=== PATIENT | male | born 1960 | race African-American/Black ===

== ENCOUNTER 2016-04-13 16:22 | Observation (INO) | payer MEDICAID ==
[~2016-04-13] VITALS: Ht 180.3 cm; Wt 80.0 kg
[2016-04-13] VITALS (8 sets, daily range): BP systolic 123–184; BP diastolic 76–117; PULSE 56–86; RESP 16–20; TEMP 97.4–98; O2SAT 95–100
[~2016-04-13 16:22] MED LIST: CARV12.5 PO; CLON.2 PO; HYDRA50 PO; INTE200T2 PO; NIFE1TAB86 PO; NORC7.5T PO; PERI8.6T PO; RALT400 PO; [UNRECOGNIZED DRUG - CODE]
[2016-04-13] MEDS ORDERED: CARV12.52 PO (16:41)
[2016-04-13] MEDS ORDERED: NIFE20 PO (16:41)
[2016-04-13] MEDS ORDERED: RALT400 PO (16:41)
[2016-04-13] MEDS ORDERED: CLON0.2T PO (16:41)
[2016-04-13] MEDS ORDERED: INTE200T PO (16:41)
[2016-04-13] MEDS ORDERED: SODIUM CHLOR 0.9% 1000 ML INJ 1,000 ML IV SCH ×2 (17:09→20:00)
[2016-04-13] MEDS ORDERED: TETANUS/DIPHTHERIA TOXOID ADULT 0.5 ML VIAL IM ONE (17:15)
[2016-04-13] MEDS ORDERED: SODIUM CHLORIDE 0.9% FLUSH 5 ML FLUSH IVF PRN (17:15)
[2016-04-13 17:52] LABS: HEMATOCRIT 23.7 % (39.0-51.0); MEAN CELL VOLUME 85.5 FL (80.0-100.0); MEAN CORPUSCULAR HEMOGLOBIN 30.5 PG (27.0-34.0); MEAN CORPUSCULAR HGB CONC 35.7 % (32.0-36.0); PLATELET COUNT 191 TH/MM3 (150-450); RED BLOOD COUNT 2.78 MIL/MM3 (4.50-5.90); RED CELL DISTRIBUTION WIDTH 17.2 % (11.6-17.2); WHITE BLOOD COUNT 4.6 TH/MM3 (4.0-11.0)
[2016-04-13 17:56] LABS: HEMO FLAGS AUTO DIFF
[2016-04-13 18:03] LABS: APTT (PATIENT) 29.2 SEC (24.3-30.1)
--- NOTE | 2016-04-13 18:07 | RADRPT ---
EXAM DATE/TIME: 04/13/2016 17:50 [facility] COMPARISON: No previous studies available for comparison. INDICATIONS : Fall, laceration to top of head. RADIATION DOSE: 56.35 CTDIvol (mGy) MEDICAL HISTORY : Hypertension. Cardiovascular disease HIV SURGICAL HISTORY : None. ENCOUNTER: Initial ACUITY: 1 day PAIN SCALE: 5/10 LOCATION: cranial TECHNIQUE: Multiple contiguous axial images were obtained of the head. Using automated exposure control and adj ustment of the mA and/or kV according to patient size, radiation dose was kept as low as reasonably a chievable to obtain optimal diagnostic quality images. FINDINGS: CEREBRUM: The ventricles are normal for age. No evidence of midline shift, mass lesion, hemorrhage or acute in farction. No extra-axial fluid collections are seen. POSTERIOR FOSSA: The cerebellum and brainstem are intact. The 4th ventricle is midline. The cerebellopontine angle i s unremarkable. EXTRACRANIAL: The visualized portion of the orbits is intact. SKULL: The calvaria is intact. No evidence of skull fracture. The left frontal sinus is abnormal with what looks like an expanding mucocele. CONCLUSION: Abnormal left frontal sinus as described above. Negative for acute traumatic injury. Fernando Delong MD FACR on April 13, 2016 at 18:04 Board Certified Radiologist. This report was verified electronically.
--- NOTE | 2016-04-13 18:15 | RADRPT ---
EXAM DATE/TIME: 04/13/2016 17:50 [facility] COMPARISON: No previous studies available for comparison. INDICATIONS : Fell, neck pain. RADIATION DOSE: 26.59 CTDIvol (mGy) MEDICAL HISTORY : Hypertension. Cardiovascular disease HIV SURGICAL HISTORY : None. ENCOUNTER: Initial ACUITY: 1 day PAIN SCALE: 5/10 LOCATION: neck TECHNIQUE: Volumetric scanning of the cervical spine was performed. Multiplanar reconstructions in the sagittal, coronal and oblique axial planes were performed. Using automated exposure control and adjustment o f the mA and/or kV according to patient size, radiation dose was kept as low as reasonably achievable to obtain optimal diagnostic quality images. FINDINGS: There are degenerative changes of the cervical spine with near complete anklyosis of C4 on C5 and C5 on C6. There are mild degenerative changes at C1 and C2. C2-C3: The bony spinal canal is normal in size. No evidence of disc bulge or herniation. The neural forami na are bilaterally patent. C3-C4: Mild uncinate ridging is present with minimal bilateral neural foraminal encroachment. C4-C5: Mild uncinate ridging is present. The neural foramen are adequate. C5-C6: Mild uncinate ridging is present. The neural foramen are adequate. There is no spinal stenosis. C6-C7: Mild uncinate ridging is present. There is no spinal stenosis or neural foraminal encroachment. C7-T1: The bony spinal canal is normal in size. No evidence of disc bulge or herniation. The neural forami na are bilaterally patent. CONCLUSION: Degenerative changes as described above. The most significant finding is the anklyosis of C4-C5 and f or the most part C5-C6. There is no evidence for fracture. Fernando Delong MD FACR on April 13, 2016 at 18:07 Board Certified Radiologist. This report was verified electronically.
[2016-04-13 18:21] LABS: BANDS 1 % (0-6); NEUTROPHIL # MANUAL DIFF 1.6 TH/MM3 (1.8-7.7); OVALOCYTES 2+ (NORMAL); POLYS (SEG NEUTROPHILS) 33 % (16-70); WBC DIFF SAMPLE 100
[2016-04-13 18:22] LABS: PLATELET ESTIMATE SMEAR NORMAL (NORMAL); PLATELET MORPHOLOGY NORMAL (NORMAL); SCAN/DIFF FINAL DIFF MANUAL
[2016-04-13 18:26] LABS: ALT (GPT) 22 U/L (12-78); ANION GAP 9 MEQ/L (5-15); AST (GOT) 18 U/L (15-37); BICARBONATE 18.7 MEQ/L (21.0-32.0); BLOOD UREA NITROGEN 34 MG/DL (7-18); CHLORIDE 106 MEQ/L (98-107); GLOMERULAR FILTRATION RATE 21 ML/MIN (>89); POTASSIUM 3.7 MEQ/L (3.5-5.1); SODIUM (NA) 134 MEQ/L (136-145)
[2016-04-13 18:27] LABS: ALKALINE PHOSPHATASE 27 U/L (45-117); TOTAL BILIRUBIN ADULT 0.2 MG/DL (0.2-1.0)
--- NOTE | 2016-04-13 19:14 | PD ---
HPI Chief Complaint: Fall Time Seen by Provider: 16:59 Travel History International Travel<30 days: No Contact w/Intl Traveler<30days: No Traveled to known affect area: No History of Present Illness HPI 55-year-old male brought in by ambulance for evaluation of alcohol intoxication and head injury. The patient reports that his girlfriend yesterday and he is very upset and has been drinking alcohol throughout the day today. No drugs. He does not remember falling. He is complaining of pain on the top of his head where the laceration is. Date of last tetanus is unknown. No neck or back pain. No pain in any other joint or extremity. No chest pain or dyspnea. No paresthesias or motor deficits. He denies suicidal or homicidal ideation. PFSH Past Medical History Anemia: Yes Autoimmune Disease: Yes (HIV) Anxiety: No Depression: No Cancer: No Cardiovascular Problems: Yes (HTN) High Cholesterol: Yes Chemotherapy: No Chest Pain: No Congestive Heart Failure: No Diabetes: No Diminished Hearing: No Genitourinary: Yes Hepatitis: Yes (C) Hypertension: Yes Immune Disorder: Yes (HIV ) Musculoskeletal: Yes Neurologic: Yes Psychiatric: No Respiratory: No Immunizations Current: Yes Myocardial Infarction: Yes ( small heart attack) Radiation Therapy: No Past Surgical History Pacemaker: No Other Surgery: No Social History Alcohol Use: Yes (occ) Tobacco Use: Yes (5 CIG PER DAY ) Substance Use: Yes (MARIJUANA) Allergies-Medications (Allergen,Severity, Reaction): Coded Allergies: *MDRO Multi-Drug Resistant Organism (Verified Adverse Reaction, Unknown, ) 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 MRSA PCR Screens NEGATIVE - 09/12 & 09/17/2015 CLEARED BY INFECTION CONTROL Reported Meds & Prescriptions Reported Meds & Active Scripts Active Reported Nifedipine 20 Mg Cap 20 Mg PO Q12HR Isentress (Raltegravir) 400 Mg Tab 400 Mg PO BID Intelence (Etravirine) 200 Mg Tab 200 Mg PO BID Clonidine (Clonidine HCl) 0.2 Mg Tab 0.2 Mg PO BID Carvedilol 12.5 Mg Tab 12.5 Mg PO BID Intelence (Etravirine) 200 Mg Tab 200 Mg PO Q12HR Review of Systems Except as stated in HPI: all other systems reviewed are Neg Physical Exam Narrative GENERAL: Well-developed, well-nourished, awake, tearful, appears intoxicated, no acute distress. SKIN: Warm and dry. V-shaped laceration on superior scalp, moderate depth, no active bleeding, moderate size, no visible contamination, galea intact. HEAD: Skin exam as above. Normocephalic. EYES: Pupils equal, round, 3 mm, reactive to light. No scleral icterus. No injection or drainage. ENT: No nasal bleeding or discharge. Mucous membranes pink and moist. NECK: Trachea midline. No JVD. No midline cervical spinous step-off or tenderness. CARDIOVASCULAR: Regular rate and rhythm. RESPIRATORY: No accessory muscle use. Clear to auscultation. Breath sounds equal bilaterally. GASTROINTESTINAL: Abdomen soft, non-tender, nondistended. MUSCULOSKELETAL: No obvious deformities. No clubbing. No cyanosis. No edema. NEUROLOGICAL: Awake and alert. No obvious cranial nerve deficits. Motor grossly within normal limits. Normal speech. PSYCHIATRIC: Tearful, appears intoxicated. Data Data Last Documented VS Vital Signs Date Time Temp Pulse Resp B/P Pulse Ox O2 Delivery O2 Flow Rate FiO2 04/13/16 18:24 77 19 176/117 100 Room Air Orders Complete Blood Count With Diff (04/13/16 17:09) Comprehensive Metabolic Panel (04/13/16 17:09) Prothrombin Time / Inr (Pt) (04/13/16 17:09) Act Partial Throm Time (Ptt) (04/13/16 17:09) Iv Access Insert/Monitor (04/13/16 17:09) Ecg Monitoring (04/13/16 17:09) Oximetry (04/13/16 17:09) Sodium Chlor 0.9% 1000 Ml Inj (Ns 1000 M (04/13/16 17:09) Sodium Chloride 0.9% Flush (Ns Flush) (04/13/16 17:15) Tetanus/Diphtheria Tox Adult (Tetanus/Di (04/13/16 17:15) Ct Brain W/O Iv Contrast(Rout) (04/13/16 ) Ct Cerv Spine W/O Contrast (04/13/16 ) Alcohol (Ethanol) (04/13/16 17:09) Sodium Chlor 0.9% 1000 Ml Inj (Ns 1000 M (04/13/16 19:15) Labs Laboratory Tests Test 04/13/16 17:20 White Blood Count 4.6 TH/MM3 Red Blood Count 2.78 MIL/MM3 Hemoglobin 8.5 GM/DL Hematocrit 23.7 % Mean Corpuscular Volume 85.5 FL Mean Corpuscular Hemoglobin 30.5 PG Mean Corpuscular Hemoglobin 35.7 % Concent Red Cell Distribution Width 17.2 % Platelet Count 191 TH/MM3 Mean Platelet Volume 7.5 FL Neutrophils (%) (Auto) % Lymphocytes (%) (Auto) % Monocytes (%) (Auto) % Eosinophils (%) (Auto) % Basophils (%) (Auto) % Neutrophils # (Auto) TH/MM3 Lymphocytes # (Auto) TH/MM3 Monocytes # (Auto) TH/MM3 Eosinophils # (Auto) TH/MM3 Basophils # (Auto) TH/MM3 CBC Comment AUTO DIFF Differential Total Cells 100 Counted Neutrophils % (Manual) 33 % Band Neutrophils % 1 % Lymphocytes % 59 % Monocytes % 7 % Neutrophils # (Manual) 1.6 TH/MM3 Differential Comment FINAL DIFF MANUAL Platelet Estimate NORMAL Platelet Morphology Comment NORMAL Ovalocytes 2+ Prothrombin Time 11.0 SEC Prothromb Time International 1.0 RATIO Ratio Activated Partial 29.2 SEC Thromboplast Time Sodium Level 134 MEQ/L Potassium Level 3.7 MEQ/L Chloride Level 106 MEQ/L Carbon Dioxide Level 18.7 MEQ/L Anion Gap 9 MEQ/L Blood Urea Nitrogen 34 MG/DL Creatinine 3.63 MG/DL Estimat Glomerular Filtration 21 ML/MIN Rate Random Glucose 105 MG/DL Calcium Level 7.6 MG/DL Total Bilirubin 0.2 MG/DL Aspartate Amino Transf 18 U/L (AST/SGOT) Alanine Aminotransferase 22 U/L (ALT/SGPT) Alkaline Phosphatase 27 U/L Total Protein 7.2 GM/DL Albumin 3.0 GM/DL Ethyl Alcohol Level 295 MG/DL [facility] Medical Decision Making Medical Screen Exam Complete: Yes Emergency Medical Condition: Yes Differential Diagnosis Alcohol intoxication, intracranial trauma, cervical spine injury, depression Narrative Course Vital signs show heart rate 86, blood pressure 184/111, pulse ox 100% on room air. CBC is remarkable for WBC 4.6, hemoglobin 8.5, hematocrit 23.7, platelets 191 BMP is remarkable for bicarbonate 18.7, BUN 34, creatinine 3.6, GFR 21 which is slightly worse than his baseline creatinine of around 2.5 and GFR of around 35. Alcohol level is 295. Urine drug screen is positive for cannabinoids. CT head: CONCLUSION: Abnormal left frontal sinus with apparent expanding mucocele. Negative for acute traumatic injury. CT cervical spine: CONCLUSION: Degenerative changes as described above. The most significant finding is the anklyosis of C4-C5 and for the most part C5-C6. There is no evidence for fracture. Patient was made aware of all findings. Again he is not suicidal. Given acute on chronic kidney injury, he'll be admitted for overnight observation. He does not wish to speak to a psychiatrist at this time. Laceration repaired by my PA. See her note for further details. Case discussed with hospitalist Dr. Bills who will admit the patient to her service. Diagnosis Primary Impression: Alcohol intoxication Qualified Code: F10.120 - Alcohol intoxication, uncomplicated Additional Impressions: Acute on chronic renal insufficiency Grief reaction Scalp laceration Qualified Code: S01.01XA - Scalp laceration, initial encounter Admitting Information Admitting Physician Requests: Observation Onofre Dalton MD Apr 13, 2016 19:14
[2016-04-13] MEDS ORDERED: SODIUM CHLOR 0.9% 1000 ML INJ 1,000 ML IV ONE (19:15)
[2016-04-13] MEDS ORDERED: ACETAMINOPHEN 325 MG TAB PO PRN (19:30)
[2016-04-13] MEDS ORDERED: SODIUM CHLORIDE 0.9% FLUSH 5 ML FLUSH FLUSH PRN (19:30)
[2016-04-13] MEDS ORDERED: ONDANSETRON HCL 4 MG/2 ML VIAL IVP PRN (19:30)
[2016-04-13] MEDS ORDERED: BISACODYL 10 MG SUPP PR PRN (19:30)
[2016-04-13] MEDS ORDERED: LORazepam 2 MG/ML VIAL IV PUSH PRN (19:30)
--- NOTE | 2016-04-13 19:32 | HHI.HP ---
[facility] Service [facility] ([place], [place])ists Primary Care Physician Herb Vang MD Admission Diagnosis alcohol intoxication, scalp laceration, grief reaction Diagnoses: (1) Fall Diagnosis: Principal (2) Alcohol intoxication Diagnosis: Principal (3) Scalp laceration Diagnosis: Principal (4) HTN (hypertension) Diagnosis: Principal (5) Grief reaction Diagnosis: Principal (6) HIV (human immunodeficiency virus infection) Diagnosis: Principal (7) CKD (chronic kidney disease) stage 3, GFR 30-59 ml/min Diagnosis: Principal Travel History International Travel<30 Days: No Contact w/Intl Traveler <30 Da: No Traveled to Known Affected Are: No History of Present Illness This is a 55-year-old male with a PMH of HTN, HIV (on HAART), Hepatitis C and CKD Stage III who was brought to the ER by EMS after fall w/ scalp laceration while intoxicated. Pt w/ no h/o Alcohol Abuse, states his girlfriend yesterday and he's been drinking ever since. Fell onto concrete and sustained head laceration, no LOC. On arrival, BP 184/111, HR 86, O2 sat 100% on RA, Afebrile. Creatinine 3.63, previously 2.5 on 09/29/15. CBC at baseline. Alcohol 295. CT Head/C-Spine w/ no acute findings. Review of Systems Other ROS: 14 point review of systems otherwise negative. 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 No h/o DM or CAD Social History PAST SOCIAL HISTORY: Occasional alcohol. Smokes 5 cigarettes/day. Positive for Marijuana. Physical Exam Vital Signs Vital Signs Date Time Temp Pulse Resp B/P Pulse Ox O2 Delivery O2 Flow Rate FiO2 04/13/16 18:24 77 19 176/117 100 Room Air 04/13/16 17:30 86 16 184/111 100 Room Air Physical Exam PE: GENERAL: Very pleasant middle-aged black male in no acute distress however tearful. +intoxicated. HEENT: PERRLA, EOMI. No scleral icterus or conjunctival pallor. No lid lag or facial droop. Scalp laceration s/p repair CARDIOVASCULAR: Regular rate and rhythm. No obvious murmurs to auscultation. No chest tenderness to palpation. RESPIRATORY: No obvious rhonchi or wheezing. Clear to auscultation. Breath sounds equal bilaterally. GASTROINTESTINAL: Abdomen soft, non-tender, nondistended. BS normal. MUSCULOSKELETAL: Extremities without clubbing, cyanosis, or edema. No obvious deformities. NEUROLOGICAL: Awake, alert and oriented x4. No focal neurologic deficits. Moving both upper and lower extremities spontaneously. Laboratory Laboratory Tests Test 04/13/16 17:20 White Blood Count 4.6 Red Blood Count 2.78 Hemoglobin 8.5 Hematocrit 23.7 Mean Corpuscular Volume 85.5 Mean Corpuscular Hemoglobin 30.5 Mean Corpuscular Hemoglobin 35.7 Concent Red Cell Distribution Width 17.2 Platelet Count 191 Mean Platelet Volume 7.5 Neutrophils (%) (Auto) Lymphocytes (%) (Auto) Monocytes (%) (Auto) Eosinophils (%) (Auto) Basophils (%) (Auto) Neutrophils # (Auto) Lymphocytes # (Auto) Monocytes # (Auto) Eosinophils # (Auto) Basophils # (Auto) CBC Comment AUTO DIFF Differential Total Cells 100 Counted Neutrophils % (Manual) 33 Band Neutrophils % 1 Lymphocytes % 59 Monocytes % 7 Neutrophils # (Manual) 1.6 Differential Comment FINAL DIFF MANUAL Platelet Estimate NORMAL Platelet Morphology Comment NORMAL Ovalocytes 2+ Prothrombin Time 11.0 Prothromb Time International 1.0 Ratio Activated Partial 29.2 Thromboplast Time Sodium Level 134 Potassium Level 3.7 Chloride Level 106 Carbon Dioxide Level 18.7 Anion Gap 9 Blood Urea Nitrogen 34 Creatinine 3.63 Estimat Glomerular Filtration 21 Rate Random Glucose 105 Calcium Level 7.6 Total Bilirubin 0.2 Aspartate Amino Transf 18 (AST/SGOT) Alanine Aminotransferase 22 (ALT/SGPT) Alkaline Phosphatase 27 Total Protein 7.2 Albumin 3.0 Ethyl Alcohol Level 295 Result Diagram: 04/13/16 1720 04/13/16 1720 Assessment and Plan Problem List: (1) Fall ICD Code: W19.XXXA Status: Acute (2) Alcohol intoxication ICD Code: F10.129 Status: Acute (3) Scalp laceration ICD Code: S01.01XA Status: Acute (4) Grief reaction ICD Code: F43.20 Status: Acute (5) HTN (hypertension) ICD Code: I10 Status: Acute (6) CKD (chronic kidney disease) stage 3, GFR 30-59 ml/min ICD Code: N18.3 Status: Chronic (7) HIV (human immunodeficiency virus infection) ICD Code: Z21 Status: Chronic Assessment and Plan A/P: 1. Fall: s/p fall while intoxicated, +head trauma, no LOC. CT Head/C-Spine w / no acute findings, images reviewed by me. 2. Scalp Laceration: sustained after fall, s/p repair in ER. No active bleeding. 3. Alcohol Intoxication: No h/o alcohol abuse, acute alcohol intoxication following of his girlfriend yesterday. Alcohol 295. IVF, Ativan prn, Seizure Precautions, MVT/Thiamine/Folate replacement. 4. Grief Reaction: Pt depressed, tearful after of girlfriend yesterday. Would like to speak w/ Psychiatrist, will consult for am. 5. HTN: Uncontrolled. Non-compliant w/ meds since yesterday. BP 180's systolic, resume home medications. Monitor BP. 6. HIV: on HAART, resume home medications. Last CD4 476 on 09/13/15. 7. CKD: Stage III. Acute on Chronic. Creatinine 3.63, previously 2.51 on 03/14. IVF for hydration. Repeat labs in am. 8. DVT Prophylaxis: SCD/Teds. 9. Social work for d/c planning as needed. 10. Case discussed w/ ER physician at length. Problem Qualifiers (1) Alcohol intoxication: Qualified Code: F10.120 - Alcohol intoxication, uncomplicated (2) Scalp laceration: Qualified Code: S01.01XA - Scalp laceration, initial encounter Bridget Bills MD Apr 13, 2016 19:32
--- NOTE | 2016-04-13 19:55 | PD ---
Physical Exam Time Seen by Provider: 19:53 Data Data Last Documented VS Vital Signs Date Time Temp Pulse Resp B/P Pulse Ox O2 Delivery O2 Flow Rate FiO2 04/13/16 18:24 77 19 176/117 100 Room Air Orders Complete Blood Count With Diff (04/13/16 17:09) Comprehensive Metabolic Panel (04/13/16 17:09) Prothrombin Time / Inr (Pt) (04/13/16 17:09) Act Partial Throm Time (Ptt) (04/13/16 17:09) Iv Access Insert/Monitor (04/13/16 17:09) Ecg Monitoring (04/13/16 17:09) Oximetry (04/13/16 17:09) Sodium Chlor 0.9% 1000 Ml Inj (Ns 1000 M (04/13/16 17:09) Sodium Chloride 0.9% Flush (Ns Flush) (04/13/16 17:15) Tetanus/Diphtheria Tox Adult (Tetanus/Di (04/13/16 17:15) Ct Brain W/O Iv Contrast(Rout) (04/13/16 ) Ct Cerv Spine W/O Contrast (04/13/16 ) Alcohol (Ethanol) (04/13/16 17:09) Sodium Chlor 0.9% 1000 Ml Inj (Ns 1000 M (04/13/16 19:15) Admit Order (Ed Use Only) (04/13/16 19:20) Labs Laboratory Tests Test 04/13/16 17:20 White Blood Count 4.6 TH/MM3 Red Blood Count 2.78 MIL/MM3 Hemoglobin 8.5 GM/DL Hematocrit 23.7 % Mean Corpuscular Volume 85.5 FL Mean Corpuscular Hemoglobin 30.5 PG Mean Corpuscular Hemoglobin 35.7 % Concent Red Cell Distribution Width 17.2 % Platelet Count 191 TH/MM3 Mean Platelet Volume 7.5 FL Neutrophils (%) (Auto) % Lymphocytes (%) (Auto) % Monocytes (%) (Auto) % Eosinophils (%) (Auto) % Basophils (%) (Auto) % Neutrophils # (Auto) TH/MM3 Lymphocytes # (Auto) TH/MM3 Monocytes # (Auto) TH/MM3 Eosinophils # (Auto) TH/MM3 Basophils # (Auto) TH/MM3 CBC Comment AUTO DIFF Differential Total Cells 100 Counted Neutrophils % (Manual) 33 % Band Neutrophils % 1 % Lymphocytes % 59 % Monocytes % 7 % Neutrophils # (Manual) 1.6 TH/MM3 Differential Comment FINAL DIFF MANUAL Platelet Estimate NORMAL Platelet Morphology Comment NORMAL Ovalocytes 2+ Prothrombin Time 11.0 SEC Prothromb Time International 1.0 RATIO Ratio Activated Partial 29.2 SEC Thromboplast Time Sodium Level 134 MEQ/L Potassium Level 3.7 MEQ/L Chloride Level 106 MEQ/L Carbon Dioxide Level 18.7 MEQ/L Anion Gap 9 MEQ/L Blood Urea Nitrogen 34 MG/DL Creatinine 3.63 MG/DL Estimat Glomerular Filtration 21 ML/MIN Rate Random Glucose 105 MG/DL Calcium Level 7.6 MG/DL Total Bilirubin 0.2 MG/DL Aspartate Amino Transf 18 U/L (AST/SGOT) Alanine Aminotransferase 22 U/L (ALT/SGPT) Alkaline Phosphatase 27 U/L Total Protein 7.2 GM/DL Albumin 3.0 GM/DL Ethyl Alcohol Level 295 MG/DL MDM Medical Record Reviewed: Yes Supervised Visit with CRYSTAL: No Procedures Procedure Narrative LACERATION LOCATION: Left frontoparietal scalp LENGTH: 7 cm V-shaped NUMBER OF STITCHES/NIMCO: 6 nimco REPAIR: The area of the laceration was prepped with Betadine and sterilely draped. The laceration was infiltrated with 1% lidocaine without epinephrine. The wound was copiously irrigated and explored without evidence of foreign body , tendon injury or neurovascular injury. The wound was closed using nimco. This was a single layer repair. A sterile dressing was applied. The patient was advised to keep the dressing clean and dry. Patient tolerated the procedure well. Diagnosis Primary Impression: Alcohol intoxication Qualified Code: F10.120 - Alcohol intoxication, uncomplicated Additional Impressions: Grief reaction Scalp laceration Qualified Code: S01.01XA - Scalp laceration, initial encounter Acute on chronic renal insufficiency Admitting Information Admitting Physician Requests: Observation Condition: Stable NeftalyBrii HAGEN Apr 13, 2016 19:55
[2016-04-13] MEDS: cloNIDine HCL 0.2 MG TAB PO SCH (20:31)
[2016-04-13] MEDS: CARVEDILOL 12.5 MG TAB PO SCH (20:31)
[2016-04-13] MEDS: THIAMINE INJ 100 MG in SODIUM CHLORIDE 0.9% INJ 100 ML IV SCH (20:55)
[2016-04-13] MEDS ORDERED: NIFEdipine 20 MG CAP PO SCH (21:00)
[2016-04-13] MEDS: NIFEdipine 20 MG CAP PO SCH (21:04)
[2016-04-13] MEDS: ETRAVIRINE 100 MG TAB PO SCH (23:07)
[2016-04-13] MEDS: MULTIVITAMIN INJ 10 ML, FOLIC ACID INJ 1 MG in SODIUM CHLORID 0.9% 500 ML INJ 500 ML IV SCH (23:07)
[2016-04-13] MEDS: SODIUM CHLORIDE 0.9% FLUSH 5 ML FLUSH FLUSH SCH (23:08)
[2016-04-13] MEDS: RALTEGRAVIR 400 MG TAB PO SCH (23:08)
[2016-04-14 04:09] VITALS: BP 160/81; PULSE 63; RESP 20; TEMP 97.9; O2SAT 98
[2016-04-14 06:20] LABS: AUTOMATED NEUTROPHIL # 2.2 TH/MM3 (1.8-7.7); BASOPHIL % 0.6 % (0.0-2.0); EOSINOPHIL % 0.7 % (0.0-4.0); HEMATOCRIT 22.6 % (39.0-51.0); HEMO FLAGS DIFF FINAL; LYMPH % 36.5 % (9.0-44.0); LYMPHOCYTE # 1.6 TH/MM3 (1.0-4.8); MEAN CELL VOLUME 85.5 FL (80.0-100.0); MEAN CORPUSCULAR HEMOGLOBIN 29.1 PG (27.0-34.0); MONO % 10.6 % (0.0-8.0); NEUT % 51.6 % (16.0-70.0); PLATELET COUNT 173 TH/MM3 (150-450); RED BLOOD COUNT 2.65 MIL/MM3 (4.50-5.90); RED CELL DISTRIBUTION WIDTH 17.4 % (11.6-17.2); WHITE BLOOD COUNT 4.3 TH/MM3 (4.0-11.0)
[2016-04-14 06:52] LABS: BICARBONATE 18.4 MEQ/L (21.0-32.0); CALCIUM-PROTEIN CORRECTED 7.9 MG/DL (8.5-10.1); POTASSIUM 4.8 MEQ/L (3.5-5.1); TOTAL BILIRUBIN ADULT 0.2 MG/DL (0.2-1.0)
[2016-04-14 08:22] VITALS: BP 143/82; PULSE 67; RESP 18; TEMP 98; O2SAT 98
[2016-04-14] MEDS: SODIUM CHLORIDE 0.9% FLUSH 5 ML FLUSH FLUSH SCH ×2 (08:25→19:40)
[2016-04-14] MEDS: RALTEGRAVIR 400 MG TAB PO SCH ×2 (08:36→19:41)
[2016-04-14] MEDS: NIFEdipine 20 MG CAP PO SCH ×2 (08:36→19:41)
[2016-04-14] MEDS: SODIUM CHLOR 0.45% 1000 ML INJ 1,000 ML IV SCH ×2 (08:36→18:13)
[2016-04-14] MEDS: ETRAVIRINE 100 MG TAB PO SCH ×2 (08:37→18:13)
[2016-04-14] MEDS: CARVEDILOL 12.5 MG TAB PO SCH ×2 (08:37→19:41)
[2016-04-14] MEDS: cloNIDine HCL 0.2 MG TAB PO SCH ×2 (08:37→19:41)
--- NOTE | 2016-04-14 09:17 | HHI.PR ---
Subjective Remarks Follow-up for fall and dehydration. The patient's having some headache around where the nimco were placed. He has no other complaints at this time. He denies any nausea, vomiting, diarrhea. Objective Vitals Vital Signs Date Time Temp Pulse Resp B/P Pulse Ox O2 Delivery O2 Flow Rate FiO2 04/14/16 08:22 98.0 67 18 143/82 98 04/14/16 04:09 97.9 63 20 160/81 98 04/13/16 23:57 97.4 56 20 123/76 95 04/13/16 22:27 98.0 73 20 133/84 95 04/13/16 21:22 66 19 138/84 100 04/13/16 21:09 80 18 155/94 100 Room Air 04/13/16 20:43 75 16 160/98 99 Room Air 04/13/16 20:34 85 19 181/89 99 Room Air 04/13/16 18:24 77 19 176/117 100 Room Air 04/13/16 17:30 86 16 184/111 100 Room Air I/O 04/13/16 04/13/16 04/13/16 04/14/16 04/14/16 04/14/16 07:00 15:00 23:00 07:00 15:00 23:00 Output Total 500 ml 1650 ml Balance -500 ml -1650 ml Output Urine Total 500 ml 1650 ml Result Diagram: 04/14/16 0529 04/14/16 0529 Imaging Last Impressions Head CT 04/13/16 0000 Signed Impressions: Service Date/Time: Wednesday, April 13, 2016 17:50 - CONCLUSION: Abnormal left frontal sinus as described above. Negative for acute traumatic injury. Fernando Delong MD FACR Cervical Spine CT 04/13/16 0000 Signed Impressions: Service Date/Time: Wednesday, April 13, 2016 17:50 - CONCLUSION: Degenerative changes as described above. The most significant finding is the anklyosis of C4-C5 and for the most part C5-C6. There is no evidence for fracture. Fernando Delong MD FACR Objective Remarks GENERAL: Well-developed well-nourished. In no acute distress. SKIN: Warm and dry. [place] in place on superior scalp. HEENT: Normocephalic. Pupils equal and round. Mucous membranes pink and moist. CARDIOVASCULAR: Regular rate and rhythm. No murmur appreciated. RESPIRATORY: No accessory muscle use. Clear to auscultation. Breath sounds equal bilaterally. GASTROINTESTINAL: Abdomen soft, non-tender, nondistended. Bowel sounds x4. MUSCULOSKELETAL: No obvious deformities. No clubbing or cyanosis. No edema. NEUROLOGICAL: Awake and alert. No focal neurological deficits. Moves upper and lower extremities spontaneously. Normal speech. PSYCHIATRIC: Appropriate mood and affect; insight and judgment normal. A/P Problem List: (1) Fall ICD Code: W19.XXXA Status: Acute (2) Alcohol intoxication ICD Code: F10.129 Status: Resolved (3) Scalp laceration ICD Code: S01.01XA Status: Acute (4) Grief reaction ICD Code: F43.20 Status: Acute (5) HTN (hypertension) ICD Code: I10 Status: Chronic (6) CKD (chronic kidney disease) stage 3, GFR 30-59 ml/min ICD Code: N18.3 Status: Acute (7) HIV (human immunodeficiency virus infection) ICD Code: Z21 Status: Chronic Assessment and Plan 55-year-old male with a PMH of HTN, HIV (on HAART), Hepatitis C and CKD Stage III who was brought to the ER by EMS after fall w/ scalp laceration while intoxicated Fall: s/p fall while intoxicated, +head trauma, no LOC. CT Head/C-Spine w/ no acute findings. Pain control with Tylenol and oxycodone as needed. Scalp Laceration: sustained after fall, s/p repair in ED. Advised patient have nimco removed in 5-7 days. Alcohol Intoxication: No h/o alcohol abuse, acute alcohol intoxication following recent of his girlfriend. Alcohol 295 at admission. [place] protocol, MVT/Thiamine/Folate replacement. Grief Reaction: Pt presented depressed, tearful after recent of girlfriend. Psychiatry was consulted. HTN: Chronic, stable. Better controlled since resuming home BP meds. Continue clonidine, nifedipine, carvedilol. Monitor BP. HIV: on HAART, continue home medications. Last CD4 476 on 09/13/15. SHON on CKD: Stage III. Creatinine 3.63, previously 2.51 on 10/09/15. Improving to 3.2 with IVF. Follow-up BMP. Anemia: Normocytic, likely chronic disease. Hemoglobin 8.5/7.7, previously 0.4 on 09/27/15. Metabolic acidosis: Mild. Bicarbonate 18.4. Likely secondary to alcohol. IVF and follow-up BMP. DVT Prophylaxis: SCD/Teds. Discharge Planning Disposition pending further clinical improvement. Hopefully discharge tomorrow a.m. Attending Statement The exam, history, and the medical decision-making described in the above note were completed with the assistance of the mid-level provider. I reviewed and agree with the findings presented. I attest that I had a [id number] encounter with the patient on the same day, and personally performed and documented my assessment and findings in the medical record. Problem Qualifiers (1) Fall: Qualified Code: W19.XXXA - Fall, initial encounter (2) Alcohol intoxication: Qualified Code: F10.120 - Alcohol intoxication, uncomplicated (3) Scalp laceration: Qualified Code: S01.01XA - Scalp laceration, initial encounter (4) HTN (hypertension): Qualified Code: I10 - Essential hypertension Alex Diggs Apr 14, 2016 09:17 Amarjit Payton MD Apr 22, 2016 00:17
[2016-04-14] MEDS ORDERED: LORazepam 2 MG TAB PO PRN (09:30)
[2016-04-14] MEDS ORDERED: FLUMAZENIL 0.5 MG/5 ML VIAL IV PUSH PRN (09:30)
[2016-04-14] MEDS ORDERED: LORazepam 2 MG/ML VIAL IV PUSH PRN ×2 (09:30)
[2016-04-14] MEDS ORDERED: LORazepam 1 MG TAB PO PRN (09:30)
[2016-04-14 11:24] VITALS: BP 101/60; PULSE 63; RESP 19; TEMP 97.9; O2SAT 95
[2016-04-14 15:25] VITALS: BP 146/85; PULSE 64; RESP 17; TEMP 98; O2SAT 94
--- NOTE | 2016-04-14 15:52 | PD.CONS ---
Provisional Diagnosis Admission Date Apr 13, 2016 at 19:22 [place] I. Acute alcohol intoxication [place] II. Deferred [place] III. Hypertension, HIV, kidney failure, anemia [place] IV. Recent of girlfriend [place] V. 50 History of Present Illness Service Psychiatry Consult Requested By ER physician Reason for Consult Evaluate grief Primary Care Physician Herb Vang MD HPI Patient is a 55-year-old black male with no psychiatric history. Patient was seen, ER documentation reviewed, and case discussed with nursing. Patient describes acute alcohol intoxication in the setting of the of his girlfriend of 12 years. Patient says that she did in the hospital, this [facility], yesterday morning of medical complications secondary to alcohol abuse. This information could not be verified. Patient says he got then use and started drinking at home. Said he went through 1.5 pints of whiskey. He then went outside and slipped and brought to the emergency room. Patient says there is no more alcohol at home because he left that outside in the corner. Patient describes this is an isolated incident and denies recent alcohol abuse or dependence. He says he has a history of abuse in his 30s but never joined or had to go through detox. He drinks 2-3 beers a week at this time. ER documentation did not note that any time the patient expressed suicidal ideation. And today patient denies suicidal ideations, plans, or intent. Patient denies depressed mood though he is still upset over the . "I just want to get home and back in my bed." Denies poor sleep, denies poor appetite, denies anhedonia, denies lack of energy. Patient denies manic symptoms. Patient denies auditory or visual hallucinations or delusions. Patient lives with his son and is on SSI for various medical concerns. He continues to be treated for acute on chronic kidney failure, HIV, hypertension, and anemia. He is on the ciwa protocol and has not needed to receive any Ativan. No evidence of alcohol withdrawal such as tremors, confusion, nausea or vomiting. 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 MRSA PCR Screens NEGATIVE - 09/12 & 09/17/2015 CLEARED BY INFECTION CONTROL Past Medical History Hypertension, HIV, kidney failure, anemia Reported Medications Nifedipine 20 Mg Cap20 Mg PO Q12HR #120 CAP Ref 0 04/13/16 Raltegravir (Isentress)400 Mg [id number] Mg PO BID #60 TAB Ref 0 04/13/16 Etravirine (Intelence)200 Mg [id number] Mg PO BID Ref 0 04/13/16 Clonidine 0.2 Mg Tab0.2 Mg PO BID #60 TAB Ref 0 04/13/16 Carvedilol 12.5 Mg Tab12.5 Mg PO BID #60 TAB Ref 0 04/13/16 Etravirine (Intelence)200 Mg [id number] Mg PO Q12HR 04/21/13 Current Medications Medications (Trade) Dose Ordered Sig/Tomi Route Start Time Stop Time Status Last Admin Multivitamins 10 ml/Folic Acid 1 mg/Sodium Chloride 510.2 ml @ 125 mls/hr Q24H IV 04/13/16 20:00 04/18/16 19:59 04/13/16 23:07 (Thiamine Inj/NS Inj) 101 ml @ 100 mls/hr Q24H IV 04/13/16 20:00 04/16/16 19:59 04/13/16 20:55 (Vitamin B1) 100 mg DAILY PO 04/17/16 09:00 (NS Flush) 2 ml UNSCH PRN FLUSH 04/13/16 19:30 (NS Flush) 2 ml BID FLUSH 04/13/16 21:00 04/13/16 23:08 (Zofran Inj) 4 mg Q6H PRN IVP 04/13/16 19:30 (Dulcolax Supp) 10 mg DAILY PRN FL 04/13/16 19:30 (Tylenol) 650 mg Q6H PRN PO 04/13/16 19:30 (Roxicodone) 10 mg Q4H PRN PO 04/13/16 19:30 04/13/16 21:05 (Roxicodone) 5 mg Q4H PRN PO 04/13/16 19:30 (Coreg) 12.5 mg BID PO 04/13/16 21:00 04/14/16 08:37 (Catapres) 0.2 mg BID PO 04/13/16 21:00 04/14/16 08:37 (Isentress) 400 mg BID PO 04/13/16 21:00 04/14/16 08:36 (Intelence) 200 mg BIDPC PO 04/13/16 20:15 04/14/16 08:37 Nifedipine 20 mg 20 mg Q12HR PO 04/13/16 21:00 04/14/16 08:36 (1/2 NS 1000 ml Inj) 1,000 ml @ 100 mls/hr Q10H IV 04/14/16 08:00 04/14/16 08:36 (Romazicon Inj) 0.2 mg Q1M PRN IV PUSH 04/14/16 09:30 (Ativan) 1 mg Q4H PRN PO 04/14/16 09:30 (Ativan) 2 mg Q2H PRN PO 04/14/16 09:30 (Ativan Inj) 2 mg Q1H PRN IV PUSH 04/14/16 09:30 (Ativan Inj) 2 mg Q15M PRN IV PUSH 04/14/16 09:30 Family History Denies Social History Patient is on disability for his medical diagnoses. Patient lives with son. Got through the 11th grade. History of alcohol abuse in his 30s as noted in history of present illness. Denies any other drugs. Patient's Strengths (min. 2) Compliance with medical treatment, good support system from son, good insight, no chronic alcohol Physical Exam Vital Signs Vital Signs Date Time Temp Pulse Resp B/P Pulse Ox O2 Delivery O2 Flow Rate FiO2 04/14/16 15:25 98.0 64 17 146/85 94 04/13/16 21:09 Room Air I/O 04/13/16 04/13/16 04/14/16 08:00 16:00 00:00 Output Total 750 ml Balance -750 ml Mental Status Examination Appearance Disheveled, thin Speech: Unremarkable Orientation: x3, Situation Memory: Unremarkable Thought Process: Logical, Organized Thought Content: Unremarkable Fund of Knowledge Fair Hallucination Type: None Attention and Concentration: Good Suicidal Ideation: No Previous Suicide Attempts: No Homicidal Ideation: No Previous Homicide Attempts: No Insight: Good Judgement: WNL Affect: Good Mood: Appropriate Motor Activity: Normal gait, Abnormal gait-specify (not tested) Assessment & Plan Problem List: (1) Alcohol intoxication ICD Code: F10.129 Assessment & Plan Patient is a 55-year-old male with no psychiatric history no history of psychotropics. He had a fall secondary to acute alcohol intoxication. Although patient is distraught due to the of his longtime girlfriend he is not voicing any symptoms of a depressive disorder or suicidal ideation. Patient can be discharged home once medically cleared. Patient was advised if his mood changes or he develops suicidal ideation to seek emergency services such as 911. Psychoeducation done about alcohol abuse and patient says he is determined to not drink. Discharge Planning See above Request HC Surrog/Guard Advoc?: No Dustin Syed DO Apr 14, 2016 15:52
[2016-04-14] MEDS: MULTIVITAMIN INJ 10 ML, FOLIC ACID INJ 1 MG in SODIUM CHLORID 0.9% 500 ML INJ 500 ML IV SCH (19:42)
[2016-04-14] MEDS: THIAMINE INJ 100 MG in SODIUM CHLORIDE 0.9% INJ 100 ML IV SCH (19:42)
[2016-04-14 20:37] VITALS: BP 145/76; PULSE 64; RESP 20; TEMP 98.1; O2SAT 96
[2016-04-14 23:58] VITALS: BP 120/79; PULSE 60; RESP 20; TEMP 98; O2SAT 93
[2016-04-15] VITALS (7 sets, daily range): BP systolic 108–152; BP diastolic 65–86; PULSE 52–69; RESP 16–20; TEMP 96.9–99.3; O2SAT 95–99
[2016-04-15] MEDS: SODIUM CHLOR 0.45% 1000 ML INJ 1,000 ML IV SCH ×2 (03:54→14:37)
[2016-04-15 07:29] LABS: AUTOMATED NEUTROPHIL # 1.4 TH/MM3 (1.8-7.7); BASOPHIL % 0.8 % (0.0-2.0); EOSINOPHIL # 0.1 TH/MM3 (0-0.4); EOSINOPHIL % 3.3 % (0.0-4.0); LYMPH % 45.9 % (9.0-44.0); LYMPHOCYTE # 1.7 TH/MM3 (1.0-4.8); MEAN CELL VOLUME 85.1 FL (80.0-100.0); MEAN CORPUSCULAR HEMOGLOBIN 29.1 PG (27.0-34.0); MEAN CORPUSCULAR HGB CONC 34.2 % (32.0-36.0); MONO % 11.8 % (0.0-8.0); NEUT % 38.2 % (16.0-70.0); PLATELET COUNT 157 TH/MM3 (150-450); RED BLOOD COUNT 2.46 MIL/MM3 (4.50-5.90); RED CELL DISTRIBUTION WIDTH 17.3 % (11.6-17.2); WHITE BLOOD COUNT 3.7 TH/MM3 (4.0-11.0)
[2016-04-15 07:38] LABS: HEMO FLAGS DIFF FINAL
[2016-04-15 07:41] LABS: HEMATOCRIT 20.9 % (39.0-51.0)
[2016-04-15 07:47] LABS: BICARBONATE 21.8 MEQ/L (21.0-32.0); POTASSIUM 4.5 MEQ/L (3.5-5.1)
[2016-04-15] MEDS ORDERED: ACETAMINOPHEN 325 MG TAB PO PRN (08:00)
[2016-04-15] MEDS ORDERED: diphenhydrAMINE HCL 25 MG CAP PO PRN (08:00)
[2016-04-15] MEDS ORDERED: SODIUM CHLOR 0.9% 250 ML INJ 250 ML IV ONE (08:00)
[2016-04-15 08:05] LABS: CALCIUM-PROTEIN CORRECTED 7.7 MG/DL (8.5-10.1)
[2016-04-15] MEDS ORDERED: CALCIUM CARBONATE 500 MG CHEWABLE TAB CHEW SCH (09:45)
[2016-04-15] MEDS: CARVEDILOL 12.5 MG TAB PO SCH (09:48)
[2016-04-15] MEDS: RALTEGRAVIR 400 MG TAB PO SCH (09:55)
[2016-04-15] MEDS: ETRAVIRINE 100 MG TAB PO SCH (09:55)
[2016-04-15] MEDS: cloNIDine HCL 0.2 MG TAB PO SCH (09:55)
[2016-04-15] MEDS: SODIUM CHLORIDE 0.9% FLUSH 5 ML FLUSH FLUSH SCH (09:57)
[2016-04-15] MEDS: NIFEdipine 20 MG CAP PO SCH (09:57)
--- NOTE | 2016-04-15 11:14 | HHI.PR ---
Subjective Remarks Follow-up for alcohol intoxication and dehydration. The patient feels much better today. Still has a mild headache around the donna. He denies any nausea, vomiting, blurred vision, chest pain, shortness breath, and dark or bloody stools. He plans to abstain from alcohol in the future. Agreeable for blood transfusion. Objective Vitals Vital Signs Date Time Temp Pulse Resp B/P Pulse Ox O2 Delivery O2 Flow Rate FiO2 04/15/16 08:38 99.3 59 18 152/85 98 04/15/16 05:45 97.6 52 20 150/86 97 04/14/16 23:58 98.0 60 20 120/79 93 04/14/16 20:37 98.1 64 20 145/76 96 04/14/16 15:25 98.0 64 17 146/85 94 04/14/16 11:24 97.9 63 19 101/60 95 I/O 04/14/16 04/14/16 04/14/16 04/15/16 04/15/16 04/15/16 07:00 15:00 23:00 07:00 15:00 23:00 Intake Total 690 ml 700 ml Output Total 1650 ml 400 ml 850 ml Balance -1650 ml 290 ml -150 ml Intake Oral 240 ml IV Total 450 ml 700 ml Output Urine Total 1650 ml 400 ml 850 ml # Bowel Movements 0 0 Result Diagram: 04/15/16 0623 04/15/16 0623 Imaging Last Impressions Head CT 04/13/16 0000 Signed Impressions: Service Date/Time: Wednesday, April 13, 2016 17:50 - CONCLUSION: Abnormal left frontal sinus as described above. Negative for acute traumatic injury. Fernando Delong MD FACR Cervical Spine CT 04/13/16 0000 Signed Impressions: Service Date/Time: Wednesday, April 13, 2016 17:50 - CONCLUSION: Degenerative changes as described above. The most significant finding is the anklyosis of C4-C5 and for the most part C5-C6. There is no evidence for fracture. Fernando Delong MD FACR Objective Remarks GENERAL: Well-developed well-nourished. In no acute distress. SKIN: Warm and dry. [place] in place on superior scalp. HEENT: Normocephalic. Pupils equal and round. Mucous membranes pink and moist. CARDIOVASCULAR: Regular rate and rhythm. No murmur appreciated. RESPIRATORY: No accessory muscle use. Clear to auscultation. Breath sounds equal bilaterally. GASTROINTESTINAL: Abdomen soft, non-tender, nondistended. Bowel sounds x4. MUSCULOSKELETAL: No obvious deformities. No clubbing or cyanosis. No edema. NEUROLOGICAL: Awake and alert. No focal neurological deficits. Moves upper and lower extremities spontaneously. Normal speech. PSYCHIATRIC: Appropriate mood and affect; insight and judgment normal. A/P Problem List: (1) Fall ICD Code: W19.XXXA Status: Acute (2) Alcohol intoxication ICD Code: F10.129 Status: Resolved (3) Scalp laceration ICD Code: S01.01XA Status: Acute (4) Grief reaction ICD Code: F43.20 Status: Acute (5) HTN (hypertension) ICD Code: I10 Status: Chronic (6) CKD (chronic kidney disease) stage 3, GFR 30-59 ml/min ICD Code: N18.3 Status: Acute (7) HIV (human immunodeficiency virus infection) ICD Code: Z21 Status: Chronic Assessment and Plan 55-year-old male with a PMH of HTN, HIV (on HAART), Hepatitis C and CKD Stage III who was brought to the ER by EMS after fall w/ scalp laceration while intoxicated Fall: s/p fall while intoxicated, +head trauma, no LOC. CT Head/C-Spine w/ no acute findings. Pain control with Tylenol as needed. Scalp Laceration: sustained after fall, s/p repair in ED. Advised patient have donna removed in 5-7 days. Alcohol Intoxication: No h/o alcohol abuse, acute alcohol intoxication following recent of his girlfriend. Alcohol 295 at admission. CIWA protocol, MVT/Thiamine/Folate replacement. Counseled, plans to abstain from alcohol. Grief Reaction: Pt presented depressed, tearful after recent of girlfriend. Psychiatry was consulted, no specific recs, appreciate input. HTN: Chronic, stable. Better controlled since resuming home BP meds. Continue clonidine, nifedipine, carvedilol. HIV: on HAART, continue home medications. Last CD4 476 on 09/13/15. SHON on CKD: Stage III. Creatinine 3.63, previously 2.51 on 10/09/15. Improving to 2.79 with IVF. Improved. Anemia: Normocytic, likely chronic disease. Hemoglobin 8.5/7.7/7.2, reviewed previous values, likely chronic with dilutional component from IVF as above. However with critically low hematocrit, we'll transfuse 1 unit PRBC. Metabolic acidosis: Mild. Bicarbonate 18.4. Likely secondary to alcohol. Resolved with IVF. Hypocalcemia: Start oral replacement with Tums. DVT Prophylaxis: SCD/Teds. Written by Alex Diggs, acting as scribe for Dr. Payton on 04/15/16 at 11:14. Discharge Planning Discharge patient to home after blood transfusion Condition on discharge: Improved Regular Diet as tolerated Regular activity Rx written: Tums Follow-up with primary care physician Attending Statement The documentation accurately reflects the work performed [id number] by me, Dr. Payton on 04/15/16 at 11:14. Problem Qualifiers (1) Fall: Qualified Code: W19.XXXA - Fall, initial encounter (2) Alcohol intoxication: Qualified Code: F10.120 - Alcohol intoxication, uncomplicated (3) Scalp laceration: Qualified Code: S01.01XA - Scalp laceration, initial encounter (4) HTN (hypertension): Qualified Code: I10 - Essential hypertension Alex Diggs Apr 15, 2016 11:14 Amarjit Payton MD Apr 24, 2016 07:31
[2016-04-15] MEDS ORDERED: CALC500C16 CHEW (13:02)
[2016-04-17] MEDS ORDERED: THIAMINE HCL 100 MG TAB PO SCH (09:00)
== END 2016-04-15 20:03 | disposition home or self-care (01) ==
LOC: NEPA 16:22 → NEDA 19:22 → NEPHCDU 22:16
PROVIDERS: ADMIT Internal Medicine; ATTEND Internal Medicine
DX: S01.01XA Laceration without foreign body of scalp, initial encounter (principal); F10.120 Alcohol abuse with intoxication, uncomplicated; Y90.8 Blood alcohol level of 240 mg/100 ml or more; F43.29 Adjustment disorder with other symptoms; I12.9 Hypertensive chronic kidney disease with stage 1 through stage 4 chronic kidney disease, or unspecified chronic kidney disease; N18.3 Chronic kidney disease, stage 3 (moderate); W19.XXXA Unspecified fall, initial encounter; B19.20 Unspecified viral hepatitis C without hepatic coma; E86.0 Dehydration; Z21 Asymptomatic human immunodeficiency virus [HIV] infection status
CPT/HCPCS: 12002; 36430; 70450; 72125; 80048; 80053; 80320; 84155; 85007; 85025; 85027; 85610; 85730; 86850; 86900; 86901; 86920; 90471; 90714; 96360; 99285; G0378; J3411; J7030; J7040; J7050; P9016

== ENCOUNTER 2016-08-23 16:24 | Inpatient (IN) | payer MEDICAID ==
[~2016-08-23] VITALS: Ht 182.9 cm; Wt 62.1 kg
[~2016-08-23 16:24] MED LIST changes: +CALC500C16 CHEW; -CARV12.5 PO; +CARV12.52 PO; -CLON.2 PO; +CLON0.2T PO; -HYDRA50 PO; +INTE200T PO; -NIFE1TAB86 PO; +NIFE20 PO; -NORC7.5T PO; -PERI8.6T PO; -[UNRECOGNIZED DRUG - CODE]
[2016-08-23 16:28] VITALS: BP 148/98; PULSE 74; RESP 16; TEMP 98.8; O2SAT 98
--- NOTE | 2016-08-23 16:37 | PD ---
HPI . cold symptoms and food not tasting good Chief Complaint: General Weakness Time Seen by Provider: 16:37 Travel History International Travel<30 days: No Contact w/Intl Traveler<30days: No Traveled to known affect area: No History of Present Illness HPI 55 yr old male with history of CKD, hypertension, GERD, HIV here with complaints of cold and flulike symptoms for the past 6 days. Patient says he has been trying to fight these symptoms off by himself at home, for the past few days he has lost taste for food and this is what prompted him to come to the emergency department. He states he is HIV positive and has not been taking his medications for some time. He says that his primary care provider will not give it to him. He does not recall an infectious disease specialist. He tells me that he has also had about 50 pound weight loss in the past 4-5 months. He tells me that he has been coughing up mucus that is thick and white, sometimes yellow. He denies any abdominal pain, nausea, vomiting, chest pain, shortness of breath, fever or chills. I reviewed his past medical records: Last CD4 count in June 2015 was 476. PFSH Past Medical History Anemia: Yes Autoimmune Disease: Yes (HIV) Anxiety: No Depression: No Cancer: No Cardiovascular Problems: Yes (HTN) High Cholesterol: Yes Chemotherapy: No Chest Pain: No Congestive Heart Failure: No Diabetes: No Diminished Hearing: No Genitourinary: Yes Hepatitis: Yes (C) Hypertension: Yes Immune Disorder: Yes (HIV ) Musculoskeletal: Yes Neurologic: Yes Psychiatric: No Respiratory: No Immunizations Current: Yes Myocardial Infarction: Yes ( small heart attack) Radiation Therapy: No Past Surgical History Pacemaker: No Other Surgery: No Social History Alcohol Use: Yes (occ) Tobacco Use: Yes (5 CIG PER DAY ) Substance Use: Yes (MARIJUANA) Allergies-Medications (Allergen,Severity, Reaction): Coded Allergies: *MDRO Multi-Drug Resistant Organism (Verified Adverse Reaction, Unknown, Cleared 09/17/15, 04/14/16) 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 MRSA PCR Screens NEGATIVE - 09/12 & 09/17/2015 CLEARED BY INFECTION CONTROL Reported Meds & Prescriptions Reported Meds & Active Scripts Active Calcium Carbonate (Antacid) 500 Mg Chew 500 Mg CHEW Q12HR Reported Nifedipine 20 Mg Cap 20 Mg PO Q12HR Isentress (Raltegravir) 400 Mg Tab 400 Mg PO BID Intelence (Etravirine) 200 Mg Tab 200 Mg PO BID Clonidine (Clonidine HCl) 0.2 Mg Tab 0.2 Mg PO BID Carvedilol 12.5 Mg Tab 12.5 Mg PO BID Intelence (Etravirine) 200 Mg Tab 200 Mg PO Q12HR Review of Systems General / Constitutional: Positive: Weight Loss, No: Fever Eyes: No: Visual changes HENT: No: Headaches Cardiovascular: No: Chest Pain or Discomfort Respiratory: Positive: Cough, No: Shortness of Breath, Orthopnea, Night Sweats Gastrointestinal: No: Nausea, Vomiting, Abdominal Pain, Hematemesis, Hematochezia Genitourinary: No: Dysuria Musculoskeletal: No: Pain Skin: No Rash Neurologic: No: Weakness Psychiatric: No: Depression Endocrine: No: Polydipsia Hematologic/Lymphatic: No: Easy Bruising Physical Exam Narrative GENERAL: AAO x 3, no acute distress, cachectic appearance SKIN: Warm and dry. No visible rashes or bruising. HEAD: Normocephalic and atraumatic. EYES: No scleral icterus. No injection or drainage. EOM intact, PERRLA ENT: No nasal drainage noted. Mucous membranes pink. Airway patent. NECK: Supple, trachea midline. No JVD. No lymphadenopathy CARDIOVASCULAR: Regular rate and rhythm without murmurs, gallops, or rubs. RESPIRATORY: Rhonchi and slight crackle on the left side with diminished breath sounds GASTROINTESTINAL: Abdomen soft, non-tender, nondistended. Thin EXTREMITIES: No cyanosis or edema. BACK: Nontender without obvious deformity. No CVA tenderness. PSYCH: AAO x 3, normal affect. Data Data Last Documented VS Vital Signs Date Time Temp Pulse Resp B/P Pulse Ox O2 Delivery O2 Flow Rate FiO2 08/23/16 17:00 Room Air 08/23/16 16:28 98.8 74 16 148/98 98 Orders Complete Blood Count With Diff (08/23/16 16:43) Comprehensive Metabolic Panel (08/23/16 16:43) Influenzae A/B Antigen (08/23/16 16:43) Iv Access Insert/Monitor (08/23/16 16:43) Chest, Single Ap (08/23/16 16:43) Admit Order (Ed Use Only) (08/23/16 17:55) Labs Laboratory Tests Test 08/23/16 17:00 White Blood Count 4.2 TH/MM3 Red Blood Count 3.01 MIL/MM3 Hemoglobin 8.6 GM/DL Hematocrit 25.7 % Mean Corpuscular Volume 85.4 FL Mean Corpuscular Hemoglobin 28.6 PG Mean Corpuscular Hemoglobin 33.4 % Concent Red Cell Distribution Width 14.4 % Platelet Count 223 TH/MM3 Mean Platelet Volume 7.4 FL Neutrophils (%) (Auto) 49.3 % Lymphocytes (%) (Auto) 34.8 % Monocytes (%) (Auto) 10.0 % Eosinophils (%) (Auto) 4.7 % Basophils (%) (Auto) 1.2 % Neutrophils # (Auto) 2.1 TH/MM3 Lymphocytes # (Auto) 1.4 TH/MM3 Monocytes # (Auto) 0.4 TH/MM3 Eosinophils # (Auto) 0.2 TH/MM3 Basophils # (Auto) 0.1 TH/MM3 CBC Comment DIFF FINAL Differential Comment Sodium Level 132 MEQ/L Potassium Level 5.1 MEQ/L Chloride Level 103 MEQ/L Carbon Dioxide Level 16.5 MEQ/L Anion Gap 13 MEQ/L Blood Urea Nitrogen 73 MG/DL Creatinine 8.16 MG/DL Estimat Glomerular Filtration 8 ML/MIN Rate Random Glucose 97 MG/DL Calcium Level 7.7 MG/DL Total Bilirubin 0.3 MG/DL Aspartate Amino Transf 14 U/L (AST/SGOT) Alanine Aminotransferase 14 U/L (ALT/SGPT) Alkaline Phosphatase 40 U/L Total Protein 7.0 GM/DL Albumin 2.1 GM/DL [facility] Medical Decision Making Medical Screen Exam Complete: Yes Emergency Medical Condition: Yes Medical Record Reviewed: Yes Differential Diagnosis Pneumonia, HIV wasting, failure to thrive, AIDS, opportunistic infection Narrative Course 55 yr old male with multiple medical issues here with c/o cold/flu like symptoms and not having taste. Labs have been ordered. Patient is cachectic. Labs reveal renal failure. He also has anemia, which is likely multifactorial. He will need to be admitted. Laboratory Tests Test 08/23/16 17:00 White Blood Count 4.2 TH/MM3 Red Blood Count 3.01 MIL/MM3 Hemoglobin 8.6 GM/DL Hematocrit 25.7 % Mean Corpuscular Volume 85.4 FL Mean Corpuscular Hemoglobin 28.6 PG Mean Corpuscular Hemoglobin 33.4 % Concent Red Cell Distribution Width 14.4 % Platelet Count 223 TH/MM3 Mean Platelet Volume 7.4 FL Neutrophils (%) (Auto) 49.3 % Lymphocytes (%) (Auto) 34.8 % Monocytes (%) (Auto) 10.0 % Eosinophils (%) (Auto) 4.7 % Basophils (%) (Auto) 1.2 % Neutrophils # (Auto) 2.1 TH/MM3 Lymphocytes # (Auto) 1.4 TH/MM3 Monocytes # (Auto) 0.4 TH/MM3 Eosinophils # (Auto) 0.2 TH/MM3 Basophils # (Auto) 0.1 TH/MM3 CBC Comment DIFF FINAL Differential Comment Sodium Level 132 MEQ/L Potassium Level 5.1 MEQ/L Chloride Level 103 MEQ/L Carbon Dioxide Level 16.5 MEQ/L Anion Gap 13 MEQ/L Blood Urea Nitrogen 73 MG/DL Creatinine 8.16 MG/DL Estimat Glomerular Filtration 8 ML/MIN Rate Random Glucose 97 MG/DL Calcium Level 7.7 MG/DL Total Bilirubin 0.3 MG/DL Aspartate Amino Transf 14 U/L (AST/SGOT) Alanine Aminotransferase 14 U/L (ALT/SGPT) Alkaline Phosphatase 40 U/L Total Protein 7.0 GM/DL Albumin 2.1 GM/DL 1740: I have requested call for admission I have spoke with the patient and he understands the need for admission and is in agreement. 1755: Discussed with Dr. Mariola Uribe. Patient being admitted under his care. Diagnosis Primary Impression: Renal failure Qualified Code: N17.9 - Acute renal failure superimposed on chronic kidney disease, unspecified CKD stage, unspecified acute renal failure type Additional Impression: Anemia Qualified Code: D64.9 - Anemia, unspecified type Admitting Information Admitting Physician Requests: Admit Condition: Stable Hilaria Peña August 23, 2016 16:37
[2016-08-23 17:15] LABS: AUTOMATED NEUTROPHIL # 2.1 TH/MM3 (1.8-7.7); BASOPHIL # 0.1 TH/MM3 (0-0.2); BASOPHIL % 1.2 % (0.0-2.0); EOSINOPHIL # 0.2 TH/MM3 (0-0.4); EOSINOPHIL % 4.7 % (0.0-4.0); HEMATOCRIT 25.7 % (39.0-51.0); HEMO FLAGS DIFF FINAL; LYMPH % 34.8 % (9.0-44.0); LYMPHOCYTE # 1.4 TH/MM3 (1.0-4.8); MEAN CELL VOLUME 85.4 FL (80.0-100.0); MEAN CORPUSCULAR HEMOGLOBIN 28.6 PG (27.0-34.0); MEAN CORPUSCULAR HGB CONC 33.4 % (32.0-36.0); NEUT % 49.3 % (16.0-70.0); PLATELET COUNT 223 TH/MM3 (150-450); RED BLOOD COUNT 3.01 MIL/MM3 (4.50-5.90); RED CELL DISTRIBUTION WIDTH 14.4 % (11.6-17.2); WHITE BLOOD COUNT 4.2 TH/MM3 (4.0-11.0)
--- NOTE | 2016-08-23 17:15 | RADRPT ---
EXAM DATE/TIME: 08/23/2016 16:52 [facility] COMPARISON: CHEST SINGLE AP, February 14, 2015, 4:07. INDICATIONS : Cough MEDICAL HISTORY : Hypertension. Cardiovascular disease HIV SURGICAL HISTORY : Gastric mass ENCOUNTER: Initial ACUITY: 1 day PAIN SCORE: Non-responsive. LOCATION: Bilateral chest FINDINGS: A single view of the chest demonstrates the lungs to be symmetrically aerated without evidence of mas s, infiltrate or effusion. The cardiomediastinal contours are unremarkable. Osseous structures are intact. CONCLUSION: No acute disease. Fernando Delong MD FACR on August 23, 2016 at 17:13 Board Certified Radiologist. This report was verified electronically.
[2016-08-23 17:32] LABS: ALT (GPT) 14 U/L (12-78); ANION GAP 13 MEQ/L (5-15); AST (GOT) 14 U/L (15-37); BICARBONATE 16.5 MEQ/L (21.0-32.0); BLOOD UREA NITROGEN 73 MG/DL (7-18); CHLORIDE 103 MEQ/L (98-107); GLOMERULAR FILTRATION RATE 8 ML/MIN (>89); POTASSIUM 5.1 MEQ/L (3.5-5.1); SODIUM (NA) 132 MEQ/L (136-145)
[2016-08-23 17:34] LABS: ALKALINE PHOSPHATASE 40 U/L (45-117); TOTAL BILIRUBIN ADULT 0.3 MG/DL (0.2-1.0)
[2016-08-23] MEDS: SODIUM CHLOR 0.9% 1000 ML INJ 1,000 ML IV SCH ×2 (18:11→23:10)
--- NOTE | 2016-08-23 18:13 | HHI.HP ---
[facility] Herb Vang MD Admission Diagnosis Renal failure/Anemia/ Failure to Thrive Diagnoses: Chief Complaint: Generalized Weakness. Travel History International Travel<30 Days: No Contact w/Intl Traveler <30 Da: No Traveled to Known Affected Are: No History of Present Illness This is a pleasant 55 yr old male with history of CKD, hypertension, GERD, HIV here with complaints of cold and flulike symptoms for the past 6 days. Patient says he has been trying to fight these symptoms off by himself at home, for the past few days he has lost taste for food and this is what prompted him to come to the emergency department. He states he is HIV positive and has not been taking his medications for some time. He says that his primary care provider will not give it to him. He does not recall an infectious disease specialist. He tells me that he has also had about 50 pound weight loss in the past 4-5 months. He tells me that he has been coughing up mucus that is thick and white, sometimes yellow. He denies any abdominal pain, nausea, vomiting, chest pain, shortness of breath , fever or chills. 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 Past Surgical History Status post laparotomy and subtotal gastrectomy, pathology report with grade 2 moderately differentiated Reported Medications Reported Meds & Active Scripts Active Calcium Carbonate (Antacid) 500 Mg Chew 500 Mg CHEW Q12HR Reported Nifedipine 20 Mg Cap 20 Mg PO Q12HR Isentress (Raltegravir) 400 Mg Tab 400 Mg PO BID Intelence (Etravirine) 200 Mg Tab 200 Mg PO BID Clonidine (Clonidine HCl) 0.2 Mg Tab 0.2 Mg PO BID Carvedilol 12.5 Mg Tab 12.5 Mg PO BID Intelence (Etravirine) 200 Mg Tab 200 Mg PO Q12HR Allergies: Coded Allergies: *MDRO Multi-Drug Resistant Organism (Verified Adverse Reaction, Unknown, Cleared 09/17/15, 04/14/16) 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 MRSA PCR Screens NEGATIVE - 09/12 & 09/17/2015 CLEARED BY INFECTION CONTROL Active Ordered Medications Current Medications Medications (Trade) Dose Ordered Sig/Tomi Route Start Time Stop Time Status Last Admin (Coreg) 12.5 mg BID PO 08/23/16 21:00 (Procardia) 20 mg Q12HR PO 08/23/16 21:00 (Isentress) 400 mg BID PO 08/23/16 21:00 Etravirine 200 mg 200 mg BID PO 08/23/16 21:00 (NS 1000 ml Inj) 1,000 ml @ 100 mls/hr Q10H IV 08/23/16 18:11 (NS Flush) 2 ml UNSCH PRN IV FLUSH 08/23/16 18:15 (NS Flush) 2 ml BID IV FLUSH 08/23/16 21:00 (Tylenol) 650 mg Q4H PRN PO 08/23/16 18:15 (Zofran Inj) 4 mg Q6H PRN IVP 08/23/16 18:15 (Narcan Inj) 0.4 mg UNSCH PRN IV 08/23/16 18:15 (Danitza-Colace) 1 tab BID PO 08/23/16 21:00 (Milk Of Magnesia Liq) 30 ml Q12H PRN PO 08/23/16 18:15 (Senokot) 17.2 mg Q12H PRN PO 08/23/16 18:15 (Dulcolax Supp) 10 mg DAILY PRN RECTAL 08/23/16 18:15 (Lactulose Liq) 30 ml DAILY PRN PO 08/23/16 18:15 (Mucinex Er) 600 mg BID PO 08/23/16 21:00 Family History Mother with Hypertension Social History Lives in his apartment is Disable due to HIV Occasional alcohol abuse Tobacco dependence 5 cigarettes daily Marijuana abuse Physical Exam Vital Signs Vital Signs Date Time Temp Pulse Resp B/P Pulse Ox O2 Delivery O2 Flow Rate FiO2 08/23/16 17:00 Room Air 08/23/16 16:28 98.8 74 16 148/98 98 Physical Exam GENERAL: AAO x 3, no acute distress, cachectic appearance SKIN: Warm and dry. No visible rashes or bruising. HEAD: Normocephalic and atraumatic. EYES: No scleral icterus. No injection or drainage. EOM intact, PERRLA ENT: No nasal drainage noted. Mucous membranes pink. Airway patent. NECK: Supple, trachea midline. No JVD. No lymphadenopathy CARDIOVASCULAR: Regular rate and rhythm without murmurs, gallops, or rubs. RESPIRATORY: Rhonchi and slight crackle on the left side with diminished breath sounds GASTROINTESTINAL: Abdomen soft, non-tender, nondistended. Thin EXTREMITIES: No cyanosis or edema. BACK: Nontender without obvious deformity. No CVA tenderness. PSYCH: AAO x 3, normal affect. Laboratory Laboratory Tests Test 08/23/16 17:00 White Blood Count 4.2 Red Blood Count 3.01 Hemoglobin 8.6 Hematocrit 25.7 Mean Corpuscular Volume 85.4 Mean Corpuscular Hemoglobin 28.6 Mean Corpuscular Hemoglobin 33.4 Concent Red Cell Distribution Width 14.4 Platelet Count 223 Mean Platelet Volume 7.4 Neutrophils (%) (Auto) 49.3 Lymphocytes (%) (Auto) 34.8 Monocytes (%) (Auto) 10.0 Eosinophils (%) (Auto) 4.7 Basophils (%) (Auto) 1.2 Neutrophils # (Auto) 2.1 Lymphocytes # (Auto) 1.4 Monocytes # (Auto) 0.4 Eosinophils # (Auto) 0.2 Basophils # (Auto) 0.1 CBC Comment DIFF FINAL Differential Comment Sodium Level 132 Potassium Level 5.1 Chloride Level 103 Carbon Dioxide Level 16.5 Anion Gap 13 Blood Urea Nitrogen 73 Creatinine 8.16 Estimat Glomerular Filtration 8 Rate Random Glucose 97 Calcium Level 7.7 Total Bilirubin 0.3 Aspartate Amino Transf 14 (AST/SGOT) Alanine Aminotransferase 14 (ALT/SGPT) Alkaline Phosphatase 40 Total Protein 7.0 Albumin 2.1 Result Diagram: 08/23/16 1700 08/23/16 170 Imaging Last Impressions Chest X-Ray 08/23/16 1643 Signed Impressions: Service Date/Time: Tuesday, August 23, 2016 16:52 - CONCLUSION: No acute disease. Fernando Delong MD FACR Assessment and Plan Assessment and Plan 1. Acute on chronic Renal failure he has normal baseline in 2.8 at this time in 8.16 will give gentle hydration and follow inhouse 2. HIV by history not taking his medicines due to that he has no appointment with the Infectious disease specialist. 3. Severe non compliance. 4. Tobacco dependence/alcohol abuse and substance abuse strongly recommended to stop smoking, drinking alcohol and Marijuana abuse 5. Anemia secondary to chronic disease may need blood transfusion. may need Nephrology specialist consult 6. Hyperlipidemia 7. Hypertension to continue Home medicines. 8. Hepatitis C by history. 9. CHF on Echocardiogram from 2013 his EF was 30-35% severe Hypokinesis. 10. Severe Protein Calorie malnutrition, chronic issue probable related to his basal pathology 11. Status post laparotomy and subtotal gastrectomy, pathology report with grade 2 moderately differentiated DVT prophylaxis with SCDs. complete laboratory Echocardiogram Dietitian Ensure PT trimming caser. IV fluids gentle hydration and following for overload Code Status Full code He wants everything done Discussed Condition With Patient and ER Physician Certification 2 Midnight Certification Type: Admission for Inpatient Services Order for Inpatient Services The services are ordered in accordance with Medicare regulations or non- Medicare payer requirements, as applicable. In the case of services not specified as inpatient-only, they are appropriately provided as inpatient services in accordance with the 2-midnight benchmark. Estimated LOS (days): 3 days is the estimated time the patient will need to remain in the hospital, assuming treatment plan goals are met and no additional complications. Post-Hospital Plan: Not yet determined Ramesh Cheney MD August 23, 2016 18:13
[2016-08-23] MEDS ORDERED: NALOXONE HCL 0.4 MG/ML AMP IV PRN (18:15)
[2016-08-23] MEDS ORDERED: MAGNESIUM HYDROXIDE SUSP 30 ML CUP PO PRN (18:15)
[2016-08-23] MEDS ORDERED: LACTULOSE SYRUP 20 GM/30 ML CUP PO PRN (18:15)
[2016-08-23] MEDS ORDERED: SODIUM CHLORIDE 0.9% FLUSH 10 ML FLUSH IV FLUSH PRN (18:15)
[2016-08-23] MEDS ORDERED: BISACODYL 10 MG SUPP RECTAL PRN (18:15)
[2016-08-23] MEDS ORDERED: SENNOSIDES 8.6 MG TAB PO PRN (18:15)
[2016-08-23 18:48] LABS: FREE T4 1.1 NG/DL (0.76-1.46)
[2016-08-23] MEDS: RESP: ALBUTEROL 2.5 MG/IPRATROPIUM 0.5 MG NEB (SCH) NEB (19:10)
[2016-08-23 19:14] VITALS: O2SAT 99
[2016-08-23 19:15] VITALS: BP 148/88; PULSE 80; RESP 16; TEMP 98.3; O2SAT 98
[2016-08-23 19:56] VITALS: BP 169/97; PULSE 77; RESP 16; TEMP 98.9; O2SAT 98
[2016-08-23] MEDS: SODIUM CHLORIDE 0.9% FLUSH 10 ML FLUSH IV FLUSH SCH (21:00)
[2016-08-23] MEDS: NIFEdipine 20 MG CAP PO SCH (21:04)
[2016-08-23] MEDS: DOCUSATE SODIUM 50 MG/SENNA 8.6 MG TAB PO SCH (21:05)
[2016-08-23] MEDS: ETRAVIRINE 100 MG TAB PO SCH (21:05)
[2016-08-23] MEDS: RALTEGRAVIR 400 MG TAB PO SCH (21:05)
[2016-08-23] MEDS: guaiFENesin E.R. 600 MG TAB PO SCH (21:05)
[2016-08-23] MEDS: CARVEDILOL 12.5 MG TAB PO SCH (21:05)
[2016-08-23 21:08] VITALS: PULSE 62
[2016-08-23 21:46] LABS: AMPHETAMINE, URINE NEG (NEG); BARBITURATES, URINE NEG (NEG); COCAINE, URINE NEG (NEG)
[2016-08-24] VITALS (14 sets, daily range): BP systolic 102–149; BP diastolic 62–90; PULSE 61–78; RESP 16–18; TEMP 97.2–99.2; O2SAT 95–100
[2016-08-24] MEDS: RESP: ALBUTEROL 2.5 MG/IPRATROPIUM 0.5 MG NEB (SCH) NEB ×7 (00:01→23:25)
[2016-08-24 07:37] LABS: AUTOMATED NEUTROPHIL # 2.5 TH/MM3 (1.8-7.7); BASOPHIL % 1.1 % (0.0-2.0); EOSINOPHIL # 0.2 TH/MM3 (0-0.4); EOSINOPHIL % 3.9 % (0.0-4.0); HEMATOCRIT 21.9 % (39.0-51.0); HEMO FLAGS DIFF FINAL; LYMPH % 35.3 % (9.0-44.0); LYMPHOCYTE # 1.6 TH/MM3 (1.0-4.8); MEAN CELL VOLUME 84.7 FL (80.0-100.0); MEAN CORPUSCULAR HEMOGLOBIN 28.9 PG (27.0-34.0); MEAN CORPUSCULAR HGB CONC 34.1 % (32.0-36.0); MONO % 6.3 % (0.0-8.0); NEUT % 53.4 % (16.0-70.0); PLATELET COUNT 181 TH/MM3 (150-450); RED BLOOD COUNT 2.59 MIL/MM3 (4.50-5.90); RED CELL DISTRIBUTION WIDTH 14.8 % (11.6-17.2); WHITE BLOOD COUNT 4.6 TH/MM3 (4.0-11.0)
[2016-08-24 07:50] LABS: INTERNATIONAL NORMALIZED RATIO 1.1 RATIO
[2016-08-24 08:02] LABS: HDL CHOLESTEROL 23.9 MG/DL (40.0-60.0)
[2016-08-24 08:14] LABS: BICARBONATE 15.6 MEQ/L (21.0-32.0); POTASSIUM 5.1 MEQ/L (3.5-5.1)
[2016-08-24 08:37] LABS: CALCIUM-PROTEIN CORRECTED 7.6 MG/DL (8.5-10.1)
[2016-08-24] MEDS: DOCUSATE SODIUM 50 MG/SENNA 8.6 MG TAB PO SCH ×2 (09:06→20:43)
[2016-08-24] MEDS: RALTEGRAVIR 400 MG TAB PO SCH ×2 (09:06→20:42)
[2016-08-24] MEDS: NIFEdipine 20 MG CAP PO SCH ×2 (09:06→20:42)
[2016-08-24] MEDS: CARVEDILOL 12.5 MG TAB PO SCH ×2 (09:06→20:42)
[2016-08-24] MEDS: guaiFENesin E.R. 600 MG TAB PO SCH ×2 (09:06→20:42)
[2016-08-24] MEDS: MEGESTROL ACETATE SUSP 400 MG/10 ML CUP PO SCH (09:06)
[2016-08-24] MEDS: ETRAVIRINE 100 MG TAB PO SCH ×2 (09:06→20:42)
[2016-08-24] MEDS: SODIUM CHLORIDE 0.9% FLUSH 10 ML FLUSH IV FLUSH SCH ×2 (09:07→20:43)
[2016-08-24] MEDS: ONDANSETRON HCL 4 MG/2 ML VIAL IVP PRN (09:14)
--- NOTE | 2016-08-24 10:47 | HHI.PR ---
Subjective Remarks This is a pleasant 55 yr old male with history of CKD, hypertension, GERD, HIV here with complaints of cold and flulike symptoms for the past 6 days. Patient says he has been trying to fight these symptoms off by himself at home, for the past few days he has lost taste for food and this is what prompted him to come to the emergency department. He states he is HIV positive and has not been taking his medications for some time. He says that his primary care provider will not give it to him. He does not recall an infectious disease specialist. He tells me that he has also had about 50 pound weight loss in the past 4-5 months. He tells me that he has been coughing up mucus that is thick and white, sometimes yellow. He denies any abdominal pain, nausea, vomiting, chest pain, shortness of breath , fever or chills. 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 08/24: Stable in his bedroom, has some sputum production, optimized respiratory medicines, discussed with nurse Miss Cruz his Hemoglobin as expected came down to 7.5 and is expected to come lower with IV management for his renal dysfunction, will add Renal Ultrasound and follow his Creatinine is improving to 7.61 from 8.16. No nausea, vomit or diarrhea. Objective Vital Signs Date Time Temp Pulse Resp B/P Pulse Ox O2 Delivery O2 Flow Rate FiO2 08/24/16 08:00 98.1 62 17 149/88 99 08/24/16 07:43 95 08/24/16 03:56 98.7 61 16 121/71 98 08/24/16 00:00 98.6 78 16 110/69 95 08/23/16 21:08 62 08/23/16 19:56 98.9 77 16 169/97 98 08/23/16 19:15 98.3 80 16 148/88 98 Room Air 08/23/16 19:14 99 21 08/23/16 17:00 Room Air 08/23/16 16:28 98.8 74 16 148/98 98 I/O 08/23/16 08/23/16 08/23/16 08/24/1608/24/17 5/28/17 07:00 15:00 23:00 07:00 15:00 23:00 Intake Total 440 ml 852 ml Balance 440 ml 852 ml Intake Oral 240 ml 120 ml IV Total 200 ml 732 ml # Voids 1 Result Diagram: 08/24/16 0712 08/24/16 0712 Imaging Last Impressions Chest X-Ray 08/23/16 1643 Signed Impressions: Service Date/Time: Tuesday, August 23, 2016 16:52 - CONCLUSION: No acute disease. Fernando Delong MD FACR Procedures No procedures performed. Other Results Laboratory Tests Test 08/23/16 08/23/16 08/24/16 17:00 21:30 07:12 Total Bilirubin 0.3 MG/DL Aspartate Amino Transf 14 U/L (AST/SGOT) Alanine Aminotransferase 14 U/L (ALT/SGPT) Alkaline Phosphatase 40 U/L Total Creatine Kinase 107 U/L Troponin I 0.02 NG/ML B-Type Natriuretic Peptide 63 PG/ML Albumin 2.1 GM/DL Free Thyroxine 1.10 NG/DL Thyroid Stimulating Hormone 0.957 uIU/ML 3rd Gen Urine Opiates Screen NEG Urine Barbiturates Screen NEG Urine Amphetamines Screen NEG Urine Benzodiazepines Screen NEG Urine Cocaine Screen NEG Urine Cannabinoids Screen POS White Blood Count 4.6 TH/MM3 Red Blood Count 2.59 MIL/MM3 Hemoglobin 7.5 GM/DL Hematocrit 21.9 % Mean Corpuscular Volume 84.7 FL Mean Corpuscular Hemoglobin 28.9 PG Mean Corpuscular Hemoglobin 34.1 % Concent Red Cell Distribution Width 14.8 % Platelet Count 181 TH/MM3 Mean Platelet Volume 7.4 FL Neutrophils (%) (Auto) 53.4 % Lymphocytes (%) (Auto) 35.3 % Monocytes (%) (Auto) 6.3 % Eosinophils (%) (Auto) 3.9 % Basophils (%) (Auto) 1.1 % Neutrophils # (Auto) 2.5 TH/MM3 Lymphocytes # (Auto) 1.6 TH/MM3 Monocytes # (Auto) 0.3 TH/MM3 Eosinophils # (Auto) 0.2 TH/MM3 Basophils # (Auto) 0.0 TH/MM3 CBC Comment DIFF FINAL Differential Comment Prothrombin Time 12.0 SEC Prothromb Time International 1.1 RATIO Ratio Sodium Level 133 MEQ/L Potassium Level 5.1 MEQ/L Chloride Level 105 MEQ/L Carbon Dioxide Level 15.6 MEQ/L Anion Gap 12 MEQ/L Blood Urea Nitrogen 74 MG/DL Creatinine 7.61 MG/DL Estimat Glomerular Filtration 9 ML/MIN Rate Random Glucose 83 MG/DL Calcium Level 7.3 MG/DL Protein Corrected Calcium 7.6 MG/DL Total Protein 6.5 GM/DL Triglycerides Level 113 MG/DL Cholesterol Level 74 MG/DL LDL Cholesterol 28 MG/DL HDL Cholesterol 23.9 MG/DL Cholesterol/HDL Ratio 3.09 RATIO Objective Remarks GENERAL: No acute distress, cachectic appearance SKIN: Warm and dry. No visible rashes or bruising. HEAD: Normocephalic and atraumatic. EYES: No scleral icterus. No injection or drainage. EOM intact, PERRLA ENT: No nasal drainage noted. Mucous membranes pink. Airway patent. NECK: Supple, trachea midline. No JVD. No lymphadenopathy CARDIOVASCULAR: Regular rate and rhythm without murmurs, gallops, or rubs. RESPIRATORY: Rhonchi and slight crackle on the left side with diminished breath sounds GASTROINTESTINAL: Abdomen soft, non-tender, nondistended. Thin EXTREMITIES: No cyanosis or edema. BACK: Nontender without obvious deformity. No CVA tenderness. PSYCH: AAO x 3, normal affect. Medications and IVs Current Medications Medications (Trade) Dose Ordered Sig/Tomi Route Start Time Stop Time Status Last Admin (Coreg) 12.5 mg BID PO 08/23/16 21:00 08/24/16 09:06 (Procardia) 20 mg Q12HR PO 08/23/16 21:00 08/24/16 09:06 (Isentress) 400 mg BID PO 08/23/16 21:00 08/24/16 09:06 Etravirine 200 mg 200 mg BID PO 08/23/16 21:00 08/24/16 09:06 (NS 1000 ml Inj) 1,000 ml @ 100 mls/hr Q10H IV 08/23/16 18:11 08/23/16 23:10 (NS Flush) 2 ml UNSCH PRN IV FLUSH 08/23/16 18:15 (NS Flush) 2 ml BID IV FLUSH 08/23/16 21:00 08/23/16 21:00 (Tylenol) 650 mg Q4H PRN PO 08/23/16 18:15 (Zofran Inj) 4 mg Q6H PRN IVP 08/23/16 18:15 08/24/16 09:14 (Narcan Inj) 0.4 mg UNSCH PRN IV 08/23/16 18:15 (Danitza-Colace) 1 tab BID PO 08/23/16 21:00 08/24/16 09:06 (Milk Of Magnesia Liq) 30 ml Q12H PRN PO 08/23/16 18:15 (Senokot) 17.2 mg Q12H PRN PO 08/23/16 18:15 (Dulcolax Supp) 10 mg DAILY PRN RECTAL 08/23/16 18:15 (Lactulose Liq) 30 ml DAILY PRN PO 08/23/16 18:15 (Mucinex Er) 600 mg BID PO 08/23/16 21:00 08/24/16 09:06 (Megace Liq) 400 mg DAILY PO 08/24/16 09:00 08/24/16 09:06 A/P Assessment and Plan 1. Acute on chronic Renal failure he has normal baseline in 2.8 at this time in 8.16 will give gentle hydration and follow inhouse Improving today will continue IV fluids and asked for Renal ultrasound, may need Nephrology consult if no improving to baseline will follow in am tomorrow with new BMP. 2. HIV by history not taking his medicines due to that he has no appointment with the Infectious disease specialist. CD4 count awaiting result to start prophylaxis if needed. no signs of new infection. 3. Severe non compliance. 4. Tobacco dependence/alcohol abuse and substance abuse strongly recommended to stop smoking, drinking alcohol and Marijuana abuse 5. Anemia secondary to chronic disease may need blood transfusion. hemoglobin today 7.5 asked for blood transfusion and following. 6. Hyperlipidemia by history. lipid panel within normal limits 7. Hypertension to continue Home medicines. 8. Hepatitis C by history. 9. CHF on Echocardiogram from 2013 his EF was 30-35% severe Hypokinesis. his BNP was 63 against CHF awaiting for new Echocardiogram 10. Severe Protein Calorie malnutrition, chronic issue probable related to his basal pathology, Protein Boosts with Ensure and dietitian following. 11. Status post laparotomy and subtotal gastrectomy, pathology report with grade 2 moderately differentiated 12. Hyperkalemia secondary to CKD given one dose of Kayexalate 15 grams. DVT prophylaxis with SCDs. IV fluids gentle hydration and following for overload Code Status Full code Discussed Condition With Patient and Nurse miss Cruz all questions answered to the best of my abilities. Discharge Planning Expected in one to two days. Ramesh Cheney MD August 24, 2016 10:47
[2016-08-24] MEDS ORDERED: ACETAMINOPHEN 325 MG TAB PO PRN (11:00)
[2016-08-24] MEDS ORDERED: SODIUM POLYSTYRENE SULFONATE SUSP 15 GM/60 ML CUP PO ONE (11:00)
[2016-08-24] MEDS ORDERED: SODIUM CHLOR 0.9% 250 ML INJ 250 ML IV ONE (11:00)
[2016-08-24] MEDS ORDERED: FUROSEMIDE 20 MG/2 ML VIAL IV PRN (11:00)
[2016-08-24] MEDS: SODIUM CHLOR 0.9% 1000 ML INJ 1,000 ML IV SCH (14:11)
--- NOTE | 2016-08-24 17:43 | RADRPT ---
EXAM DATE/TIME: 08/24/2016 16:40 [facility] COMPARISON: US KIDNEY/RENAL/BLADDER, September 12, 2015, 18:57. INDICATIONS : Increased BUN/creatinine. MEDICAL HISTORY : Myocardial infarction. Hypercholesterolemia. HTN. Gastric cancer. Chest pain. HIV. Hep C. Renal dis ease and failure. Substance use. Anemia. SURGICAL HISTORY : Gastric resection. Peg tube with removal. Blood transfusions. ENCOUNTER: Initial ACUITY: 1 day PAIN SCORE: 2/10 LOCATION: Bilateral flank MEASUREMENTS: RIGHT KIDNEY: 9.6 x 5.1 x 4.3 cm LEFT KIDNEY: 8.6 x 5.0 x 5.2 cm FINDINGS: The kidneys remain echogenic bilaterally consistent with medical renal disease. No focal mass or hydr onephrosis is noted. The urinary bladder is unremarkable. CONCLUSION: Echogenic kidneys consistent with medical renal disease. Unremarkable urinary bladder . Richard Méndez MD on August 24, 2016 at 17:40 Board Certified Radiologist. This report was verified electronically.
[2016-08-25] VITALS (8 sets, daily range): BP systolic 103–173; BP diastolic 67–97; PULSE 64–72; RESP 16–22; TEMP 98.3–100; O2SAT 97–100
[2016-08-25] MEDS: SODIUM CHLOR 0.9% 1000 ML INJ 1,000 ML IV SCH ×2 (00:14→09:09)
[2016-08-25] MEDS: RESP: ALBUTEROL 2.5 MG/IPRATROPIUM 0.5 MG NEB (SCH) NEB ×6 (04:16→23:48)
--- NOTE | 2016-08-25 08:56 | HHI.PR ---
Subjective Remarks This is a pleasant 55 yr old male with history of CKD, hypertension, GERD, HIV here with complaints of cold and flulike symptoms for the past 6 days. Patient says he has been trying to fight these symptoms off by himself at home, for the past few days he has lost taste for food and this is what prompted him to come to the emergency department. He states he is HIV positive and has not been taking his medications for some time. He says that his primary care provider will not give it to him. He does not recall an infectious disease specialist. He tells me that he has also had about 50 pound weight loss in the past 4-5 months. He tells me that he has been coughing up mucus that is thick and white, sometimes yellow. He denies any abdominal pain, nausea, vomiting, chest pain, shortness of breath , fever or chills. 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 08/24: Stable in his bedroom, has some sputum production, optimized respiratory medicines, discussed with nurse Miss Cruz his Hemoglobin as expected came down to 7.5 and is expected to come lower with IV management for his renal dysfunction, will add Renal Ultrasound and follow his Creatinine is improving to 7.61 from 8.16. No nausea, vomit or diarrhea. 08/25: Seen in his bedroom and discussed with nurse Miss Cruz, no nausea, vomit or diarrhea, improving renal function slowly will get Nephrology specialist consult. Objective Vital Signs Date Time Temp Pulse Resp B/P Pulse Ox O2 Delivery O2 Flow Rate FiO2 08/25/16 08:39 97 21 08/25/16 04:45 98.4 66 16 150/91 98 08/25/16 01:00 99.0 70 16 118/70 98 08/25/16 00:40 100.0 67 16 127/76 98 08/24/16 22:25 99.2 70 17 118/69 97 08/24/16 21:55 99.0 71 16 112/71 98 08/24/16 21:40 98.8 69 17 121/75 99 08/24/16 21:40 98.8 69 17 121/75 99 08/24/16 20:40 98.8 69 16 121/75 99 08/24/16 19:48 100 21 08/24/16 18:30 98.4 70 18 145/90 100 08/24/16 15:30 98.8 63 17 110/72 99 08/24/16 15:15 97.2 67 17 117/75 99 08/24/16 15:05 97.2 67 17 117/75 99 08/24/16 12:00 98.1 62 17 102/62 100 I/O 08/24/16 08/24/16 08/24/16 08/25/16 08/25/16 08/25/16 07:00 15:00 23:00 07:00 15:00 23:00 Intake Total 852 ml 720 ml 240 ml 240 ml Output Total 200 ml 400 ml Balance 852 ml 720 ml 40 ml -160 ml Intake Oral 120 ml 720 ml 240 ml 240 ml IV Total 732 ml Output Urine Total 200 ml 400 ml # Voids 1 5 # Bowel Movements 5 3 0 Result Diagram: 08/24/16 0712 08/24/16 0712 Imaging Last Impressions Renal Ultrasound 08/24/16 0000 Signed Impressions: Service Date/Time: Wednesday, August 24, 2016 16:40 - CONCLUSION: Echogenic kidneys consistent with medical renal disease. Unremarkable urinary bladder. Richard Méndez MD Chest X-Ray 08/23/16 1643 Signed Impressions: Service Date/Time: Tuesday, August 23, 2016 16:52 - CONCLUSION: No acute disease. Fernando Delong MD FACR Procedures No procedures performed. Other Results Laboratory Tests Test 08/23/16 08/23/16 08/24/16 08/24/16 17:00 21:30 07:12 12:30 Total Bilirubin 0.3 MG/DL Aspartate Amino Transf 14 U/L (AST/SGOT) Alanine Aminotransferase 14 U/L (ALT/SGPT) Alkaline Phosphatase 40 U/L Total Creatine Kinase 107 U/L Troponin I 0.02 NG/ML B-Type Natriuretic Peptide 63 PG/ML Albumin 2.1 GM/DL Free Thyroxine 1.10 NG/DL Thyroid Stimulating Hormone 0.957 uIU/ML 3rd Gen Urine Opiates Screen NEG Urine Barbiturates Screen NEG Urine Amphetamines Screen NEG Urine Benzodiazepines Screen NEG Urine Cocaine Screen NEG Urine Cannabinoids Screen POS White Blood Count 4.6 TH/MM3 Red Blood Count 2.59 MIL/MM3 Mean Corpuscular Volume 84.7 FL Mean Corpuscular Hemoglobin 28.9 PG Mean Corpuscular Hemoglobin 34.1 % Concent Red Cell Distribution Width 14.8 % Platelet Count 181 TH/MM3 Mean Platelet Volume 7.4 FL Neutrophils (%) (Auto) 53.4 % Lymphocytes (%) (Auto) 35.3 % Monocytes (%) (Auto) 6.3 % Eosinophils (%) (Auto) 3.9 % Basophils (%) (Auto) 1.1 % Neutrophils # (Auto) 2.5 TH/MM3 Lymphocytes # (Auto) 1.6 TH/MM3 Monocytes # (Auto) 0.3 TH/MM3 Eosinophils # (Auto) 0.2 TH/MM3 Basophils # (Auto) 0.0 TH/MM3 CBC Comment DIFF FINAL Differential Comment Prothrombin Time 12.0 SEC Prothromb Time International 1.1 RATIO Ratio Protein Corrected Calcium 7.6 MG/DL Total Protein 6.5 GM/DL Triglycerides Level 113 MG/DL Cholesterol Level 74 MG/DL LDL Cholesterol 28 MG/DL HDL Cholesterol 23.9 MG/DL Cholesterol/HDL Ratio 3.09 RATIO Blood Type A POSITIVE Antibody Screen NEGATIVE Crossmatch Leukocyte-Reduced Red Blood Cells Blood Bank Comment Test 08/25/16 09:35 Hemoglobin 11.5 GM/DL Hematocrit 33.0 % Sodium Level 131 MEQ/L Potassium Level 4.9 MEQ/L Chloride Level 104 MEQ/L Carbon Dioxide Level 15.2 MEQ/L Anion Gap 12 MEQ/L Blood Urea Nitrogen 75 MG/DL Creatinine 7.25 MG/DL Estimat Glomerular Filtration 9 ML/MIN Rate Random Glucose 87 MG/DL Calcium Level 7.6 MG/DL Objective Remarks GENERAL: No acute distress, cachectic appearance SKIN: Warm and dry. No visible rashes or bruising. HEAD: Normocephalic and atraumatic. EYES: No scleral icterus. No injection or drainage. EOM intact, PERRLA ENT: No nasal drainage noted. Mucous membranes pink. Airway patent. NECK: Supple, trachea midline. No JVD. No lymphadenopathy CARDIOVASCULAR: Regular rate and rhythm without murmurs, gallops, or rubs. RESPIRATORY: Rhonchi and slight crackle on the left side with diminished breath sounds GASTROINTESTINAL: Abdomen soft, non-tender, nondistended. Thin EXTREMITIES: No cyanosis or edema. BACK: Nontender without obvious deformity. No CVA tenderness. PSYCH: AAO x 3, normal affect. Medications and IVs Current Medications Medications (Trade) Dose Ordered Sig/Tomi Route Start Time Stop Time Status Last Admin (Coreg) 12.5 mg BID PO 08/23/16 21:00 08/24/16 20:42 (Procardia) 20 mg Q12HR PO 08/23/16 21:00 08/24/16 20:42 (Isentress) 400 mg BID PO 08/23/16 21:00 08/24/16 20:42 Etravirine 200 mg 200 mg BID PO 08/23/16 21:00 08/24/16 20:42 (NS 1000 ml Inj) 1,000 ml @ 100 mls/hr Q10H IV 08/23/16 18:11 08/25/16 00:14 (NS Flush) 2 ml UNSCH PRN IV FLUSH 08/23/16 18:15 (NS Flush) 2 ml BID IV FLUSH 08/23/16 21:00 08/24/16 20:43 (Tylenol) 650 mg Q4H PRN PO 08/23/16 18:15 (Zofran Inj) 4 mg Q6H PRN IVP 08/23/16 18:15 08/24/16 09:14 (Narcan Inj) 0.4 mg UNSCH PRN IV 08/23/16 18:15 (Danitza-Colace) 1 tab BID PO 08/23/16 21:00 08/24/16 09:06 (Milk Of Magnesia Liq) 30 ml Q12H PRN PO 08/23/16 18:15 (Senokot) 17.2 mg Q12H PRN PO 08/23/16 18:15 (Dulcolax Supp) 10 mg DAILY PRN RECTAL 08/23/16 18:15 (Lactulose Liq) 30 ml DAILY PRN PO 08/23/16 18:15 (Mucinex Er) 600 mg BID PO 08/23/16 21:00 08/24/16 20:42 (Megace Liq) 400 mg DAILY PO 08/24/16 09:00 08/24/16 09:06 A/P Assessment and Plan 1. Acute on chronic Renal failure he has normal baseline in 2.8 at this time in 8.16 now 7.25 but improving slowly new renal ultrasound positive for chronic kidney disease, asked for Nephrology specialist consult. 2. HIV by history not taking his medicines due to that he has no appointment with the Infectious disease specialist. CD4 count awaiting result to start prophylaxis if needed. no signs of new infection. not yet CD4 count in EMR 3. Severe non compliance. 4. Tobacco dependence/alcohol abuse and substance abuse strongly recommended to stop smoking, drinking alcohol and Marijuana abuse 5. Anemia secondary to chronic disease may need blood transfusion. hemoglobin today 7.5 status post Blood transfusion of two units of PRBCs improving Hemoglobin to 11.5 grams/Dl. 6. Hyperlipidemia by history. lipid panel within normal limits 7. Hypertension to continue Home medicines. 8. Hepatitis C by history. ==Removed diagnosis for CHF his Echocardiogram EF 60-65%. no wall motion abnormalities. 10. Severe Protein Calorie malnutrition, chronic issue probable related to his basal pathology, Protein Boosts with Ensure and dietitian following. 11. Status post laparotomy and subtotal gastrectomy, pathology report with grade 2 moderately differentiated 12. Hyperkalemia secondary to CKD given one dose of Kayexalate 15 grams. today 4.9 DVT prophylaxis with SCDs. IV fluids gentle hydration and following for overload Code Status Full code Discussed Condition With Patient and Nurse Miss Cruz all questions answered to the best of my abilities. Discharge Planning Expected in one to two days. Ramesh Cheney MD August 25, 2016 08:56
[2016-08-25] MEDS: RALTEGRAVIR 400 MG TAB PO SCH ×2 (09:08→21:07)
[2016-08-25] MEDS: ETRAVIRINE 100 MG TAB PO SCH ×2 (09:08→21:07)
[2016-08-25] MEDS: SODIUM CHLORIDE 0.9% FLUSH 10 ML FLUSH IV FLUSH SCH ×2 (09:08→21:00)
[2016-08-25] MEDS: NIFEdipine 20 MG CAP PO SCH ×2 (09:08→21:07)
[2016-08-25] MEDS: guaiFENesin E.R. 600 MG TAB PO SCH ×2 (09:08→21:07)
[2016-08-25] MEDS: MEGESTROL ACETATE SUSP 400 MG/10 ML CUP PO SCH (09:08)
[2016-08-25] MEDS: DOCUSATE SODIUM 50 MG/SENNA 8.6 MG TAB PO SCH ×2 (09:08→21:00)
[2016-08-25] MEDS: CARVEDILOL 12.5 MG TAB PO SCH ×2 (09:08→21:07)
[2016-08-25 10:17] LABS: BICARBONATE 15.2 MEQ/L (21.0-32.0); POTASSIUM 4.9 MEQ/L (3.5-5.1)
--- NOTE | 2016-08-25 10:42 | EC ---
Study Study Date:08/25/2016 STUDY CONCLUSIONS SUMMARY - Left ventricle: The cavity size was normal. Wall thickness was normal. Systolic function was normal. The estimated ejection fraction was in the range of 60% to 65%. Wall motion was normal; there were no regional wall motion abnormalities. - Left atrium: The atrium was mildly dilated. - Tricuspid valve: Mild regurgitation. If LV function is below 40, please consider prescribing an ACEI or ARB or document rationale for non-use. PROCEDURE DATA STUDY STATUS: Elective. Procedure: Transthoracic echocardiography. Image quality was fair. Scanning was performed from the parasternal, apical, and subcostal acoustic windows. Study completion: The patient tolerated the procedure well. Transthoracic echocardiography. M-mode, complete 2D, complete spectral Doppler, and color Doppler. Patient status: Inpatient. CARDIAC ANATOMY LEFT VENTRICLE: The cavity size was normal. Wall thickness was normal. Systolic function was normal. The estimated ejection fraction was in the range of 60% to 65%. Wall motion was normal; there were no regional wall motion abnormalities. AORTIC VALVE: Not well visualized. Normal thickness leaflets. Doppler: Transvalvular velocity was within the normal range. There was no stenosis. No regurgitation. Peak gradient: 13mm Hg (S). AORTA: Aortic root: The aortic root was normal in size. MITRAL VALVE: Structurally normal valve. Doppler: Transvalvular velocity was within the normal range. There was no evidence for stenosis. Trace regurgitation. LEFT ATRIUM: The atrium was mildly dilated. RIGHT VENTRICLE: The cavity size was normal. Wall thickness was normal. PULMONIC VALVE: Poorly visualized. Doppler: Transvalvular velocity was within the normal range. There was no evidence for stenosis. No regurgitation. TRICUSPID VALVE: Structurally normal valve. Doppler: Transvalvular velocity was within the normal range. Mild regurgitation. PULMONARY ARTERY: The main pulmonary artery was normal-sized. Systolic pressure was within the normal range. RIGHT ATRIUM: The atrium was normal in size. PERICARDIUM: There was no pericardial effusion. SYSTEMIC VEINS: Inferior vena cava: The vessel was normal in size. BASIC MEASUREMENTS ADULT NORMAL Left ventricle LV internal dimension, ED, chordal level, 50.7 mm 43-52 PLAX LV internal dimension, ES, chordal level, 37.8 mm 23-38 PLAX Fractional shortening, chordal level, PLAX *25 % >29 LV posterior wall thickness, ED 10.5 mm IVS/LVPW ratio, ED 0.96 <1.3 Ventricular septum Septal thickness, ED 10.1 mm Left atrium Anterior-posterior dimension 47 mm Right ventricle RV internal dimension, ED, PLAX 21.9 mm 19-38 DOPPLER MEASUREMENTS ADULT NORMAL Main pulmonary artery Pressure, S 29 mm Hg =30 Aortic valve Peak velocity, S 182 cm/s Peak gradient, S 13 mm Hg Mitral valve Peak E-wave velocity 52.3 cm/s Peak A-wave velocity 63.2 cm/s Peak E/A ratio 0.8 Tricuspid valve Regurgitant peak velocity 247 cm/s Peak RV-RA gradient, S 24 mm Hg Maximal regurgitant velocity 247 cm/s Systemic veins Estimated CVP 5 mm Hg Right ventricle RV pressure, S 29 mm Hg <30 LEGEND: Mean values are shown as u=mean value. Asterisk (*) lopez values outside specified normal range. Prepared and signed by Leonidas Rebolledo [id number]
--- NOTE | 2016-08-25 14:12 | MB ---
cc: ZORAIDA ARRIOLA MD DATE OF CONSULTATION: 08/25/2016 REASON FOR CONSULTATION Elevated BUN and creatinine, for evaluation. HISTORY OF PRESENT ILLNESS This is a 56-year-old male known to me from before from his last admission with past medical history of HIV disease, history of alcoholism, chronic kidney disease, chronic anemia, weight loss, hypertension, came to the hospital because of decreased appetite, weight loss, feeling weak and tired and has nausea off and on. I was called to see the patient for evaluation of his renal disease. The patient was admitted here in August of last year, at that time he was seen by me, then he was admitted in March of this year. Both times his creatinine was fluctuating from 2.6-3.6 and when he was discharged in March his creatinine was 2.79 with GFR of 29, now he came with a creatinine of 8.1 and GFR around 8. The patient has not been following with any control system manager, he has been seeing his primary care physician and he was told that he will need to see the infectious disease doctor for his HIV disease. He has not been taking his HIV medications for sometime and according to him he lost almost 50 pounds in last 5 or 6 months. He has decreased appetite and he has nausea with no taste. He had some diarrhea before but he does not have it now. The patient has history of partial gastrectomy, and was diagnosed with adenocarcinoma, moderately differentiated, this was done in August of last year. During this admission the patient was found to have creatinine of 8.1 which is slightly better now at 7.2. He has been nonoliguric. He has also low bicarb and his hemoglobin was low and he got a blood transfusion. Patient has no shortness of breath, no chest pain. PAST MEDICAL HISTORY 1. HIV disease. 2. Chronic kidney disease. 3. Hypertension. 4. Anemia. 5. Hepatitis C. 6. Hyperlipidemia. 7. History of stomach cancer. PAST SURGICAL HISTORY Partial gastrectomy. REVIEW OF SYSTEMS The patient has generalized weakness, feeling tired, has decreased appetite, off and on has nausea and has decreased taste. He sometimes has loose bowel motion, not taking any nonsteroidal anti-inflammatory drugs. No dysuria, hematuria, did not notice any decrease in the urine output. He lost almost 50 pounds in the last 5-6 weeks. SOCIAL HISTORY The patient lives with his son. He has past history of alcoholism and he has been chronically smoking 4 to 5 cigarettes per day and he also takes sometimes marijuana. FAMILY HISTORY History of hypertension from mother's side. ALLERGIES He has NO KNOWN DRUG ALLERGIES. MEDICATIONS Currently he is on the following medications: 1. Normal saline 100 an hour. 2. Carvedilol 12.5 mg b.i.d. 3. Isentress 400 mg b.i.d. 4. Intelence 200 mg b.i.d. 5. Danitza-Colace one tablet b.i.d. 6. Mucinex 600 mg b.i.d. 7. Megace 400 mg once a day. 8. DuoNeb nebulizer. 9. Nifedipine 20 mg q. 12-hours. 10. Narcan as needed. 11. Dulcolax as needed. PHYSICAL EXAMINATION GENERAL: On examination the patient is awake, alert. He is not in acute distress. VITAL SIGNS: His last blood pressure is 162/97. There is no hypotensive episode during this admission, temperature is 99.8 with T-max of 100, oxygen saturation on room air 97%. HEENT: Pupils equally reacting to light. Nonicteric sclerae. Conjunctivae pale. NECK: Supple. JVD is not elevated. LUNGS: The patient has bilateral decreased air entry with occasional wheezing. HEART: S1, S2, regular rhythm. ABDOMEN: Soft, lax. There is no tenderness. Bowel sounds positive. EXTREMITIES: There is no pedal edema. INVESTIGATION WBC count is 4.6, hemoglobin 7.5, platelet count 181, neutrophils 53.4%. Sodium 131, potassium 4.9, chloride 104, bicarb 15.2, BUN 75, creatinine 7.25, calcium 7.6, total protein is 6.5, cholesterol is 74, LDH 28, TSH 0.95, INR 1.1. Urinalysis showing protein of 30, this was done from last year. He has a drug screening done which shows cannabinoids positive and ethyl alcohol level was 295 in March of this year. His last CD-4 cell count of 476 in August of last year and now they are pending. IMAGING STUDIES The patient had ultrasound of the kidneys done which shows the kidneys look smaller in size, the right is 9.6 and the left is 8.6, echogenic. A chest x-ray was done, which shows lung ferris clear. ASSESSMENT/PLAN 1. Chronic kidney disease with acute kidney injury. 2. Metabolic acidosis. 3. HIV disease. 4. Weight loss. 5. Anemia. 6. History of hepatitis C. 7. History of stomach cancer. The patient has advanced renal disease, his kidneys look smaller in size and so far he has some improvement but the GFR is still 9. I discussed with the patient about the possibility of dialysis if there is no improvement, I will give him IV fluid with sodium bicarbonate, check the urinalysis and follow the urine output and the BUN and creatinine. Some of the symptoms he has could be also related to advanced renal disease including decreased appetite, decrease in taste and weight loss. Thank you for the consultation. I will follow the patient while he is in the hospital. MD SUZY BarreraJ/TLL /12:34 PM /1:41 PM
[2016-08-25] MEDS: SODIUM BICARBONATE 8.4% INJ 75 MEQ in SODIUM CHLOR 0.45% 1000 ML INJ 1,000 ML IV SCH (19:12)
[2016-08-26] VITALS (9 sets, daily range): BP systolic 123–161; BP diastolic 74–91; PULSE 68–75; RESP 16–20; TEMP 97.9–100; O2SAT 95–99
[2016-08-26] MEDS: RESP: ALBUTEROL 2.5 MG/IPRATROPIUM 0.5 MG NEB (SCH) NEB ×5 (03:11→20:00)
[2016-08-26] MEDS: SODIUM BICARBONATE 8.4% INJ 75 MEQ in SODIUM CHLOR 0.45% 1000 ML INJ 1,000 ML IV SCH ×2 (04:56→16:33)
[2016-08-26 08:20] LABS: HEMOGLOBIN A1a 1.8 %; HEMOGLOBIN A1b 2.7 %; HEMOGLOBIN Ao 80.8 %; HEMOGLOBIN LA1C 2.9 %; HEMOGLOBIN P3 7.4 %
[2016-08-26] MEDS: CARVEDILOL 12.5 MG TAB PO SCH ×2 (08:36→22:44)
[2016-08-26] MEDS: guaiFENesin E.R. 600 MG TAB PO SCH ×2 (08:36→22:43)
[2016-08-26] MEDS: RALTEGRAVIR 400 MG TAB PO SCH ×2 (08:36→22:44)
[2016-08-26] MEDS: NIFEdipine 20 MG CAP PO SCH ×2 (08:36→22:44)
[2016-08-26] MEDS: ETRAVIRINE 100 MG TAB PO SCH ×2 (08:36→22:43)
[2016-08-26] MEDS: DOCUSATE SODIUM 50 MG/SENNA 8.6 MG TAB PO SCH ×2 (08:36→21:00)
[2016-08-26] MEDS: MEGESTROL ACETATE SUSP 400 MG/10 ML CUP PO SCH (08:36)
[2016-08-26] MEDS: SODIUM CHLORIDE 0.9% FLUSH 10 ML FLUSH IV FLUSH SCH ×2 (08:36→22:44)
--- NOTE | 2016-08-26 08:55 | HHI.PR ---
Subjective Remarks No new complaints. Continued monitoring of renal function needed at this point , as it is being determined if patient will need dialysis or not. He has a CD4 which is still pending. No new complaints. Objective Vital Signs Date Time Temp Pulse Resp B/P Pulse Ox O2 Delivery O2 Flow Rate FiO2 08/26/16 07:47 100.0 68 16 152/88 97 08/26/16 07:35 98 08/26/16 04:00 99.8 75 20 148/87 99 08/26/16 00:00 97.9 72 18 123/74 99 08/25/16 19:28 98.3 72 22 173/97 100 08/25/16 16:00 98.6 64 18 130/84 99 08/25/16 12:00 99.0 65 18 103/67 97 I/O 08/25/16 08/25/16 08/25/16 08/26/16 08/26/16 08/26/16 07:00 15:00 23:00 07:00 15:00 23:00 Intake Total 240 ml 720 ml 780 ml 780 ml Output Total 400 ml Balance -160 ml 720 ml 780 ml 780 ml Intake Oral 240 ml 720 ml 780 ml 780 ml Output Urine Total 400 ml # Voids 4 2 2 # Bowel Movements 0 1 1 1 Result Diagram: 08/25/16 0935 08/25/16 0935 Imaging Last Impressions Renal Ultrasound 08/24/16 0000 Signed Impressions: Service Date/Time: Wednesday, August 24, 2016 16:40 - CONCLUSION: Echogenic kidneys consistent with medical renal disease. Unremarkable urinary bladder. Richard Méndez MD Chest X-Ray 08/23/16 1643 Signed Impressions: Service Date/Time: Tuesday, August 23, 2016 16:52 - CONCLUSION: No acute disease. Fernando Delong MD FACR Procedures No procedures performed. Objective Remarks GENERAL: NAD, A&Ox3, global cachexia SKIN: Warm and dry. HEAD: Normocephalic. EYES: No scleral icterus. No injection or drainage. NECK: Supple, trachea midline. No JVD or lymphadenopathy. CARDIOVASCULAR: Regular rate and rhythm without murmurs, gallops, or rubs. RESPIRATORY: Breath sounds equal bilaterally. No accessory muscle use. GASTROINTESTINAL: Abdomen soft, non-tender, nondistended. MUSCULOSKELETAL: No cyanosis, or edema. Global muscle wasting/atrophy. BACK: Nontender without obvious deformity. No CVA tenderness. Medications and IVs Administered Medications Medications (Trade) Dose Ordered Sig/Tomi Route PRN Reason Start Time Stop Time Status Last Admin Dose Admin Carvedilol (Coreg) 12.5 mg BID PO 08/23/16 21:00 08/26/16 08:36 Nifedipine (Procardia) 20 mg Q12HR PO 08/23/16 21:00 08/26/16 08:36 Raltegravir (Isentress) 400 mg BID PO 08/23/16 21:00 08/26/16 08:36 Etravirine (Intelence) 200 mg BID PO 08/23/16 21:00 08/26/16 08:36 Sodium Chloride (NS Flush) 2 ml BID IV FLUSH 08/23/16 21:00 08/25/16 09:08 Ondansetron HCl (Zofran Inj) 4 mg Q6H PRN IVP NAUSEA OR VOMITING 08/23/16 18:15 08/24/16 09:14 Senna/Docusate Sodium (Danitza-Colace) 1 tab BID PO 08/23/16 21:00 08/26/16 08:36 Guaifenesin (Mucinex Er) 600 mg BID PO 08/23/16 21:00 08/26/16 08:36 Megestrol Acetate 400 mg 400 mg DAILY PO 08/24/16 09:00 08/26/16 08:36 Sodium Bicarbonate/ Sodium Chloride (Sodium Bicarbonate 8.4% Inj/1/2 NS 1000 ml Inj) 1,075 ml @ 100 mls/hr [id number] IV 08/25/16 18:11 08/26/16 04:56 A/P Problem List: (1) Essential hypertension ICD Code: I10 (2) Renal failure ICD Code: N19 (3) Anemia ICD Code: D64.9 (4) Malnutrition ICD Code: E46 (5) Acute kidney injury ICD Code: N17.9 Assessment and Plan Assessment and Plan 56 year old male with HIV, admitted with ARF on CKD. Acute Renal Failure Hyperkalemia he has shown slow improvement through time continue to monitor renal function possible need for dialysis nephrology following Kayexalate continued Follow potassium levels HIV Immunocompromise CD4 pending He is not on treatment risk for AIDS is present Start prophylaxis, if needed, based on CD4 results Nicotine Abuse Alcohol Abuse Cessation has been recommended No DTs Anemia of Chronic Disease Follow H/H for any worsening If worsening he will need a transfusion HTN No change to baseline treatments Stable Follow BP and adjust treatments if needed Hepatitis C Standard precautions Hx of Gastric Cancer Hx of Partial Gastrectomy Malnourishment 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 A partial gastrectomy with removal of tumor occured without any positive borders Part of his malnutrition may be related to this Protein Boosts Ensure Dietitian following DVT Prophylaxis SCDs Code Status Full Code Problem Qualifiers (1) Renal failure: Qualified Code: N17.9 - Acute renal failure superimposed on chronic kidney disease, unspecified CKD stage, unspecified acute renal failure type (2) Anemia: Qualified Code: D64.9 - Anemia, unspecified type Nathan Plasencia MD August 26, 2016 8:55 am
--- NOTE | 2016-08-26 16:08 | HHI.NPPN ---
Subjective History of Present Illness 56-year-old male known to me from before from his last admission with past medical history of HIV disease, history of alcoholism, chronic kidney disease, chronic anemia, weight loss, hypertension, came to the hospital because of decreased appetite, weight loss, feeling weak and tired and has nausea off and on. I was called to see the patient for evaluation of his renal disease. Additional Remarks Patient is alert, still has decrease appetite, no SOB. Review of Systems General Constitutional: Fatigue Cardiovascular Cardiac: HUGGINS Objective Data Data 08/25/16 08/26/16 19:00 07:00 Intake Total 720 ml 1560 ml Balance 720 ml 1560 ml Intake Oral 720 ml 1560 ml # Voids 4 4 # Bowel Movements 1 2 Vital Signs Date Time Temp Pulse Resp B/P Pulse Ox O2 Delivery O2 Flow Rate FiO2 08/26/16 12:18 98.9 70 16 144/80 98 08/26/16 07:47 100.0 68 16 152/88 97 08/26/16 07:35 98 08/26/16 04:00 99.8 75 20 148/87 99 08/26/16 00:00 97.9 72 18 123/74 99 08/25/16 19:28 98.3 72 22 173/97 100 08/25/16 16:00 98.6 64 18 130/84 99 -: 08/25/16 0935 08/25/16 0935 Physical Exam General Appearance: No Acute Distress, Comfortable Eyes Eye Exam: Pupils Equal Throat Throat Exam: Oral Mucosa [place] & Moist Neck Neck Exam: Neck Supple Pulmonary Resp Exam: No Distress, Rhonchi, Decreased Bases, Diminished Breath Sounds Cardiology CV Exam: Regular, Normal Sinus Rhythm Gastrointestinal/Abdomen GI Exam: Soft, Non-Tender Extremeties Extremities Exam: No Edema Neurologic Neuro Exam: Alert, Awake, Oriented Psychiatric Psych Exam: Appropriate Responses Assessment/Plan Assessment Summary: Hypertension, CKD Stage IV Electrolyte Assessment: Metabolic Acidosis Problem List: (1) HIV disease (2) HIV (human immunodeficiency virus infection) (3) Anemia (4) Metabolic acidosis (5) Chronic kidney disease Plan Patient has been non oliguric, No new BMP. Has some symptoms of renal failure, like decrease appetite, weight loss etc. Get BMP in AM, if no significant improvement, possible HD. D/W the patient. Problem Qualifiers (1) Chronic kidney disease: Qualified Code: N18.5 - Stage 5 chronic kidney disease not on chronic dialysis George Davis MD August 26, 2016 16:08
[2016-08-27] VITALS (9 sets, daily range): BP systolic 113–154; BP diastolic 66–94; PULSE 66–84; RESP 18–22; TEMP 96.2–100.9; O2SAT 94–100
[2016-08-27] MEDS: ACETAMINOPHEN 325 MG TAB PO PRN ×2 (00:16→13:23)
[2016-08-27] MEDS: SODIUM BICARBONATE 8.4% INJ 75 MEQ in SODIUM CHLOR 0.45% 1000 ML INJ 1,000 ML IV SCH ×3 (02:38→22:42)
[2016-08-27] MEDS: RESP: ALBUTEROL 2.5 MG/IPRATROPIUM 0.5 MG NEB (SCH) NEB ×6 (03:17→19:52)
[2016-08-27 07:42] LABS: HEMATOCRIT 29.4 % (39.0-51.0); MEAN CORPUSCULAR HEMOGLOBIN 28.5 PG (27.0-34.0); MEAN CORPUSCULAR HGB CONC 33.9 % (32.0-36.0); PLATELET COUNT 171 TH/MM3 (150-450); RED BLOOD COUNT 3.51 MIL/MM3 (4.50-5.90); RED CELL DISTRIBUTION WIDTH 14.2 % (11.6-17.2); REVIEW FLAG FINAL; WHITE BLOOD COUNT 5.2 TH/MM3 (4.0-11.0)
[2016-08-27 08:15] LABS: BICARBONATE 21.4 MEQ/L (21.0-32.0); POTASSIUM 4.4 MEQ/L (3.5-5.1)
[2016-08-27 08:40] LABS: CALCIUM-PROTEIN CORRECTED 8.1 MG/DL (8.5-10.1)
[2016-08-27] MEDS: SODIUM CHLORIDE 0.9% FLUSH 10 ML FLUSH IV FLUSH SCH ×2 (09:00→21:00)
[2016-08-27] MEDS: CARVEDILOL 12.5 MG TAB PO SCH ×2 (09:50→22:42)
[2016-08-27] MEDS: MEGESTROL ACETATE SUSP 400 MG/10 ML CUP PO SCH (09:50)
[2016-08-27] MEDS: DOCUSATE SODIUM 50 MG/SENNA 8.6 MG TAB PO SCH ×2 (09:50→22:42)
[2016-08-27] MEDS: guaiFENesin E.R. 600 MG TAB PO SCH ×2 (09:50→22:41)
[2016-08-27] MEDS: ETRAVIRINE 100 MG TAB PO SCH ×2 (09:50→22:42)
[2016-08-27] MEDS: RALTEGRAVIR 400 MG TAB PO SCH ×2 (09:50→22:42)
[2016-08-27] MEDS: NIFEdipine 20 MG CAP PO SCH ×2 (09:50→22:41)
--- NOTE | 2016-08-27 11:01 | HHI.NPPN ---
Subjective History of Present Illness 56-year-old male known to me from before from his last admission with past medical history of HIV disease, history of alcoholism, chronic kidney disease, chronic anemia, weight loss, hypertension, came to the hospital because of decreased appetite, weight loss, feeling weak and tired and has nausea off and on. I was called to see the patient for evaluation of his renal disease. Additional Remarks Patient is alert,no SOB, some improvement in the appetite, not in distress. Review of Systems General Constitutional: Fatigue Cardiovascular Cardiac: HUGGINS Objective Data Data 08/26/16 08/27/16 18:59 06:59 Intake Total 680 ml 4621 ml Balance 680 ml 4621 ml Intake Oral 680 ml 1560 ml IV Total 3061 ml # Voids 5 4 # Bowel Movements 0 1 Vital Signs Date Time Temp Pulse Resp B/P Pulse Ox O2 Delivery O2 Flow Rate FiO2 08/27/16 08:00 99.0 66 18 154/94 98 08/27/16 04:00 98.7 79 18 132/71 97 08/27/16 02:50 66 08/27/16 00:00 100.4 84 22 121/66 97 08/26/16 20:00 98.1 75 20 161/91 98 08/26/16 18:52 Room Air 08/26/16 16:32 98.1 74 18 133/83 95 08/26/16 16:01 98 21 08/26/16 14:10 68 08/26/16 12:18 98.9 70 16 144/80 98 -: 08/27/16 0657 08/27/16 0657 Physical Exam General Appearance: No Acute Distress, Comfortable Eyes Eye Exam: Pupils Equal Throat Throat Exam: Oral Mucosa [place] & Moist Neck Neck Exam: Neck Supple Pulmonary Resp Exam: No Distress, Rhonchi, Decreased Bases, Diminished Breath Sounds Cardiology CV Exam: Regular, Normal Sinus Rhythm Gastrointestinal/Abdomen GI Exam: Soft, Non-Tender Extremeties Extremities Exam: No Edema Neurologic Neuro Exam: Alert, Awake, Oriented Psychiatric Psych Exam: Appropriate Responses Assessment/Plan Assessment Summary: Hypertension, CKD Stage IV Electrolyte Assessment: Metabolic Acidosis Problem List: (1) HIV disease (2) HIV (human immunodeficiency virus infection) (3) Anemia (4) Metabolic acidosis (5) Chronic kidney disease Plan Patient has been non oliguric, Urine out put is better. Has some improvement in the Creatinine. BP occ. elevated. Continue IVF and encourage oral intake. Will hold dialysis for now and wait for more improvement in the renal function. Problem Qualifiers (1) Chronic kidney disease: Qualified Code: N18.4 - Stage 4 chronic kidney disease George Davis MD August 27, 2016 11:01
--- NOTE | 2016-08-27 14:15 | HHI.PR ---
Subjective Remarks Renal function has significantly improved today. Creatinine level is 5.95 today. If this continues this will be a good sign for the patient. CD4 count is still pending. Objective Vital Signs Date Time Temp Pulse Resp B/P Pulse Ox O2 Delivery O2 Flow Rate FiO2 08/27/16 11:00 75 08/27/16 08:00 99.0 66 18 154/94 98 08/27/16 04:00 98.7 79 18 132/71 97 08/27/16 02:50 66 08/27/16 00:00 100.4 84 22 121/66 97 08/26/16 20:00 98.1 75 20 161/91 98 08/26/16 18:52 Room Air 08/26/16 16:32 98.1 74 18 133/83 95 08/26/16 16:01 98 21 I/O 08/26/16 08/26/16 08/26/16 08/27/16 08/27/16 08/27/16 07:00 15:00 23:00 07:00 15:00 23:00 Intake Total 780 ml 680 ml 3125 ml 1496 ml Balance 780 ml 680 ml 3125 ml 1496 ml Intake Oral 780 ml 680 ml 780 ml 780 ml IV Total 2345 ml 716 ml # Voids 2 5 2 2 # Bowel Movements 1 0 1 0 Result Diagram: 08/27/1665608/27/16656 Procedures No procedures performed. Objective Remarks GENERAL: NAD, A&Ox3, global cachexia SKIN: Warm and dry. HEAD: Normocephalic. EYES: No scleral icterus. No injection or drainage. NECK: Supple, trachea midline. No JVD or lymphadenopathy. CARDIOVASCULAR: Regular rate and rhythm without murmurs, gallops, or rubs. RESPIRATORY: Breath sounds equal bilaterally. No accessory muscle use. GASTROINTESTINAL: Abdomen soft, non-tender, nondistended. MUSCULOSKELETAL: No cyanosis, or edema. Global muscle wasting/atrophy. BACK: Nontender without obvious deformity. No CVA tenderness. A/P Problem List: (1) Essential hypertension ICD Code: I10 (2) Renal failure ICD Code: N19 (3) Anemia ICD Code: D64.9 (4) Malnutrition ICD Code: E46 (5) Acute kidney injury ICD Code: N17.9 Assessment and Plan Assessment and Plan 56 year old male with HIV, admitted with ARF on CKD. Improvement in renal function today. We'll continue to monitor renal function. CD4 is pending. Acute Renal Failure Hyperkalemia he has shown slow improvement through time continue to monitor renal function possible need for dialysis nephrology following Kayexalate continued Follow potassium levels HIV Immunocompromise CD4 pending He is not on treatment risk for AIDS is present Start prophylaxis, if needed, based on CD4 results Nicotine Abuse Alcohol Abuse Cessation has been recommended No DTs Anemia of Chronic Disease Follow H/H for any worsening If worsening he will need a transfusion HTN No change to baseline treatments Stable Follow BP and adjust treatments if needed Hepatitis C Standard precautions Hx of Gastric Cancer Hx of Partial Gastrectomy Malnourishment 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
[2016-08-27 23:52] LABS: CD 19 PERCENT 1 % (6-29); CD3 ABSOLUTE 1517 (840-3060); CD4/CD8 RATIO 0.2 (0.86-5.00); CD8 ABSOLUTE 1184 (180-1170); LYMPHOCYTES, ABSOLUTE 1667 (850-3900)
[2016-08-28] VITALS (9 sets, daily range): BP systolic 104–186; BP diastolic 65–105; PULSE 69–83; RESP 15–18; TEMP 98.2–100.7; O2SAT 92–96
[2016-08-28 06:03] LABS: HEMATOCRIT 31.2 % (39.0-51.0); MEAN CELL VOLUME 83.4 FL (80.0-100.0); MEAN CORPUSCULAR HEMOGLOBIN 28.4 PG (27.0-34.0); MEAN CORPUSCULAR HGB CONC 34.1 % (32.0-36.0); PLATELET COUNT 186 TH/MM3 (150-450); RED BLOOD COUNT 3.74 MIL/MM3 (4.50-5.90); RED CELL DISTRIBUTION WIDTH 13.9 % (11.6-17.2); REVIEW FLAG FINAL; WHITE BLOOD COUNT 6.9 TH/MM3 (4.0-11.0)
[2016-08-28 06:22] LABS: BICARBONATE 25.9 MEQ/L (21.0-32.0); POTASSIUM 5.2 MEQ/L (3.5-5.1)
[2016-08-28 06:35] LABS: CALCIUM-PROTEIN CORRECTED 7.6 MG/DL (8.5-10.1)
[2016-08-28] MEDS: CARVEDILOL 12.5 MG TAB PO SCH ×2 (07:43→20:29)
[2016-08-28] MEDS: RALTEGRAVIR 400 MG TAB PO SCH ×2 (07:43→20:30)
[2016-08-28] MEDS: NIFEdipine 20 MG CAP PO SCH ×2 (07:43→20:29)
[2016-08-28] MEDS: DOCUSATE SODIUM 50 MG/SENNA 8.6 MG TAB PO SCH ×2 (07:44→20:30)
[2016-08-28] MEDS: ETRAVIRINE 100 MG TAB PO SCH ×2 (07:44→20:30)
[2016-08-28] MEDS: MEGESTROL ACETATE SUSP 400 MG/10 ML CUP PO SCH (07:44)
[2016-08-28] MEDS: guaiFENesin E.R. 600 MG TAB PO SCH ×2 (07:44→20:29)
[2016-08-28] MEDS: SODIUM BICARBONATE 8.4% INJ 75 MEQ in SODIUM CHLOR 0.45% 1000 ML INJ 1,000 ML IV SCH ×2 (07:46→23:14)
[2016-08-28] MEDS: SODIUM CHLORIDE 0.9% FLUSH 10 ML FLUSH IV FLUSH SCH ×2 (07:47→20:30)
--- NOTE | 2016-08-28 09:46 | HHI.PR ---
Subjective Remarks Renal function is improved again today. Creatinine level is 5.57 today. CD4 count is is 296. Objective Vital Signs Date Time Temp Pulse Resp B/P Pulse Ox O2 Delivery O2 Flow Rate FiO2 08/28/16 07:54 100.7 82 18 186/96 94 08/28/16 07:49 Room Air 08/28/16 07:41 75 08/28/16 06:08 98.2 76 18 172/97 92 08/28/16 00:35 98.8 81 18 104/65 95 08/28/16 00:22 75 08/27/16 21:20 98.8 71 18 146/85 98 08/27/16 18:39 Room Air 08/27/16 16:09 96 21 08/27/16 16:00 96.2 71 18 121/75 100 08/27/16 12:00 100.9 76 18 113/70 94 08/27/16 11:00 75 I/O 08/27/16 08/27/16 08/27/16 08/28/16 08/28/16 08/28/16 07:00 15:00 23:00 07:00 15:00 23:00 Intake Total 1496 ml 720 ml 1873 ml 805 ml Output Total 700 ml 350 ml Balance 1496 ml 20 ml 1873 ml 455 ml Intake Oral 780 ml 720 ml 360 ml 240 ml IV Total 716 ml 1513 ml 565 ml Output Urine Total 700 ml 350 ml # Voids 2 1 2 # Bowel Movements 0 1 0 0 Result Diagram: 08/28/16 0451 08/28/16 0451 Procedures No procedures performed. Objective Remarks GENERAL: NAD, A&Ox3, global cachexia SKIN: Warm and dry. HEAD: Normocephalic. EYES: No scleral icterus. No injection or drainage. NECK: Supple, trachea midline. No JVD or lymphadenopathy. CARDIOVASCULAR: Regular rate and rhythm without murmurs, gallops, or rubs. RESPIRATORY: Breath sounds equal bilaterally. No accessory muscle use. GASTROINTESTINAL: Abdomen soft, non-tender, nondistended. MUSCULOSKELETAL: No cyanosis, or edema. Global muscle wasting/atrophy. BACK: Nontender without obvious deformity. No CVA tenderness. A/P Problem List: (1) Essential hypertension ICD Code: I10 (2) Renal failure ICD Code: N19 (3) Anemia ICD Code: D64.9 (4) Malnutrition ICD Code: E46 (5) Acute kidney injury ICD Code: N17.9 Assessment and Plan Assessment and Plan 56 year old male with HIV, admitted with ARF on CKD. Improvement in renal function today. We'll continue to monitor renal function. CD4 is 296. Continue to monitor renal function, may not need dialysis if improvements continue. Acute Renal Failure Hyperkalemia he has shown slow improvement through time continue to monitor renal function possible need for dialysis nephrology following Kayexalate continued Follow potassium levels HIV Immunocompromise CD4 pending He is not on treatment risk for AIDS is present Start prophylaxis, if needed, based on CD4 results Nicotine Abuse Alcohol Abuse Cessation has been recommended No DTs Anemia of Chronic Disease Follow H/H for any worsening If worsening he will need a transfusion HTN No change to baseline treatments Stable Follow BP and adjust treatments if needed Hepatitis C Standard precautions Hx of Gastric Cancer Hx of Partial Gastrectomy Malnourishment 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
--- NOTE | 2016-08-28 11:01 | HHI.NPPN ---
Subjective History of Present Illness 56-year-old male known to me from before from his last admission with past medical history of HIV disease, history of alcoholism, chronic kidney disease, chronic anemia, weight loss, hypertension, came to the hospital because of decreased appetite, weight loss, feeling weak and tired and has nausea off and on. I was called to see the patient for evaluation of his renal disease. Additional Remarks Patient is alert,no SOB, some improvement in the appetite, clinically same. Review of Systems General Constitutional: Fatigue Cardiovascular Cardiac: HUGGINS Objective Data Data 08/27/16 08/28/16 19:00 07:00 Intake Total 720 ml 2678 ml Output Total 700 ml 350 ml Balance 20 ml 2328 ml Intake Oral 720 ml 600 ml IV Total 2078 ml Output Urine Total 700 ml 350 ml # Voids 1 2 # Bowel Movements 1 0 Vital Signs Date Time Temp Pulse Resp B/P Pulse Ox O2 Delivery O2 Flow Rate FiO2 08/28/16 07:54 100.7 82 18 186/96 94 08/28/16 07:49 Room Air 08/28/16 07:41 75 08/28/16 06:08 98.2 76 18 172/97 92 08/28/16 00:35 98.8 81 18 104/65 95 08/28/16 00:22 75 08/27/16 21:20 98.8 71 18 146/85 98 08/27/16 18:39 Room Air 08/27/16 16:09 96 21 08/27/16 16:00 96.2 71 18 121/75 100 08/27/16 12:00 100.9 76 18 113/70 94 -: 08/28/16 0451 08/28/16 0451 Physical Exam General Appearance: No Acute Distress, Comfortable Eyes Eye Exam: Pupils Equal Throat Throat Exam: Oral Mucosa [place] & Moist Neck Neck Exam: Neck Supple Pulmonary Resp Exam: No Distress, Rhonchi, Decreased Bases, Diminished Breath Sounds Cardiology CV Exam: Regular, Normal Sinus Rhythm Gastrointestinal/Abdomen GI Exam: Soft, Non-Tender Extremeties Extremities Exam: No Edema Neurologic Neuro Exam: Alert, Awake, Oriented Psychiatric Psych Exam: Appropriate Responses Assessment/Plan Assessment Summary: Hypertension, CKD Stage IV Electrolyte Assessment: Metabolic Acidosis Problem List: (1) HIV disease (2) HIV (human immunodeficiency virus infection) (3) Anemia (4) Metabolic acidosis (5) Chronic kidney disease Plan Patient has been non oliguric, Urine out put is better. Has some improvement in the Creatinine. Now Creatinine is 5.5 and the GFR is 13 ml/min., Continue IVF and encourage oral intake. Will hold dialysis for now and wait for more improvement in the renal function. No urgent need for Dialysis. Problem Qualifiers (1) Chronic kidney disease: Qualified Code: N18.4 - Stage 4 chronic kidney disease George Davis MD Aug 28, 2016 11:01
[2016-08-29] VITALS (9 sets, daily range): BP systolic 118–191; BP diastolic 79–110; PULSE 61–74; RESP 17–18; TEMP 97.9–100.7; O2SAT 91–96
[2016-08-29] MEDS ORDERED: cloNIDine HCL 0.1 MG TAB PO ONE ×2 (00:30→03:15)
[2016-08-29] MEDS: ONDANSETRON HCL 4 MG/2 ML VIAL IVP PRN (00:36)
[2016-08-29 07:11] LABS: HEMATOCRIT 27.7 % (39.0-51.0); MEAN CELL VOLUME 83.6 FL (80.0-100.0); MEAN CORPUSCULAR HEMOGLOBIN 29.2 PG (27.0-34.0); MEAN CORPUSCULAR HGB CONC 34.9 % (32.0-36.0); PLATELET COUNT 173 TH/MM3 (150-450); RED BLOOD COUNT 3.31 MIL/MM3 (4.50-5.90); RED CELL DISTRIBUTION WIDTH 14.1 % (11.6-17.2); REVIEW FLAG FINAL; WHITE BLOOD COUNT 5.9 TH/MM3 (4.0-11.0)
[2016-08-29] MEDS: SODIUM BICARBONATE 8.4% INJ 75 MEQ in SODIUM CHLOR 0.45% 1000 ML INJ 1,000 ML IV SCH ×2 (07:33→17:20)
[2016-08-29] MEDS: guaiFENesin E.R. 600 MG TAB PO SCH ×2 (07:34→22:26)
[2016-08-29] MEDS: ETRAVIRINE 100 MG TAB PO SCH ×2 (07:34→22:27)
[2016-08-29] MEDS: CARVEDILOL 12.5 MG TAB PO SCH ×3 (07:34→22:26)
[2016-08-29] MEDS: NIFEdipine 20 MG CAP PO SCH ×3 (07:34→22:27)
[2016-08-29] MEDS: MEGESTROL ACETATE SUSP 400 MG/10 ML CUP PO SCH (07:34)
[2016-08-29] MEDS: RALTEGRAVIR 400 MG TAB PO SCH ×2 (07:34→22:27)
[2016-08-29] MEDS: DOCUSATE SODIUM 50 MG/SENNA 8.6 MG TAB PO SCH ×2 (07:41→22:27)
[2016-08-29] MEDS: SODIUM CHLORIDE 0.9% FLUSH 10 ML FLUSH IV FLUSH SCH ×2 (07:43→22:30)
[2016-08-29 08:09] LABS: BICARBONATE 23.8 MEQ/L (21.0-32.0); POTASSIUM 4.3 MEQ/L (3.5-5.1)
[2016-08-29 08:27] LABS: CALCIUM-PROTEIN CORRECTED 8.2 MG/DL (8.5-10.1)
--- NOTE | 2016-08-29 14:08 | HHI.PR ---
Subjective Remarks Renal function is improved again today. Creatinine level is 5.17 today. CD4 count is is 296. No new complaints from the patient. Objective Vital Signs Date Time Temp Pulse Resp B/P Pulse Ox O2 Delivery O2 Flow Rate FiO2 08/29/16 12:16 100.7 72 18 118/79 92 Manual Cuff/Auscultation 08/29/16 09:22 73 08/29/16 08:16 97.9 63 17 191/100 95 08/29/16 04:59 98.6 74 18 180/98 96 08/29/16 02:34 182/88 08/29/16 01:27 170/100 08/29/16 00:05 97.9 70 17 180/110 94 08/28/16 21:25 168/98 08/28/16 20:30 98.4 83 18 180/105 95 08/28/16 15:51 99.1 69 15 163/94 95 I/O 08/28/16 08/28/16 08/28/16 08/29/16 08/29/16 08/29/16 07:00 15:00 23:00 07:00 15:00 23:00 Intake Total 805 ml 1212 ml 840 ml 360 ml 2134 ml Output Total 350 ml 500 ml 150 ml 500 ml 400 ml Balance 455 ml 712 ml 690 ml -140 ml 1734 ml Intake Oral 240 ml 600 ml 840 ml 360 ml IV Total 565 ml 612 ml 2134 ml Output Urine Total 350 ml 500 ml 150 ml 500 ml 400 ml # Voids 8 # Bowel Movements 0 3 2 0 1 Result Diagram: 08/29/16 0606 08/29/16 0606 Procedures No procedures performed. Objective Remarks GENERAL: NAD, A&Ox3, global cachexia SKIN: Warm and dry. HEAD: Normocephalic. EYES: No scleral icterus. No injection or drainage. NECK: Supple, trachea midline. No JVD or lymphadenopathy. CARDIOVASCULAR: Regular rate and rhythm without murmurs, gallops, or rubs. RESPIRATORY: Breath sounds equal bilaterally. No accessory muscle use. GASTROINTESTINAL: Abdomen soft, non-tender, nondistended. MUSCULOSKELETAL: No cyanosis, or edema. Global muscle wasting/atrophy. BACK: Nontender without obvious deformity. No CVA tenderness. A/P Problem List: (1) Essential hypertension ICD Code: I10 (2) Renal failure ICD Code: N19 (3) Anemia ICD Code: D64.9 (4) Malnutrition ICD Code: E46 (5) Acute kidney injury ICD Code: N17.9 Assessment and Plan Assessment and Plan 56 year old male with HIV, admitted with ARF on CKD. Improvement in renal function today. We'll continue to monitor renal function. Patient complains of a odd taste in his mouth which may be related to his renal function. This has been present since his acute renal failure. Further monitoring of his renal function will occur through tomorrow. Continued improvement in his creatinine and renal function is reassuring. Acute Renal Failure Hyperkalemia he has shown slow improvement through time continue to monitor renal function possible need for dialysis nephrology following Kayexalate continued Follow potassium levels HIV Immunocompromise CD4 pending He is not on treatment risk for AIDS is present Start prophylaxis, if needed, based on CD4 results Nicotine Abuse Alcohol Abuse Cessation has been recommended No DTs Anemia of Chronic Disease Follow H/H for any worsening If worsening he will need a transfusion HTN No change to baseline treatments Stable Follow BP and adjust treatments if needed Hepatitis C Standard precautions Hx of Gastric Cancer Hx of Partial Gastrectomy Malnourishment 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
--- NOTE | 2016-08-29 16:35 | HHI.NPPN ---
Subjective History of Present Illness 56-year-old male known to me from before from his last admission with past medical history of HIV disease, history of alcoholism, chronic kidney disease, chronic anemia, weight loss, hypertension, came to the hospital because of decreased appetite, weight loss, feeling weak and tired and has nausea off and on. I was called to see the patient for evaluation of his renal disease. Additional Remarks Patient is alert,no SOB, some improvement in the appetite, now also has loose BM. Review of Systems General Constitutional: Fatigue Cardiovascular Cardiac: HUGGINS Objective Data Data 08/28/16 08/29/16 19:00 07:00 Intake Total 1212 ml 1200 ml Output Total 500 ml 650 ml Balance 712 ml 550 ml Intake Oral 600 ml 1200 ml IV Total 612 ml Output Urine Total 500 ml 650 ml # Voids 8 # Bowel Movements 3 2 Vital Signs Date Time Temp Pulse Resp B/P Pulse Ox O2 Delivery O2 Flow Rate FiO2 08/29/16 12:16 100.7 72 18 118/79 92 Manual Cuff/Auscultation 08/29/16 09:22 73 08/29/16 08:16 97.9 63 17 191/100 95 08/29/16 04:59 98.6 74 18 180/98 96 08/29/16 02:34 182/88 08/29/16 01:27 170/100 08/29/16 00:05 97.9 70 17 180/110 94 08/28/16 21:25 168/98 08/28/16 20:30 98.4 83 18 180/105 95 -: 08/29/16 0606 08/29/16 0606 Physical Exam General Appearance: No Acute Distress, Comfortable Eyes Eye Exam: Pupils Equal Throat Throat Exam: Oral Mucosa [place] & Moist Neck Neck Exam: Neck Supple Pulmonary Resp Exam: No Distress, Rhonchi, Decreased Bases, Diminished Breath Sounds Cardiology CV Exam: Regular, Normal Sinus Rhythm Gastrointestinal/Abdomen GI Exam: Soft, Non-Tender Extremeties Extremities Exam: No Edema Neurologic Neuro Exam: Alert, Awake, Oriented Psychiatric Psych Exam: Appropriate Responses Assessment/Plan Assessment Summary: Hypertension, CKD Stage IV Electrolyte Assessment: Metabolic Acidosis Problem List: (1) HIV disease (2) HIV (human immunodeficiency virus infection) (3) Anemia (4) Metabolic acidosis (5) Chronic kidney disease Plan Patient has been non oliguric, Urine out put is better. Has some improvement in the Creatinine. Now Creatinine is 5.1 and the GFR is 14 ml/min., Continue IVF and encourage oral intake. No urgent need for Dialysis. Creatinine continue to improve. Problem Qualifiers (1) Chronic kidney disease: Qualified Code: N18.4 - Stage 4 chronic kidney disease George Davis MD Aug 29, 2016 16:35
[2016-08-29] MEDS: cloNIDine HCL 0.1 MG TAB PO PRN (17:26)
[2016-08-29] MEDS: ACETAMINOPHEN 325 MG TAB PO PRN (17:26)
[2016-08-30] VITALS (7 sets, daily range): BP systolic 100–200; BP diastolic 62–104; PULSE 62–84; RESP 15–20; TEMP 98.4–100.7; O2SAT 93–95
[2016-08-30] MEDS: SODIUM BICARBONATE 8.4% INJ 75 MEQ in SODIUM CHLOR 0.45% 1000 ML INJ 1,000 ML IV SCH (03:40)
[2016-08-30] MEDS: cloNIDine HCL 0.1 MG TAB PO PRN (05:09)
[2016-08-30 07:07] LABS: BICARBONATE 25.4 MEQ/L (21.0-32.0); POTASSIUM 4.5 MEQ/L (3.5-5.1)
[2016-08-30 07:28] LABS: CALCIUM-PROTEIN CORRECTED 7.9 MG/DL (8.5-10.1)
--- NOTE | 2016-08-30 08:21 | HHI.PR ---
Subjective Remarks Renal function is improved again today. Creatinine level is 4.83 today. No complaints from the patient. Objective Vital Signs Date Time Temp Pulse Resp B/P Pulse Ox O2 Delivery O2 Flow Rate FiO2 08/30/16 04:00 100.7 62 17 200/98 94 08/30/16 00:00 98.7 63 15 181/97 94 08/29/16 19:00 99.0 61 17 146/84 96 08/29/16 17:23 100.3 66 18 155/91 91 08/29/16 12:16 100.7 72 18 118/79 92 Manual Cuff/Auscultation 08/29/16 09:22 73 I/O 08/29/16 08/29/16 08/29/16 08/30/16 08/30/16 08/30/16 07:00 15:00 23:00 07:00 15:00 23:00 Intake Total 360 ml 2614 ml 480 ml 480 ml Output Total 500 ml 400 ml 700 ml Balance -140 ml 2214 ml 480 ml -220 ml Intake Oral 360 ml 480 ml 480 ml 480 ml IV Total 2134 ml Output Urine Total 500 ml 400 ml 700 ml # Voids 4 # Bowel Movements 0 1 2 1 Result Diagram: 08/29/16 0606 08/30/16 0621 Procedures No procedures performed. Objective Remarks GENERAL: NAD, A&Ox3, global cachexia SKIN: Warm and dry. HEAD: Normocephalic. EYES: No scleral icterus. No injection or drainage. NECK: Supple, trachea midline. No JVD or lymphadenopathy. CARDIOVASCULAR: Regular rate and rhythm without murmurs, gallops, or rubs. RESPIRATORY: Breath sounds equal bilaterally. No accessory muscle use. GASTROINTESTINAL: Abdomen soft, non-tender, nondistended. MUSCULOSKELETAL: No cyanosis, or edema. Global muscle wasting/atrophy. BACK: Nontender without obvious deformity. No CVA tenderness. A/P Problem List: (1) Essential hypertension ICD Code: I10 (2) Renal failure ICD Code: N19 (3) Anemia ICD Code: D64.9 (4) Malnutrition ICD Code: E46 (5) Acute kidney injury ICD Code: N17.9 Assessment and Plan Assessment and Plan 56 year old male with HIV, admitted with ARF on CKD. Renal function has continued to improve gradually. Monitor electrolytes. Follow BMP, ordered for tomorrow. Monitor renal function till stable. Acute Renal Failure Hyperkalemia he has shown slow improvement through time continue to monitor renal function possible need for dialysis nephrology following Kayexalate continued Follow potassium levels HIV Immunocompromise CD4 pending He is not on treatment risk for AIDS is present Start prophylaxis, if needed, based on CD4 results Nicotine Abuse Alcohol Abuse Cessation has been recommended No DTs Anemia of Chronic Disease Follow H/H for any worsening If worsening he will need a transfusion HTN No change to baseline treatments Stable Follow BP and adjust treatments if needed Hepatitis C Standard precautions Hx of Gastric Cancer Hx of Partial Gastrectomy Malnourishment 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
[2016-08-30] MEDS: CARVEDILOL 12.5 MG TAB PO SCH ×2 (08:49→21:00)
[2016-08-30] MEDS: NIFEdipine 20 MG CAP PO SCH ×2 (08:49→21:00)
[2016-08-30] MEDS: guaiFENesin E.R. 600 MG TAB PO SCH ×2 (08:49→21:00)
[2016-08-30] MEDS: RALTEGRAVIR 400 MG TAB PO SCH ×2 (08:49→21:00)
[2016-08-30] MEDS: ETRAVIRINE 100 MG TAB PO SCH ×2 (08:50→21:00)
[2016-08-30] MEDS: DOCUSATE SODIUM 50 MG/SENNA 8.6 MG TAB PO SCH ×2 (08:50→21:00)
[2016-08-30] MEDS: SODIUM CHLORIDE 0.9% FLUSH 10 ML FLUSH IV FLUSH SCH ×2 (08:50→21:00)
[2016-08-30] MEDS: MEGESTROL ACETATE SUSP 400 MG/10 ML CUP PO SCH (08:50)
--- NOTE | 2016-08-30 09:13 | HHI.NPPN ---
Subjective History of Present Illness 56-year-old male known to me from before from his last admission with past medical history of HIV disease, history of alcoholism, chronic kidney disease, chronic anemia, weight loss, hypertension, came to the hospital because of decreased appetite, weight loss, feeling weak and tired and has nausea off and on. I was called to see the patient for evaluation of his renal disease. Additional Remarks Renal function continues to improve. Hyperkalemia has resolved. Review of Systems General Constitutional: Fatigue Cardiovascular Cardiac: HUGGINS Objective Data Data 08/29/16 08/30/16 18:59 06:59 Intake Total 2614 ml 960 ml Output Total 400 ml 700 ml Balance 2214 ml 260 ml Intake Oral 480 ml 960 ml IV Total 2134 ml Output Urine Total 400 ml 700 ml # Voids 4 # Bowel Movements 1 3 Vital Signs Date Time Temp Pulse Resp B/P Pulse Ox O2 Delivery O2 Flow Rate FiO2 08/30/16 04:00 100.7 62 17 200/98 94 08/30/16 00:00 98.7 63 15 181/97 94 08/29/16 19:00 99.0 61 17 146/84 96 08/29/16 17:23 100.3 66 18 155/91 91 08/29/16 12:16 100.7 72 18 118/79 92 Manual Cuff/Auscultation 08/29/16 09:22 73 -: 08/29/16 0606 08/30/16 0621 Physical Exam General Appearance: No Acute Distress, Comfortable Eyes Eye Exam: Pupils Equal Throat Throat Exam: Oral Mucosa [place] & Moist Neck Neck Exam: Neck Supple Pulmonary Resp Exam: No Distress, Decreased Bases, Diminished Breath Sounds Cardiology CV Exam: Regular, Normal Sinus Rhythm Gastrointestinal/Abdomen GI Exam: Soft, Non-Tender Extremeties Extremities Exam: No Edema Neurologic Neuro Exam: Alert, Awake, Oriented Psychiatric Psych Exam: Appropriate Responses Assessment/Plan Assessment Summary: Hypertension, CKD Stage IV Electrolyte Assessment: Metabolic Acidosis Problem List: (1) HIV disease (2) HIV (human immunodeficiency virus infection) (3) Anemia (4) Metabolic acidosis (5) Chronic kidney disease Plan Renal function continues to improved. Change IVF to NS. Mild hyponatremia is noted. Encourage oral intake and taper off fluids. No indication for dialysis at this time. Avoid nephrotoxic agents. Problem Qualifiers (1) Chronic kidney disease: Qualified Code: N18.4 - Stage 4 chronic kidney disease Crow To MD Aug 30, 2016 09:13
[2016-08-30] MEDS: SODIUM CHLOR 0.9% 1000 ML INJ 1,000 ML IV SCH (10:47)
[2016-08-31] VITALS (7 sets, daily range): BP systolic 98–156; BP diastolic 63–99; PULSE 69–82; RESP 18–20; TEMP 96.9–99.5; O2SAT 91–95
[2016-08-31 07:47] LABS: POTASSIUM 4.4 MEQ/L (3.5-5.1)
[2016-08-31 08:07] LABS: CALCIUM-PROTEIN CORRECTED 7.7 MG/DL (8.5-10.1)
[2016-08-31] MEDS: ETRAVIRINE 100 MG TAB PO SCH ×2 (08:48→20:23)
[2016-08-31] MEDS: RALTEGRAVIR 400 MG TAB PO SCH ×2 (08:49→20:23)
[2016-08-31] MEDS: DOCUSATE SODIUM 50 MG/SENNA 8.6 MG TAB PO SCH ×2 (08:49→20:23)
[2016-08-31] MEDS: MEGESTROL ACETATE SUSP 400 MG/10 ML CUP PO SCH (08:49)
[2016-08-31] MEDS: guaiFENesin E.R. 600 MG TAB PO SCH ×2 (08:49→20:23)
[2016-08-31] MEDS: NIFEdipine 20 MG CAP PO SCH ×2 (08:49→20:23)
[2016-08-31] MEDS: CARVEDILOL 12.5 MG TAB PO SCH ×2 (08:51→20:23)
[2016-08-31] MEDS: SODIUM CHLORIDE 0.9% FLUSH 10 ML FLUSH IV FLUSH SCH ×2 (08:51→20:23)
[2016-08-31] MEDS: SODIUM CHLOR 0.9% 1000 ML INJ 1,000 ML IV SCH (08:52)
--- NOTE | 2016-08-31 09:24 | HHI.PR ---
Subjective Remarks Renal function shows possible signs of slight worsening today. Creatinine level is 4.83 yesterday and has increased to 4.97 today.. No complaints from the patient. Objective Vital Signs Date Time Temp Pulse Resp B/P Pulse Ox O2 Delivery O2 Flow Rate FiO2 08/31/16 08:00 98.7 72 18 145/87 93 08/31/16 04:00 98.1 82 20 113/81 94 08/31/16 00:00 99.5 80 20 100/63 91 08/30/16 21:32 78 08/30/16 20:00 98.4 84 20 136/78 94 08/30/16 16:00 99.3 70 18 107/69 95 08/30/16 12:00 100.4 76 18 100/62 93 I/O 08/30/16 08/30/16 08/30/16 08/31/16 08/31/16 08/31/16 07:00 15:00 23:00 07:00 15:00 23:00 Intake Total 480 ml 1380 ml 480 ml Output Total 700 ml 750 ml 500 ml Balance -220 ml 630 ml -20 ml Intake Oral 480 ml 1380 ml 480 ml Output Urine Total 700 ml 750 ml 500 ml # Voids 2 # Bowel Movements 1 0 0 Result Diagram: 08/29/16 0606 08/31/16 0645 Procedures No procedures performed. Objective Remarks GENERAL: NAD, A&Ox3, global cachexia SKIN: Warm and dry. HEAD: Normocephalic. EYES: No scleral icterus. No injection or drainage. NECK: Supple, trachea midline. No JVD or lymphadenopathy. CARDIOVASCULAR: Regular rate and rhythm without murmurs, gallops, or rubs. RESPIRATORY: Breath sounds equal bilaterally. No accessory muscle use. GASTROINTESTINAL: Abdomen soft, non-tender, nondistended. MUSCULOSKELETAL: No cyanosis, or edema. Global muscle wasting/atrophy. BACK: Nontender without obvious deformity. No CVA tenderness. A/P Problem List: (1) Essential hypertension ICD Code: I10 (2) Renal failure ICD Code: N19 (3) Anemia ICD Code: D64.9 (4) Malnutrition ICD Code: E46 (5) Acute kidney injury ICD Code: N17.9 Assessment and Plan Assessment and Plan 56 year old male with HIV, admitted with ARF on CKD. Slight worsening in renal function today. Further monitoring. Renal function is not yet determined to be stable. Dialysis may still be necessary if renal function worsens. Acute Renal Failure Hyperkalemia he has shown slow improvement through time continue to monitor renal function possible need for dialysis nephrology following Kayexalate continued Follow potassium levels HIV Immunocompromise CD4 pending He is not on treatment risk for AIDS is present Start prophylaxis, if needed, based on CD4 results Nicotine Abuse Alcohol Abuse Cessation has been recommended No DTs Anemia of Chronic Disease Follow H/H for any worsening If worsening he will need a transfusion HTN No change to baseline treatments Stable Follow BP and adjust treatments if needed Hepatitis C Standard precautions Hx of Gastric Cancer Hx of Partial Gastrectomy Malnourishment 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
--- NOTE | 2016-08-31 09:24 | HHI.NPPN ---
Subjective History of Present Illness 56-year-old male known to me from before from his last admission with past medical history of HIV disease, history of alcoholism, chronic kidney disease, chronic anemia, weight loss, hypertension, came to the hospital because of decreased appetite, weight loss, feeling weak and tired and has nausea off and on. I was called to see the patient for evaluation of his renal disease. Additional Remarks Non oliguric, creatinine has increased slightly today. Review of Systems General Constitutional: Fatigue Cardiovascular Cardiac: HUGGINS Objective Data Data 08/30/16 08/31/16 19:00 07:00 Intake Total 600 ml 1260 ml Output Total 750 ml 500 ml Balance -150 ml 760 ml Intake Oral 600 ml 1260 ml Output Urine Total 750 ml 500 ml # Voids 2 # Bowel Movements 0 0 Vital Signs Date Time Temp Pulse Resp B/P Pulse Ox O2 Delivery O2 Flow Rate FiO2 08/31/16 08:00 98.7 72 18 145/87 93 08/31/16 04:00 98.1 82 20 113/81 94 08/31/16 00:00 99.5 80 20 100/63 91 08/30/16 21:32 78 08/30/16 20:00 98.4 84 20 136/78 94 08/30/16 16:00 99.3 70 18 107/69 95 08/30/16 12:00 100.4 76 18 100/62 93 -: 08/29/16 0606 08/31/16 0645 Physical Exam General Appearance: No Acute Distress, Comfortable Eyes Eye Exam: Pupils Equal Throat Throat Exam: Oral Mucosa [place] & Moist Neck Neck Exam: Neck Supple Pulmonary Resp Exam: No Distress, Decreased Bases, Diminished Breath Sounds Cardiology CV Exam: Regular, Normal Sinus Rhythm Gastrointestinal/Abdomen GI Exam: Soft, Non-Tender Extremeties Extremities Exam: No Edema Neurologic Neuro Exam: Alert, Awake, Oriented Psychiatric Psych Exam: Appropriate Responses Assessment/Plan Assessment Summary: Hypertension, CKD Stage IV Electrolyte Assessment: Metabolic Acidosis Problem List: (1) HIV disease (2) HIV (human immunodeficiency virus infection) (3) Anemia (4) Metabolic acidosis (5) Chronic kidney disease Plan Creatinine is slightly worse. This may be his new baseline. Encourage oral intake and taper off fluids. No immediate indication for dialysis, but he may require it soon. Avoid nephrotoxic agents. Problem Qualifiers (1) Chronic kidney disease: Qualified Code: N18.4 - Stage 4 chronic kidney disease Crow To MD Aug 31, 2016 09:24
[2016-09-01] VITALS: BP 127/76; PULSE 72; RESP 18; TEMP 100; O2SAT 91
[2016-09-01 06:41] LABS: BICARBONATE 22.7 MEQ/L (21.0-32.0); POTASSIUM 4.7 MEQ/L (3.5-5.1)
[2016-09-01 06:59] LABS: CALCIUM-PROTEIN CORRECTED 8.3 MG/DL (8.5-10.1)
--- NOTE | 2016-09-01 08:18 | HHI.PR ---
Subjective Remarks Creatinine has increased from 4.97 to 5.00 today. A low-grade fever occurred overnight. This something like a urinary tract infection is present this could explain the stall in his renal improvement. He'll be tested for UTI and pneumonia. Objective Vital Signs Date Time Temp Pulse Resp B/P Pulse Ox O2 Delivery O2 Flow Rate FiO2 09/01/16 00:00 100.0 72 18 127/76 91 08/31/16 20:40 79 08/31/16 20:00 98.0 69 18 156/99 95 08/31/16 16:00 96.9 74 18 152/94 95 08/31/16 12:00 99.4 76 18 98/68 92 I/O 08/31/16 08/31/16 08/31/16 09/01/16 09/01/16 09/01/16 07:00 15:00 23:00 07:00 15:00 23:00 Intake Total 480 ml 111 ml 1260 ml 480 ml Output Total 500 ml 1175 ml Balance -20 ml 111 ml 85 ml 480 ml Intake Oral 480 ml 1260 ml 480 ml IV Total 111 ml Output Urine Total 500 ml 1175 ml # Voids 3 2 # Bowel Movements 0 1 1 Result Diagram: 08/29/16 0606 09/01/16 0546 Procedures No procedures performed. Objective Remarks GENERAL: NAD, A&Ox3, global cachexia SKIN: Warm and dry. HEAD: Normocephalic. EYES: No scleral icterus. No injection or drainage. NECK: Supple, trachea midline. No JVD or lymphadenopathy. CARDIOVASCULAR: Regular rate and rhythm without murmurs, gallops, or rubs. RESPIRATORY: Breath sounds equal bilaterally. No accessory muscle use. GASTROINTESTINAL: Abdomen soft, non-tender, nondistended. MUSCULOSKELETAL: No cyanosis, or edema. Global muscle wasting/atrophy. BACK: Nontender without obvious deformity. No CVA tenderness. A/P Problem List: (1) Essential hypertension ICD Code: I10 (2) Renal failure ICD Code: N19 (3) Anemia ICD Code: D64.9 (4) Malnutrition ICD Code: E46 (5) Acute kidney injury ICD Code: N17.9 Assessment and Plan Assessment and Plan 56 year old male with HIV, admitted with ARF on CKD. A stall in his renal improvement is present. Low-grade fever overnight. Check UA and chest x-ray. CBC and BMP. Acute Renal Failure Hyperkalemia he has shown slow improvement through time continue to monitor renal function possible need for dialysis nephrology following Kayexalate continued Follow potassium levels HIV Immunocompromise CD4 pending He is not on treatment risk for AIDS is present Start prophylaxis, if needed, based on CD4 results Nicotine Abuse Alcohol Abuse Cessation has been recommended No DTs Anemia of Chronic Disease Follow H/H for any worsening If worsening he will need a transfusion HTN No change to baseline treatments Stable Follow BP and adjust treatments if needed Hepatitis C Standard precautions Hx of Gastric Cancer Hx of Partial Gastrectomy Malnourishment 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
[2016-09-01] MEDS: guaiFENesin E.R. 600 MG TAB PO SCH ×2 (08:32→21:46)
[2016-09-01] MEDS: SODIUM CHLOR 0.9% 1000 ML INJ 1,000 ML IV SCH ×2 (08:32→21:46)
[2016-09-01] MEDS: MEGESTROL ACETATE SUSP 400 MG/10 ML CUP PO SCH (08:32)
[2016-09-01] MEDS: NIFEdipine 20 MG CAP PO SCH ×2 (08:33→21:46)
[2016-09-01] MEDS: RALTEGRAVIR 400 MG TAB PO SCH ×2 (08:35→21:45)
[2016-09-01] MEDS: DOCUSATE SODIUM 50 MG/SENNA 8.6 MG TAB PO SCH ×2 (08:35→21:46)
[2016-09-01] MEDS: CARVEDILOL 12.5 MG TAB PO SCH ×2 (08:35→21:45)
[2016-09-01] MEDS: ETRAVIRINE 100 MG TAB PO SCH ×2 (08:35→21:45)
[2016-09-01] MEDS: SODIUM CHLORIDE 0.9% FLUSH 10 ML FLUSH IV FLUSH SCH ×2 (08:36→21:45)
[2016-09-01 08:40] VITALS: BP 169/103; PULSE 76; RESP 18; TEMP 99.6; O2SAT 100
--- NOTE | 2016-09-01 08:47 | RADRPT ---
EXAM DATE/TIME: 09/01/2016 08:08 [facility] COMPARISON: CHEST SINGLE AP, August 23, 2016, 16:52. INDICATIONS : Cough. MEDICAL HISTORY : Hypertension. Cardiovascular disease. HIV SURGICAL HISTORY : Gastric mass ENCOUNTER: Subsequent ACUITY: 2 weeks PAIN SCORE: 0/10 LOCATION: Bilateral chest FINDINGS: Diffuse alveolar and patchy opacities throughout the right lung. Retrocardiac opacity and likely trac e pleural effusion with effacement of the left hemidiaphragm. Cardiomediastinal contours are within n ormal limits. The remainder of the exam is unchanged. CONCLUSION: 1. Diffuse right patchy interstitial and airspace disease consistent with atypical edema versus pneum onia versus atypical infection. 2. Left lower lobe airspace disease and probable trace pleural effusion. Sawyer Ritter MD on September 01, 2016 at 8:42 Board Certified Radiologist. This report was verified electronically.
[2016-09-01 12:20] VITALS: BP 117/69; PULSE 69; RESP 16; TEMP 97.7; O2SAT 95
--- NOTE | 2016-09-01 15:31 | HHI.NPPN ---
Subjective History of Present Illness 56-year-old male known to me from before from his last admission with past medical history of HIV disease, history of alcoholism, chronic kidney disease, chronic anemia, weight loss, hypertension, came to the hospital because of decreased appetite, weight loss, feeling weak and tired and has nausea off and on. I was called to see the patient for evaluation of his renal disease. Additional Remarks Patient is alert, has loose BM, and appetite is still not much better. Review of Systems General Constitutional: Fatigue Cardiovascular Cardiac: HUGGINS Objective Data Data 08/31/16 09/01/16 19:00 07:00 Intake Total 591 ml 1260 ml Output Total 1175 ml Balance -584 ml 1260 ml Intake Oral 480 ml 1260 ml IV Total 111 ml Output Urine Total 1175 ml # Voids 1 4 # Bowel Movements 1 1 Vital Signs Date Time Temp Pulse Resp B/P Pulse Ox O2 Delivery O2 Flow Rate FiO2 09/01/16 12:20 97.7 69 16 117/69 95 09/01/16 08:40 99.6 76 18 169/103 100 09/01/16 00:00 100.0 72 18 127/76 91 08/31/16 20:40 79 08/31/16 20:00 98.0 69 18 156/99 95 08/31/16 16:00 96.9 74 18 152/94 95 -: 08/29/16 0606 09/01/16 0546 Physical Exam General Appearance: No Acute Distress, Anxious, Malnourished Eyes Eye Exam: Pupils Equal Throat Throat Exam: Oral Mucosa [place] & Moist Neck Neck Exam: Neck Supple Pulmonary Resp Exam: No Distress, Decreased Bases, Diminished Breath Sounds Cardiology CV Exam: Regular, Normal Sinus Rhythm Gastrointestinal/Abdomen GI Exam: Soft, Non-Tender Extremeties Extremities Exam: No Edema Neurologic Neuro Exam: Alert, Awake, Oriented Psychiatric Psych Exam: Appropriate Responses Assessment/Plan Assessment Summary: Hypertension, CKD Stage IV Electrolyte Assessment: Metabolic Acidosis Problem List: (1) HIV disease (2) HIV (human immunodeficiency virus infection) (3) Anemia (4) Metabolic acidosis (5) Chronic kidney disease Plan Patient has advane stage 4 chronic kidney disease, approaching stage 5. Creatinine now almost same, and the GFR is 15 ml./min. Has some uremic symptoms, like decrease appetite and taste, if renal function not improve much, will need dialysis soon. Problem Qualifiers (1) Chronic kidney disease: Qualified Code: N18.4 - Stage 4 chronic kidney disease George Davis MD Sep 01, 2016 15:31
[2016-09-01 16:12] VITALS: BP 159/90; PULSE 74; RESP 18; TEMP 99.9; O2SAT 99
[2016-09-01 20:23] VITALS: BP 163/95; PULSE 68; RESP 18; TEMP 98.5; O2SAT 97
[2016-09-01 20:35] VITALS: PULSE 71
[2016-09-02] VITALS (10 sets, daily range): BP systolic 106–168; BP diastolic 66–117; PULSE 67–75; RESP 16–18; TEMP 98.1–99.4; O2SAT 94–98
[2016-09-02 06:24] LABS: HEMATOCRIT 29.6 % (39.0-51.0); MEAN CELL VOLUME 85.1 FL (80.0-100.0); MEAN CORPUSCULAR HEMOGLOBIN 28.8 PG (27.0-34.0); MEAN CORPUSCULAR HGB CONC 33.8 % (32.0-36.0); PLATELET COUNT 216 TH/MM3 (150-450); RED BLOOD COUNT 3.48 MIL/MM3 (4.50-5.90); RED CELL DISTRIBUTION WIDTH 13.8 % (11.6-17.2); REVIEW FLAG FINAL; WHITE BLOOD COUNT 6.9 TH/MM3 (4.0-11.0)
[2016-09-02 06:59] LABS: BICARBONATE 20.7 MEQ/L (21.0-32.0); POTASSIUM 4.5 MEQ/L (3.5-5.1)
[2016-09-02 07:22] LABS: CALCIUM-PROTEIN CORRECTED 8.1 MG/DL (8.5-10.1)
[2016-09-02] MEDS: SODIUM CHLORIDE 0.9% FLUSH 10 ML FLUSH IV FLUSH SCH ×2 (09:00→21:00)
[2016-09-02] MEDS: ETRAVIRINE 100 MG TAB PO SCH ×2 (09:17→21:22)
[2016-09-02] MEDS: NIFEdipine 20 MG CAP PO SCH ×2 (09:18→21:22)
[2016-09-02] MEDS: DOCUSATE SODIUM 50 MG/SENNA 8.6 MG TAB PO SCH ×2 (09:18→21:22)
[2016-09-02] MEDS: guaiFENesin E.R. 600 MG TAB PO SCH ×2 (09:18→21:22)
[2016-09-02] MEDS: CARVEDILOL 12.5 MG TAB PO SCH ×2 (09:18→21:22)
[2016-09-02] MEDS: RALTEGRAVIR 400 MG TAB PO SCH ×2 (09:18→21:22)
[2016-09-02] MEDS: MEGESTROL ACETATE SUSP 400 MG/10 ML CUP PO SCH (09:19)
[2016-09-02] MEDS: AZITHROMYCIN INJ 500 MG in SODIUM CHLOR 0.9% 250 ML INJ 250 ML IV SCH (10:27)
--- NOTE | 2016-09-02 11:32 | HHI.PR ---
Subjective Remarks Cough remains. Imaging was suggestive of possible early pneumonia. Creatinine has remained stable at 4.89 with a 5.0 reading yesterday. Patient has no new complaints. UA is pending. Objective Vital Signs Date Time Temp Pulse Resp B/P Pulse Ox O2 Delivery O2 Flow Rate FiO2 09/02/16 08:15 99.0 72 18 150/90 95 09/02/16 04:35 99.3 69 17 130/80 95 09/02/16 02:45 99.0 74 17 128/69 94 09/02/16 02:14 67 09/01/16 20:35 71 09/01/16 20:23 98.5 68 18 163/95 97 09/01/16 16:12 99.9 74 18 159/90 99 09/01/16 12:20 97.7 69 16 117/69 95 I/O 09/01/16 09/01/16 09/01/16 09/02/16 09/02/16 09/02/16 07:00 15:00 23:00 07:00 15:00 23:00 Intake Total 480 ml 680 ml 751 ml 704 ml Output Total 450 ml 850 ml Balance 480 ml 680 ml 301 ml -146 ml Intake Oral 480 ml 680 ml 480 ml 360 ml IV Total 271 ml 344 ml Output Urine Total 450 ml 850 ml # Voids 2 5 3 # Bowel Movements 1 2 1 Result Diagram: 09/02/1629 09/02/16 0529 Procedures No procedures performed. Objective Remarks GENERAL: NAD, A&Ox3, global cachexia SKIN: Warm and dry. HEAD: Normocephalic. EYES: No scleral icterus. No injection or drainage. NECK: Supple, trachea midline. No JVD or lymphadenopathy. CARDIOVASCULAR: Regular rate and rhythm without murmurs, gallops, or rubs. RESPIRATORY: Breath sounds equal bilaterally. No accessory muscle use. GASTROINTESTINAL: Abdomen soft, non-tender, nondistended. MUSCULOSKELETAL: No cyanosis, or edema. Global muscle wasting/atrophy. BACK: Nontender without obvious deformity. No CVA tenderness. A/P Problem List: (1) Essential hypertension ICD Code: I10 (2) Renal failure ICD Code: N19 (3) Anemia ICD Code: D64.9 (4) Malnutrition ICD Code: E46 (5) Acute kidney injury ICD Code: N17.9 Assessment and Plan Assessment and Plan 56 year old male with HIV, admitted with ARF on CKD. Renal function stable. Not significantly improved today. Possible pneumonia on imaging. Recent history of low-grade fever and immunocompromise status she is started on Rocephin and azithromycin. Urinalysis is pending, but Rocephin should cover any UTI also. Acute Renal Failure Hyperkalemia he has shown slow improvement through time continue to monitor renal function possible need for dialysis nephrology following Kayexalate continued Follow potassium levels HIV Immunocompromise CD4 pending He is not on treatment risk for AIDS is present Start prophylaxis, if needed, based on CD4 results Nicotine Abuse Alcohol Abuse Cessation has been recommended No DTs Anemia of Chronic Disease Follow H/H for any worsening If worsening he will need a transfusion HTN No change to baseline treatments Stable Follow BP and adjust treatments if needed Hepatitis C Standard precautions Hx of Gastric Cancer Hx of Partial Gastrectomy Malnourishment 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
[2016-09-02] MEDS: cefTRIAXone INJ 1,000 MG in SODIUM CHLORIDE 0.9% INJ 100 ML IV SCH (11:51)
[2016-09-02] MEDS: LACTOBACILLUS ACIDOPHILUS TAB PO SCH ×2 (12:06→17:57)
--- NOTE | 2016-09-02 16:32 | HHI.NPPN ---
Subjective History of Present Illness 56-year-old male known to me from before from his last admission with past medical history of HIV disease, history of alcoholism, chronic kidney disease, chronic anemia, weight loss, hypertension, came to the hospital because of decreased appetite, weight loss, feeling weak and tired and has nausea off and on. I was called to see the patient for evaluation of his renal disease. Additional Remarks Patient is alert, started eating some what better, has 2 loose BM since AM. Review of Systems General Constitutional: Fatigue Cardiovascular Cardiac: HUGGINS Objective Data Data 09/01/16 09/02/16 19:00 07:00 Intake Total 680 ml 1455 ml Output Total 1300 ml Balance 680 ml 155 ml Intake Oral 680 ml 840 ml IV Total 615 ml Output Urine Total 1300 ml # Voids 5 3 # Bowel Movements 3 Vital Signs Date Time Temp Pulse Resp B/P Pulse Ox O2 Delivery O2 Flow Rate FiO2 09/02/16 12:30 98.1 70 16 106/68 94 09/02/16 08:15 99.0 72 18 150/90 95 09/02/16 04:35 99.3 69 17 130/80 95 09/02/16 02:45 99.0 74 17 128/69 94 09/02/16 02:14 67 09/01/16 20:35 71 09/01/16 20:23 98.5 68 18 163/95 97 -: 09/02/16 0529 09/02/16 0529 Physical Exam General Appearance: No Acute Distress, Anxious, Malnourished Eyes Eye Exam: Pupils Equal Throat Throat Exam: Oral Mucosa [place] & Moist Neck Neck Exam: Neck Supple Pulmonary Resp Exam: No Distress, Decreased Bases, Diminished Breath Sounds Cardiology CV Exam: Regular, Normal Sinus Rhythm Gastrointestinal/Abdomen GI Exam: Soft, Non-Tender Extremeties Extremities Exam: No Edema Neurologic Neuro Exam: Alert, Awake, Oriented Psychiatric Psych Exam: Appropriate Responses Assessment/Plan Assessment Summary: Hypertension, CKD Stage IV Electrolyte Assessment: Metabolic Acidosis Problem List: (1) HIV disease (2) HIV (human immunodeficiency virus infection) (3) Anemia (4) Metabolic acidosis (5) Chronic kidney disease Plan Patient has advance stage 4 chronic kidney disease, Creatinine now slightly better, 4.9, and the GFR is 15 ml./min. No urgent need for Dialysis. Continue antibiotics and IVF. Follow the urine out put and BMP. Problem Qualifiers (1) Chronic kidney disease: Qualified Code: N18.4 - Stage 4 chronic kidney disease George Davis MD Sep 02, 2016 16:32
[2016-09-02] MEDS: SODIUM CHLOR 0.9% 1000 ML INJ 1,000 ML IV SCH (17:57)
[2016-09-03 02:06] VITALS: PULSE 72
[2016-09-03 04:01] VITALS: BP 156/91; PULSE 74; RESP 17; TEMP 99.3; O2SAT 96
[2016-09-03 07:53] LABS: HEMATOCRIT 28.5 % (39.0-51.0); MEAN CELL VOLUME 84.4 FL (80.0-100.0); MEAN CORPUSCULAR HEMOGLOBIN 28.8 PG (27.0-34.0); MEAN CORPUSCULAR HGB CONC 34.1 % (32.0-36.0); PLATELET COUNT 222 TH/MM3 (150-450); RED BLOOD COUNT 3.38 MIL/MM3 (4.50-5.90); REVIEW FLAG FINAL; WHITE BLOOD COUNT 7.7 TH/MM3 (4.0-11.0)
[2016-09-03 08:00] VITALS: BP 181/97; PULSE 68; RESP 18; TEMP 98.7; O2SAT 95
[2016-09-03 08:17] LABS: BICARBONATE 18.8 MEQ/L (21.0-32.0); POTASSIUM 4.4 MEQ/L (3.5-5.1)
[2016-09-03 08:29] LABS: CALCIUM-PROTEIN CORRECTED 8.1 MG/DL (8.5-10.1)
--- NOTE | 2016-09-03 10:16 | HHI.PR ---
Subjective Remarks Renal function is remaining stable. No new complaints from the patient. Cough improving. Objective Vital Signs Date Time Temp Pulse Resp B/P Pulse Ox O2 Delivery O2 Flow Rate FiO2 09/03/16 08:00 98.7 68 18 181/97 95 09/03/16 04:01 99.3 74 17 156/91 96 09/03/16 02:06 72 09/02/16 23:41 99.4 75 18 110/66 97 09/02/16 21:13 168/117 09/02/16 20:45 69 09/02/16 19:48 98.6 74 18 168/109 98 09/02/16 16:25 67 09/02/16 12:30 98.1 70 16 106/68 94 I/O 09/02/16 09/02/16 09/02/16 09/03/16 09/03/16 09/03/16 07:00 15:00 23:00 07:00 15:00 23:00 Intake Total 704 ml 1523 ml 735 ml Output Total 850 ml 650 ml Balance -146 ml 1523 ml 85 ml Intake Oral 360 ml 480 ml 360 ml IV Total 344 ml 1043 ml 375 ml Output Urine Total 850 ml 650 ml # Voids 4 # Bowel Movements 1 3 2 Result Diagram: 09/03/16 0732 09/03/16 0732 Procedures No procedures performed. Objective Remarks GENERAL: NAD, A&Ox3, global cachexia SKIN: Warm and dry. HEAD: Normocephalic. EYES: No scleral icterus. No injection or drainage. NECK: Supple, trachea midline. No JVD or lymphadenopathy. CARDIOVASCULAR: Regular rate and rhythm without murmurs, gallops, or rubs. RESPIRATORY: Breath sounds equal bilaterally. No accessory muscle use. GASTROINTESTINAL: Abdomen soft, non-tender, nondistended. MUSCULOSKELETAL: No cyanosis, or edema. Global muscle wasting/atrophy. BACK: Nontender without obvious deformity. No CVA tenderness. A/P Problem List: (1) Essential hypertension ICD Code: I10 (2) Renal failure ICD Code: N19 (3) Anemia ICD Code: D64.9 (4) Malnutrition ICD Code: E46 (5) Acute kidney injury ICD Code: N17.9 Assessment and Plan Assessment and Plan 56 year old male with HIV, admitted with ARF on CKD. Renal function stable. No change for better or worse in the past 3 days. Pneumonia treatment is causing a decrease in his cough. Labs ordered for monitoring of renal function. Acute Renal Failure Hyperkalemia he has shown slow improvement through time continue to monitor renal function possible need for dialysis nephrology following Kayexalate continued Follow potassium levels HIV Immunocompromise CD4 pending He is not on treatment risk for AIDS is present Start prophylaxis, if needed, based on CD4 results Nicotine Abuse Alcohol Abuse Cessation has been recommended No DTs Anemia of Chronic Disease Follow H/H for any worsening If worsening he will need a transfusion HTN No change to baseline treatments Stable Follow BP and adjust treatments if needed Hepatitis C Standard precautions Hx of Gastric Cancer Hx of Partial Gastrectomy Malnourishment 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
[2016-09-03] MEDS: CARVEDILOL 12.5 MG TAB PO SCH ×2 (10:26→20:42)
[2016-09-03] MEDS: NIFEdipine 20 MG CAP PO SCH ×2 (10:27→23:37)
[2016-09-03] MEDS: RALTEGRAVIR 400 MG TAB PO SCH ×2 (10:27→23:37)
[2016-09-03] MEDS: guaiFENesin E.R. 600 MG TAB PO SCH ×2 (10:27→23:37)
[2016-09-03] MEDS: ETRAVIRINE 100 MG TAB PO SCH ×2 (10:27→23:36)
[2016-09-03] MEDS: MEGESTROL ACETATE SUSP 400 MG/10 ML CUP PO SCH (10:27)
[2016-09-03] MEDS: AZITHROMYCIN INJ 500 MG in SODIUM CHLOR 0.9% 250 ML INJ 250 ML IV SCH (10:27)
[2016-09-03] MEDS: LACTOBACILLUS ACIDOPHILUS TAB PO SCH ×3 (10:28→17:02)
[2016-09-03] MEDS: DOCUSATE SODIUM 50 MG/SENNA 8.6 MG TAB PO SCH ×2 (10:28→23:37)
[2016-09-03] MEDS: cefTRIAXone INJ 1,000 MG in SODIUM CHLORIDE 0.9% INJ 100 ML IV SCH (10:30)
[2016-09-03] MEDS: SODIUM CHLORIDE 0.9% FLUSH 10 ML FLUSH IV FLUSH SCH ×2 (10:35→21:00)
--- NOTE | 2016-09-03 10:41 | HHI.NPPN ---
Subjective History of Present Illness 56-year-old male known to me from before from his last admission with past medical history of HIV disease, history of alcoholism, chronic kidney disease, chronic anemia, weight loss, hypertension, came to the hospital because of decreased appetite, weight loss, feeling weak and tired and has nausea off and on. I was called to see the patient for evaluation of his renal disease. Additional Remarks Patient is alert, again not eating well, has nausea and no taste. Review of Systems General Constitutional: Fatigue Cardiovascular Cardiac: HUGGINS Objective Data Data 09/02/16 09/03/16 19:00 07:00 Intake Total 2258 ml Output Total 650 ml Balance 1608 ml Intake Oral 840 ml IV Total 1418 ml Output Urine Total 650 ml # Voids 4 # Bowel Movements 5 Vital Signs Date Time Temp Pulse Resp B/P Pulse Ox O2 Delivery O2 Flow Rate FiO2 09/03/16 08:00 98.7 68 18 181/97 95 09/03/16 04:01 99.3 74 17 156/91 96 09/03/16 02:06 72 09/02/16 23:41 99.4 75 18 110/66 97 09/02/16 21:13 168/117 09/02/16 20:45 69 09/02/16 19:48 98.6 74 18 168/109 98 09/02/16 16:25 67 09/02/16 12:30 98.1 70 16 106/68 94 -: 09/03/16 0732 09/03/16 0732 Physical Exam General Appearance: No Acute Distress, Anxious, Malnourished Eyes Eye Exam: Pupils Equal Throat Throat Exam: Oral Mucosa [place] & Moist Neck Neck Exam: Neck Supple Pulmonary Resp Exam: No Distress, Decreased Bases, Diminished Breath Sounds Cardiology CV Exam: Regular, Normal Sinus Rhythm Gastrointestinal/Abdomen GI Exam: Soft, Non-Tender Extremeties Extremities Exam: No Edema Neurologic Neuro Exam: Alert, Awake, Oriented Psychiatric Psych Exam: Appropriate Responses Assessment/Plan Assessment Summary: Hypertension, CKD Stage IV Electrolyte Assessment: Metabolic Acidosis Problem List: (1) HIV disease (2) HIV (human immunodeficiency virus infection) (3) Anemia (4) Metabolic acidosis (5) Chronic kidney disease Plan Patient has advance stage 4 chronic kidney disease, Creatinine now slightly better, 4.9, and the GFR is 15 ml./min. No urgent need for Dialysis. Continue antibiotics and IVF. Not much improvement in the Creatinine, has some uremic symptoms and Hco3 dropping. D/W the patient if no improvement, possible dialysis. Problem Qualifiers (1) Chronic kidney disease: Qualified Code: N18.4 - Stage 4 chronic kidney disease George Davis MD Sep 03, 2016 10:41
[2016-09-03 12:00] VITALS: BP 177/100; PULSE 66; RESP 18; TEMP 97.7; O2SAT 94
[2016-09-03] MEDS: cloNIDine HCL 0.1 MG TAB PO PRN (12:50)
[2016-09-03] MEDS: SODIUM CHLOR 0.9% 1000 ML INJ 1,000 ML IV SCH (12:51)
[2016-09-03 16:00] VITALS: BP 180/98; PULSE 68; RESP 18; TEMP 98.8; O2SAT 98
[2016-09-03 20:45] VITALS: BP 195/105; PULSE 64; RESP 17; TEMP 98.9; O2SAT 98
[2016-09-04] VITALS (8 sets, daily range): BP systolic 180–200; BP diastolic 90–110; PULSE 57–62; RESP 16–18; TEMP 97.6–98.7; O2SAT 97–100
[2016-09-04] MEDS: cloNIDine HCL 0.1 MG TAB PO PRN ×3 (00:25→12:39)
[2016-09-04 06:54] LABS: BICARBONATE 18.1 MEQ/L (21.0-32.0); POTASSIUM 4.7 MEQ/L (3.5-5.1)
[2016-09-04 07:22] LABS: CALCIUM-PROTEIN CORRECTED 8.1 MG/DL (8.5-10.1)
[2016-09-04] MEDS: MEGESTROL ACETATE SUSP 400 MG/10 ML CUP PO SCH (09:00)
[2016-09-04] MEDS: CALCIUM CARBONATE 1.25 GM (CA 500 MG) TAB PO SCH ×2 (09:00→21:34)
[2016-09-04] MEDS: CARVEDILOL 12.5 MG TAB PO SCH ×2 (09:00→21:33)
[2016-09-04] MEDS: ETRAVIRINE 100 MG TAB PO SCH ×2 (09:00→21:34)
[2016-09-04] MEDS: DOCUSATE SODIUM 50 MG/SENNA 8.6 MG TAB PO SCH ×2 (09:00→21:34)
[2016-09-04] MEDS: SODIUM CHLORIDE 0.9% FLUSH 10 ML FLUSH IV FLUSH SCH ×2 (09:00→21:34)
[2016-09-04] MEDS: guaiFENesin E.R. 600 MG TAB PO SCH ×2 (09:00→21:34)
[2016-09-04] MEDS: NIFEdipine 20 MG CAP PO SCH ×2 (09:00→21:34)
[2016-09-04] MEDS: RALTEGRAVIR 400 MG TAB PO SCH ×2 (09:00→21:34)
[2016-09-04] MEDS: LACTOBACILLUS ACIDOPHILUS TAB PO SCH ×3 (09:00→16:43)
[2016-09-04] MEDS: SODIUM CHLOR 0.9% 1000 ML INJ 1,000 ML IV SCH (09:15)
[2016-09-04] MEDS: AZITHROMYCIN INJ 500 MG in SODIUM CHLOR 0.9% 250 ML INJ 250 ML IV SCH (10:00)
[2016-09-04] MEDS: ONDANSETRON HCL 4 MG/2 ML VIAL IVP PRN (10:24)
[2016-09-04] MEDS: cefTRIAXone INJ 1,000 MG in SODIUM CHLORIDE 0.9% INJ 100 ML IV SCH (10:40)
--- NOTE | 2016-09-04 12:08 | HHI.PR ---
Subjective Remarks Patient in bed, he appears chronically ill patient. He says he is not hungry, says she has no appetite. [facility] says makes him sick. He is also telling me he doesn't want dialysis. He has no pain at this time. Feels sob and tired. No chest pain or nausea. No palpitations. Objective Vitals Vital Signs Date Time Temp Pulse Resp B/P Pulse Ox O2 Delivery O2 Flow Rate FiO2 09/04/16 08:56 98.7 61 18 186/96 99 09/04/16 04:35 98.3 60 17 195/100 97 09/04/16 02:15 17 180/90 98 09/04/16 02:15 180/90 09/04/16 00:40 98.5 61 17 190/100 97 09/03/16 20:45 98.9 64 17 195/105 98 09/03/16 16:00 98.8 68 18 180/98 98 I/O 09/03/16 09/03/16 09/03/16 09/04/16 09/04/16 09/04/16 07:00 15:00 23:00 07:00 15:00 23:00 Intake Total 735 ml 840 ml 360 ml Output Total 650 ml 1000 ml 300 ml Balance 85 ml -160 ml 60 ml Intake Oral 360 ml 840 ml 360 ml IV Total 375 ml Output Urine Total 650 ml 1000 ml 300 ml # Bowel Movements 2 3 2 Result Diagram: 09/03/16 0732 09/04/16 0534 Imaging Last Impressions Chest X-Ray 09/01/16 0000 Signed Impressions: Service Date/Time: Thursday, September 01, 2016 08:08 - CONCLUSION: 1. Diffuse right patchy interstitial and airspace disease consistent with atypical edema versus pneumonia versus atypical infection. 2. Left lower lobe airspace disease and probable trace pleural effusion. Sawyer Ritter MD Renal Ultrasound 08/24/16 0000 Signed Impressions: Service Date/Time: Wednesday, August 24, 2016 16:40 - CONCLUSION: Echogenic kidneys consistent with medical renal disease. Unremarkable urinary bladder. Richard Méndez MD Objective Remarks GENERAL: NAD, A&Ox3, global cachexia SKIN: Warm and dry. HEAD: Normocephalic. EYES: No scleral icterus. No injection or drainage. NECK: Supple, trachea midline. No JVD or lymphadenopathy. CARDIOVASCULAR: Regular rate and rhythm without murmurs, gallops, or rubs. RESPIRATORY: Breath sounds equal bilaterally. No accessory muscle use. GASTROINTESTINAL: Abdomen soft, non-tender, nondistended. MUSCULOSKELETAL: No cyanosis, or edema. Global muscle wasting/atrophy. BACK: Nontender without obvious deformity. No CVA tenderness. A/P Assessment and Plan Assessment and Plan 56 year old male with HIV, admitted with ARF on CKD. Renal function stable. No change for better or worse in the past days. Pneumonia treatment is causing a decrease in his cough. Labs ordered for monitoring of renal function. Patient however is refusing any meds. He is also refusing dialysis. Will consult palliative care for goals of care. Acute Renal Failure Hyperkalemia he has shown slow improvement through time continue to monitor renal function possible need for dialysis nephrology following Kayexalate continued Follow potassium levels HIV Immunocompromise CD4 pending He is not on treatment risk for AIDS is present Start prophylaxis, if needed, based on CD4 results Nicotine Abuse Alcohol Abuse Cessation has been recommended No DTs Anemia of Chronic Disease Follow H/H for any worsening If worsening he will need a transfusion HTN No change to baseline treatments Stable Follow BP and adjust treatments if needed Hepatitis C Standard precautions Hx of Gastric Cancer Hx of Partial Gastrectomy Malnourishment. 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 DC plan: Patient refusing meds and HD. Consult palliative care for goals of care. Julieta Bess MD Sep 04, 2016 12:08
[2016-09-04] MEDS: cloNIDine HCL 0.2 MG TAB PO SCH ×2 (12:39→21:33)
--- NOTE | 2016-09-04 14:10 | PD.CONS ---
Consult Service Palliative Care . Consult Requested By Dr. Bess . Primary Care Physician Herb Vang MD . Reason for Consultation a. To assist with evaluation and management of symptoms including: nausea/ vomiting, weakness, dysgeusia b. To assist medical decision maker(s) with: better understanding of current medical conditions; weighing benefits/burdens of medical treatment options; making medical treatment decisions. . HPI History of Present Illness Mr. Matthews is a 56-year-old male patient who presented to [facility] on 2016 with complaints of cold and flulike symptoms x 6 days. The patient has a past medical history that includes CKD, hypertension, GERD and HIV. Status post laparotomy and subtotal gastrectomy in 08/2015; pathology report with grade 2 moderately differentiated adenocarcinoma.The patient reported he had been trying to manage his symptoms at home but was prompted to come to the ED for evaluation when he lost his taste for food. The patient was diagnosed with HIV approximately 4 years ago. He reported he had not been taking his antiviral medications, stating that his primary care physician would not give it to him. He patient reported a weight loss of 50 pounds in the past 45 months. He also reported a productive cough with thick white, sometimes yellow sputum. Additional diagnostic findings while in the ED include: * Vital signs: Pulse 74, respirations 16, BP 148/98, oxygen saturation 98% on room air, oral temperature 98.8. * WBC: 4.2, hemoglobin 8.6, hematocrit 25.7, platelets 223, neutrophils 34.8% * Sodium: 132, potassium 5.1, chloride 103, carbon dioxide 16.5, glucose 97, calcium 7.7 * BUN: 73, creatinine 8.16, GFR 8 * Total bilirubin: 0.3, AST 14, ALT 14, alkaline phosphatase 40 * Total creatine kinase: 89 * Troponin: 0.04 * Total protein: 7.0, albumin 2.1 * Toxicology: + Cannabis * EF 60%65%. * Chest x-ray revealed no acute disease Patient was admitted for further evaluation and medical management of acute on chronic renal failure. Creatinine is normally 2.8 at baseline, currently 8.16 on admission. Patient was also anemic secondary to chronic disease. Hemoglobin decreased to 7.5 on 08/24/16 and the patient was transfused with 2 units of RBCs. Nephrology was consulted for evaluation of the patient's elevated BUN and creatinine. A renal ultrasound shows echogenic kidneys consistent with medical renal disease. Patient has been non oliguric; creatinine slowly improving @5.57 on 08/28/2016. Started on Kayexalate secondary to hyperkalemia. Last CD4 count in June 2015 was 476; on 08/25/16 CD4 count is is 296. Patient developed a low-grade fever overnight on 09/01/2016. Follow-up chest x- ray revealed diffuse right patchy interstitial and airspace disease consistent with atypical edema versus pneumonia versus atypical infection; left lower lobe airspace disease and probable trace pleural effusion. Patient has stage IV chronic kidney disease, approaching stage V. Creatinine almost unchanged - 4.83 to 5.57 since 08/28/2016;GFR 15 mL/min. Patient having some uremic symptoms , if renal functioning does not improve the patient may need HD per nephrology. Palliative Care was consulted to assist with symptom management and to discuss with the family the benefits and burdens of her current illnesses and the options regarding future care. Discussed patient's hospital course with nurse, Nancy. She states the patient' s appetite has been poor with nausea and vomiting today; patient refused medication last night and again today. On exam the patient is frail. He is able to communicate is needs;able to weigh benefits vs. burden of medical treatment options. The patient verbalizes aggressive goals stating "I'm gonna keep fighting".The patient states his appetite is good, but he can not eat because food tasted horrible. Therefore, he does not want to take his prescribed medications because it causes him to feel nauseated and vomit. We discussed the importance of compliance with medical regimen; patient is amenable only because it is medically necessary. He would consider artificial nutrition if it is indicated so he can becomes stronger; he would consent to hemodialysis if necessary as well. . Function/Cognitive Trajectory Patient reports he was diagnosed with HIV and Hepatitis C approximately 4 years ago. The patient was hospitalized in August, with symptomatic anemia and chronic renal failure; s/p laparotomy and subtotal gastrectomy secondary to grade 2 moderately differentiated adenocarcinoma.He reports not been taking his antiviral medication stating his PCP would not give it to him. He patient reports a weight loss of 50 pounds in the past 45 months. The patient states he is disabled but was doing fairly well until 2 weeks ago when he became increasingly weak and developed some flulike symptoms. The patient state he was trying to manage his symptoms at home, but when he could no longer tolerate food because it stated bad he came to the hospital to be evaluated. Review of Systems Constitutional: COMPLAINS OF: Fatigue, Weight loss (patient reports a weight loss of 50 pounds in the past 45 months.), Change in appetite, Generalized weakness Endocrine: DENIES: Polydipsia, Polyuria, Polyphagia Eyes: DENIES: Double Vision Ears, nose, mouth, throat: DENIES: Tinnitus, Hearing loss, Vertigo, Oral lesions Respiratory: COMPLAINS OF: Cough (productive), Sputum production (thick white, at time yellow, sputum) Cardiovascular: COMPLAINS OF: Lower Extremity Edema Gastrointestinal: COMPLAINS OF: Diarrhea, Nausea, Vomiting, Anorexia, DENIES: Bloody stools, Vomiting blood Genitourinary: COMPLAINS OF: Urinary frequency, Urinary incontinence Musculoskeletal: COMPLAINS OF: Muscle aches Integumentary: DENIES: Non-healing sores Hematologic/Lymphatics: COMPLAINS OF: Bruising Neurologic: DENIES: Seizures Psychiatric: DENIES: Confusion, Suicidal Ideation Past Family Social History Coded Allergies: *MDRO Multi-Drug Resistant Organism (Verified Adverse Reaction, Unknown, Cleared 09/17/15, 04/14/16) 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 MRSA PCR Screens NEGATIVE - 09/12 & 09/17/2015 CLEARED BY INFECTION CONTROL Past Medical History Anemia HIV Hypertension Hyperlipidemia Hepatitis C CKD-stage IV Moderately differentiated Adenocarcinoma of the Stomach . Past Surgical History Status post laparotomy and subtotal gastrectomy, pathology report with grade 2 moderately differentiated . Reported Medications Nifedipine 20 Mg Cap 20 Mg PO Q12HR Isentress (Raltegravir) 400 Mg Tab 400 Mg PO BID Intelence (Etravirine) 200 Mg Tab 200 Mg PO BID Clonidine (Clonidine HCl) 0.2 Mg Tab 0.2 Mg PO BID Carvedilol 12.5 Mg Tab 12.5 Mg PO BID Intelence (Etravirine) 200 Mg Tab 200 Mg PO Q12HR . Current Medications Medications (Trade) Dose Ordered Sig/Tomi Route Start Time Stop Time Status Last Admin (Isentress) 400 mg BID PO 08/23/16 21:00 09/03/16 10:27 (Intelence) 200 mg BID PO 08/23/16 21:00 09/03/16 10:27 (NS Flush) 2 ml UNSCH PRN IV FLUSH 08/23/16 18:15 (NS Flush) 2 ml BID IV FLUSH 08/23/16 21:00 09/02/16 09:00 (Tylenol) 650 mg Q4H PRN PO 08/23/16 18:15 08/29/16 17:26 (Zofran Inj) 4 mg Q6H PRN IVP 08/23/16 18:15 09/04/16 10:24 (Narcan Inj) 0.4 mg UNSCH PRN IV 08/23/16 18:15 (Danitza-Colace) 1 tab BID PO 08/23/16 21:00 09/02/16 09:18 (Milk Of Magnesia Liq) 30 ml Q12H PRN PO 08/23/16 18:15 (Senokot) 17.2 mg Q12H PRN PO 08/23/16 18:15 (Dulcolax Supp) 10 mg DAILY PRN RECTAL 08/23/16 18:15 (Lactulose Liq) 30 ml DAILY PRN PO 08/23/16 18:15 (Mucinex Er) 600 mg BID PO 08/23/16 21:00 09/03/16 10:27 (Megace Liq) 400 mg DAILY PO 08/24/16 09:00 09/03/16 10:27 (Coreg) 25 mg BID PO 08/29/16 09:00 09/03/16 20:42 (Procardia) 40 mg Q12HR PO 08/29/16 10:00 09/03/16 10:27 Clonidine 0.1 mg 0.1 mg Q6H PRN PO 08/29/16 09:00 09/04/16 12:39 Sodium Chloride 1,000 ml @ 50 mls/hr Q20H IV 08/30/16 09:15 09/03/16 12:51 Ceftriaxone Sodium 1000 mg/ Sodium Chloride 100 ml @ 200 mls/hr Q24H IV 09/02/16 11:00 09/03/16 10:30 (Zithromax Inj/ NS 250 ml Inj) 250 ml @ 250 mls/hr Q24H IV 09/02/16 10:00 09/03/16 10:27 (Lactinex) 1 tab TID PO 09/02/16 13:00 09/03/16 17:02 (Oscal) 500 mg Q12HR PO 09/04/16 09:00 (Catapres) 0.2 mg BID PO 09/04/16 12:00 (Vasotec Inj) 2.5 mg Q6H PRN IV PUSH 09/04/16 12:00 Family History Mother with Hypertension; father's history is unknown Substance Use Tobacco: Actively smoking a few cigarettes daily Alcohol: History of ETOH abuse in his 30s, but never joined AA. He drinks 2-3 beers a week at this time. Prescription med abuse: None known Illicits: Positive sign marijuana daily, history of crack cocaine. Toxicology + marijuana . Psychosocial History Patient was born and raised in [place]. He remained in school through the 11th grade. 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 He has 3 brothers and one sister. Patient lives with his son, Milan, who is 20 years old. He and his sister (Alondra Hua) are very close, and she is the designated HCS. . Spiritual/Cultural Factors Nonreligious . Health Care Surrogate: Copy in medical record Date completed: 09/03/2015 . Health Care Surrogate(s): Patient's sister (Alondra Hua) is the designated health care surrogate decision maker. . Today's verbally stated goals: The patient verbalizes aggressive goals stating "I'm gonna keep fighting". The patient states his appetite is good, but he can not eat because food tasted horrible. Therefore, he does not want to take his prescribed medications because it causes him to feel nauseated and vomit. We discussed the importance of compliance with medical regimen; patient is amenable only because it is medically necessary. He would consider artificial nutrition if it is indicated so he can becomes stronger; he would consent to hemodialysis if necessary as well. . Family/friends goals: No family present at this time. . Ethical and Legal Issues No known ethical and legal issues at this time. . Physical Exam Vital Signs Date Time Temp Pulse Resp B/P Pulse Ox O2 Delivery O2 Flow Rate FiO2 09/04/16 12:00 98.3 57 18 180/98 99 09/04/16 08:56 98.7 61 18 186/96 99 09/04/16 04:35 98.3 60 17 195/100 97 09/04/16 02:15 17 180/90 98 09/04/16 02:15 180/90 09/04/16 00:40 98.5 61 17 190/100 97 09/03/16 20:45 98.9 64 17 195/105 98 09/03/16 16:00 98.8 68 18 180/98 98 . 09/03/16 09/04/16 19:00 07:00 Intake Total 480 ml 720 ml Output Total 600 ml 700 ml Balance -120 ml 20 ml Intake Oral 480 ml 720 ml Output Urine Total 600 ml 700 ml # Bowel Movements 2 3 . Exam CONSTITUTIONAL/GENERAL: This is a frail, chronically ill male patient in no acute distress TUBES/LINES/DRAINS: PIV 1 SKIN: No jaundice, rashes, or lesions. Ecchymoses on upper extremities. Midline scar s/p laparotomy and subtotal gastrectomy in 08/2015. Skin temperature appropriate. Not diaphoretic. HEAD: Atraumatic. Normocephalic. EYES: Pupils equal and round and reactive. Extraocular motions intact. No scleral icterus. No injection or drainage. Fundi not examined. ENT: Hearing grossly normal. Nose without bleeding or purulent drainage. Throat without visible erythema, exudates, masses, or lesions. NECK: Trachea midline. Supple, nontender. No palpable thyroid enlargement or nodularity. CARDIOVASCULAR: Regular rate and rhythm without murmurs, gallops, or rubs. No JVD. Peripheral pulses symmetric. RESPIRATORY/CHEST: Symmetric, unlabored respirations. Clear to auscultation. Breath sounds equal bilaterally. No wheezes, rales, or rhonchi. GASTROINTESTINAL: Abdomen soft, non-tender, nondistended.No guarding. Bowel sounds present. GENITOURINARY: Without palpable bladder distension. MUSCULOSKELETAL: Extremities without clubbing or cyanosis. Trace edema in bilateral lower extremities. LYMPHATICS: No palpable cervical or supraclavicular adenopathy. NEUROLOGICAL: Awake and alert. Follows commands. Cognitively sharp. Moves all extremities. PSYCHIATRIC: No obvious anxiety/depression. No apparent hallucinations or other psychotic thought process. No suicidal ideation. . Diagnostic Tests Laboratory Laboratory Tests Test 09/02/16 09/03/16 09/04/16 05:29 07:32 05:34 White Blood Count 6.9 TH/MM3 7.7 TH/MM3 (4.0-11.0) (4.0-11.0) Red Blood Count 3.48 MIL/MM3 3.38 MIL/MM3 (4.50-5.90) (4.50-5.90) Hemoglobin 10.0 GM/DL 9.7 GM/DL (13.0-17.0) (13.0-17.0) Hematocrit 29.6 % 28.5 % (39.0-51.0) (39.0-51.0) Mean Corpuscular Volume 85.1 FL 84.4 FL (80.0-100.0) (80.0-100.0) Mean Corpuscular Hemoglobin 28.8 PG 28.8 PG (27.0-34.0) (27.0-34.0) Mean Corpuscular Hemoglobin 33.8 % 34.1 % Concent (32.0-36.0) (32.0-36.0) Red Cell Distribution Width 13.8 % 14.0 % (11.6-17.2) (11.6-17.2) Platelet Count 216 TH/MM3 222 TH/MM3 (150-450) (150-450) Mean Platelet Volume 7.9 FL 7.7 FL (7.0-11.0) (7.0-11.0) Sodium Level 134 MEQ/L 136 MEQ/L 137 MEQ/L (136-145) (136-145) (136-145) Potassium Level 4.5 MEQ/L 4.4 MEQ/L 4.7 MEQ/L (3.5-5.1) (3.5-5.1) (3.5-5.1) Chloride Level 104 MEQ/L 108 MEQ/L 110 MEQ/L (98-107) (98-107) (98-107) Carbon Dioxide Level 20.7 MEQ/L 18.8 MEQ/L 18.1 MEQ/L (21.0-32.0) (21.0-32.0) (21.0-32.0) Anion Gap 9 MEQ/L (5-15) 9 MEQ/L (5-15) 9 MEQ/L (5-15) Blood Urea Nitrogen 67 MG/DL (7-18) 65 MG/DL (7-18) 60 MG/DL (7-18) Creatinine 4.89 MG/DL 4.97 MG/DL 4.90 MG/DL (0.60-1.30) (0.60-1.30) (0.60-1.30) Estimat Glomerular Filtration 15 ML/MIN (>89) 15 ML/MIN (>89) 15 ML/MIN (>89) Rate Random Glucose 74 MG/DL 76 MG/DL 75 MG/DL (74-106) (74-106) (74-106) Calcium Level 7.3 MG/DL 7.2 MG/DL 7.1 MG/DL (8.5-10.1) (8.5-10.1) (8.5-10.1) Protein Corrected Calcium 8.1 MG/DL 8.1 MG/DL 8.1 MG/DL (8.5-10.1) (8.5-10.1) (8.5-10.1) Total Protein 5.7 GM/DL 5.5 GM/DL 5.3 GM/DL (6.4-8.2) (6.4-8.2) (6.4-8.2) . Result Diagram: 09/03/16 0732 09/04/16 0534 Patient/Family Conference Family Conference Location: Bedside (Spoke with patient) Issues Discussed: * Palliative care role, purpose, approach * Additional medical, psychosocial, and spiritual history * Patients general health, functional status, and cognitive changes in the months leading up to the current hospitalization * Patient/family understanding of the current medical problems * Patient/family understanding of prognosis * Patients goals of care as best understood from advance directives and/or conversations and/or values * Current medical treatment options and benefits/burdens of those options * Likely scenarios comparing ongoing aggressive care with a transition to comfort measures only * Questions answered to the best of my ability * Palliative care contact information provided . Assessment and Plan Disease Oriented Problem List: (1) Hepatitis C (2) Acute kidney injury superimposed on chronic kidney disease (3) HIV (human immunodeficiency virus infection) Comment: CD4 count of 296 (4) History of gastric cancer Comment: Status post laparotomy and subtotal gastrectomy in 08/2015; pathology report with grade 2 moderately differentiated adenocarcinoma. (5) Severe protein-calorie malnutrition (6) Pneumonia Comment: = Follow up chest x-ray on 09/01/16 revealed diffuse right patchy interstitial and airspace disease consistent with atypical edema versus pneumonia versus atypical infection; left lower lobe airspace disease and probable trace pleural effusion = On IV ceftriaxone and IV azithromycin (7) Hypertension (8) Anemia of chronic disease Symptom Scale: (1) Weakness (2) Nausea & vomiting (3) Dysgeusia Comment: Recommendation for mirtazapine 7.5mg PO at bedtime which has been shown to increase appetite, treat insomnia and manage symptoms of dysgeusia. May titrate dose to 15mg PO at bedtime after 7 days. Pertinent Non-Medical Issues Psychosocial: Patient was born and raised in [place]. He has 3 brothers and one sister. Patient lives with his son, Milan, who is 20 years old. He and his sister (Alondra Hua) are very close, and she is the designated HCS. Spiritual: None sabianism Legal: Patient's sister (Alondra Hua) is the designated health care surrogate decision maker. Ethical issues impacting care: No known ethical issues impacting care at this time. . Important Contacts Alondra Hua, sister: [phone] . Prognosis Mr. Matthews is a 56-year-old chronically ill male who is currently admitted with acute known chronic renal failure, anemia of chronic disease and failure to thrive. PMH includes HTN, CKD, anemia, HIV, recent history of gastric cancer and HCV. The patient was diagnosed with HIV and Hepatitis C approximately 4 years ago but has not been on his antiviral medication. CD4 count of 296. Patient has experienced a progressive decline. Patient reports a 50 pound weight loss over the past 4-5 months with increased weakness and flulike symptoms that developed approximately 2 weeks ago. He is currently on IV antibiotics for recently diagnosed pneumonia. Patient is cachectic; BMI 17.2.. His appetite is poor secondary to dysgeusia, nausea and vomiting. Overall prognosis poor. . Code Status: Full Code Plan * FULL CODE * Decision-making: Patient is currently able to weigh the benefits versus burdens related to his current medical decisions and treatment options.His sister (Alondra Hua) has been designated as the healthcare surrogate decision maker. * Goals: Goals remain aggressive at this time. * The patient verbalizes aggressive goals stating "I'm gonna keep fighting".The patient states his appetite is good, but he can not eat because food tasted horrible. Therefore, he does not want to take his prescribed medications because it causes him to feel nauseated and vomit. We discussed the importance of compliance with medical regimen; patient is amenable only because it is medically necessary. He would consider artificial nutrition if it is indicated so he can becomes stronger; he would consent to hemodialysis if necessary as well. * Symptom managementdysgeusia: Recommendation for mirtazapine 7.5mg PO at bedtime which has been shown to increase appetite, treat insomnia and manage symptoms of dysgeusia. May titrate dose to 15mg PO at bedtime after 7 days. * Palliative care contact information provided to patient at bedside. * Palliative care will continue to follow this patient throughout his hospitalization to establish trust, assist with symptom management and clarification of medical treatment goals. Thank you for the opportunity to participate in the care of Mr. Matthews. . Collaborating MD Comments Attestation To help prompt me to consider important information that might be impacting today's encounter and assessment, information from prior notes written by myself or my colleagues may have been "brought forward" into today's note. My signature on this note, however, is an attestation that I personally performed the exam, history, and/or decision-making noted today, and, unless otherwise indicated, the interactions with patient, family, and staff as well as the review of records all occurred today. I also attest that the listed assessment and stated plan reflect my best clinical judgment today based on the combination of historical information, prior notes, and today's exam/ interactions. When time spent is documented, it refers only to time spent today by the signer, or if indicated, combined time spent today by collaborating physician/nurse practitioner. . Jolanta Gray Sep 04, 2016 14:10
--- NOTE | 2016-09-04 15:11 | HHI.NPPN ---
Subjective History of Present Illness 56-year-old male known to me from before from his last admission with past medical history of HIV disease, history of alcoholism, chronic kidney disease, chronic anemia, weight loss, hypertension, came to the hospital because of decreased appetite, weight loss, feeling weak and tired and has nausea off and on. I was called to see the patient for evaluation of his renal disease. Additional Remarks Patient is alert, started eating some, still has no taste. Review of Systems General Constitutional: Fatigue Cardiovascular Cardiac: HUGGINS Objective Data Data 09/03/16 09/04/16 19:00 07:00 Intake Total 480 ml 720 ml Output Total 600 ml 700 ml Balance -120 ml 20 ml Intake Oral 480 ml 720 ml Output Urine Total 600 ml 700 ml # Bowel Movements 2 3 Vital Signs Date Time Temp Pulse Resp B/P Pulse Ox O2 Delivery O2 Flow Rate FiO2 09/04/16 15:08 58 09/04/16 12:00 98.3 57 18 180/98 99 09/04/16 08:56 98.7 61 18 186/96 99 09/04/16 04:35 98.3 60 17 195/100 97 09/04/16 02:15 17 180/90 98 09/04/16 02:15 180/90 09/04/16 00:40 98.5 61 17 190/100 97 09/03/16 20:45 98.9 64 17 195/105 98 09/03/16 16:00 98.8 68 18 180/98 98 -: 09/03/16 0732 09/04/16 0534 Physical Exam General Appearance: No Acute Distress, Anxious, Malnourished Eyes Eye Exam: Pupils Equal Throat Throat Exam: Oral Mucosa [place] & Moist Neck Neck Exam: Neck Supple Pulmonary Resp Exam: No Distress, Decreased Bases, Diminished Breath Sounds Cardiology CV Exam: Regular, Normal Sinus Rhythm Gastrointestinal/Abdomen GI Exam: Soft, Non-Tender Extremeties Extremities Exam: No Edema Neurologic Neuro Exam: Alert, Awake, Oriented Psychiatric Psych Exam: Appropriate Responses Assessment/Plan Assessment Summary: Hypertension, CKD Stage IV Electrolyte Assessment: Metabolic Acidosis Problem List: (1) HIV disease (2) HIV (human immunodeficiency virus infection) (3) Anemia (4) Metabolic acidosis (5) Chronic kidney disease Plan Patient has advance stage 4 chronic kidney disease, Creatinine remain same 4.9, and the GFR is 15 ml./min. No urgent need for Dialysis. Continue antibiotics and IVF. Not much improvement in the Creatinine, has some uremic symptoms and Hco3 dropping. D/W the patient if no improvement, possible dialysis. Follow BMP in AM, if not better, or worse, then possible HD. Problem Qualifiers (1) Chronic kidney disease: Qualified Code: N18.4 - Stage 4 chronic kidney disease George Davis MD Sep 04, 2016 15:11
[2016-09-04] MEDS: ENALAPRILAT 2.5 MG/2 ML VIAL IV PUSH PRN (16:44)
[2016-09-05] VITALS (10 sets, daily range): BP systolic 81–195; BP diastolic 58–110; PULSE 58–75; RESP 16–20; TEMP 97.5–98.8; O2SAT 96–100
[2016-09-05] MEDS: ENALAPRILAT 2.5 MG/2 ML VIAL IV PUSH PRN (00:59)
[2016-09-05] MEDS: SODIUM CHLOR 0.9% 1000 ML INJ 1,000 ML IV SCH ×2 (01:31→20:34)
[2016-09-05 07:00] LABS: AUTOMATED NEUTROPHIL # 4.1 TH/MM3 (1.8-7.7); BASOPHIL # 0.1 TH/MM3 (0-0.2); BASOPHIL % 0.8 % (0.0-2.0); EOSINOPHIL # 0.5 TH/MM3 (0-0.4); EOSINOPHIL % 7.5 % (0.0-4.0); HEMO FLAGS DIFF FINAL; LYMPH % 27.8 % (9.0-44.0); MEAN CELL VOLUME 83.6 FL (80.0-100.0); MEAN CORPUSCULAR HEMOGLOBIN 29.2 PG (27.0-34.0); MEAN CORPUSCULAR HGB CONC 34.9 % (32.0-36.0); NEUT % 56.9 % (16.0-70.0); PLATELET COUNT 244 TH/MM3 (150-450); RED BLOOD COUNT 3.47 MIL/MM3 (4.50-5.90); RED CELL DISTRIBUTION WIDTH 14.2 % (11.6-17.2); WHITE BLOOD COUNT 7.3 TH/MM3 (4.0-11.0)
[2016-09-05 07:33] LABS: BICARBONATE 16.9 MEQ/L (21.0-32.0); POTASSIUM 4.7 MEQ/L (3.5-5.1)
[2016-09-05] MEDS: ETRAVIRINE 100 MG TAB PO SCH ×2 (09:46→20:38)
[2016-09-05] MEDS: DOCUSATE SODIUM 50 MG/SENNA 8.6 MG TAB PO SCH ×2 (09:46→20:39)
[2016-09-05] MEDS: MEGESTROL ACETATE SUSP 400 MG/10 ML CUP PO SCH (09:46)
[2016-09-05] MEDS: RALTEGRAVIR 400 MG TAB PO SCH ×2 (09:46→20:39)
[2016-09-05] MEDS: guaiFENesin E.R. 600 MG TAB PO SCH ×2 (09:46→20:39)
[2016-09-05] MEDS: cloNIDine HCL 0.2 MG TAB PO SCH (09:46)
[2016-09-05] MEDS: NIFEdipine 20 MG CAP PO SCH ×2 (09:46→20:38)
[2016-09-05] MEDS: AZITHROMYCIN INJ 500 MG in SODIUM CHLOR 0.9% 250 ML INJ 250 ML IV SCH (09:46)
[2016-09-05] MEDS: CALCIUM CARBONATE 1.25 GM (CA 500 MG) TAB PO SCH ×2 (09:46→20:38)
[2016-09-05] MEDS: LACTOBACILLUS ACIDOPHILUS TAB PO SCH ×3 (09:46→18:26)
[2016-09-05] MEDS: SODIUM CHLORIDE 0.9% FLUSH 10 ML FLUSH IV FLUSH SCH ×2 (09:47→20:39)
[2016-09-05] MEDS: CARVEDILOL 12.5 MG TAB PO SCH ×2 (09:47→20:38)
--- NOTE | 2016-09-05 11:15 | HHI.NPPN ---
Subjective History of Present Illness 56-year-old male known to me from before from his last admission with past medical history of HIV disease, history of alcoholism, chronic kidney disease, chronic anemia, weight loss, hypertension, came to the hospital because of decreased appetite, weight loss, feeling weak and tired and has nausea off and on. I was called to see the patient for evaluation of his renal disease. Additional Remarks Patient is alert, started eating some, no SOB, still has diarrhea. Review of Systems General Constitutional: Fatigue Cardiovascular Cardiac: HUGGINS Objective Data Data 09/04/16 09/05/16 19:00 07:00 Intake Total 360 ml 600 ml Output Total 500 ml 400 ml Balance -140 ml 200 ml Intake Oral 360 ml 600 ml Output Urine Total 500 ml 400 ml # Voids 1 # Bowel Movements 2 1 Vital Signs Date Time Temp Pulse Resp B/P Pulse Ox O2 Delivery O2 Flow Rate FiO2 09/05/16 08:00 97.5 61 20 132/80 97 09/05/16 04:45 98.0 60 16 120/73 100 09/05/16 02:52 91/61 09/05/16 00:35 98.4 58 16 195/110 100 09/04/16 20:35 98.1 62 16 200/110 100 09/04/16 16:00 97.6 58 18 188/98 99 09/04/16 15:08 58 09/04/16 12:00 98.3 57 18 180/98 99 -: 09/05/16 0624 09/05/16 0624 Physical Exam General Appearance: No Acute Distress, Anxious, Malnourished Eyes Eye Exam: Pupils Equal Throat Throat Exam: Oral Mucosa [place] & Moist Neck Neck Exam: Neck Supple Pulmonary Resp Exam: No Distress, Decreased Bases, Diminished Breath Sounds Cardiology CV Exam: Regular, Normal Sinus Rhythm Gastrointestinal/Abdomen GI Exam: Soft, Non-Tender Extremeties Extremities Exam: No Edema Neurologic Neuro Exam: Alert, Awake, Oriented Psychiatric Psych Exam: Appropriate Responses Assessment/Plan Assessment Summary: Hypertension, CKD Stage IV Electrolyte Assessment: Metabolic Acidosis Problem List: (1) HIV disease (2) HIV (human immunodeficiency virus infection) (3) Anemia (4) Metabolic acidosis (5) Chronic kidney disease Plan Patient has advance stage 4 chronic kidney disease, Creatinine remain same 4.9, and the GFR is 15 ml./min. No urgent need for Dialysis. Continue antibiotics and IVF. Not much improvement in the Creatinine, has some uremic symptoms and Hco3 dropping. D/W the patient if no improvement, possible dialysis. Patient want to discuss with his family about dialysis. I will add PO NaHco3. If agreed, will get PermCath and start HD. Problem Qualifiers (1) Chronic kidney disease: Qualified Code: N18.4 - Stage 4 chronic kidney disease George Davis MD Sep 05, 2016 11:15
[2016-09-05] MEDS: cefTRIAXone INJ 1,000 MG in SODIUM CHLORIDE 0.9% INJ 100 ML IV SCH (11:33)
[2016-09-05] MEDS: SODIUM BICARBONATE 650 MG TAB PO SCH ×2 (13:10→20:42)
--- NOTE | 2016-09-05 14:48 | HHI.PR ---
Subjective Remarks Noted with low BP. Will DC clonidine. Patient is in the bed, says he feels tired. Says he ate late breakfast and he did skip lunch. Doesn't have much appetite. No n/v/d/c. Objective Vitals Vital Signs Date Time Temp Pulse Resp B/P Pulse Ox O2 Delivery O2 Flow Rate FiO2 09/05/16 12:00 98.2 75 16 81/58 97 09/05/16 11:30 86/60 83/62 Automatic Cuff 09/05/16 09:47 164/101 160/91 09/05/16 08:00 97.5 61 20 132/80 97 09/05/16 04:45 98.0 60 16 120/73 100 09/05/16 02:52 91/61 09/05/16 00:35 98.4 58 16 195/110 100 09/04/16 20:35 98.1 62 16 200/110 100 09/04/16 16:00 97.6 58 18 188/98 99 09/04/16 15:08 58 I/O 09/04/16 09/04/16 09/04/16 09/05/16 09/05/16 09/05/16 07:00 15:00 23:00 07:00 15:00 23:00 Intake Total 360 ml 720 ml 240 ml Output Total 300 ml 700 ml 200 ml Balance 60 ml 20 ml 40 ml Intake Oral 360 ml 720 ml 240 ml Output Urine Total 300 ml 700 ml 200 ml # Voids 1 # Bowel Movements 2 3 0 Result Diagram: 09/05/16 0624 09/05/16 0624 Imaging Last Impressions Chest X-Ray 09/01/16 0000 Signed Impressions: Service Date/Time: Thursday, September 01, 2016 08:08 - CONCLUSION: 1. Diffuse right patchy interstitial and airspace disease consistent with atypical edema versus pneumonia versus atypical infection. 2. Left lower lobe airspace disease and probable trace pleural effusion. Sawyer Ritter MD Renal Ultrasound 08/24/16 0000 Signed Impressions: Service Date/Time: Wednesday, August 24, 2016 16:40 - CONCLUSION: Echogenic kidneys consistent with medical renal disease. Unremarkable urinary bladder. Richard Méndez MD Objective Remarks GENERAL: NAD, A&Ox3, global cachexia SKIN: Warm and dry. HEAD: Normocephalic. EYES: No scleral icterus. No injection or drainage. NECK: Supple, trachea midline. No JVD or lymphadenopathy. CARDIOVASCULAR: Regular rate and rhythm without murmurs, gallops, or rubs. RESPIRATORY: Breath sounds equal bilaterally. No accessory muscle use. GASTROINTESTINAL: Abdomen soft, non-tender, nondistended. MUSCULOSKELETAL: No cyanosis, or edema. Global muscle wasting/atrophy. BACK: Nontender without obvious deformity. No CVA tenderness. A/P Assessment and Plan Assessment and Plan 56 year old male with HIV, admitted with ARF on CKD. Renal function stable. No change for better or worse in the past days. Pneumonia treatment is causing a decrease in his cough. Labs ordered for monitoring of renal function. Patient however is refusing any meds. He is also refusing dialysis. Will consult palliative care for goals of care. Acute Renal Failure Hyperkalemia he has shown slow improvement through time continue to monitor renal function Needs dialysis. patient agrees. Nephrology following. nephrology following Kayexalate continued Follow potassium levels HIV Immunocompromise CD4 pending He is not on treatment risk for AIDS is present Start prophylaxis, if needed, based on CD4 results Nicotine Abuse Alcohol Abuse Cessation has been recommended No DTs Anemia of Chronic Disease Follow H/H for any worsening If worsening he will need a transfusion HTN Noted hypotensive 09/05/16. Received 1 L NS. BP improved. Stop clonidine. Hols BP meds if SBP< 110 Follow BP and adjust treatments if needed Hepatitis C Standard precautions Hx of Gastric Cancer Hx of Partial Gastrectomy Malnourishment. 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 DC plan: Patient refusing meds and HD. Consult palliative care for goals of care. Julieta Bess MD Sep 05, 2016 14:48
[2016-09-05] MEDS ORDERED: SODIUM CHLOR 0.9% 1000 ML INJ 1,000 ML IV ONE (15:00)
[2016-09-05] MEDS ORDERED: ceFAZolin 2 GM PREMIX 50 ML IV SCH (16:15)
[2016-09-05] MEDS ORDERED: VANCOMYCIN INJ 1,000 MG in SODIUM CHLOR 0.9% 250 ML INJ 250 ML IV SCH (16:15)
[2016-09-06] VITALS (7 sets, daily range): BP systolic 108–196; BP diastolic 62–108; PULSE 67–71; RESP 16–18; TEMP 97.2–99.1; O2SAT 96–100
[2016-09-06 06:52] LABS: BLOOD, URINE TRACE (NEG); COMMENT (UR) CULT NOT INDICATED; CULTURE IF INDICATED CULT NOT INDICATED; GLUCOSE,URINE NEG (NEG); KETONE, URINE NEG (NEG); NITRITE,URINE NEG (NEG); RENAL EPITHELIAL CELLS <1 /hpf; URINE COLOR LIGHT-YELLOW (YELLW/STRAW)
[2016-09-06] MEDS: ETRAVIRINE 100 MG TAB PO SCH ×2 (08:07→22:52)
[2016-09-06] MEDS: guaiFENesin E.R. 600 MG TAB PO SCH ×2 (08:07→22:52)
[2016-09-06] MEDS: CALCIUM CARBONATE 1.25 GM (CA 500 MG) TAB PO SCH ×2 (08:08→22:52)
[2016-09-06] MEDS: LACTOBACILLUS ACIDOPHILUS TAB PO SCH ×3 (08:08→17:05)
[2016-09-06] MEDS: RALTEGRAVIR 400 MG TAB PO SCH ×2 (08:08→22:53)
[2016-09-06] MEDS: CARVEDILOL 12.5 MG TAB PO SCH ×2 (08:08→22:52)
[2016-09-06] MEDS: NIFEdipine 20 MG CAP PO SCH ×2 (08:09→22:53)
[2016-09-06] MEDS: SODIUM BICARBONATE 650 MG TAB PO SCH ×2 (08:09→22:52)
[2016-09-06] MEDS: SODIUM CHLORIDE 0.9% FLUSH 10 ML FLUSH IV FLUSH SCH ×2 (09:00→21:00)
[2016-09-06] MEDS: MEGESTROL ACETATE SUSP 400 MG/10 ML CUP PO SCH (09:00)
[2016-09-06] MEDS: DOCUSATE SODIUM 50 MG/SENNA 8.6 MG TAB PO SCH ×2 (09:00→21:00)
[2016-09-06] MEDS: cefTRIAXone INJ 1,000 MG in SODIUM CHLORIDE 0.9% INJ 100 ML IV SCH (10:31)
[2016-09-06] MEDS: AZITHROMYCIN INJ 500 MG in SODIUM CHLOR 0.9% 250 ML INJ 250 ML IV SCH (10:31)
[2016-09-06] MEDS: ENALAPRILAT 2.5 MG/2 ML VIAL IV PUSH PRN (12:16)
--- NOTE | 2016-09-06 12:48 | HHI.NPPN ---
Subjective History of Present Illness 56-year-old male known to me from before from his last admission with past medical history of HIV disease, history of alcoholism, chronic kidney disease, chronic anemia, weight loss, hypertension, came to the hospital because of decreased appetite, weight loss, feeling weak and tired and has nausea off and on. I was called to see the patient for evaluation of his renal disease. Additional Remarks Patient is alert, started eating some, no SOB, still has diarrhea, clinically same. Review of Systems General Constitutional: Fatigue Cardiovascular Cardiac: HUGGINS Objective Data Data 09/05/16 09/06/16 19:00 07:00 Intake Total 360 ml 960 ml Output Total 400 ml 550 ml Balance -40 ml 410 ml Intake Oral 360 ml 960 ml Output Urine Total 400 ml 550 ml # Voids 3 # Bowel Movements 1 4 Vital Signs Date Time Temp Pulse Resp B/P Pulse Ox O2 Delivery O2 Flow Rate FiO2 09/06/16 08:00 97.2 68 18 190/103 96 09/06/16 07:20 71 09/06/16 04:45 97.5 70 17 158/96 99 Manual Cuff/Auscultation 09/06/16 00:05 99.1 70 16 108/62 97 09/05/16 20:38 70 09/05/16 20:30 98.8 71 16 180/88 96 Automatic Cuff 09/05/16 16:00 97.9 62 16 125/79 96 -: 09/05/16 0624 09/05/16 0624 Physical Exam General Appearance: No Acute Distress, Anxious, Malnourished Eyes Eye Exam: Pupils Equal Throat Throat Exam: Oral Mucosa [place] & Moist Neck Neck Exam: Neck Supple Pulmonary Resp Exam: No Distress, Decreased Bases, Diminished Breath Sounds Cardiology CV Exam: Regular, Normal Sinus Rhythm Gastrointestinal/Abdomen GI Exam: Soft, Non-Tender Extremeties Extremities Exam: No Edema Neurologic Neuro Exam: Alert, Awake, Oriented Psychiatric Psych Exam: Appropriate Responses Assessment/Plan Assessment Summary: Hypertension, CKD Stage IV Electrolyte Assessment: Metabolic Acidosis Problem List: (1) HIV disease (2) HIV (human immunodeficiency virus infection) (3) Anemia (4) Metabolic acidosis (5) Chronic kidney disease Plan Patient has advance stage 4 chronic kidney disease, Creatinine remain same 4.9, and the GFR is 15 ml./min. No urgent need for Dialysis. Continue antibiotics and IVF. Not much improvement in the Creatinine, has some uremic symptoms and Hco3 dropping. D/W the patient if no improvement, possible dialysis. Patient want to discuss with his family about dialysis. Started on PO NaHco3. Patient want to go for Dialysis, will get PermCath and start HD on Thursday. Check BMP in A, Increase Coreg as BP is elevated. Problem Qualifiers (1) Chronic kidney disease: Qualified Code: N18.4 - Stage 4 chronic kidney disease George Davis MD Sep 06, 2016 12:48
--- NOTE | 2016-09-06 16:24 | HHI.PR ---
Subjective Remarks The patient feels tired. However since today he feels yesterday. She was able to eat better today. No nausea or vomiting, no diarrhea or constipation. He plans for dialysis Objective Vitals Vital Signs Date Time Temp Pulse Resp B/P Pulse Ox O2 Delivery O2 Flow Rate FiO2 09/06/16 12:00 98.1 70 18 196/108 98 09/06/16 08:00 97.2 68 18 190/103 96 09/06/16 07:20 71 09/06/16 04:45 97.5 70 17 158/96 99 Manual Cuff/Auscultation 09/06/16 00:05 99.1 70 16 108/62 97 09/05/16 20:38 70 09/05/16 20:30 98.8 71 16 180/88 96 Automatic Cuff I/O 09/05/16 09/05/16 09/05/16 09/06/16 09/06/16 09/06/16 07:00 15:00 23:00 07:00 15:00 23:00 Intake Total 240 ml 360 ml 480 ml 480 ml Output Total 200 ml 400 ml 550 ml Balance 40 ml -40 ml 480 ml -70 ml Intake Oral 240 ml 360 ml 480 ml 480 ml Output Urine Total 200 ml 400 ml 550 ml # Voids 3 # Bowel Movements 0 1 3 1 Result Diagram: 09/05/16 0624 09/05/16 0624 Imaging Last Impressions Chest X-Ray 09/01/16 0000 Signed Impressions: Service Date/Time: Thursday, September 01, 2016 08:08 - CONCLUSION: 1. Diffuse right patchy interstitial and airspace disease consistent with atypical edema versus pneumonia versus atypical infection. 2. Left lower lobe airspace disease and probable trace pleural effusion. Sawyer Ritter MD Renal Ultrasound 08/24/16 0000 Signed Impressions: Service Date/Time: Wednesday, August 24, 2016 16:40 - CONCLUSION: Echogenic kidneys consistent with medical renal disease. Unremarkable urinary bladder. Richard Méndez MD Objective Remarks GENERAL: NAD, A&Ox3, global cachexia SKIN: Warm and dry. HEAD: Normocephalic. EYES: No scleral icterus. No injection or drainage. NECK: Supple, trachea midline. No JVD or lymphadenopathy. CARDIOVASCULAR: Regular rate and rhythm without murmurs, gallops, or rubs. RESPIRATORY: Breath sounds equal bilaterally. No accessory muscle use. GASTROINTESTINAL: Abdomen soft, non-tender, nondistended. MUSCULOSKELETAL: No cyanosis, or edema. Global muscle wasting/atrophy. BACK: Nontender without obvious deformity. No CVA tenderness. A/P Assessment and Plan Assessment and Plan 56 year old male with HIV, admitted with ARF on CKD. Renal function stable. No change for better or worse in the past days. Pneumonia treatment is causing a decrease in his cough. Labs ordered for monitoring of renal function. Patient however is refusing any meds. He is also refusing dialysis. Will consult palliative care for goals of care. Acute Renal Failure Hyperkalemia he has shown slow improvement through time continue to monitor renal function Needs dialysis. patient agrees. Nephrology following. nephrology following Kayexalate continued Follow potassium levels HIV Immunocompromise CD4 pending He is not on treatment risk for AIDS is present Start prophylaxis, if needed, based on CD4 results Nicotine Abuse Alcohol Abuse Cessation has been recommended No DTs Anemia of Chronic Disease Follow H/H for any worsening If worsening he will need a transfusion HTN Noted hypotensive 09/05/16. Received 1 L NS. BP improved. Stop clonidine. Hols BP meds if SBP< 110 Follow BP and adjust treatments if needed Hepatitis C Standard precautions Hx of Gastric Cancer Hx of Partial Gastrectomy Malnourishment. 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 DC plan: Pending improvement and clearance from nephro. Plan for HD per nephro. Julieta Bess MD Sep 06, 2016 16:24
[2016-09-06] MEDS: cloNIDine HCL 0.1 MG TAB PO PRN (17:05)
[2016-09-06] MEDS: SODIUM CHLOR 0.9% 1000 ML INJ 1,000 ML IV SCH (21:15)
[2016-09-07] VITALS (8 sets, daily range): BP systolic 89–185; BP diastolic 63–100; PULSE 66–82; RESP 16–18; TEMP 98–98.7; O2SAT 97–100
[2016-09-07] MEDS: ENALAPRILAT 2.5 MG/2 ML VIAL IV PUSH PRN (00:42)
[2016-09-07 07:17] LABS: BICARBONATE 13.2 MEQ/L (21.0-32.0); POTASSIUM 4.7 MEQ/L (3.5-5.1)
[2016-09-07] MEDS: RALTEGRAVIR 400 MG TAB PO SCH ×2 (07:30→21:01)
[2016-09-07] MEDS: ETRAVIRINE 100 MG TAB PO SCH ×2 (07:31→21:02)
[2016-09-07] MEDS: NIFEdipine 20 MG CAP PO SCH ×2 (07:31→21:01)
[2016-09-07] MEDS: SODIUM BICARBONATE 650 MG TAB PO SCH ×3 (07:31→18:07)
[2016-09-07] MEDS: LACTOBACILLUS ACIDOPHILUS TAB PO SCH ×3 (07:32→18:07)
[2016-09-07] MEDS: guaiFENesin E.R. 600 MG TAB PO SCH ×2 (07:32→21:02)
[2016-09-07] MEDS: CARVEDILOL 12.5 MG TAB PO SCH ×2 (07:32→21:01)
[2016-09-07] MEDS: DOCUSATE SODIUM 50 MG/SENNA 8.6 MG TAB PO SCH ×2 (07:32→21:04)
[2016-09-07] MEDS: CALCIUM CARBONATE 1.25 GM (CA 500 MG) TAB PO SCH ×2 (07:32→21:01)
[2016-09-07 07:33] LABS: CALCIUM-PROTEIN CORRECTED 7.5 MG/DL (8.5-10.1)
[2016-09-07] MEDS: MEGESTROL ACETATE SUSP 400 MG/10 ML CUP PO SCH (07:33)
[2016-09-07] MEDS: SODIUM CHLORIDE 0.9% FLUSH 10 ML FLUSH IV FLUSH SCH ×2 (09:00→21:02)
[2016-09-07] MEDS: AZITHROMYCIN INJ 500 MG in SODIUM CHLOR 0.9% 250 ML INJ 250 ML IV SCH (10:29)
[2016-09-07] MEDS: cefTRIAXone INJ 1,000 MG in SODIUM CHLORIDE 0.9% INJ 100 ML IV SCH (10:36)
--- NOTE | 2016-09-07 10:42 | HHI.NPPN ---
Subjective History of Present Illness 56-year-old male known to me from before from his last admission with past medical history of HIV disease, history of alcoholism, chronic kidney disease, chronic anemia, weight loss, hypertension, came to the hospital because of decreased appetite, weight loss, feeling weak and tired and has nausea off and on. I was called to see the patient for evaluation of his renal disease. Additional Remarks Patient is alert, started eating some, no SOB, diarrhea is improving. Review of Systems General Constitutional: Fatigue Cardiovascular Cardiac: HUGGINS Objective Data Data 09/06/16 09/07/16 19:00 07:00 Intake Total 720 ml 720 ml Output Total 500 ml Balance 720 ml 220 ml Intake Oral 720 ml 720 ml Output Urine Total 500 ml # Voids 4 1 # Bowel Movements 1 0 Vital Signs Date Time Temp Pulse Resp B/P Pulse Ox O2 Delivery O2 Flow Rate FiO2 09/07/16 08:00 98.0 67 18 155/96 98 09/07/16 07:20 67 09/07/16 04:20 98.5 66 16 122/71 97 09/07/16 00:40 98.1 67 16 185/98 98 Manual Cuff/Auscultation 09/06/16 20:35 98.3 67 16 188/98 99 Automatic Cuff 09/06/16 16:00 98.6 68 18 160/100 100 09/06/16 12:00 98.1 70 18 196/108 98 -: 09/05/16 0624 09/07/16 0556 Physical Exam General Appearance: No Acute Distress, Anxious, Malnourished Eyes Eye Exam: Pupils Equal Throat Throat Exam: Oral Mucosa [employer] & Moist Neck Neck Exam: Neck Supple Pulmonary Resp Exam: No Distress, Decreased Bases, Diminished Breath Sounds Cardiology CV Exam: Regular, Normal Sinus Rhythm Gastrointestinal/Abdomen GI Exam: Soft, Non-Tender Extremeties Extremities Exam: No Edema Neurologic Neuro Exam: Alert, Awake, Oriented Psychiatric Psych Exam: Appropriate Responses Assessment/Plan Assessment Summary: Hypertension, CKD Stage IV Electrolyte Assessment: Metabolic Acidosis Problem List: (1) HIV disease (2) HIV (human immunodeficiency virus infection) (3) Anemia (4) Metabolic acidosis (5) Chronic kidney disease Plan Patient has advance stage 4 chronic kidney disease, No urgent need for Dialysis. Continue antibiotics and IVF. Not much improvement in the Creatinine, has some uremic symptoms and Hco3 dropping. D/W the patient if no improvement, possible dialysis. Patient want to discuss with his family about dialysis. Started on PO NaHco3. Now there is some improvement in the Creatinine to 4.4 and GFR to 17 ml/min. Hco3 is decreased, increase NaHco3 to TID. Check BMP in AM and possibly hold HD if same or better. Problem Qualifiers (1) Chronic kidney disease: Qualified Code: N18.4 - Stage 4 chronic kidney disease George Davis MD Sep 07, 2016 10:42
--- NOTE | 2016-09-07 15:24 | HHI.PR ---
Subjective Remarks Slight improvement in renal function today. Patient has no new complaints. Dialysis pending for tomorrow. Objective Vital Signs Date Time Temp Pulse Resp B/P Pulse Ox O2 Delivery O2 Flow Rate FiO2 09/07/16 12:00 98.7 70 18 162/100 99 09/07/16 08:00 98.0 67 18 155/96 98 09/07/16 07:20 67 09/07/16 04:20 98.5 66 16 122/71 97 09/07/16 00:40 98.1 67 16 185/98 98 Manual Cuff/Auscultation 09/06/16 20:35 98.3 67 16 188/98 99 Automatic Cuff 09/06/16 16:00 98.6 68 18 160/100 100 I/O 09/06/16 09/06/16 09/06/16 09/07/16 09/07/16 09/07/16 07:00 15:00 23:00 07:00 15:00 23:00 Intake Total 480 ml 720 ml 480 ml 240 ml Output Total 550 ml 150 ml 350 ml Balance -70 ml 720 ml 330 ml -110 ml Intake Oral 480 ml 720 ml 480 ml 240 ml Output Urine Total 550 ml 150 ml 350 ml # Voids 4 1 # Bowel Movements 1 1 0 0 Result Diagram: 09/05/16 0624 09/07/16 0556 Procedures No procedures performed. Objective Remarks GENERAL: NAD, A&Ox3, global cachexia SKIN: Warm and dry. HEAD: Normocephalic. EYES: No scleral icterus. No injection or drainage. NECK: Supple, trachea midline. No JVD or lymphadenopathy. CARDIOVASCULAR: Regular rate and rhythm without murmurs, gallops, or rubs. RESPIRATORY: Breath sounds equal bilaterally. No accessory muscle use. GASTROINTESTINAL: Abdomen soft, non-tender, nondistended. MUSCULOSKELETAL: No cyanosis, or edema. Global muscle wasting/atrophy. BACK: Nontender without obvious deformity. No CVA tenderness. A/P Problem List: (1) Essential hypertension ICD Code: I10 (2) Renal failure ICD Code: N19 (3) Anemia ICD Code: D64.9 (4) Malnutrition ICD Code: E46 (5) Acute kidney injury ICD Code: N17.9 Assessment and Plan Assessment and Plan 56 year old male with HIV, admitted with ARF on CKD. Renal function stable. Slight improvement in creatinine today. Patient has no new complaints. Dialysis pending for tomorrow. Acute Renal Failure Hyperkalemia he has shown slow improvement through time continue to monitor renal function possible need for dialysis nephrology following Kayexalate continued Follow potassium levels Dialysis pending for tomorrow HIV Immunocompromise CD4 pending He is not on treatment risk for AIDS is present Start prophylaxis, if needed, based on CD4 results Nicotine Abuse Alcohol Abuse Cessation has been recommended No DTs Anemia of Chronic Disease Follow H/H for any worsening If worsening he will need a transfusion HTN No change to baseline treatments Stable Follow BP and adjust treatments if needed Hepatitis C Standard precautions Hx of Gastric Cancer Hx of Partial Gastrectomy Malnourishment 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 A partial gastrectomy with removal of tumor occured without any positive borders Part of his malnutrition may be related to this Protein Boosts Ensure Dietitian following next Cough Pneumonia versus bronchitis Cough has resolved on treatment Patient on antibiotics given immunocompromise state Azithromycin and Rocephin are currently at a 6 and will be continued after day 7 DVT Prophylaxis SCDs Code Status Full Code Problem Qualifiers (1) Renal failure: Qualified Code: N17.9 - Acute renal failure superimposed on chronic kidney disease, unspecified CKD stage, unspecified acute renal failure type (2) Anemia: Qualified Code: D64.9 - Anemia, unspecified type Nathan Plasencia MD Sep 07, 2016 15:24
[2016-09-07] MEDS: SODIUM CHLOR 0.9% 1000 ML INJ 1,000 ML IV SCH (17:15)
[2016-09-08] VITALS (8 sets, daily range): BP systolic 96–192; BP diastolic 70–98; PULSE 68–75; RESP 18; TEMP 96.7–99; O2SAT 94–100
[2016-09-08] MEDS: ENALAPRILAT 2.5 MG/2 ML VIAL IV PUSH PRN (05:17)
[2016-09-08 07:03] LABS: BICARBONATE 16.6 MEQ/L (21.0-32.0); POTASSIUM 4.8 MEQ/L (3.5-5.1)
[2016-09-08] MEDS: AZITHROMYCIN INJ 500 MG in SODIUM CHLOR 0.9% 250 ML INJ 250 ML IV SCH ×2 (10:41→12:11)
--- NOTE | 2016-09-08 10:45 | HHI.PR ---
Subjective Remarks Renal function stable at 4.5 today. No new complaints when seen. Dialysis on hold for now. Objective Vital Signs Date Time Temp Pulse Resp B/P Pulse Ox O2 Delivery O2 Flow Rate FiO2 09/08/16 08:00 99.0 68 18 183/98 97 09/08/16 04:45 99.0 72 18 192/88 99 Automatic Cuff 09/08/16 00:45 97.0 72 18 116/70 98 09/07/16 22:07 95/63 09/07/16 20:50 98.2 82 17 89/66 97 09/07/16 16:00 98.7 72 18 156/96 100 09/07/16 12:00 98.7 70 18 162/100 99 I/O 09/07/16 09/07/16 09/07/16 09/08/16 09/08/16 09/08/16 07:00 15:00 23:00 07:00 15:00 23:00 Intake Total 240 ml 480 ml 480 ml 0 ml Output Total 350 ml 600 ml 400 ml Balance -110 ml 480 ml -120 ml -400 ml Intake Oral 240 ml 480 ml 480 ml 0 ml Output Urine Total 350 ml 600 ml 400 ml # Voids 4 # Bowel Movements 0 1 0 0 Result Diagram: 09/05/16 0624 09/08/16 0555 Procedures No procedures performed. Objective Remarks GENERAL: NAD, A&Ox3, global cachexia SKIN: Warm and dry. HEAD: Normocephalic. EYES: No scleral icterus. No injection or drainage. NECK: Supple, trachea midline. No JVD or lymphadenopathy. CARDIOVASCULAR: Regular rate and rhythm without murmurs, gallops, or rubs. RESPIRATORY: Breath sounds equal bilaterally. No accessory muscle use. GASTROINTESTINAL: Abdomen soft, non-tender, nondistended. MUSCULOSKELETAL: No cyanosis, or edema. Global muscle wasting/atrophy. BACK: Nontender without obvious deformity. No CVA tenderness. A/P Problem List: (1) Essential hypertension ICD Code: I10 (2) Renal failure ICD Code: N19 (3) Anemia ICD Code: D64.9 (4) Malnutrition ICD Code: E46 (5) Acute kidney injury ICD Code: N17.9 Assessment and Plan Assessment and Plan 56 year old male with HIV, admitted with ARF on CKD. Renal function stable. Slight improvement in creatinine today. Patient has no new complaints. Dialysis on hold. Follow renal function. AM labs ordered. Acute Renal Failure Hyperkalemia he has shown slow improvement through time continue to monitor renal function possible need for dialysis nephrology following Kayexalate continued Follow potassium levels Dialysis pending for tomorrow HIV Immunocompromise CD4 pending He is not on treatment risk for AIDS is present Start prophylaxis, if needed, based on CD4 results Nicotine Abuse Alcohol Abuse Cessation has been recommended No DTs Anemia of Chronic Disease Follow H/H for any worsening If worsening he will need a transfusion HTN No change to baseline treatments Stable Follow BP and adjust treatments if needed Hepatitis C Standard precautions Hx of Gastric Cancer Hx of Partial Gastrectomy Malnourishment 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 A partial gastrectomy with removal of tumor occured without any positive borders Part of his malnutrition may be related to this Protein Boosts Ensure Dietitian following next Cough Pneumonia versus bronchitis Cough has resolved on treatment Patient on antibiotics given immunocompromise state Azithromycin and Rocephin are currently at a 6 and will be continued after day 7 DVT Prophylaxis SCDs Code Status Full Code Problem Qualifiers (1) Renal failure: Qualified Code: N17.9 - Acute renal failure superimposed on chronic kidney disease, unspecified CKD stage, unspecified acute renal failure type (2) Anemia: Qualified Code: D64.9 - Anemia, unspecified type Nathan Plasencia MD Sep 08, 2016 10:45 am
[2016-09-08] MEDS: RALTEGRAVIR 400 MG TAB PO SCH ×2 (12:12→22:25)
[2016-09-08] MEDS: MEGESTROL ACETATE SUSP 400 MG/10 ML CUP PO SCH (12:12)
[2016-09-08] MEDS: ETRAVIRINE 100 MG TAB PO SCH ×2 (12:12→22:23)
[2016-09-08] MEDS: SODIUM BICARBONATE 650 MG TAB PO SCH ×3 (12:13→17:35)
[2016-09-08] MEDS: guaiFENesin E.R. 600 MG TAB PO SCH ×2 (12:13→22:23)
[2016-09-08] MEDS: NIFEdipine 20 MG CAP PO SCH ×2 (12:13→22:22)
[2016-09-08] MEDS: CALCIUM CARBONATE 1.25 GM (CA 500 MG) TAB PO SCH ×2 (12:13→22:25)
[2016-09-08] MEDS: CARVEDILOL 12.5 MG TAB PO SCH ×2 (12:13→22:24)
[2016-09-08] MEDS: LACTOBACILLUS ACIDOPHILUS TAB PO SCH ×3 (12:14→17:35)
[2016-09-08] MEDS: SODIUM CHLORIDE 0.9% FLUSH 10 ML FLUSH IV FLUSH SCH ×2 (12:14→22:24)
[2016-09-08] MEDS: cefTRIAXone INJ 1,000 MG in SODIUM CHLORIDE 0.9% INJ 100 ML IV SCH (12:15)
[2016-09-08] MEDS: SODIUM CHLOR 0.9% 1000 ML INJ 1,000 ML IV SCH (12:34)
[2016-09-08] MEDS: DOCUSATE SODIUM 50 MG/SENNA 8.6 MG TAB PO SCH ×2 (12:34→21:00)
--- NOTE | 2016-09-08 15:53 | HHI.NPPN ---
Subjective History of Present Illness 56-year-old male known to me from before from his last admission with past medical history of HIV disease, history of alcoholism, chronic kidney disease, chronic anemia, weight loss, hypertension, came to the hospital because of decreased appetite, weight loss, feeling weak and tired and has nausea off and on. I was called to see the patient for evaluation of his renal disease. Additional Remarks Patient is alert, started eating some, no SOB, diarrhea is improving, feeling better. Review of Systems General Constitutional: Fatigue Cardiovascular Cardiac: HUGGINS Objective Data Data 09/07/16 09/08/16 19:00 07:00 Intake Total 480 ml 480 ml Output Total 1000 ml Balance 480 ml -520 ml Intake Oral 480 ml 480 ml Output Urine Total 1000 ml # Voids 4 # Bowel Movements 1 0 Vital Signs Date Time Temp Pulse Resp B/P Pulse Ox O2 Delivery O2 Flow Rate FiO2 09/08/16 12:00 97.1 70 18 178/96 100 09/08/16 08:00 99.0 68 18 183/98 97 09/08/16 04:45 99.0 72 18 192/88 99 Automatic Cuff 09/08/16 00:45 97.0 72 18 116/70 98 09/07/16 22:07 95/63 09/07/16 20:50 98.2 82 17 89/66 97 09/07/16 16:00 98.7 72 18 156/96 100 -: 09/05/16 0624 09/08/16 0555 Physical Exam General Appearance: No Acute Distress, Anxious, Malnourished Eyes Eye Exam: Pupils Equal Throat Throat Exam: Oral Mucosa [place] & Moist Neck Neck Exam: Neck Supple Pulmonary Resp Exam: No Distress, Decreased Bases, Diminished Breath Sounds Cardiology CV Exam: Regular, Normal Sinus Rhythm Gastrointestinal/Abdomen GI Exam: Soft, Non-Tender Extremeties Extremities Exam: No Edema Neurologic Neuro Exam: Alert, Awake, Oriented Psychiatric Psych Exam: Appropriate Responses Assessment/Plan Assessment Summary: Hypertension, CKD Stage IV Electrolyte Assessment: Metabolic Acidosis Problem List: (1) HIV disease (2) HIV (human immunodeficiency virus infection) (3) Anemia (4) Metabolic acidosis (5) Chronic kidney disease Plan Patient has advance stage 4 chronic kidney disease, No urgent need for Dialysis. Continue antibiotics and IVF. Not much improvement in the Creatinine, has some uremic symptoms and Hco3 dropping. D/W the patient if no improvement, possible dialysis. Patient want to discuss with his family about dialysis. Started on PO NaHco3. Creatinine is almost same at 4.5, GFR is 16 ml/min. Due to loss of muscle mass, GFR possibly not accurate. Will get 24 hr. urine for Creatinine clearance. Problem Qualifiers (1) Chronic kidney disease: Qualified Code: N18.4 - Stage 4 chronic kidney disease George Davis MD Sep 08, 2016 15:53
[2016-09-09] VITALS (8 sets, daily range): BP systolic 103–208; BP diastolic 69–112; PULSE 71–85; RESP 17–18; TEMP 96.9–97.7; O2SAT 96–99
[2016-09-09 05:01] LABS: BICARBONATE 14.3 MEQ/L (21.0-32.0); CALCIUM-PROTEIN CORRECTED 7.7 MG/DL (8.5-10.1); MAGNESIUM 1.7 MG/DL (1.5-2.5); POTASSIUM 4.9 MEQ/L (3.5-5.1); TOTAL BILIRUBIN ADULT 0.3 MG/DL (0.2-1.0)
[2016-09-09] MEDS: MEGESTROL ACETATE SUSP 400 MG/10 ML CUP PO SCH (09:00)
[2016-09-09] MEDS: DOCUSATE SODIUM 50 MG/SENNA 8.6 MG TAB PO SCH ×2 (09:00→21:38)
[2016-09-09] MEDS: SODIUM CHLOR 0.9% 1000 ML INJ 1,000 ML IV SCH (09:15)
[2016-09-09] MEDS: cloNIDine HCL 0.1 MG TAB PO PRN ×2 (09:33→23:54)
[2016-09-09] MEDS: CARVEDILOL 12.5 MG TAB PO SCH ×2 (09:33→21:37)
--- NOTE | 2016-09-09 10:03 | HHI.PR ---
Subjective Remarks Renal function improved with a creatinine at 4.27 today. No new complaints when seen. Antibiotic treatments are being completed today. Potential for increase renal improvement off antibiotics. Objective Vital Signs Date Time Temp Pulse Resp B/P Pulse Ox O2 Delivery O2 Flow Rate FiO2 09/09/16 08:00 97.6 74 18 162/99 98 09/09/16 07:22 Room Air 09/09/16 07:12 75 09/09/16 03:29 97.4 74 17 137/81 96 09/08/16 23:21 98.0 75 18 96/74 95 09/08/16 19:28 96.7 73 18 168/96 94 09/08/16 17:10 74 09/08/16 16:00 97.5 75 18 141/90 99 09/08/16 12:00 97.1 70 18 178/96 100 I/O 09/08/16 09/08/16 09/08/16 09/09/16 09/09/16 09/09/16 07:00 15:00 23:00 07:00 15:00 23:00 Intake Total 0 ml 960 ml 480 ml Output Total 400 ml 300 ml Balance -400 ml 960 ml 180 ml Intake Oral 0 ml 960 ml 480 ml Output Urine Total 400 ml 300 ml # Voids 7 2 # Bowel Movements 0 0 1 Result Diagram: 09/05/16 0624 09/09/16 0345 Procedures No procedures performed. Objective Remarks GENERAL: NAD, A&Ox3, global cachexia SKIN: Warm and dry. HEAD: Normocephalic. EYES: No scleral icterus. No injection or drainage. NECK: Supple, trachea midline. No JVD or lymphadenopathy. CARDIOVASCULAR: Regular rate and rhythm without murmurs, gallops, or rubs. RESPIRATORY: Breath sounds equal bilaterally. No accessory muscle use. GASTROINTESTINAL: Abdomen soft, non-tender, nondistended. MUSCULOSKELETAL: No cyanosis, or edema. Global muscle wasting/atrophy. BACK: Nontender without obvious deformity. No CVA tenderness. A/P Problem List: (1) Essential hypertension ICD Code: I10 (2) Renal failure ICD Code: N19 (3) Anemia ICD Code: D64.9 (4) Malnutrition ICD Code: E46 (5) Acute kidney injury ICD Code: N17.9 Assessment and Plan Assessment and Plan 56 year old male with HIV, admitted with ARF on CKD. Renal function stable. Slight improvement in creatinine today. Antibiotic treatment to be completed today. Follow renal function. Acute Renal Failure Hyperkalemia he has shown slow improvement through time continue to monitor renal function possible need for dialysis nephrology following Kayexalate continued Follow potassium levels Dialysis pending for tomorrow HIV Immunocompromise CD4 pending He is not on treatment risk for AIDS is present Start prophylaxis, if needed, based on CD4 results Nicotine Abuse Alcohol Abuse Cessation has been recommended No DTs Anemia of Chronic Disease Follow H/H for any worsening If worsening he will need a transfusion HTN No change to baseline treatments Stable Follow BP and adjust treatments if needed Hepatitis C Standard precautions Hx of Gastric Cancer Hx of Partial Gastrectomy Malnourishment 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 A partial gastrectomy with removal of tumor occured without any positive borders Part of his malnutrition may be related to this Protein Boosts Ensure Dietitian following next Cough Pneumonia versus bronchitis Cough has resolved on treatment Patient on antibiotics given immunocompromise state Azithromycin and Rocephin are currently at a 6 and will be continued after day 7 DVT Prophylaxis SCDs Code Status Full Code Problem Qualifiers (1) Renal failure: Qualified Code: N17.9 - Acute renal failure superimposed on chronic kidney disease, unspecified CKD stage, unspecified acute renal failure type (2) Anemia: Qualified Code: D64.9 - Anemia, unspecified type Nathan Plasencia MD Sep 09, 2016 10:03 am
[2016-09-09] MEDS: ENALAPRILAT 2.5 MG/2 ML VIAL IV PUSH PRN (12:18)
[2016-09-09] MEDS: SODIUM BICARBONATE 650 MG TAB PO SCH ×3 (12:18→18:04)
[2016-09-09] MEDS: NIFEdipine 20 MG CAP PO SCH (12:19)
[2016-09-09] MEDS: CALCIUM CARBONATE 1.25 GM (CA 500 MG) TAB PO SCH ×2 (12:20→23:08)
[2016-09-09] MEDS: ETRAVIRINE 100 MG TAB PO SCH ×2 (12:20→23:08)
[2016-09-09] MEDS: guaiFENesin E.R. 600 MG TAB PO SCH ×2 (12:20→23:08)
[2016-09-09] MEDS: RALTEGRAVIR 400 MG TAB PO SCH ×2 (12:20→23:08)
[2016-09-09] MEDS: LACTOBACILLUS ACIDOPHILUS TAB PO SCH ×3 (12:20→18:04)
[2016-09-09] MEDS: SODIUM CHLORIDE 0.9% FLUSH 10 ML FLUSH IV FLUSH SCH ×2 (12:21→21:38)
[2016-09-09 13:33] LABS: CREAT 24 TIMED 35.1 MG/DL
--- NOTE | 2016-09-09 16:42 | HHI.NPPN ---
Subjective History of Present Illness 56-year-old male known to me from before from his last admission with past medical history of HIV disease, history of alcoholism, chronic kidney disease, chronic anemia, weight loss, hypertension, came to the hospital because of decreased appetite, weight loss, feeling weak and tired and has nausea off and on. I was called to see the patient for evaluation of his renal disease. Additional Remarks Patient is alert, started eating some, no SOB, diarrhea is improving,clinically same. Review of Systems General Constitutional: Fatigue Cardiovascular Cardiac: HUGGINS Objective Data Data 09/08/16 09/09/16 19:00 07:00 Intake Total 480 ml 960 ml Output Total 300 ml Balance 480 ml 660 ml Intake Oral 480 ml 960 ml Output Urine Total 300 ml # Voids 3 6 # Bowel Movements 0 1 Vital Signs Date Time Temp Pulse Resp B/P Pulse Ox O2 Delivery O2 Flow Rate FiO2 09/09/16 15:53 96.9 71 18 110/69 98 09/09/16 13:33 76 103/69 09/09/16 11:41 97.5 74 18 208/112 99 09/09/16 08:00 97.6 74 18 162/99 98 09/09/16 07:22 Room Air 09/09/16 07:12 75 09/09/16 03:29 97.4 74 17 137/81 96 09/08/16 23:21 98.0 75 18 96/74 95 09/08/16 19:28 96.7 73 18 168/96 94 09/08/16 17:10 74 -: 09/05/16 0624 09/09/16 0345 Physical Exam General Appearance: No Acute Distress, Anxious, Malnourished Eyes Eye Exam: Pupils Equal Throat Throat Exam: Oral Mucosa [place] & Moist Neck Neck Exam: Neck Supple Pulmonary Resp Exam: No Distress, Decreased Bases, Diminished Breath Sounds Cardiology CV Exam: Regular, Normal Sinus Rhythm Gastrointestinal/Abdomen GI Exam: Soft, Non-Tender Extremeties Extremities Exam: No Edema Neurologic Neuro Exam: Alert, Awake, Oriented Psychiatric Psych Exam: Appropriate Responses Assessment/Plan Assessment Summary: Hypertension, CKD Stage IV Electrolyte Assessment: Metabolic Acidosis Problem List: (1) HIV disease (2) HIV (human immunodeficiency virus infection) (3) Anemia (4) Metabolic acidosis (5) Chronic kidney disease Plan Patient has advance stage 4 chronic kidney disease, No urgent need for Dialysis. Continue antibiotics and IVF. Not much improvement in the Creatinine, has some uremic symptoms and Hco3 dropping. D/W the patient if no improvement, possible dialysis. Patient want to discuss with his family about dialysis. Started on PO NaHco3. Creatinine is almost same at 4.5, GFR is 16 ml/min. Due to loss of muscle mass, GFR possibly not accurate. The 24 hr.urine Crea. Clearance is 11.9 ml/min. Since Creatinine still improving, will hold HD. Problem Qualifiers (1) Chronic kidney disease: Qualified Code: N18.4 - Stage 4 chronic kidney disease George Davis MD Sep 09, 2016 16:42
[2016-09-09] MEDS: NIFEdipine 60 MG SUSTAINED RELEASE TAB PO SCH (21:37)
[2016-09-10] VITALS (9 sets, daily range): BP systolic 141–163; BP diastolic 82–97; PULSE 67–79; RESP 18; TEMP 96.7–98.7; O2SAT 96–99
[2016-09-10] MEDS: SODIUM CHLOR 0.9% 1000 ML INJ 1,000 ML IV SCH (04:53)
[2016-09-10 05:48] LABS: CREAT 24 TIMED 35.1 MG/DL
[2016-09-10 07:57] LABS: POTASSIUM 4.9 MEQ/L (3.5-5.1)
[2016-09-10 08:35] LABS: CALCIUM-PROTEIN CORRECTED 7.9 MG/DL (8.5-10.1)
[2016-09-10] MEDS: DOCUSATE SODIUM 50 MG/SENNA 8.6 MG TAB PO SCH ×2 (09:00→21:52)
[2016-09-10] MEDS: SODIUM CHLORIDE 0.9% FLUSH 10 ML FLUSH IV FLUSH SCH ×2 (09:00→21:51)
[2016-09-10] MEDS: MEGESTROL ACETATE SUSP 400 MG/10 ML CUP PO SCH (09:00)
[2016-09-10] MEDS: guaiFENesin E.R. 600 MG TAB PO SCH ×2 (09:33→21:51)
[2016-09-10] MEDS: CALCIUM CARBONATE 1.25 GM (CA 500 MG) TAB PO SCH ×2 (09:33→21:51)
[2016-09-10] MEDS: LACTOBACILLUS ACIDOPHILUS TAB PO SCH ×3 (09:33→18:17)
[2016-09-10] MEDS: SODIUM BICARBONATE 650 MG TAB PO SCH ×3 (09:33→18:17)
[2016-09-10] MEDS: NIFEdipine 60 MG SUSTAINED RELEASE TAB PO SCH ×2 (09:34→21:51)
[2016-09-10] MEDS: CARVEDILOL 12.5 MG TAB PO SCH ×2 (09:34→21:51)
[2016-09-10] MEDS: ETRAVIRINE 100 MG TAB PO SCH ×2 (09:34→21:51)
[2016-09-10] MEDS: RALTEGRAVIR 400 MG TAB PO SCH ×2 (09:34→21:51)
--- NOTE | 2016-09-10 14:04 | HHI.PR ---
Subjective Remarks Renal function improved with a creatinine at 4.01 today. No new complaints when seen. Antibiotics completed yesterday. Patient complains of no new symptoms today. He reports his taste is improving. Objective Vital Signs Date Time Temp Pulse Resp B/P Pulse Ox O2 Delivery O2 Flow Rate FiO2 09/10/16 11:43 98.5 74 18 145/82 98 09/10/16 08:00 97.9 69 18 146/91 99 09/10/16 07:29 67 09/10/16 03:32 97.4 79 18 141/91 99 09/10/16 02:31 76 09/09/16 23:41 97.7 85 17 188/102 98 09/09/16 20:50 97.5 71 18 156/94 99 09/09/16 18:56 Room Air 09/09/16 15:53 96.9 71 18 110/69 98 I/O 09/09/16 09/09/16 09/09/16 09/10/16 09/10/16 09/10/16 07:00 15:00 23:00 07:00 15:00 23:00 Intake Total 480 ml 896 ml 734 ml 863 ml Output Total 300 ml 500 ml 800 ml Balance 180 ml 896 ml 234 ml 63 ml Intake Oral 480 ml 600 ml 360 ml 480 ml IV Total 296 ml 374 ml 383 ml Output Urine Total 300 ml 500 ml 800 ml # Voids 2 3 # Bowel Movements 1 2 0 0 Result Diagram: 09/10/16 0637 Procedures No procedures performed. Objective Remarks GENERAL: NAD, A&Ox3, global cachexia SKIN: Warm and dry. HEAD: Normocephalic. EYES: No scleral icterus. No injection or drainage. NECK: Supple, trachea midline. No JVD or lymphadenopathy. CARDIOVASCULAR: Regular rate and rhythm without murmurs, gallops, or rubs. RESPIRATORY: Breath sounds equal bilaterally. No accessory muscle use. GASTROINTESTINAL: Abdomen soft, non-tender, nondistended. MUSCULOSKELETAL: No cyanosis, or edema. Global muscle wasting/atrophy. BACK: Nontender without obvious deformity. No CVA tenderness. A/P Problem List: (1) Essential hypertension ICD Code: I10 (2) Renal failure ICD Code: N19 (3) Anemia ICD Code: D64.9 (4) Malnutrition ICD Code: E46 (5) Acute kidney injury ICD Code: N17.9 Assessment and Plan Assessment and Plan 56 year old male with HIV, admitted with ARF on CKD. Renal function stable. Slight improvement in creatinine today. Uremic symptoms and low bicarbonate, secondary to kidney disease, are being monitored. Acute Renal Failure Hyperkalemia he has shown slow improvement through time continue to monitor renal function possible need for dialysis nephrology following Kayexalate continued Follow potassium levels Dialysis pending for tomorrow HIV Immunocompromise CD4 pending He is not on treatment risk for AIDS is present Start prophylaxis, if needed, based on CD4 results Nicotine Abuse Alcohol Abuse Cessation has been recommended No DTs Anemia of Chronic Disease Follow H/H for any worsening If worsening he will need a transfusion HTN No change to baseline treatments Stable Follow BP and adjust treatments if needed Hepatitis C Standard precautions Hx of Gastric Cancer Hx of Partial Gastrectomy Malnourishment 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 A partial gastrectomy with removal of tumor occured without any positive borders Part of his malnutrition may be related to this Protein Boosts Ensure Dietitian following next Cough Pneumonia versus bronchitis Cough has resolved on treatment Patient on antibiotics given immunocompromise state Azithromycin and Rocephin are currently at a 6 and will be continued after day 7 DVT Prophylaxis SCDs Code Status Full Code Problem Qualifiers (1) Renal failure: Qualified Code: N17.9 - Acute renal failure superimposed on chronic kidney disease, unspecified CKD stage, unspecified acute renal failure type (2) Anemia: Qualified Code: D64.9 - Anemia, unspecified type Nathan Plasencia MD Sep 10, 2016 14:04
--- NOTE | 2016-09-10 16:38 | HHI.NPPN ---
Subjective History of Present Illness 56-year-old male known to me from before from his last admission with past medical history of HIV disease, history of alcoholism, chronic kidney disease, chronic anemia, weight loss, hypertension, came to the hospital because of decreased appetite, weight loss, feeling weak and tired and has nausea off and on. I was called to see the patient for evaluation of his renal disease. Additional Remarks Patient is alert, started eating some, no SOB, diarrhea is improving. Review of Systems General Constitutional: Fatigue Cardiovascular Cardiac: HUGGINS Objective Data Data 09/09/16 09/10/16 19:00 07:00 Intake Total 896 ml 1597 ml Output Total 1300 ml Balance 896 ml 297 ml Intake Oral 600 ml 840 ml IV Total 296 ml 757 ml Output Urine Total 1300 ml # Voids 3 # Bowel Movements 2 0 Vital Signs Date Time Temp Pulse Resp B/P Pulse Ox O2 Delivery O2 Flow Rate FiO2 09/10/16 11:43 98.5 74 18 145/82 98 09/10/16 08:00 97.9 69 18 146/91 99 09/10/16 07:29 67 09/10/16 03:32 97.4 79 18 141/91 99 09/10/16 02:31 76 09/09/16 23:41 97.7 85 17 188/102 98 09/09/16 20:50 97.5 71 18 156/94 99 09/09/16 18:56 Room Air -: 09/10/16 0637 Physical Exam General Appearance: No Acute Distress, Anxious, Malnourished Eyes Eye Exam: Pupils Equal Throat Throat Exam: Oral Mucosa [place] & Moist Neck Neck Exam: Neck Supple Pulmonary Resp Exam: No Distress, Decreased Bases, Diminished Breath Sounds Cardiology CV Exam: Regular, Normal Sinus Rhythm Gastrointestinal/Abdomen GI Exam: Soft, Non-Tender Extremeties Extremities Exam: No Edema Neurologic Neuro Exam: Alert, Awake, Oriented Psychiatric Psych Exam: Appropriate Responses Assessment/Plan Assessment Summary: Hypertension, CKD Stage IV Electrolyte Assessment: Metabolic Acidosis Problem List: (1) HIV disease (2) HIV (human immunodeficiency virus infection) (3) Anemia (4) Metabolic acidosis (5) Chronic kidney disease Plan Patient has advance stage 4 chronic kidney disease, No urgent need for Dialysis. Continue antibiotics and IVF. Started on PO NaHco3. Creatinine continue to improve , and now it is 4.0 and the GFR increase to 19 ml/min. Hold HD for now. Encourage oral intake. Problem Qualifiers (1) Chronic kidney disease: Qualified Code: N18.4 - Stage 4 chronic kidney disease George Davis MD Sep 10, 2016 16:38
[2016-09-11] MEDS: SODIUM CHLOR 0.9% 1000 ML INJ 1,000 ML IV SCH ×2 (00:33→20:20)
[2016-09-11 03:21] VITALS: BP 159/95; PULSE 78; RESP 17; TEMP 98.9; O2SAT 98
[2016-09-11 07:55] VITALS: BP 147/93; PULSE 73; RESP 16; TEMP 97.7; O2SAT 97
[2016-09-11] MEDS: LACTOBACILLUS ACIDOPHILUS TAB PO SCH ×3 (08:22→19:27)
[2016-09-11] MEDS: RALTEGRAVIR 400 MG TAB PO SCH ×2 (08:22→20:19)
[2016-09-11] MEDS: NIFEdipine 60 MG SUSTAINED RELEASE TAB PO SCH ×2 (08:22→20:20)
[2016-09-11] MEDS: CALCIUM CARBONATE 1.25 GM (CA 500 MG) TAB PO SCH ×2 (08:22→20:20)
[2016-09-11] MEDS: ETRAVIRINE 100 MG TAB PO SCH ×2 (08:22→20:20)
[2016-09-11] MEDS: SODIUM BICARBONATE 650 MG TAB PO SCH ×3 (08:22→19:27)
[2016-09-11] MEDS: guaiFENesin E.R. 600 MG TAB PO SCH ×2 (08:22→20:20)
[2016-09-11] MEDS: CARVEDILOL 12.5 MG TAB PO SCH ×2 (08:22→20:20)
[2016-09-11] MEDS: DOCUSATE SODIUM 50 MG/SENNA 8.6 MG TAB PO SCH ×2 (08:24→20:19)
[2016-09-11] MEDS: SODIUM CHLORIDE 0.9% FLUSH 10 ML FLUSH IV FLUSH SCH ×2 (08:25→20:20)
[2016-09-11] MEDS: MEGESTROL ACETATE SUSP 400 MG/10 ML CUP PO SCH (08:25)
[2016-09-11 08:46] LABS: BICARBONATE 16.4 MEQ/L (21.0-32.0); POTASSIUM 5.4 MEQ/L (3.5-5.1)
--- NOTE | 2016-09-11 10:44 | HHI.PR ---
Subjective Remarks Renal function improved with a creatinine at 4.05 today. No significant change from yesterday. Patient has no new complaints today. Appetite is present. Objective Vital Signs Date Time Temp Pulse Resp B/P Pulse Ox O2 Delivery O2 Flow Rate FiO2 09/11/16 07:55 97.7 73 16 147/93 97 09/11/16 03:21 98.9 78 17 159/95 98 09/10/16 23:30 98.7 71 18 142/90 99 09/10/16 20:00 74 09/10/16 19:27 96.7 79 18 163/90 96 09/10/16 18:49 Room Air 09/10/16 16:00 98.4 68 18 155/97 98 09/10/16 11:43 98.5 74 18 145/82 98 I/O 09/10/16 09/10/16 09/10/16 09/11/16 09/11/16 09/11/16 07:00 15:00 23:00 07:00 15:00 23:00 Intake Total 863 ml 2156 ml 749 ml Output Total 800 ml 1275 ml 650 ml Balance 63 ml 881 ml 99 ml Intake Oral 480 ml 1320 ml 360 ml IV Total 383 ml 836 ml 389 ml Output Urine Total 800 ml 1275 ml 650 ml # Bowel Movements 0 1 0 Result Diagram: 09/11/16 0631 Procedures No procedures performed. Objective Remarks GENERAL: NAD, A&Ox3, global cachexia SKIN: Warm and dry. HEAD: Normocephalic. EYES: No scleral icterus. No injection or drainage. NECK: Supple, trachea midline. No JVD or lymphadenopathy. CARDIOVASCULAR: Regular rate and rhythm without murmurs, gallops, or rubs. RESPIRATORY: Breath sounds equal bilaterally. No accessory muscle use. GASTROINTESTINAL: Abdomen soft, non-tender, nondistended. MUSCULOSKELETAL: No cyanosis, or edema. Global muscle wasting/atrophy. BACK: Nontender without obvious deformity. No CVA tenderness. A/P Problem List: (1) Essential hypertension ICD Code: I10 (2) Renal failure ICD Code: N19 (3) Anemia ICD Code: D64.9 (4) Malnutrition ICD Code: E46 (5) Acute kidney injury ICD Code: N17.9 Assessment and Plan Assessment and Plan 56 year old male with HIV, admitted with ARF on CKD. Renal function has improved slowly through time. Slight improvement in creatinine today. Uremic symptoms and low bicarbonate, secondary to kidney disease, are being monitored. Continue to monitor renal function. Acute Renal Failure Hyperkalemia he has shown slow improvement through time continue to monitor renal function possible need for dialysis nephrology following Kayexalate continued Follow potassium levels Dialysis pending for tomorrow HIV Immunocompromise CD4 pending He is not on treatment risk for AIDS is present Start prophylaxis, if needed, based on CD4 results Nicotine Abuse Alcohol Abuse Cessation has been recommended No DTs Anemia of Chronic Disease Follow H/H for any worsening If worsening he will need a transfusion HTN No change to baseline treatments Stable Follow BP and adjust treatments if needed Hepatitis C Standard precautions Hx of Gastric Cancer Hx of Partial Gastrectomy Malnourishment 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 A partial gastrectomy with removal of tumor occured without any positive borders Part of his malnutrition may be related to this Protein Boosts Ensure Dietitian following next Cough Pneumonia versus bronchitis Cough has resolved on treatment Patient on antibiotics given immunocompromise state Azithromycin and Rocephin are currently at a 6 and will be continued after day 7 DVT Prophylaxis SCDs Code Status Full Code Problem Qualifiers (1) Renal failure: Qualified Code: N17.9 - Acute renal failure superimposed on chronic kidney disease, unspecified CKD stage, unspecified acute renal failure type (2) Anemia: Qualified Code: D64.9 - Anemia, unspecified type Nathan Plasencia MD Sep 11, 2016 10:44
[2016-09-11 11:50] VITALS: BP 149/98; PULSE 69; RESP 16; TEMP 97.4; O2SAT 98
--- NOTE | 2016-09-11 12:07 | HHI.NPPN ---
Subjective History of Present Illness 56-year-old male known to me from before from his last admission with past medical history of HIV disease, history of alcoholism, chronic kidney disease, chronic anemia, weight loss, hypertension, came to the hospital because of decreased appetite, weight loss, feeling weak and tired and has nausea off and on. I was called to see the patient for evaluation of his renal disease. Additional Remarks Patient is alert, appetite is improving, no abd. pain, and diarrhea is better. Review of Systems General Constitutional: Fatigue Cardiovascular Cardiac: HUGGINS Objective Data Data 09/10/16 09/11/16 19:00 07:00 Intake Total 600 ml 2305 ml Output Total 775 ml 1150 ml Balance -175 ml 1155 ml Intake Oral 600 ml 1080 ml IV Total 1225 ml Output Urine Total 775 ml 1150 ml # Bowel Movements 1 0 Vital Signs Date Time Temp Pulse Resp B/P Pulse Ox O2 Delivery O2 Flow Rate FiO2 09/11/16 07:55 97.7 73 16 147/93 97 09/11/16 03:21 98.9 78 17 159/95 98 09/10/16 23:30 98.7 71 18 142/90 99 09/10/16 20:00 74 09/10/16 19:27 96.7 79 18 163/90 96 09/10/16 18:49 Room Air 09/10/16 16:00 98.4 68 18 155/97 98 -: 09/11/16 0631 Physical Exam General Appearance: No Acute Distress, Anxious, Malnourished Eyes Eye Exam: Pupils Equal Throat Throat Exam: Oral Mucosa [place] & Moist Neck Neck Exam: Neck Supple Pulmonary Resp Exam: No Distress, Decreased Bases, Diminished Breath Sounds Cardiology CV Exam: Regular, Normal Sinus Rhythm Gastrointestinal/Abdomen GI Exam: Soft, Non-Tender Extremeties Extremities Exam: No Edema Neurologic Neuro Exam: Alert, Awake, Oriented Psychiatric Psych Exam: Appropriate Responses Assessment/Plan Assessment Summary: Hypertension, CKD Stage IV Electrolyte Assessment: Metabolic Acidosis Problem List: (1) HIV disease (2) HIV (human immunodeficiency virus infection) (3) Anemia (4) Metabolic acidosis (5) Chronic kidney disease Plan Patient has advance stage 4 chronic kidney disease, No urgent need for Dialysis. Continue antibiotics and IVF. Started on PO NaHco3. Creatinine is stable and GFR is 19 ml/min. K is 5.4, decrease K in diet and one dose of Kayexalate. No need for Dialysis. Problem Qualifiers (1) Chronic kidney disease: Qualified Code: N18.4 - Stage 4 chronic kidney disease George Davis MD Sep 11, 2016 12:07
[2016-09-11] MEDS ORDERED: SODIUM POLYSTYRENE SULFONATE SUSP 15 GM/60 ML CUP PO ONE (12:15)
--- NOTE | 2016-09-11 14:26 | HHI.HCPN ---
Met with Mr. Matthews for follow-up palliative care, continuation of support. Mr. Matthews is currently lying in bed watching tv, alert, oriented, and able to make his needs known. Appropriate and pleasant in conversation. He is eager to go back to living in his apartment with his son. Verbalizes he wishes to maximum medical management then discharge so he "does not come right back". Expresses some concern regarding outpatient management of HIV medications and follow-up. Discussed with case management to include in discharge planning if possible. Mr. Matthews is appreciative of medical team and continued palliative visits. Goals remain aggressive. Palliative care will continue to follow throughout hospitalization, PRN and for support. Cee Carbajal, FACILITY ENGINEER Sep 11, 2016 14:26
[2016-09-11 16:00] VITALS: BP 130/88; PULSE 68; RESP 16; TEMP 98.4; O2SAT 97
[2016-09-11 19:45] VITALS: PULSE 72
[2016-09-11 20:40] VITALS: BP 154/93; PULSE 74; RESP 17; TEMP 98.1; O2SAT 98
[2016-09-11] MEDS: cloNIDine HCL 0.1 MG TAB PO PRN (23:45)
[2016-09-12] VITALS (8 sets, daily range): BP systolic 136–158; BP diastolic 85–97; PULSE 68–74; RESP 17–20; TEMP 96.5–98.5; O2SAT 97–99
[2016-09-12] MEDS: ENALAPRILAT 2.5 MG/2 ML VIAL IV PUSH PRN (03:43)
[2016-09-12] MEDS: CARVEDILOL 12.5 MG TAB PO SCH ×2 (07:44→20:01)
[2016-09-12] MEDS: ETRAVIRINE 100 MG TAB PO SCH ×2 (07:44→20:00)
[2016-09-12] MEDS: SODIUM BICARBONATE 650 MG TAB PO SCH ×3 (07:44→17:25)
[2016-09-12] MEDS: LACTOBACILLUS ACIDOPHILUS TAB PO SCH ×3 (07:45→17:25)
[2016-09-12] MEDS: RALTEGRAVIR 400 MG TAB PO SCH ×2 (07:45→20:00)
[2016-09-12] MEDS: guaiFENesin E.R. 600 MG TAB PO SCH ×2 (07:45→20:00)
[2016-09-12] MEDS: CALCIUM CARBONATE 1.25 GM (CA 500 MG) TAB PO SCH ×2 (07:45→20:00)
[2016-09-12] MEDS: NIFEdipine 60 MG SUSTAINED RELEASE TAB PO SCH ×2 (07:45→20:01)
[2016-09-12] MEDS: SODIUM CHLORIDE 0.9% FLUSH 10 ML FLUSH IV FLUSH SCH ×2 (09:00→20:01)
[2016-09-12] MEDS: MEGESTROL ACETATE SUSP 400 MG/10 ML CUP PO SCH (09:00)
[2016-09-12] MEDS: DOCUSATE SODIUM 50 MG/SENNA 8.6 MG TAB PO SCH ×2 (09:00→19:12)
--- NOTE | 2016-09-12 15:00 | HHI.PR ---
Subjective Remarks IV hydration has been discontinued. Labs are pending today. We'll monitor for labs once they result. If patient's renal function remains stable off of IV hydration discharge will be considered. Discharge may be as early as tomorrow if nephrology is agreeable with that. Objective Vital Signs Date Time Temp Pulse Resp B/P Pulse Ox O2 Delivery O2 Flow Rate FiO2 09/12/16 12:00 96.5 72 20 137/85 98 09/12/16 08:00 97.9 68 18 157/97 99 09/12/16 04:28 97.4 71 17 149/90 97 09/12/16 00:30 73 17 140/87 98 09/12/16 00:27 98.5 70 17 158/95 97 09/11/16 20:40 98.1 74 17 154/93 98 09/11/16 19:45 72 09/11/16 16:00 98.4 68 16 130/88 97 I/O 09/11/16 09/11/16 09/11/16 09/12/16 09/12/16 09/12/16 07:00 15:00 23:00 07:00 15:00 23:00 Intake Total 749 ml 660 ml 240 ml 360 ml Output Total 650 ml 400 ml 500 ml 400 ml Balance 99 ml 260 ml -260 ml -40 ml Intake Oral 360 ml 660 ml 240 ml 360 ml IV Total 389 ml Output Urine Total 650 ml 400 ml 500 ml 400 ml # Voids 4 # Bowel Movements 0 0 0 1 Result Diagram: 09/11/16 0631 Procedures No procedures performed. Objective Remarks GENERAL: NAD, A&Ox3, global cachexia SKIN: Warm and dry. HEAD: Normocephalic. EYES: No scleral icterus. No injection or drainage. NECK: Supple, trachea midline. No JVD or lymphadenopathy. CARDIOVASCULAR: Regular rate and rhythm without murmurs, gallops, or rubs. RESPIRATORY: Breath sounds equal bilaterally. No accessory muscle use. GASTROINTESTINAL: Abdomen soft, non-tender, nondistended. MUSCULOSKELETAL: No cyanosis, or edema. Global muscle wasting/atrophy. BACK: Nontender without obvious deformity. No CVA tenderness. A/P Problem List: (1) Essential hypertension ICD Code: I10 (2) Renal failure ICD Code: N19 (3) Anemia ICD Code: D64.9 (4) Malnutrition ICD Code: E46 (5) Acute kidney injury ICD Code: N17.9 Assessment and Plan Assessment and Plan 56 year old male with HIV, admitted with ARF on CKD. Renal function has improved slowly through time. Now off IV hydration. Monitor renal function for stability. Stable to tomorrow we'll consider discharge tomorrow. Acute Renal Failure Hyperkalemia he has shown slow improvement through time continue to monitor renal function possible need for dialysis nephrology following Kayexalate continued Follow potassium levels Dialysis pending for tomorrow HIV Immunocompromise CD4 pending He is not on treatment risk for AIDS is present Start prophylaxis, if needed, based on CD4 results Nicotine Abuse Alcohol Abuse Cessation has been recommended No DTs Anemia of Chronic Disease Follow H/H for any worsening If worsening he will need a transfusion HTN No change to baseline treatments Stable Follow BP and adjust treatments if needed Hepatitis C Standard precautions Hx of Gastric Cancer Hx of Partial Gastrectomy Malnourishment 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 A partial gastrectomy with removal of tumor occured without any positive borders Part of his malnutrition may be related to this Protein Boosts Ensure Dietitian following next Cough Pneumonia versus bronchitis Cough has resolved on treatment Patient on antibiotics given immunocompromise state Azithromycin and Rocephin are currently at a 6 and will be continued after day 7 DVT Prophylaxis SCDs Code Status Full Code Problem Qualifiers (1) Renal failure: Qualified Code: N17.9 - Acute renal failure superimposed on chronic kidney disease, unspecified CKD stage, unspecified acute renal failure type (2) Anemia: Qualified Code: D64.9 - Anemia, unspecified type Nathan Plasencia MD Sep 12, 2016 15:00
--- NOTE | 2016-09-12 15:15 | HHI.NPPN ---
Subjective History of Present Illness 56-year-old male known to me from before from his last admission with past medical history of HIV disease, history of alcoholism, chronic kidney disease, chronic anemia, weight loss, hypertension, came to the hospital because of decreased appetite, weight loss, feeling weak and tired and has nausea off and on. I was called to see the patient for evaluation of his renal disease. Additional Remarks Patient is alert, feeling better, appetite improving. Review of Systems General Constitutional: Fatigue Cardiovascular Cardiac: HUGGINS Objective Data Data 09/11/16 09/12/16 19:00 07:00 Intake Total 660 ml 600 ml Output Total 400 ml 900 ml Balance 260 ml -300 ml Intake Oral 660 ml 600 ml Output Urine Total 400 ml 900 ml # Voids 4 # Bowel Movements 0 1 Vital Signs Date Time Temp Pulse Resp B/P Pulse Ox O2 Delivery O2 Flow Rate FiO2 09/12/16 12:00 96.5 72 20 137/85 98 09/12/16 08:00 97.9 68 18 157/97 99 09/12/16 04:28 97.4 71 17 149/90 97 09/12/16 00:30 73 17 140/87 98 09/12/16 00:27 98.5 70 17 158/95 97 09/11/16 20:40 98.1 74 17 154/93 98 09/11/16 19:45 72 09/11/16 16:00 98.4 68 16 130/88 97 -: 09/11/16 0631 Physical Exam General Appearance: No Acute Distress, Anxious, Malnourished Eyes Eye Exam: Pupils Equal Throat Throat Exam: Oral Mucosa [place] & Moist Neck Neck Exam: Neck Supple Pulmonary Resp Exam: No Distress, Decreased Bases, Diminished Breath Sounds Cardiology CV Exam: Regular, Normal Sinus Rhythm Gastrointestinal/Abdomen GI Exam: Soft, Non-Tender Extremeties Extremities Exam: No Edema Neurologic Neuro Exam: Alert, Awake, Oriented Psychiatric Psych Exam: Appropriate Responses Assessment/Plan Assessment Summary: Hypertension, CKD Stage IV Electrolyte Assessment: Metabolic Acidosis Problem List: (1) HIV disease (2) HIV (human immunodeficiency virus infection) (3) Anemia (4) Metabolic acidosis (5) Chronic kidney disease Plan Patient has advance stage 4 chronic kidney disease, No urgent need for Dialysis. Continue antibiotics and IVF. On PO NaHco3. No new BMP today. His GFR is 19 ml/min. Encourage oral intake. Avoid Nephrotoxins, dehydration. Problem Qualifiers (1) Chronic kidney disease: Qualified Code: N18.4 - Stage 4 chronic kidney disease George Davis MD Sep 12, 2016 15:15
[2016-09-12 16:21] LABS: POTASSIUM 5.4 MEQ/L (3.5-5.1)
[2016-09-13] VITALS (7 sets, daily range): BP systolic 150–178; BP diastolic 90–106; PULSE 71–74; RESP 17–20; TEMP 97.1–98.6; O2SAT 98–100
[2016-09-13 07:27] LABS: HEMATOCRIT 27.7 % (39.0-51.0); MEAN CELL VOLUME 84.4 FL (80.0-100.0); MEAN CORPUSCULAR HEMOGLOBIN 28.7 PG (27.0-34.0); PLATELET COUNT 299 TH/MM3 (150-450); RED BLOOD COUNT 3.28 MIL/MM3 (4.50-5.90); RED CELL DISTRIBUTION WIDTH 15.3 % (11.6-17.2); REVIEW FLAG FINAL; WHITE BLOOD COUNT 6.8 TH/MM3 (4.0-11.0)
[2016-09-13 07:51] LABS: BICARBONATE 18.9 MEQ/L (21.0-32.0); POTASSIUM 5.5 MEQ/L (3.5-5.1)
[2016-09-13] MEDS: DOCUSATE SODIUM 50 MG/SENNA 8.6 MG TAB PO SCH ×2 (08:58→20:25)
[2016-09-13] MEDS: RALTEGRAVIR 400 MG TAB PO SCH ×2 (08:59→20:25)
[2016-09-13] MEDS: MEGESTROL ACETATE SUSP 400 MG/10 ML CUP PO SCH (08:59)
[2016-09-13] MEDS: CARVEDILOL 12.5 MG TAB PO SCH ×2 (08:59→20:25)
[2016-09-13] MEDS: SODIUM BICARBONATE 650 MG TAB PO SCH ×3 (08:59→18:00)
[2016-09-13] MEDS: LACTOBACILLUS ACIDOPHILUS TAB PO SCH ×3 (08:59→18:30)
[2016-09-13] MEDS: guaiFENesin E.R. 600 MG TAB PO SCH ×2 (08:59→20:25)
[2016-09-13] MEDS: CALCIUM CARBONATE 1.25 GM (CA 500 MG) TAB PO SCH ×2 (08:59→20:25)
[2016-09-13] MEDS: ETRAVIRINE 100 MG TAB PO SCH ×2 (08:59→20:26)
[2016-09-13] MEDS: NIFEdipine 60 MG SUSTAINED RELEASE TAB PO SCH ×2 (08:59→20:25)
[2016-09-13] MEDS: SODIUM CHLORIDE 0.9% FLUSH 10 ML FLUSH IV FLUSH SCH ×2 (09:03→20:26)
--- NOTE | 2016-09-13 10:24 | HHI.NPPN ---
Subjective History of Present Illness 56-year-old male known to me from before from his last admission with past medical history of HIV disease, history of alcoholism, chronic kidney disease, chronic anemia, weight loss, hypertension, came to the hospital because of decreased appetite, weight loss, feeling weak and tired and has nausea off and on. I was called to see the patient for evaluation of his renal disease. Additional Remarks Renal function is gradually getting worse. BP is higher. Review of Systems General Constitutional: Fatigue Cardiovascular Cardiac: HUGGINS Objective Data Data 09/12/16 09/13/16 19:00 07:00 Intake Total 600 ml Output Total 900 ml 1100 ml Balance -900 ml -500 ml Intake Oral 600 ml Output Urine Total 900 ml 1100 ml # Bowel Movements 2 0 Vital Signs Date Time Temp Pulse Resp B/P Pulse Ox O2 Delivery O2 Flow Rate FiO2 09/13/16 08:00 97.1 74 18 160/95 99 09/13/16 04:18 98.2 74 17 161/90 99 09/13/16 00:30 97.3 71 17 159/96 100 09/12/16 20:30 97.6 74 17 146/87 97 09/12/16 20:29 73 09/12/16 16:00 97.8 73 18 136/92 99 09/12/16 12:00 96.5 72 20 137/85 98 -: 09/13/16 0712 09/13/16 0712 Physical Exam General Appearance: No Acute Distress, Anxious, Malnourished Eyes Eye Exam: Pupils Equal Throat Throat Exam: Oral Mucosa [place] & Moist Neck Neck Exam: Neck Supple Pulmonary Resp Exam: No Distress, Decreased Bases, Diminished Breath Sounds Cardiology CV Exam: Regular, Normal Sinus Rhythm Gastrointestinal/Abdomen GI Exam: Soft, Non-Tender Extremeties Extremities Exam: No Edema Neurologic Neuro Exam: Alert, Awake, Oriented Psychiatric Psych Exam: Appropriate Responses Assessment/Plan Assessment Summary: Hypertension, CKD Stage IV Electrolyte Assessment: Metabolic Acidosis Problem List: (1) HIV disease (2) HIV (human immunodeficiency virus infection) (3) Anemia (4) Metabolic acidosis (5) Chronic kidney disease Plan Likely has reached ESRD. Needs dialysis soon. Continue sodium bicarbonate. Low potassium diet. . Problem Qualifiers (1) Chronic kidney disease: Qualified Code: N18.4 - Stage 4 chronic kidney disease Crow To MD Sep 13, 2016 10:23
--- NOTE | 2016-09-13 10:41 | HHI.PR ---
Subjective Remarks Patient continues to feel well. He did have a worsening of his creatinine since stopping IV hydration. She is provided the options of discharging today with outpatient follow-up of blood work on Thursday versus monitoring in the hospital for 1 more day to ensure stability and new baseline of creatinine and renal function. The patient prefers to monitor inpatient perchance the elevation in his creatinine might be indicative of gradually worsening renal function. Objective Vital Signs Date Time Temp Pulse Resp B/P Pulse Ox O2 Delivery O2 Flow Rate FiO2 09/13/16 08:00 97.1 74 18 160/95 99 09/13/16 04:18 98.2 74 17 161/90 99 09/13/16 00:30 97.3 71 17 159/96 100 09/12/16 20:30 97.6 74 17 146/87 97 09/12/16 20:29 73 09/12/16 16:00 97.8 73 18 136/92 99 09/12/16 12:00 96.5 72 20 137/85 98 I/O 09/12/16 09/12/16 09/12/16 09/13/16 09/13/16 09/13/16 07:00 15:00 23:00 07:00 15:00 23:00 Intake Total 360 ml 240 ml 360 ml Output Total 400 ml 900 ml 300 ml 800 ml Balance -40 ml -900 ml -60 ml -440 ml Intake Oral 360 ml 240 ml 360 ml Output Urine Total 400 ml 900 ml 300 ml 800 ml # Bowel Movements 1 2 0 0 Result Diagram: 09/13/1612 09/13/16 0712 Procedures No procedures performed. Objective Remarks GENERAL: NAD, A&Ox3, global cachexia SKIN: Warm and dry. HEAD: Normocephalic. EYES: No scleral icterus. No injection or drainage. NECK: Supple, trachea midline. No JVD or lymphadenopathy. CARDIOVASCULAR: Regular rate and rhythm without murmurs, gallops, or rubs. RESPIRATORY: Breath sounds equal bilaterally. No accessory muscle use. GASTROINTESTINAL: Abdomen soft, non-tender, nondistended. MUSCULOSKELETAL: No cyanosis, or edema. Global muscle wasting/atrophy. BACK: Nontender without obvious deformity. No CVA tenderness. A/P Problem List: (1) Essential hypertension ICD Code: I10 (2) Renal failure ICD Code: N19 (3) Anemia ICD Code: D64.9 (4) Malnutrition ICD Code: E46 (5) Acute kidney injury ICD Code: N17.9 Assessment and Plan Assessment and Plan 56 year old male with HIV, admitted with ARF on CKD. Renal function has improved slowly through time. Now off IV hydration. Renal function is slightly worsened today. Patient prefers to monitor inpatient to ensure stability rather than discharge and monitor as an outpatient. We'll recheck renal function in a.m. to ensure stability of his potentially new baseline. BMP in a.m. Acute Renal Failure Hyperkalemia he has shown slow improvement through time continue to monitor renal function possible need for dialysis nephrology following Kayexalate continued Follow potassium levels Dialysis pending for tomorrow HIV Immunocompromise CD4 pending He is not on treatment risk for AIDS is present Start prophylaxis, if needed, based on CD4 results Nicotine Abuse Alcohol Abuse Cessation has been recommended No DTs Anemia of Chronic Disease Follow H/H for any worsening If worsening he will need a transfusion HTN No change to baseline treatments Stable Follow BP and adjust treatments if needed Hepatitis C Standard precautions Hx of Gastric Cancer Hx of Partial Gastrectomy Malnourishment 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 A partial gastrectomy with removal of tumor occured without any positive borders Part of his malnutrition may be related to this Protein Boosts Ensure Dietitian following next Cough Pneumonia versus bronchitis Cough has resolved on treatment Patient on antibiotics given immunocompromise state Azithromycin and Rocephin are currently at a 6 and will be continued after day 7 DVT Prophylaxis SCDs Code Status Full Code Problem Qualifiers (1) Renal failure: Qualified Code: N17.9 - Acute renal failure superimposed on chronic kidney disease, unspecified CKD stage, unspecified acute renal failure type (2) Anemia: Qualified Code: D64.9 - Anemia, unspecified type Nathan Plasencia MD Sep 13, 2016 10:41 am
[2016-09-13] MEDS: SODIUM CHLOR 0.9% 1000 ML INJ 1,000 ML IV SCH (13:07)
[2016-09-13] MEDS: cloNIDine HCL 0.1 MG TAB PO PRN (23:35)
[2016-09-14] VITALS: BP 195/110; PULSE 69; RESP 20; TEMP 96.1; O2SAT 97
[2016-09-14 04:00] VITALS: BP 153/87; PULSE 66; RESP 18; TEMP 97.1; O2SAT 99
[2016-09-14 07:33] LABS: BICARBONATE 18.2 MEQ/L (21.0-32.0); POTASSIUM 5.5 MEQ/L (3.5-5.1)
[2016-09-14 08:00] VITALS: BP 184/108; PULSE 98; RESP 18; TEMP 98; O2SAT 99
[2016-09-14] MEDS ORDERED: SODI650T PO (08:28)
[2016-09-14] MEDS ORDERED: RALT400 PO (08:28)
[2016-09-14] MEDS ORDERED: ASPI81TA11 PO (08:28)
[2016-09-14] MEDS ORDERED: INTE100T PO (08:28)
[2016-09-14] MEDS ORDERED: CARV12.5 PO (08:28)
[2016-09-14] MEDS ORDERED: NIFE60TA8 PO (08:28)
[2016-09-14] MEDS ORDERED: CALC500T30 PO (08:28)
--- NOTE | 2016-09-14 08:37 | HHI.DS ---
Discharge Summary Admission Date August 23, 2016 at 5:58 pm Discharge Date: Sep 14, 2016 Admitting Diagnosis Renal failure/Anemia/ Failure to Thrive (1) Acute kidney injury superimposed on chronic kidney disease ICD Code: S37.009A Diagnosis: Principal (2) HIV disease ICD Code: B20 Diagnosis: Secondary Procedures None Brief History - From Admission This is a pleasant 55 yr old male with history of CKD, hypertension, GERD, HIV here with complaints of cold and flulike symptoms for the past 6 days. Patient says he has been trying to fight these symptoms off by himself at home, for the past few days he has lost taste for food and this is what prompted him to come to the emergency department. He states he is HIV positive and has not been taking his medications for some time. He says that his primary care provider will not give it to him. He does not recall an infectious disease specialist. He tells me that he has also had about 50 pound weight loss in the past 4-5 months. He tells me that he has been coughing up mucus that is thick and white, sometimes yellow. He denies any abdominal pain, nausea, vomiting, chest pain, shortness of breath , fever or chills. 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 CBC/BMP: 09/13/16 0712 09/14/16 0614 Significant Findings Laboratory Tests Test 09/12/16 09/13/16 09/14/16 15:33 07:12 06:14 Potassium Level 5.4 MEQ/L 5.5 MEQ/L 5.5 MEQ/L (3.5-5.1) (3.5-5.1) (3.5-5.1) Chloride Level 117 MEQ/L 115 MEQ/L 115 MEQ/L (98-107) (98-107) (98-107) Carbon Dioxide Level 19.0 MEQ/L 18.9 MEQ/L 18.2 MEQ/L (21.0-32.0) (21.0-32.0) (21.0-32.0) Blood Urea Nitrogen 43 MG/DL (7-18) 46 MG/DL (7-18) 47 MG/DL (7-18) Creatinine 4.08 MG/DL 4.23 MG/DL 4.24 MG/DL (0.60-1.30) (0.60-1.30) (0.60-1.30) Estimat Glomerular Filtration 18 ML/MIN (>89) 18 ML/MIN (>89) 18 ML/MIN (>89) Rate Calcium Level 7.7 MG/DL 7.6 MG/DL 7.8 MG/DL (8.5-10.1) (8.5-10.1) (8.5-10.1) Red Blood Count 3.28 MIL/MM3 (4.50-5.90) Hemoglobin 9.4 GM/DL (13.0-17.0) Hematocrit 27.7 % (39.0-51.0) Mean Platelet Volume 6.9 FL (7.0-11.0) Albumin 1.5 GM/DL (3.4-5.0) PE at Discharge GENERAL: NAD, A&Ox3, global cachexia SKIN: Warm and dry. HEAD: Normocephalic. EYES: No scleral icterus. No injection or drainage. NECK: Supple, trachea midline. No JVD or lymphadenopathy. CARDIOVASCULAR: Regular rate and rhythm without murmurs, gallops, or rubs. RESPIRATORY: Breath sounds equal bilaterally. No accessory muscle use. GASTROINTESTINAL: Abdomen soft, non-tender, nondistended. MUSCULOSKELETAL: No cyanosis, or edema. Global muscle wasting/atrophy. BACK: Nontender without obvious deformity. No CVA tenderness. Hospital Course History Byron is a 56-year-old male. He was admitted secondary to acute renal failure. Symptoms that brought him into the hospital for flulike symptoms and he had been off his HIV medicines with weight loss. Anemia and renal failure were present. For some time and was looking as if he would need dialysis, but recently he has stabilized and at this point does not need acute dialysis. It has been determined that he is an end-stage renal disease at this point but presently is maintaining stage IV chronic kidney disease. On bicarbonate and off of IV fluids he is stable now with a baseline of approximately 4.2 regarding his creatinine and GFR of 18. He has been determined to be medically stable for discharge. She needs outpatient follow- up with nephrology for close monitoring of his renal function. He is also given prescriptions to resume his antivirals and recommended to avoid alcohol. Medically stable for discharge to home today with nephrology follow-up as an outpatient. Pt Condition on Discharge: Stable Discharge Disposition: Discharge Home Discharge Time: <= 30 minutes Discharge Instructions DIET: Follow Instructions for: As Tolerated, No Restrictions Activities you can perform: Regular-No Restrictions Follow up Referrals: Nephrology - 2 Weeks with Ryan PCP Follow-up - 2 Weeks New Medications: Aspirin DR (Aspirin EC) 81 Mg Tabdr 81 MG PO DAILY [place] #30 Ref 0 TAB Carvedilol (Coreg) 12.5 Mg Tab 50 MG PO BID [place] #60 TAB Etravirine (Intelence) 100 Mg Tab 200 MG PO BID Infection #60 TAB Nifedipine ER 24 HR (Nifedipine ER 24 HR) 60 Mg Tab 60 MG PO Q12HR Blood Pressure Management #60 TAB Oyster Shell (Calcium Oyster Shell) 500 Mg Tab 500 MG PO BID Hypocalcemia #60 TAB Raltegravir (Isentress) 400 Mg Tab 400 MG PO BID Infection #60 TAB Sodium Bicarbonate (Sodium Bicarbonate) 650 Mg Tab 650 MG PO TID Renal Disease #90 TAB Discontinued Medications: Etravirine (Intelence) 200 Mg Tab 200 MG PO BID Mgmt Viral Infection Ref 0 TAB Raltegravir (Isentress) 400 Mg Tab 400 MG PO BID Mgmt Viral Infection #60 Ref 0 TAB Nathan Plasencia MD Sep 14, 2016 8:37 am
[2016-09-14] MEDS: RALTEGRAVIR 400 MG TAB PO SCH (09:00)
[2016-09-14] MEDS: SODIUM CHLORIDE 0.9% FLUSH 10 ML FLUSH IV FLUSH SCH (09:00)
[2016-09-14] MEDS: LACTOBACILLUS ACIDOPHILUS TAB PO SCH (09:00)
[2016-09-14] MEDS: MEGESTROL ACETATE SUSP 400 MG/10 ML CUP PO SCH (09:00)
[2016-09-14] MEDS: ETRAVIRINE 100 MG TAB PO SCH (09:00)
[2016-09-14] MEDS: CALCIUM CARBONATE 1.25 GM (CA 500 MG) TAB PO SCH (09:00)
[2016-09-14] MEDS: SODIUM BICARBONATE 650 MG TAB PO SCH (09:00)
[2016-09-14] MEDS: DOCUSATE SODIUM 50 MG/SENNA 8.6 MG TAB PO SCH (09:00)
[2016-09-14] MEDS: guaiFENesin E.R. 600 MG TAB PO SCH (09:13)
[2016-09-14] MEDS: CARVEDILOL 12.5 MG TAB PO SCH (09:13)
[2016-09-14] MEDS: SODIUM CHLOR 0.9% 1000 ML INJ 1,000 ML IV SCH (09:15)
[2016-09-14] MEDS: NIFEdipine 60 MG SUSTAINED RELEASE TAB PO SCH (09:23)
== END 2016-09-14 12:23 | disposition home or self-care (01) | DRG 682 ==
LOC: NEPD 16:24 → NEDA 17:58 → N06A 19:38
PROVIDERS: ADMIT Hospitalist; ATTEND Hospitalist
PROC: 30233N1 Transfusion of Nonautologous Red Blood Cells into Peripheral Vein, Percutaneous Approach (ICD-10-PCS; principal; 2016-08-24)
DX: N17.9 Acute kidney failure, unspecified (principal); B20 Human immunodeficiency virus [HIV] disease; E43 Unspecified severe protein-calorie malnutrition; N18.4 Chronic kidney disease, stage 4 (severe); E87.2 Acidosis; J18.9 Pneumonia, unspecified organism; Z68.1 Body mass index [BMI] 19.9 or less, adult; E87.1 Hypo-osmolality and hyponatremia; I50.9 Heart failure, unspecified; I12.9 Hypertensive chronic kidney disease with stage 1 through stage 4 chronic kidney disease, or unspecified chronic kidney disease; D63.8 Anemia in other chronic diseases classified elsewhere; K21.9 Gastro-esophageal reflux disease without esophagitis; E78.00 Pure hypercholesterolemia, unspecified; I25.2 Old myocardial infarction; B19.20 Unspecified viral hepatitis C without hepatic coma; F17.210 Nicotine dependence, cigarettes, uncomplicated; Z91.14 Patient's other noncompliance with medication regimen; F12.10 Cannabis abuse, uncomplicated; Z85.028 Personal history of other malignant neoplasm of stomach; E78.5 Hyperlipidemia, unspecified; Z86.14 Personal history of Methicillin resistant Staphylococcus aureus infection; Z91.19 Patient's noncompliance with other medical treatment and regimen; R62.7 Adult failure to thrive; Z90.3 Acquired absence of stomach [part of]; R63.4 Abnormal weight loss; E87.5 Hyperkalemia; Z51.5 Encounter for palliative care; R43.2 Parageusia; G47.00 Insomnia, unspecified; J40 Bronchitis, not specified as acute or chronic
CPT/HCPCS: 36430; 71010; 76775; 80048; 80053; 80061; 80069; 80307; 81001; 82550; 82570; 82575; 83036; 83735; 83880; 84100; 84134; 84155; 84439; 84443; 84484; 85014; 85018; 85025; 85027; 85610; 86355; 86357; 86359; 86360; 86850; 86900; 86901; 86920; 93306; 94150; 94640; 94664; 99285; J0456; J0696; J2405; J7030; J7050; P9016

== ENCOUNTER 2017-01-01 19:58 | Inpatient (IN) | payer MEDICAID ==
[~2017-01-01] VITALS: Ht 182.9 cm; Wt 52.5 kg
[~2017-01-01 19:58] MED LIST changes: +ASPI81TA11 PO; -CALC500C16 CHEW; +CARV12.5 PO; -CARV12.52 PO; -CLON0.2T PO; +DOLU1TAB PO; +ERGO1CAP30 PO; +INFE50IN2 IM; -INTE200T PO; -INTE200T2 PO; +MARI5CAP PO; +MEGE40S PO; -NIFE20 PO; +NIFE30TA61 PO; -RALT400 PO; +REME15TA PO; +RILP25 PO; +SODI325T PO; +VALT1TAB PO; +[UNRECOGNIZED DRUG - CODE] IV; +[UNRECOGNIZED DRUG - CODE] PO
[2017-01-01 20:00] VITALS: BP 216/112; PULSE 81; RESP 16; TEMP 97.9; O2SAT 100
[2017-01-01] MEDS ORDERED: SODIUM CHLOR 0.9% 1000 ML INJ 1,000 ML IV SCH (21:22)
[2017-01-01] MEDS ORDERED: SODIUM CHLORIDE 0.9% FLUSH 10 ML FLUSH IV FLUSH PRN ×2 (21:30→22:45)
--- NOTE | 2017-01-01 21:30 | PD ---
HPI Chief Complaint: Medical Clearance Time Seen by Provider: 21:17 Travel History International Travel<30 days: No Contact w/Intl Traveler<30days: No Traveled to known affect area: No History of Present Illness HPI Patient comes in reportedly at the advice of his infectious disease doctor to receive IV fluids. Patient states she been receiving IV fluids daily outpatient basis by his infectious disease doctor to try and keep patient on dialysis. He states he was told that he needs to emergency department to get additional IV fluids. Patient states he got IV fluids earlier today already was instructed by his infectious disease doctor any more fluids. Patient denies any pain anywhere. Denies any fevers, chest pain, shortness of breath, abdominal pain, back pain, headache, or loss change in bowel or bladder. Patient reports he continues to make urine and is compliant with his all of his medicine. PFSH Past Medical History Anemia: Yes Arthritis: No Asthma: No Autoimmune Disease: Yes Anxiety: No Depression: No Heart Rhythm Problems: No Cancer: Yes (GASTRIC CA) Cardiovascular Problems: Yes High Cholesterol: Yes Chemotherapy: No Chest Pain: Yes Congestive Heart Failure: No COPD: No Cerebrovascular Accident: No Diabetes: No Diminished Hearing: No Endocrine: No Gastrointestinal Disorders: Yes (GASTRIC CA) GERD: No Genitourinary: Yes Hepatitis: Yes (C) Hiatal Hernia: No Hypertension: Yes Immune Disorder: Yes (HIV, HEP C) Implanted Vascular Access Dvce: No Kidney Stones: No Musculoskeletal: Yes Neurologic: No Psychiatric: No Reproductive: Yes (HIV, HEP C) Respiratory: No Immunizations Current: Yes Migraines: No Myocardial Infarction: Yes ( small heart attack) Radiation Therapy: No Renal Failure: Yes Seizures: No Sickle Cell Disease: No Sleep Apnea: No Thyroid Disease: No Ulcer: No Tetanus Vaccination: < 5 Years Influenza Vaccination: Yes Past Surgical History Abdominal Surgery: Yes (GASTRIC RESECTION R/T GASTRIC CA, PEG TUBE WITH REMOVAL ) AICD: No Arteriovenous Shunt: No Cardiac Surgery: No Ear Surgery: No Endocrine Surgery: No Eye Surgery: No Genitourinary Surgery: No Gynecologic Surgery: No Insulin Pump: No Joint Replacement: No Oral Surgery: No Pacemaker: No Thoracic Surgery: No Other Surgery: Yes Social History Alcohol Use: Yes (occ) Tobacco Use: Yes (5 CIG PER DAY ) Substance Use: Yes (MARIJUANA) Allergies-Medications (Allergen,Severity, Reaction): Coded Allergies: *MDRO Multi-Drug Resistant Organism (Verified Adverse Reaction, Unknown, Cleared 09/17/15, 01/01/17) 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 MRSA PCR Screens NEGATIVE - 09/12 & 09/17/2015 CLEARED BY INFECTION CONTROL Reported Meds & Prescriptions Reported Meds & Active Scripts Active Aspirin EC (Aspirin) 81 Mg Tabdr 81 Mg PO DAILY Coreg (Carvedilol) 12.5 Mg Tab 50 Mg PO BID Reported Infed Inj (Iron Dextran) 100 Mg/2 Ml Inj 100 Mg IM WEEKLY Sodium Chloride 250 Ml Pggybk.prt 500 Ml IV DAILY Sodium Bicarbonate 325 Mg Tab 10 Gm PO TIDPC Valtrex (Valacyclovir HCl) 1,000 Mg Tab 1,000 Mg PO DAILY Tivicay (Dolutegravir Sodium) 50 Mg Tab 50 Mg PO DAILY Remeron (Mirtazapine) 15 Mg Tab 15 Mg PO HS Nifedipine ER 24 HR (Nifedipine) 30 Mg Tab 60 Mg PO BID Megace Liq (Megestrol Acetate) 40 Mg/Ml Susp 400 Mg PO DAILY Marinol (Dronabinol) 5 Mg Cap 5 Mg PO BID Epivir (Lamivudine) 300 Mg Tab 300 Mg PO DAILY Edurant (Rilpivirine) 25 Mg Tab 25 Mg PO DAILY Review of Systems Except as stated in HPI: all other systems reviewed are Neg Physical Exam Narrative GENERAL: Well-developed, under nourished, in no acute distress, and non-ill appearing. SKIN: Focused skin assessment warm and dry. HEAD: Atraumatic. Normocephalic. EYES: Pupils equal and round. EOMI. No scleral icterus. No injection or drainage. ENT: No nasal bleeding or discharge. Mucous membranes pink and moist. NECK: Trachea midline. Supple. No nuclear rigidity. CARDIOVASCULAR: Regular rate and rhythm. No murmur appreciated. RESPIRATORY: No accessory muscle use. No respiratory distress. Clear to auscultation. Breath sounds equal bilaterally. MUSCULOSKELETAL: No obvious deformities. No clubbing. No cyanosis. No edema. Full range of motion. NEUROLOGICAL: Awake and alert. No obvious cranial nerve deficits. Motor grossly within normal limits. Normal speech. PSYCHIATRIC: Appropriate mood and affect; insight and judgment normal. Data Data Last Documented VS Vital Signs Date Time Temp Pulse Resp B/P (MAP) Pulse Ox O2 Delivery O2 Flow Rate FiO2 01/01/17 22:20 194/105 (134) 10/5/17 21:40 78 16 100 Room Air 01/01/17 20:00 97.9 Orders Orders Basic Metabolic Panel (Bmp) (01/01/17 21:22) Urinalysis - C+S If Indicated (01/01/17 21:22) Iv Access Insert/Monitor (01/01/17 21:22) Ecg Monitoring (01/01/17 21:22) Oximetry (01/01/17 21:22) Sodium Chlor 0.9% 1000 Ml Inj (Ns 1000 M (01/01/17 21:22) Sodium Chloride 0.9% Flush (Ns Flush) (01/01/17 21:30) Complete Blood Count With Diff (01/01/17 21:25) Metoprolol Tartrate Inj (Lopressor Inj) (01/01/17 21:41) Hydralazine Inj (Apresoline Inj) (01/01/17 22:30) Labs Laboratory Tests Test 01/01/17 21:35 White Blood Count 5.5 TH/MM3 Red Blood Count 3.45 MIL/MM3 Hemoglobin 10.3 GM/DL Hematocrit 30.6 % Mean Corpuscular Volume 88.8 FL Mean Corpuscular Hemoglobin 29.8 PG Mean Corpuscular Hemoglobin Concent 33.5 % Red Cell Distribution Width 16.0 % Platelet Count 153 TH/MM3 Mean Platelet Volume 7.0 FL Neutrophils (%) (Auto) 57.3 % Lymphocytes (%) (Auto) 31.4 % Monocytes (%) (Auto) 7.3 % Eosinophils (%) (Auto) 2.9 % Basophils (%) (Auto) 1.1 % Neutrophils # (Auto) 3.1 TH/MM3 Lymphocytes # (Auto) 1.7 TH/MM3 Monocytes # (Auto) 0.4 TH/MM3 Eosinophils # (Auto) 0.2 TH/MM3 Basophils # (Auto) 0.1 TH/MM3 CBC Comment DIFF FINAL Differential Comment Blood Urea Nitrogen 68 MG/DL Creatinine 10.86 MG/DL Random Glucose 120 MG/DL Calcium Level 7.6 MG/DL Sodium Level 137 MEQ/L Potassium Level 3.8 MEQ/L Chloride Level 108 MEQ/L Carbon Dioxide Level 18.4 MEQ/L Anion Gap 11 MEQ/L Estimat Glomerular Filtration Rate 6 ML/MIN MDM Medical Decision Making Medical Screen Exam Complete: Yes Emergency Medical Condition: Yes Differential Diagnosis End-stage renal disease, electrolyte abnormality, dehydration, symptomatic hypertension, hypertension urgency, uncontrolled hypertension, Narrative Course Patient was seen and examined. Initial laboratory studies were ordered. Patient had IV established and placed on cardiac monitoring. Patient was given a dose of Lopressor IV for his blood pressure. Hydrated with IV fluids. Upon reevaluation. Patient's blood pressure still noted to be elevated initial dose of hydralazine IV was given. Discussed all findings with patient, who is agreeable for admission. All questions were answered. Discussed patient with Dr. Chavez, who is in agreement with plan of care and disposition. Discussed patient with hospitalist, who is agreeable to admit the patient. Physician Communication Physician Communication [phone] Foreman, who is agreeable to admit the patient. Diagnosis Primary Impression: Acute on chronic renal failure Qualified Codes: N17.9 - Acute kidney failure, unspecified; N18.5 - Chronic kidney disease, stage 5 Additional Impression: Hypertension Qualified Codes: I10 - Essential (primary) hypertension Admitting Information Admitting Physician Requests: Observation Condition: Stable Edmund Enamorado Jan 01, 2017 21:30
[2017-01-01 21:40] VITALS: BP 204/118; PULSE 78; RESP 16; O2SAT 100
[2017-01-01] MEDS ORDERED: METOPROLOL TARTRATE 5 MG/5 ML VIAL IV PUSH STA (21:41)
[2017-01-01 21:51] LABS: AUTOMATED NEUTROPHIL # 3.1 TH/MM3 (1.8-7.7); BASOPHIL # 0.1 TH/MM3 (0-0.2); BASOPHIL % 1.1 % (0.0-2.0); EOSINOPHIL # 0.2 TH/MM3 (0-0.4); EOSINOPHIL % 2.9 % (0.0-4.0); HEMATOCRIT 30.6 % (39.0-51.0); HEMO FLAGS DIFF FINAL; LYMPH % 31.4 % (9.0-44.0); LYMPHOCYTE # 1.7 TH/MM3 (1.0-4.8); MEAN CELL VOLUME 88.8 FL (80.0-100.0); MEAN CORPUSCULAR HEMOGLOBIN 29.8 PG (27.0-34.0); MEAN CORPUSCULAR HGB CONC 33.5 % (32.0-36.0); MONO % 7.3 % (0.0-8.0); NEUT % 57.3 % (16.0-70.0); PLATELET COUNT 153 TH/MM3 (150-450); RED BLOOD COUNT 3.45 MIL/MM3 (4.50-5.90); WHITE BLOOD COUNT 5.5 TH/MM3 (4.0-11.0)
[2017-01-01 22:09] LABS: BICARBONATE 18.4 MEQ/L (21.0-32.0); POTASSIUM 3.8 MEQ/L (3.5-5.1)
[2017-01-01 22:20] VITALS: BP 194/105
[2017-01-01] MEDS ORDERED: hydrALAZINE HCL 20 MG/ML VIAL IV PUSH ONE (22:30)
[2017-01-01 22:42] VITALS: BP 188/101
[2017-01-01] MEDS ORDERED: NALOXONE HCL 0.4 MG/ML AMP IV PUSH PRN (22:45)
[2017-01-01] MEDS ORDERED: NIFEdipine 60 MG SUSTAINED RELEASE TAB PO ONE (23:00)
[2017-01-02] VITALS (18 sets, daily range): BP systolic 136–196; BP diastolic 70–119; PULSE 73–83; RESP 14–62; TEMP 98.6–99; O2SAT 95–100
[2017-01-02] MEDS: LABETALOL HCL 100 MG/20 ML VIAL IV PUSH PRN ×2 (00:20→01:25)
[2017-01-02 00:28] LABS: BLOOD, URINE SMALL (NEG); GLUCOSE,URINE NEG (NEG); KETONE, URINE NEG (NEG); NITRITE,URINE NEG (NEG); SQUAMOUS EPITHELIAL CELL URINE <1 /hpf (0-5); URINE COLOR LIGHT-YELLOW (YELLW/STRAW)
[2017-01-02 00:29] LABS: COMMENT (UR) CULT NOT INDICATED; CULTURE IF INDICATED CULT NOT INDICATED
[2017-01-02] MEDS: hydrALAZINE HCL 20 MG/ML VIAL IV PUSH PRN ×5 (01:08→12:56)
[2017-01-02 04:43] LABS: AUTOMATED NEUTROPHIL # 3.4 TH/MM3 (1.8-7.7); BASOPHIL % 0.6 % (0.0-2.0); EOSINOPHIL # 0.1 TH/MM3 (0-0.4); EOSINOPHIL % 2.1 % (0.0-4.0); HEMATOCRIT 30.2 % (39.0-51.0); HEMO FLAGS DIFF FINAL; LYMPH % 23.5 % (9.0-44.0); LYMPHOCYTE # 1.2 TH/MM3 (1.0-4.8); MEAN CELL VOLUME 87.6 FL (80.0-100.0); MEAN CORPUSCULAR HEMOGLOBIN 29.5 PG (27.0-34.0); MEAN CORPUSCULAR HGB CONC 33.7 % (32.0-36.0); MONO % 8.3 % (0.0-8.0); NEUT % 65.5 % (16.0-70.0); PLATELET COUNT 132 TH/MM3 (150-450); RED BLOOD COUNT 3.44 MIL/MM3 (4.50-5.90); RED CELL DISTRIBUTION WIDTH 16.4 % (11.6-17.2); WHITE BLOOD COUNT 5.1 TH/MM3 (4.0-11.0)
[2017-01-02 05:16] LABS: BICARBONATE 17.1 MEQ/L (21.0-32.0)
--- NOTE | 2017-01-02 05:57 | HHI.HP ---
[facility] Nathan Barc[facility] MD Admission Diagnosis acute on chronic renal failure, hypertension Diagnoses: (1) Acute on chronic renal failure (2) Hypertensive urgency Chief Complaint: Worsening renal function Travel History International Travel<30 Days: No Contact w/Intl Traveler <30 Da: No Traveled to Known Affected Are: No History of Present Illness Written by Debi Enrique, acting as scribe for Dr. Foreman on 01/02/17 at 05:57. The patient states that his Doctor made him come to ED. Dr. Barcenas is his HIV doctor; he has been closely monitoring his kidney function over the last week. He has been getting IV fluids at Dr. Barcenas's office every day for a week. Denies nausea, vomiting, diarrhea, black or red stool. Denies chest pain, shortness of breath, dizziness, or syncope. The patient has a history of chronic kidney disease. Reports that he fatigues easily and other than fatigue, he states he's been feeling just fine. Review of Systems Except as stated in HPI: all other systems reviewed are Neg Past Family Social History Past Medical History Hypertension HIV + Gastric cancer Denies diabetes mellitus, CAD, CHF, atrial fibrillation, COPD, asthma, emphysema , liver disease, DVT, PE, CVA, seizures, thyroid problems Past Surgical History Gastric CA resection . Reported Medications Reported Meds & Active Scripts Active Aspirin EC (Aspirin) 81 Mg Tabdr 81 Mg PO DAILY Coreg (Carvedilol) 12.5 Mg Tab 50 Mg PO BID Reported Infed Inj (Iron Dextran) 100 Mg/2 Ml Inj 100 Mg IM WEEKLY Sodium Chloride 250 Ml Pggybk.prt 500 Ml IV DAILY Sodium Bicarbonate 325 Mg Tab 10 Gm PO TIDPC Valtrex (Valacyclovir HCl) 1,000 Mg Tab 1,000 Mg PO DAILY Tivicay (Dolutegravir Sodium) 50 Mg Tab 50 Mg PO DAILY Remeron (Mirtazapine) 15 Mg Tab 15 Mg PO HS Nifedipine ER 24 HR (Nifedipine) 30 Mg Tab 60 Mg PO BID Megace Liq (Megestrol Acetate) 40 Mg/Ml Susp 400 Mg PO DAILY Marinol (Dronabinol) 5 Mg Cap 5 Mg PO BID Epivir (Lamivudine) 300 Mg Tab 300 Mg PO DAILY Edurant (Rilpivirine) 25 Mg Tab 25 Mg PO DAILY Allergies: Coded Allergies: *MDRO Multi-Drug Resistant Organism (Verified Adverse Reaction, Unknown, Cleared 09/17/15, 01/01/17) 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 MRSA PCR Screens NEGATIVE - 09/12 & 09/17/2015 CLEARED BY INFECTION CONTROL Active Ordered Medications Current Medications Sodium Chloride 1,000 ml @ 1,000 mls/hr Q1H IV Last administered on 01/01/17 21:43; Start 01/01/17 at 21:22; Stop 01/01/17 at 22:21; Status DC Sodium Chloride (NS Flush) 2 ml UNSCH PRN IV FLUSH FLUSH AFTER USING IV ACCESS ; Start 01/01/17 at 21:30 Metoprolol Tartrate (Lopressor Inj) 5 mg ONCE STAT IV PUSH Last administered on 01/01/17 21:44; Start 01/01/17 at 21:41; Stop 01/01/17 at 21:42; Status DC Hydralazine HCl (Apresoline Inj) 10 mg ONCE ONCE IV PUSH Last administered on 01/01/17 22:32; Start 01/01/17 at 22:30; Stop 01/01/17 at 22:31; Status DC Sodium Chloride (NS Flush) 2 ml UNSCH PRN IV FLUSH FLUSH AFTER USING IV ACCESS ; Start 01/01/17 at 22:45 Sodium Chloride (NS Flush) 2 ml BID IV FLUSH ; Start 01/02/17 at 09:00 Naloxone HCl (Narcan Inj) 0.4 mg UNSCH PRN IV PUSH SEE LABEL COMMENTS; Start 01/01/17 at 22:45 Hydralazine HCl (Apresoline Inj) 10 mg Q30M PRN IV PUSH bp>160/90 Last administered on 01/02/17 05:06; Start 01/01/17 at 22:45 Labetalol HCl (Trandate Inj) 10 mg Q20M PRN IV PUSH bp>160/90 Last administered on 01/02/17 01:25; Start 01/01/17 at 22:45 Nifedipine (Procardia Xl) 60 mg ONCE ONCE PO Last administered on 01/01/17t 23 :05; Start 01/01/17 at 23:00; Stop 01/01/17 at 23:01; Status DC Family History Denies any family medical problems . Social History Tobacco: smokes 3 - 4 per day Alcohol: drinks twice weekly 2 - 3 beers Illicit Drugs: marijuana . Physical Exam Vital Signs Vital Signs Date Time Temp Pulse Resp B/P (MAP) Pulse Ox O2 Delivery O2 Flow Rate FiO2 01/02/17 04:00 76 01/02/17 03:20 98.6 83 20 196/96 (129) 99 01/02/17 02:47 76 16 171/94 (119) 98 Room Air 01/02/17 02:45 82 16 171/94 (119) 97 01/02/17 02:09 83 18 191/103 (132) 95 Room Air 01/02/17 01:30 189/109 (135) 01/02/17 01:25 81 16 190/119 (142) 98 Room Air 01/02/17 01:09 75 16 191/102 (131) 97 Room Air 01/02/17 00:40 80 20 179/103 (128) 100 Room Air 01/02/17 00:20 188/102 (130) 01/01/17 22:42 188/101 (130) 01/01/17 22:20 194/105 (134) 01/01/17 21:40 78 16 204/118 (146) 100 Room Air 01/01/17 20:00 97.9 81 16 216/112 (146) 100 Room Air Physical Exam GENERAL: This is a very thin male patient, in no apparent distress. SKIN: No rashes, ecchymoses or lesions. Cool and dry. HEAD: Atraumatic. Normocephalic. EYES: No scleral icterus. No injection or drainage. ENT: Nose without bleeding, purulent drainage. NECK: Trachea midline. No JVD. CARDIOVASCULAR: Regular rate and rhythm without murmurs, gallops, or rubs. RESPIRATORY: Clear to auscultation. Breath sounds equal bilaterally. No wheezes , rales, or rhonchi. GASTROINTESTINAL: Abdomen soft, non-tender, nondistended. No guarding. MUSCULOSKELETAL: Extremities without clubbing, cyanosis, or edema. No calf tenderness. NEUROLOGICAL: Awake and alert. Motor and sensory grossly within normal limits. Normal speech. . Laboratory Laboratory Tests Test 01/01/17 21:35 01/02/17 00:20 01/02/17 03:20 01/02/17 04:38 White Blood Count 5.5 5.1 Red Blood Count 3.45 3.44 Hemoglobin 10.3 10.2 Hematocrit 30.6 30.2 Mean Corpuscular Volume 88.8 87.6 Mean Corpuscular Hemoglobin 29.8 29.5 Mean Corpuscular Hemoglobin Concent 33.5 33.7 Red Cell Distribution Width 16.0 16.4 Platelet Count 153 132 Mean Platelet Volume 7.0 6.5 Neutrophils (%) (Auto) 57.3 65.5 Lymphocytes (%) (Auto) 31.4 23.5 Monocytes (%) (Auto) 7.3 8.3 Eosinophils (%) (Auto) 2.9 2.1 Basophils (%) (Auto) 1.1 0.6 Neutrophils # (Auto) 3.1 3.4 Lymphocytes # (Auto) 1.7 1.2 Monocytes # (Auto) 0.4 0.4 Eosinophils # (Auto) 0.2 0.1 Basophils # (Auto) 0.1 0.0 CBC Comment DIFF FINAL DIFF FINAL Differential Comment Blood Urea Nitrogen 68 69 Creatinine 10.86 10.12 Random Glucose 120 93 Calcium Level 7.6 7.3 Sodium Level 137 139 Potassium Level 3.8 4.0 Chloride Level 108 110 Carbon Dioxide Level 18.4 17.1 Anion Gap 11 12 Estimat Glomerular Filtration Rate 6 6 Urine Color LIGHT-YELLOW Urine Turbidity CLEAR Urine pH 6.0 Urine Specific [place] 1.008 Urine Protein 300 Urine Glucose (UA) NEG Urine Ketones NEG Urine Occult Blood SMALL Urine Nitrite NEG Urine Bilirubin NEG Urine Urobilinogen LESS THAN 2.0 Urine Leukocyte Esterase NEG Urine RBC LESS THAN 1 Urine WBC 1 Urine Squamous Epithelial Cells <1 Microscopic Urinalysis Comment CULT NOT INDICATED Result Diagram: 01/02/178 01/02/17437 Imaging Current Medications Sodium Chloride 1,000 ml @ 1,000 mls/hr Q1H IV Last administered on 01/01/17t 21:43; Start 01/01/17 at 21:22; Stop 01/01/17 at 22:21; Status DC Sodium Chloride (NS Flush) 2 ml UNSCH PRN IV FLUSH FLUSH AFTER USING IV ACCESS ; Start 01/01/17 at 21:30 Metoprolol Tartrate (Lopressor Inj) 5 mg ONCE STAT IV PUSH Last administered on 01/01/17 21:44; Start 01/01/17 at 21:41; Stop 01/01/17 at 21:42; Status DC Hydralazine HCl (Apresoline Inj) 10 mg ONCE ONCE IV PUSH Last administered on 01/01/17 22:32; Start 01/01/17 at 22:30; Stop 01/01/17 at 22:31; Status DC Sodium Chloride (NS Flush) 2 ml UNSCH PRN IV FLUSH FLUSH AFTER USING IV ACCESS ; Start 01/01/17 at 22:45 Sodium Chloride (NS Flush) 2 ml BID IV FLUSH ; Start 01/02/17 at 09:00 Naloxone HCl (Narcan Inj) 0.4 mg UNSCH PRN IV PUSH SEE LABEL COMMENTS; Start 01/01/17 at 22:45 Hydralazine HCl (Apresoline Inj) 10 mg Q30M PRN IV PUSH bp>160/90 Last administered on 01/02/17 05:06; Start 01/01/17 at 22:45 Labetalol HCl (Trandate Inj) 10 mg Q20M PRN IV PUSH bp>160/90 Last administered on 01/02/17 01:25; Start 01/01/17 at 22:45 Nifedipine (Procardia Xl) 60 mg ONCE ONCE PO Last administered on 01/01/17 23 :05; Start 01/01/17 at 23:00; Stop 01/01/17 at 23:01; Status DC Caprini VTE Risk Assessment Caprini VTE Risk Assessment: Mod/High Risk (score >= 2) Caprini Risk Assessment Model Point Value = 1 Point Value = 2 Point Value = 3 Point Value = 5 Age 41-60 Minor surgery BMI > 25 kg/m2 Swollen legs Varicose veins or History of unexplained or recurrent spontaneous Oral contraceptives or hormone replacement Sepsis (< 1 month) Serious lung disease, including pneumonia (< 1 month) Abnormal pulmonary function Acute myocardial infarction Congestive heart failure (< 1 month) History of inflammatory bowel disease Medical patient at bed rest Age 61-74 Arthroscopic surgery Major open surgery (> 45 min) Laparoscopic surgery (> 45 min) Malignancy Confined to bed (> 72 hours) Immobilizing plaster cast Central venous access Age >= 75 History of VTE Family history of VTE Factor V Leiden Prothrombin [id number] Lupus anticoagulant Anticardiolipin antibodies Elevated serum homocysteine Heparin-induced thrombocytopenia Other congenital or acquired thrombophilia Stroke (< 1 month) Elective arthroplasty Hip, pelvis, or leg fracture Acute spinal cord injury (< 1 month) Prophylaxis Regimen Total Risk Factor Score Risk Level Prophylaxis Regimen 0-1 Low Early ambulation 2 Moderate Order ONE of the following: *Sequential Compression Device (SCD) *Heparin 5000 units SQ BID 3-4 Higher Order ONE of the following medications: *Heparin 5000 units SQ TID *Enoxaparin/Lovenox 40 mg SQ daily (WT < 150 kg, CrCl > 30 mL/min) *Enoxaparin/Lovenox 30 mg SQ daily (WT < 150 kg, CrCl > 10-29 mL/min) *Enoxaparin/Lovenox 30 mg SQ BID (WT < 150 kg, CrCl > 30 mL/min) AND/OR *Sequential Compression Device (SCD) 5 or more Highest Order ONE of the following medications: *Heparin 5000 units SQ TID (Preferred with Epidurals) *Enoxaparin/Lovenox 40 mg SQ daily (WT < 150 kg, CrCl > 30 mL/min) *Enoxaparin/Lovenox 30 mg SQ daily (WT < 150 kg, CrCl > 10-29 mL/min) *Enoxaparin/Lovenox 30 mg SQ BID (WT < 150 kg, CrCl > 30 mL/min) AND *Sequential Compression Device (SCD) Assessment and Plan Problem List: (1) Acute on chronic renal failure ICD Code: N17.9 - Acute kidney failure, unspecified; N18.9 - Chronic kidney disease, unspecified (2) Hypertensive urgency ICD Code: I16.0 - Hypertensive urgency Assessment and Plan 56 y/o with chronic renal failure sent by ID/primary doctor for evaluation of worsening kidney functions: Acute on chronic renal failure - BUN 68, creatinine 10.86, estimated GFR 6 - significantly and progressively worsening when comparing trends to prior lab draws - consult nephrology - monitor I and Os qshift - avoid nephrotoxins Hypertensive urgency - Hydralazine 10 mg IV push every 30 minutes when necessary for blood pressure greater than 160/90, hold if heart rate greater than 100 - Labetalol 10 mg IV push every 20 minutes when necessary for blood pressure greater than 160/90, hold if heart rate less than 100 - Monitor trends in blood pressure readings and adjust medications accordingly DVT prophylaxis Heparin 5000 units subq q8h . Discussed Condition With ER physician, patient Physician Certification 2 Midnight Certification Type: Admission for Inpatient Services Order for Inpatient Services The services are ordered in accordance with Medicare regulations or non- Medicare payer requirements, as applicable. In the case of services not specified as inpatient-only, they are appropriately provided as inpatient services in accordance with the 2-midnight benchmark. Estimated LOS (days): 3 days is the estimated time the patient will need to remain in the hospital, assuming treatment plan goals are met and no additional complications. Post-Hospital Plan: Home Problem Qualifiers (1) Acute on chronic renal failure: Qualified Codes: N17.9 - Acute kidney failure, unspecified; N18.5 - Chronic kidney disease, stage 5 Debi Enrique Jan 02, 2017 05:57
[2017-01-02 06:10] LABS: CALCIUM-PROTEIN CORRECTED 7.3 MG/DL (8.5-10.1)
[2017-01-02] MEDS: SODIUM CHLORIDE 0.9% FLUSH 10 ML FLUSH IV FLUSH SCH ×2 (09:00→22:14)
--- NOTE | 2017-01-02 09:01 | RADRPT ---
EXAM DATE/TIME: 01/02/2017 08:27 [facility] COMPARISON: No previous studies available for comparison. INDICATIONS : Increased BUN/creatinine. MEDICAL HISTORY : Myocardial infarction. Hypercholesterolemia. Chest pain. HTN. Gastric cancer. HIV. Hep C. Renal dis ease and failure. Anemia. Substance use. SURGICAL HISTORY : Gastric resection. Peg tube with removal. Blood transfusions. ENCOUNTER: Subsequent ACUITY: 1 day PAIN SCORE: 0/10 LOCATION: Bilateral flank MEASUREMENTS: RIGHT KIDNEY: 10.0 x 4.3 x 3.9 cm LEFT KIDNEY: 8.7 x 4.4 x 5.2 cm FINDINGS: RIGHT KIDNEY: Mildly atrophic and moderate increased echogenicity of the cortex. No evidence of hydronephrosis or m ass LEFT KIDNEY: Mildly atrophic and moderately increased echogenicity of the cortex. No evidence of hydronephrosis or mass. BLADDER: Within normal limits given the degree of distension. CONCLUSION: Increased renal cortical echogenicity and mild cortical atrophy suggesting medical renal disease. Dennys Lugo MD on January 02, 2017 at 8:59 Board Certified Radiologist. This report was verified electronically.
[2017-01-02] MEDS: RILPIVIRINE 25 MG TAB PO SCH (10:00)
[2017-01-02] MEDS: NIFEdipine 60 MG SUSTAINED RELEASE TAB PO SCH ×2 (10:44→22:13)
[2017-01-02] MEDS: MEGESTROL ACETATE SUSP 400 MG/10 ML CUP PO SCH (10:44)
[2017-01-02] MEDS: ASPIRIN EC 81 MG TABEC PO SCH (10:45)
[2017-01-02] MEDS: CARVEDILOL 12.5 MG TAB PO SCH ×2 (10:48→22:14)
--- NOTE | 2017-01-02 11:43 | HHI.PR ---
Subjective Remarks Follow-up acute on chronic kidney disease/HIV 01/02/17-patient seen and examined, slight improvement of renal indices as creatinine decreasing. Denies any shortness of breath or chest pain. Currently afebrile. Objective Vitals Vital Signs Date Time Temp Pulse Resp B/P (MAP) Pulse Ox O2 Delivery O2 Flow Rate FiO2 01/02/17 08:00 73 01/02/17 06:30 76 62 156/89 (111) 99 01/02/17 06:00 82 01/02/17 04:00 76 01/02/17 03:20 98.6 83 20 196/96 (129) 99 01/02/17 02:47 76 16 171/94 (119) 98 Room Air 01/02/17 02:45 82 16 171/94 (119) 97 01/02/17 02:09 83 18 191/103 (132) 95 Room Air 01/02/17 01:30 189/109 (135) 01/02/17 01:25 81 16 190/119 (142) 98 Room Air 01/02/17 01:09 75 16 191/102 (131) 97 Room Air 01/02/17 00:40 80 20 179/103 (128) 100 Room Air 01/02/17 00:20 188/102 (130) 01/01/17 22:42 188/101 (130) 01/01/17 22:20 194/105 (134) 01/01/17 21:40 78 16 204/118 (146) 100 Room Air 01/01/17 20:00 97.9 81 16 216/112 (146) 100 Room Air I/O 01/01/17 01/01/17 01/01/17 01/02/17 01/02/17 01/02/17 07:00 15:00 23:00 07:00 15:00 23:00 Intake Total 1000 ml Balance 1000 ml Intake Oral 0 ml IV Total 1000 ml Result Diagram: 01/02/17 0438 01/02/17 0438 Imaging Last Impressions Renal Ultrasound 01/02/17 0000 Signed Impressions: Service Date/Time: Monday, January 02, 2017 08:27 - CONCLUSION: Increased renal cortical echogenicity and mild cortical atrophy suggesting medical renal disease. Dennys Lugo MD Objective Remarks GENERAL: NAD SKIN: Warm and dry. HEAD: Normocephalic. EYES: No scleral icterus. No injection or drainage. NECK: Supple, trachea midline. No JVD or lymphadenopathy. CARDIOVASCULAR: Regular rate and rhythm without murmurs, gallops, or rubs. RESPIRATORY: Breath sounds equal bilaterally. No accessory muscle use. GASTROINTESTINAL: Abdomen soft, non-tender, nondistended. MUSCULOSKELETAL: No cyanosis, or edema. BACK: Nontender without obvious deformity. No CVA tenderness. A/P Problem List: (1) Acute on chronic renal failure ICD Code: N17.9 - Acute kidney failure, unspecified; N18.9 - Chronic kidney disease, unspecified Status: Acute (2) Hypertensive urgency ICD Code: I16.0 - Hypertensive urgency Assessment and Plan 56 y/o with chronic renal failure sent by ID/primary doctor for evaluation of worsening kidney functions: Acute on chronic renal failure - Monitor renal indices - consult nephrology - monitor I and Os qshift - avoid nephrotoxins -Check renal ultrasound Hypertensive urgency - Resume outpatient medications including Coreg 25 mg twice a day and hydralazine -Continue when necessary HIV -Resume antiretrovirals medications -Counseled on medication compliance DVT prophylaxis Heparin 5000 units subq q8h Transferred to [facility] Problem Qualifiers (1) Acute on chronic renal failure: Qualified Codes: N17.9 - Acute kidney failure, unspecified; N18.5 - Chronic kidney disease, stage 5 Oscar Rod MD Jan 02, 2017 11:42
[2017-01-02] MEDS: DOLUTEGRAVIR SODIUM 50 MG TAB PO SCH (12:56)
[2017-01-02] MEDS: valACYclovir HCL 500 MG TAB PO SCH (12:56)
[2017-01-02] MEDS: HEPARIN SODIUM - SQ 10,000 UNITS/ML VIAL SQ SCH ×2 (14:00→22:14)
--- NOTE | 2017-01-02 16:56 | MB ---
cc: ZORAIDA ARRIOLA MD DATE OF CONSULTATION 01/02/17 REASON FOR CONSULTATION Elevated BUN and creatinine with advanced renal failure. HISTORY OF PRESENT ILLNESS This is a 56-year-old male with past medical history of hypertension, HIV, gastric cancer, chronic kidney disease, history of chronic anemia who was admitted because he was sent to the hospital by his primary infectious disease doctor because of worsening renal function. I was called to see the patient because of elevated BUN and creatinine. The patient is known to me from his last admission when I saw him in July and, at that time, his creatinine was as high as a 8.1 on admission and gradually improved. When he was discharged on September 14, it was 4.24 so the patient was not a started on dialysis but now his creatinine has been gradually going up. He is admitted now with a creatinine of 10.4. The patient has decreased appetite and has some weight loss. He has been followed by Dr. Barcenas, his infectious disease doctor, and he gave the patient IV fluid for one week, but there was no significant improvement in his renal function. The patient denies any nausea or vomiting but his appetite is decreased. He has some weight loss. There is no shortness of breath. No chest pain. No abdominal pain. No history of diarrhea. No dysuria, hematuria. He did not notice any decrease in the urine output. PAST MEDICAL HISTORY 1. Hypertension, 2. HIV disease 3. History of gastric cancer, 4. Chronic anemia, 5. Chronic kidney disease with advanced renal failure. PAST SURGICAL HISTORY History of gastric cancer resection. REVIEW OF SYSTEMS The patient has generalized weakness, has decreased appetite. He has some weight loss. No nausea and vomiting, denies any shortness of breath. No chest pain. No palpitation. No abdominal pain. No history of diarrhea. No dysuria, hematuria. Denies taking any nonsteroidal anti-inflammatory drugs. He was given Megace and Marinol by Dr. Barcenas to increase his appetite. SOCIAL HISTORY The patient is single. He smokes 3-4 cigarettes per day and drinks two to three beers every day. Occasionally uses marijuana. Denies any IV drug abuse. Claims that he has HIV because of sex. FAMILY HISTORY Noncontributory. ALLERGIES NO KNOWN DRUG ALLERGIES. MEDICATIONS Currently 1. Coreg 25 mg b.i.d. 2. Nifedipine 60 mg b.i.d. 3. Aspirin 81 mg daily 4. Epivir 300 mg once a day. 5. Megace 4 mg daily 6. Atrovent 25 mg once a day 7. Valtrex 1000 mg daily. 8. Remeron 15 mg q.h.s. 9. Iron dextran 100 mg q. 7-day. 10. Heparin 5000 units q. 8-hour. 11. Narcan as needed. 12. Trandate as needed. PHYSICAL EXAMINATION GENERAL: The patient is awake, alert. He is not in acute distress. VITAL SIGNS: Last blood pressure is 184/89, blood pressure has been on the higher side, temperature 98.6, oxygen saturation on room air is 99%. HEENT: Pupils are mid constricted. Nonicteric sclerae, conjunctivae pale. NECK: Supple. JVD is not elevated. LUNGS: The patient has bilateral good air entry with occasional wheezing. HEART: S1, S2, regular rhythm. ABDOMEN: Soft lax. There is no tenderness. Bowel sounds positive. EXTREMITIES: He has mild edema in the legs. LABORATORY DATA WBC count is 5.1, hemoglobin 10.2, platelet count 132. Sodium 139, potassium 4.0, chloride 110, bicarb 17.1, BUN 69, creatinine 10.1, calcium 7.3, INR is 1.1. This was during last admission. Urinalysis showing protein of 300. IMAGING STUDIES The patient has ultrasound of the kidneys done which shows that the right kidney is normal size. The left one is small, 8.7 cm. Both kidneys are atrophic which increased cortical echogenicity. Chest x-ray was not done during this admission. ASSESSMENT/PLAN 1. Chronic kidney disease with advanced renal failure 2. Hypertensive urgency. 3. HIV disease 4. Anemia. 5. Weight loss and anorexia. 6. History of stomach cancer. The patient has gradual increase of the creatinine and he has advanced renal failure with atrophic kidneys. The patient needs to start on dialysis. I did discuss with him during last admission, but there was some improvement in the renal function so it was on hold at that time but now his creatinine is very high and kidneys are atrophic so there is not much chance of improvement. He has the uremic symptoms. With his history of noncompliance, he will not be a good candidate for PD so will try and start him on hemodialysis. I will discuss with him about the peritoneal dialysis once his condition is improved and then obviously he will need AV fistula if he decides to go for hemodialysis. Thank you for the consultation. I will follow the patient while he is in the hospital. MD DUKE Barrera/ /4:07 PM /4:32 PM
[2017-01-02] MEDS: MIRTAZAPINE 15 MG TAB PO SCH (22:13)
[2017-01-03] VITALS: BP 130/70; PULSE 67; RESP 18; TEMP 99.2; O2SAT 96
[2017-01-03 04:00] VITALS: BP 116/65; PULSE 67; RESP 18; TEMP 98.7; O2SAT 97
[2017-01-03] MEDS: HEPARIN SODIUM - SQ 10,000 UNITS/ML VIAL SQ SCH ×3 (05:43→21:00)
[2017-01-03 07:01] LABS: ALT (GPT) 15 U/L (12-78); ANION GAP 11 MEQ/L (5-15); AST (GOT) 11 U/L (15-37); BICARBONATE 17.7 MEQ/L (21.0-32.0); BLOOD UREA NITROGEN 72 MG/DL (7-18); CHLORIDE 110 MEQ/L (98-107); GLOMERULAR FILTRATION RATE 6 ML/MIN (>89); SODIUM (NA) 139 MEQ/L (136-145)
[2017-01-03 07:04] LABS: ALKALINE PHOSPHATASE 29 U/L (45-117); TOTAL BILIRUBIN ADULT 0.4 MG/DL (0.2-1.0)
[2017-01-03 08:00] VITALS: BP 140/69; PULSE 73; RESP 18; TEMP 99.6; O2SAT 97
[2017-01-03] MEDS: valACYclovir HCL 500 MG TAB PO SCH (08:26)
[2017-01-03] MEDS: NIFEdipine 60 MG SUSTAINED RELEASE TAB PO SCH ×2 (08:26→20:54)
[2017-01-03] MEDS: RILPIVIRINE 25 MG TAB PO SCH (08:26)
[2017-01-03] MEDS: MEGESTROL ACETATE SUSP 400 MG/10 ML CUP PO SCH ×2 (08:27→08:32)
[2017-01-03] MEDS: CARVEDILOL 12.5 MG TAB PO SCH ×2 (08:27→20:53)
[2017-01-03] MEDS: DOLUTEGRAVIR SODIUM 50 MG TAB PO SCH (08:27)
[2017-01-03] MEDS: SODIUM CHLORIDE 0.9% FLUSH 10 ML FLUSH IV FLUSH SCH ×2 (08:27→21:00)
[2017-01-03] MEDS: ASPIRIN EC 81 MG TABEC PO SCH (08:27)
[2017-01-03 12:00] VITALS: BP 119/56; PULSE 73; RESP 18; TEMP 97.9; O2SAT 97
[2017-01-03] MEDS ORDERED: SODIUM CHLOR 0.9% 1000 ML INJ 1,000 ML OTHER PRN ×2 (12:26)
[2017-01-03] MEDS ORDERED: SODIUM CHLOR 0.9% 1000 ML INJ 1,000 ML IV PRN (12:26)
--- NOTE | 2017-01-03 12:26 | HHI.NPPN ---
Subjective History of Present Illness 56-year-old male with past medical history of hypertension, HIV, gastric cancer, chronic kidney disease, history of chronic anemia who was admitted because he was sent to the hospital by his primary infectious disease doctor because of worsening renal function. I was called to see the patient because of elevated BUN and creatinine. The patient is known to me from his last admission when I saw him in July and, at that time, his creatinine was as high as a 8.1 on admission and gradually improved. When he was discharged on September 14, it was 4.24. Additional Remarks Patient is alert, no SOB, just has breakfast, not in distress. Review of Systems General Constitutional: Fatigue Cardiovascular Cardiac: Edema, HUGGINS Objective Data Data 01/03/17 01/04/17 18:59 06:59 # Voids 3 Vital Signs Date Time Temp Pulse Resp B/P (MAP) Pulse Ox O2 Delivery O2 Flow Rate FiO2 01/03/17 08:00 99.6 73 18 140/69 (92) 97 01/03/17 04:00 98.7 67 18 116/65 (82) 97 01/03/17 00:00 99.2 67 18 130/70 (90) 96 01/02/17 20:00 98.9 74 18 136/70 (92) 98 01/02/17 16:00 99.0 75 18 147/83 (104) 99 01/02/17 16:00 73 01/02/17 14:00 73 -: 01/02/17 0438 01/03/17 0555 Physical Exam General Appearance: No Acute Distress, Comfortable Eyes Eye Exam: Pupils Equal Throat Throat Exam: Oral Mucosa [place] & Moist Neck Neck Exam: Trachea Midline Pulmonary Resp Exam: Breath Sounds Equal, No Distress, Rhonchi, Decreased Bases Cardiology CV Exam: Regular, Normal Sinus Rhythm Gastrointestinal/Abdomen GI Exam: Soft, Non-Tender, Bowel Sounds Present Extremeties Extremities Exam: Trace Edema Neurologic Neuro Exam: Alert, Awake, Oriented Assessment/Plan Assessment Summary: Anemia of CKD, Hypertension, CKD Stage V Problem List: (1) Stage 5 chronic kidney disease ICD Codes: N18.5 - Chronic kidney disease, stage 5 (2) HIV disease ICD Codes: B20 - Human immunodeficiency virus [HIV] disease Status: Chronic (3) Anemia of chronic disease ICD Codes: D63.8 - Anemia in other chronic diseases classified elsewhere Status: Acute (4) Essential hypertension ICD Codes: I10 - Essential hypertension Status: Acute (5) Severe protein-calorie malnutrition ICD Codes: E43 - Unspecified severe protein-calorie malnutrition Status: Acute (6) Weakness ICD Codes: R53.1 - Weakness Status: Acute (7) History of partial gastrectomy ICD Codes: Z90.3 - Acquired absence of stomach [part of] Status: Acute Plan Patient has Renal U/S done and noted. Has atrophic kidneys. Most likley has advance renal disease due to Hypertensive , renovascular or HIV renal disease. Creatinine remain same. Need to start on HD, will get Vascath, I called the IR. I will discuss with him about [facility] D[facility]. George Davis MD Jan 03, 2017 12:26
[2017-01-03] MEDS ORDERED: MANNITOL 12.5 GM/50 ML VIAL IV PRN (12:30)
[2017-01-03] MEDS ORDERED: NITROGLYCERIN 0.4 MG SL 25 TABS/BTL SL PRN (12:30)
[2017-01-03] MEDS ORDERED: ONDANSETRON HCL 4 MG/2 ML VIAL IV PUSH PRN (12:30)
[2017-01-03] MEDS ORDERED: cloNIDine HCL 0.1 MG TAB PO PRN (12:30)
[2017-01-03] MEDS ORDERED: ALBUMIN HUMAN 25% 25 GM/100 ML BAGP IV PRN (12:30)
[2017-01-03] MEDS ORDERED: ACETAMINOPHEN 325 MG TAB PO PRN (12:30)
[2017-01-03] MEDS ORDERED: diphenhydrAMINE HCL 25 MG CAP PO PRN (12:30)
[2017-01-03] MEDS ORDERED: GELATIN 12 MM/7 MM FOAM TOP PRN (12:30)
[2017-01-03] MEDS ORDERED: SODIUM CHLORIDE 0.9% FLUSH 10 ML FLUSH IV FLUSH PRN ×2 (12:30→14:45)
[2017-01-03] MEDS ORDERED: HEPARIN SODIUM - IV 10,000 UNITS/10 ML VIAL IV FLUSH PRN (12:30)
--- NOTE | 2017-01-03 13:58 | HHI.PR ---
Subjective Remarks Follow-up acute on chronic kidney disease/HIV 01/02/17-patient seen and examined, slight improvement of renal indices as creatinine decreasing. Denies any shortness of breath or chest pain. Currently afebrile. 01/03/17-patient seen and examined, plan for Vas-Cath placement today. Patient denies any chest pain or shortness of breath. Renal indices slightly improving however still elevated. Objective Vitals Vital Signs Date Time Temp Pulse Resp B/P (MAP) Pulse Ox O2 Delivery O2 Flow Rate FiO2 01/03/17 12:00 97.9 73 18 119/56 (77) 97 01/03/17 08:00 99.6 73 18 140/69 (92) 97 01/03/17 04:00 98.7 67 18 116/65 (82) 97 01/03/17 00:00 99.2 67 18 130/70 (90) 96 01/02/17 20:00 98.9 74 18 136/70 (92) 98 01/02/17 16:00 99.0 75 18 147/83 (104) 99 01/02/17 16:00 73 01/02/17 14:00 73 I/O 01/02/17 01/02/17 01/02/17 01/03/17 01/03/17 01/03/17 06:59 14:59 22:59 06:59 14:59 22:59 Intake Total 1000 ml 350 ml Output Total 475 ml 500 ml Balance 1000 ml -125 ml -500 ml Intake Oral 0 ml 350 ml IV Total 1000 ml Output Urine Total 475 ml 500 ml # Voids 6 3 # Bowel Movements 1 2 Result Diagram: 01/02/17 0438 01/03/17 0555 Imaging Last Impressions Renal Ultrasound 01/02/17 0000 Signed Impressions: Service Date/Time: Monday, January 02, 2017 08:27 - CONCLUSION: Increased renal cortical echogenicity and mild cortical atrophy suggesting medical renal disease. Dennys Lugo MD Objective Remarks GENERAL: NAD SKIN: Warm and dry. HEAD: Normocephalic. EYES: No scleral icterus. No injection or drainage. NECK: Supple, trachea midline. No JVD or lymphadenopathy. CARDIOVASCULAR: Regular rate and rhythm without murmurs, gallops, or rubs. RESPIRATORY: Breath sounds equal bilaterally. No accessory muscle use. GASTROINTESTINAL: Abdomen soft, non-tender, nondistended. MUSCULOSKELETAL: No cyanosis, or edema. BACK: Nontender without obvious deformity. No CVA tenderness. A/P Problem List: (1) Acute on chronic renal failure ICD Code: N17.9 - Acute kidney failure, unspecified; N18.9 - Chronic kidney disease, unspecified Status: Acute (2) Hypertensive urgency ICD Code: I16.0 - Hypertensive urgency Assessment and Plan 56 y/o with chronic renal failure sent by ID/primary doctor for evaluation of worsening kidney functions: Acute on chronic renal failure - Monitor renal indices - Appreciate input from nephrology - Renal ultrasound noted and review by me - Plan for Vas-Cath placement to start hemodialysis - Per nephrology, patient is not a candidate for regional dialysis due to noncompliance - monitor I and Os qshift - avoid nephrotoxins Hypertensive urgency-resolved Benign hypertension - Continue outpatient medications including Coreg 25 mg twice a day and hydralazine -Continue when necessary HIV -Continue antiretrovirals medications -Counseled on medication compliance DVT prophylaxis Heparin 5000 units subq q8h Problem Qualifiers (1) Acute on chronic renal failure: Qualified Codes: N17.9 - Acute kidney failure, unspecified; N18.5 - Chronic kidney disease, stage 5 Oscar Rod MD Jan 03, 2017 13:58
--- NOTE | 2017-01-03 14:36 | RADRPT ---
EXAM DATE/TIME: 01/03/2017 13:41 [facility] COMPARISON: No previous studies available for comparison. INDICATIONS : Patient with acute renal failure. MEDICAL HISTORY : 1. HIV 2.HEP C 3.HTN 4. Gastric cancer SURGICAL HISTORY : 1.Gastric resection ENCOUNTER: Initial ACUITY: 2 days PAIN SCORE: 0/10 FLUORO TIME: 0.4 minutes IMAGE SERIES: 1 ACCESS: Right internal jugular vein DEVICE(S): 1.) 14 Chinese dual lumen 15 cm Schon catheter PROCEDURE : 1. Ultrasound guided venipuncture. 2. Fluoroscopic guidance. 3. Central line placement. The risks, benefits and alternatives to the procedure were explained and verbal and written consent w as obtained. The site was prepped in sterile fashion. Full sterile technique was used, including ca p, mask, sterile gloves and gown and a large sterile sheet. Hand hygiene and 2% chlorhexidine prep w as utilized per protocol for cutaneous antisepsis with appropriate dry time for site. Sterile gel an d sterile probe cover were utilized for ultrasound guidance. The skin and subcutaneous tissues were infiltrated with local anesthetic solution. A suitable site a kadie the vein was selected with ultrasound and fluoroscopic guidance. A small incision was made. Th e vein was accessed under direct ultrasound visualization using the micropuncture technique. The jase ropuncture set was exchanged for a 0.035 wire. The tract was dilated. The catheter was advanced int o position under direct fluoroscopic visualization. The catheter was fixed in place with suture and a sterile dressing was applied. The patient tolerated the procedure well and there were no complications. CONCLUSION: Uncomplicated line placement as above. Dennys Lugo MD on January 03, 2017 at 14:34 Board Certified Radiologist. This report was verified electronically.
--- NOTE | 2017-01-03 14:42 | PD.RAD ---
Post Procedure Progress Note Pre Procedure Diagnosis: (1) Acute on chronic renal failure Post Procedure Diagnosis: (1) Acute on chronic renal failure Procedure Date: Jan 03, 2017 Supervising Radiologist: Dennys Lugo Proceduralist/Assist: RT Sherwin(R)() Anesthesia: Local Plan of Activity Patient to Unit: Nursing Unit Patient Condition: Fair See PACS Report for procedural detail/treatment Central Venous Access Device Procedure 1 Right Internal Jugular Hemodialysis Catheter Non-Tunneled Placement dual lumen [place]: 14 Additional Detail: 15 cm [place] Dennys Salazar MD Jan 03, 2017 14:42
[2017-01-03] MEDS ORDERED: HEPARIN SODIUM - IV 2,000 UNITS/2 ML VIAL IV FLUSH PRN (14:45)
[2017-01-03] MEDS: CALCIUM ACETATE 667 MG CAP PO SCH ×2 (14:54→18:00)
[2017-01-03] MEDS: VITAMIN B CMPLX/VITC/FOLIC AC CAP PO SCH (14:54)
[2017-01-03 16:00] VITALS: BP 130/74; PULSE 69; RESP 18; TEMP 97.8; O2SAT 95
[2017-01-03] MEDS: GENTAMICIN SULFATE (DIALYSIS USE ONLY) 20 MG/2 ML VIAL OTHER PRN (17:09)
[2017-01-03] MEDS: HEPARIN SODIUM - IV 10,000 UNITS/10 ML VIAL PRN (17:09)
[2017-01-03] MEDS: EPOETIN ALFA 10,000 UNITS/ML VIAL IV PUSH PRN (17:09)
[2017-01-03] MEDS: MIRTAZAPINE 15 MG TAB PO SCH (20:51)
[2017-01-03 21:15] VITALS: BP 152/84; PULSE 75; RESP 18; TEMP 98; O2SAT 99
[2017-01-04] VITALS (7 sets, daily range): BP systolic 130–139; BP diastolic 64–85; PULSE 62–70; RESP 16–20; TEMP 97.6–98.8; O2SAT 96–100
[2017-01-04] MEDS: HEPARIN SODIUM - SQ 10,000 UNITS/ML VIAL SQ SCH ×2 (06:18→12:37)
[2017-01-04] MEDS: RILPIVIRINE 25 MG TAB PO SCH (08:13)
[2017-01-04] MEDS: DOLUTEGRAVIR SODIUM 50 MG TAB PO SCH (08:13)
[2017-01-04] MEDS: ASPIRIN EC 81 MG TABEC PO SCH (08:13)
[2017-01-04] MEDS: CALCIUM ACETATE 667 MG CAP PO SCH ×3 (08:13→17:21)
[2017-01-04] MEDS: VITAMIN B CMPLX/VITC/FOLIC AC CAP PO SCH (08:13)
[2017-01-04] MEDS: SODIUM CHLORIDE 0.9% FLUSH 10 ML FLUSH IV FLUSH SCH ×2 (08:13→21:26)
[2017-01-04] MEDS: NIFEdipine 60 MG SUSTAINED RELEASE TAB PO SCH ×2 (08:13→21:26)
[2017-01-04] MEDS: CARVEDILOL 12.5 MG TAB PO SCH ×2 (08:13→21:26)
[2017-01-04] MEDS: valACYclovir HCL 500 MG TAB PO SCH (08:13)
[2017-01-04] MEDS: MEGESTROL ACETATE SUSP 400 MG/10 ML CUP PO SCH (08:14)
--- NOTE | 2017-01-04 11:23 | HHI.NPPN ---
Subjective History of Present Illness 56-year-old male with past medical history of hypertension, HIV, gastric cancer, chronic kidney disease, history of chronic anemia who was admitted because he was sent to the hospital by his primary infectious disease doctor because of worsening renal function. I was called to see the patient because of elevated BUN and creatinine. The patient is known to me from his last admission when I saw him in July and, at that time, his creatinine was as high as a 8.1 on admission and gradually improved. When he was discharged on September 14, it was 4.24. Additional Remarks Patient is alert, no SOB, feeling better after HD. Review of Systems General Constitutional: Fatigue Cardiovascular Cardiac: Edema, HUGGINS Objective Data Data Vital Signs Date Time Temp Pulse Resp B/P (MAP) Pulse Ox O2 Delivery O2 Flow Rate FiO2 01/04/17 08:00 98.0 63 16 139/80 (99) 96 01/04/17 05:00 98.8 64 17 130/65 (86) 99 01/04/17 00:38 99 21 01/04/17 00:15 97.9 69 20 132/64 (86) 99 01/03/17 21:15 98.0 75 18 152/84 (106) 99 01/03/17 16:00 97.8 69 18 130/74 (92) 95 01/03/17 12:00 97.9 73 18 119/56 (77) 97 -: 01/02/17 0438 01/03/17 0555 Physical Exam General Appearance: No Acute Distress, Comfortable Eyes Eye Exam: Pupils Equal Throat Throat Exam: Oral Mucosa [place] & Moist Neck Neck Exam: Trachea Midline Pulmonary Resp Exam: Breath Sounds Equal, No Distress, Rhonchi, Decreased Bases Cardiology CV Exam: Regular, Normal Sinus Rhythm Gastrointestinal/Abdomen GI Exam: Soft, Non-Tender, Bowel Sounds Present Extremeties Extremities Exam: Trace Edema Neurologic Neuro Exam: Alert, Awake, Oriented Assessment/Plan Assessment Summary: Anemia of CKD, Hypertension, CKD Stage V Problem List: (1) Stage 5 chronic kidney disease ICD Codes: N18.5 - Chronic kidney disease, stage 5 (2) HIV disease ICD Codes: B20 - Human immunodeficiency virus [HIV] disease Status: Chronic (3) Anemia of chronic disease ICD Codes: D63.8 - Anemia in other chronic diseases classified elsewhere Status: Acute (4) Essential hypertension ICD Codes: I10 - Essential hypertension Status: Acute (5) Severe protein-calorie malnutrition ICD Codes: E43 - Unspecified severe protein-calorie malnutrition Status: Acute (6) Weakness ICD Codes: R53.1 - Weakness Status: Acute (7) History of partial gastrectomy ICD Codes: Z90.3 - Acquired absence of stomach [part of] Status: Acute Plan Patient has Renal U/S done and noted. Has atrophic kidneys. Most likley has advance renal disease due to Hypertensive , renovascular or HIV renal disease. Started on HD yesterday, tolerated well. I discuss with him about [facility], including PD and HD. He want to go for HD. Will need AVF and PermCath. HD again in AM. BP is stable. George Davis MD Jan 04, 2017 11:23
--- NOTE | 2017-01-04 12:51 | HHI.PR ---
Subjective Remarks Follow-up acute on chronic kidney disease/HIV 01/02/17-patient seen and examined, slight improvement of renal indices as creatinine decreasing. Denies any shortness of breath or chest pain. Currently afebrile. 01/03/17-patient seen and examined, plan for Vas-Cath placement today. Patient denies any chest pain or shortness of breath. Renal indices slightly improving however still elevated. 01/04/17-patient seen and examined, he had hemodialysis done yesterday and reports feeling better today. Denies any shortness of breath Objective Vitals Vital Signs Date Time Temp Pulse Resp B/P (MAP) Pulse Ox O2 Delivery O2 Flow Rate FiO2 01/04/17 08:00 98.0 63 16 139/80 (99) 96 01/04/17 05:00 98.8 64 17 130/65 (86) 99 01/04/17 00:38 99 21 01/04/17 00:15 97.9 69 20 132/64 (86) 99 01/03/17 21:15 98.0 75 18 152/84 (106) 99 01/03/17 16:00 97.8 69 18 130/74 (92) 95 I/O 01/03/17 01/03/17 01/03/17 01/04/17 01/04/17 01/04/17 07:00 15:00 23:00 07:00 15:00 23:00 Intake Total 650 ml 625 ml Output Total 500 ml 2000 ml 200 ml Balance -500 ml -1350 ml 425 ml Intake Oral 650 ml 625 ml Output Urine Total 500 ml 0 ml 200 ml Hemodialysis 2000 ml # Voids 3 # Bowel Movements 2 0 0 Result Diagram: 01/02/17 0438 01/03/17 0555 Imaging Last Impressions Catheter Placement X-Ray 01/03/17 1219 Signed Impressions: Service Date/Time: Tuesday, January 03, 2017 13:41 - CONCLUSION: Uncomplicated line placement as above. Dennys Lugo MD Renal Ultrasound 01/02/17 0000 Signed Impressions: Service Date/Time: Monday, January 02, 2017 08:27 - CONCLUSION: Increased renal cortical echogenicity and mild cortical atrophy suggesting medical renal disease. Dennys Lugo MD Objective Remarks GENERAL: NAD SKIN: Warm and dry. HEAD: Normocephalic. EYES: No scleral icterus. No injection or drainage. NECK: Supple, trachea midline. No JVD or lymphadenopathy. Vas-Cath in place CARDIOVASCULAR: Regular rate and rhythm without murmurs, gallops, or rubs. RESPIRATORY: Breath sounds equal bilaterally. No accessory muscle use. GASTROINTESTINAL: Abdomen soft, non-tender, nondistended. MUSCULOSKELETAL: No cyanosis, or edema. BACK: Nontender without obvious deformity. No CVA tenderness. A/P Problem List: (1) Acute on chronic renal failure ICD Code: N17.9 - Acute kidney failure, unspecified; N18.9 - Chronic kidney disease, unspecified Status: Acute (2) Hypertensive urgency ICD Code: I16.0 - Hypertensive urgency Assessment and Plan 56 y/o with chronic renal failure sent by ID/primary doctor for evaluation of worsening kidney functions: Acute on chronic renal failure - Appreciate input from nephrology - Renal ultrasound noted - Patient was started on hemodialysis yesterday 01/03/17 - Plan for AV fistula placement likely tomorrow 01/05/17 versus Perma-Cath - Per nephrology, patient is not a candidate for regional dialysis due to noncompliance - avoid nephrotoxins Hypertensive urgency-resolved Benign hypertension - Continue outpatient medications including Coreg 25 mg twice a day and hydralazine -Continue when necessary HIV -Continue antiretrovirals medications -Counseled on medication compliance DVT prophylaxis Hold Heparin 5000 units subq q8h Problem Qualifiers (1) Acute on chronic renal failure: Qualified Codes: N17.9 - Acute kidney failure, unspecified; N18.5 - Chronic kidney disease, stage 5 Oscar Rod MD Jan 04, 2017 12:51
--- NOTE | 2017-01-04 14:08 | RADRPT ---
EXAM DATE/TIME: 01/04/2017 13:02 [facility] COMPARISON: US KIDNEY/RENAL/BLADDER, January 02, 2017, 8:27. INDICATIONS : Arteriovenous fistula planning. MEDICAL HISTORY : Hypercholesterolemia. Hypertension. Myocardial infarction. Carcinoma, gastric. Hepatitis C. HIV. Renal failure. Anemia. SURGICAL HISTORY : Castric resection. Peg tube with removal. ENCOUNTER: Initial ACUITY: Not applicable PAIN SCORE: 0 LOCATION: Left arm. FINDINGS: There is spontaneous flow documented in the brachial, basilic, cephalic, axillary, and subclavian vei ns. The vessels are compressible and augmentation response is documented. No filling defects are se en. The flow is phasic with respiration. Direction of flow in the jugular vein is caudal. CONCLUSION: 1. The deep venous system of the left upper extremity is patent without evidence of DVT. The jugular and subclavian veins are patent. Nathan Delong MD on January 04, 2017 at 14:02 Board Certified Radiologist. This report was verified electronically.
--- NOTE | 2017-01-04 15:20 | RADRPT ---
EXAM DATE/TIME: 01/04/2017 13:14 [facility] COMPARISON: US ARM LEFT VENOUS DOPPLER, January 04, 2017, 13:02. INDICATIONS : Arteriovenous fistula planning. MEDICAL HISTORY : Hypercholesterolemia. Hypertension. Myocardial infarction. Carcinoma, gastric. Hepatitis C. HIV. Renal failure. Anemia. SURGICAL HISTORY : Gastric resection. Peg tube with removal. ENCOUNTER: Initial ACUITY: 4 - 6 days PAIN SCORE: 0/10 LOCATION: Left arm. CEPHALIC: ORIGIN: 2 mm MID-ARM: 1 mm ELBOW: 1 mm FOREARM: Non-visualized WRIST: Non-visualized BASILIC: ORIGIN: 4 mm MID-ARM: 4 mm ELBOW: 2 mm ARTERIES: BRACHIAL: 4 mm ULNAR: 2 mm RADIAL: 2 mm VEINS: RADIAL: 1 mm ULNAR: 1 mm FINDINGS: The venous system of the upper extremity is patent by color Doppler imaging. Measurements of the arm veins (in mm) are listed above. CONCLUSION: 1. Vein mapping of the left upper extremity size measurements are given above. 2. No DVT identified. Nathan Delong MD on January 04, 2017 at 15:18 Board Certified Radiologist. This report was verified electronically.
[2017-01-04] MEDS: MIRTAZAPINE 15 MG TAB PO SCH (21:26)
[2017-01-05] VITALS (8 sets, daily range): BP systolic 129–187; BP diastolic 67–98; PULSE 65–86; RESP 17–20; TEMP 98–102.8; O2SAT 88–100
[2017-01-05] MEDS: MEGESTROL ACETATE SUSP 400 MG/10 ML CUP PO SCH (08:04)
[2017-01-05] MEDS: SODIUM CHLORIDE 0.9% FLUSH 10 ML FLUSH IV FLUSH SCH ×2 (09:00→20:08)
[2017-01-05] MEDS: DOLUTEGRAVIR SODIUM 50 MG TAB PO SCH (10:02)
[2017-01-05] MEDS: VITAMIN B CMPLX/VITC/FOLIC AC CAP PO SCH (10:02)
[2017-01-05] MEDS: valACYclovir HCL 500 MG TAB PO SCH (10:02)
[2017-01-05] MEDS: ASPIRIN EC 81 MG TABEC PO SCH (10:02)
[2017-01-05] MEDS: CALCIUM ACETATE 667 MG CAP PO SCH ×3 (10:02→18:00)
[2017-01-05] MEDS: NIFEdipine 60 MG SUSTAINED RELEASE TAB PO SCH ×2 (10:03→20:08)
[2017-01-05] MEDS: RILPIVIRINE 25 MG TAB PO SCH (10:03)
[2017-01-05] MEDS: CARVEDILOL 12.5 MG TAB PO SCH ×2 (10:03→20:08)
--- NOTE | 2017-01-05 10:30 | PD.VS.CON ---
History of Present Illness Chief Complaint: AVF Evaluation Pt Right handed Consult Requested by: Dr. Davis History of Present Illness 56/AA/M patient seen and evaluated in room 1531. Pt is alert and oriented in NAD states that his Doctor instructed him to go to the emergency department after receiving out Patient laboratory studies indicating his kidneys were failing. The patient has a history of chronic kidney disease Reports that he fatigues easily and is w/o any other complaints (Ese Ellison) Past/Family/Social History Past Medical History Hypertension HIV + Hepatitis C Gastric cancer Past Surgical History Gastric CA resection Social History Tobacco: smokes 3 - 4 per day Illicit Drugs: marijuana Alcohol: drinks twice weekly 2 - 3 beers Lives in an apartment with his son Retired Family History Denies (Ese Ellison) Home Medications Active Scripts Aspirin (Aspirin EC) 81 Mg Tabdr, 81 MG PO DAILY for Old MS, #30 TAB 0 Refills Prov:Nathan Plasencia MD 09/14/16 Carvedilol (Coreg) 12.5 Mg Tab, 50 MG PO BID for Old MS, #60 TAB Prov:Nathan Plasencia MD 09/14/16 Reported Medications Iron Dextran Inj (Infed Inj) 100 Mg/2 Ml Inj, 100 MG IM WEEKLY 01/01/17 Sodium Chloride (Sodium Chloride) 250 Ml Pggybk.prt, 500 ML IV DAILY 12/23/16 Sodium Bicarbonate (Sodium Bicarbonate) 325 Mg Tab, 10 GM PO TIDPC, #90 TAB 0 Refills 12/18/16 Valacyclovir (Valtrex) 1,000 Mg Tab, 1000 MG PO DAILY for Mgmt Viral Infection, #30 TAB 0 Refills 12/18/16 Dolutegravir (Tivicay) 50 Mg Tab, 50 MG PO DAILY for Mgmt Viral Infection, #30 TAB 0 Refills 12/18/16 Mirtazapine (Remeron) 15 Mg Tab, 15 MG PO HS for Depression Control, #30 TAB 0 Refills 12/18/16 Nifedipine ER 24 HR (Nifedipine ER 24 HR) 30 Mg Tab, 60 MG PO BID, #30 TAB 0 Refills 12/18/16 Megestrol Liq (Megace Liq) 40 Mg/Ml Susp, 400 MG PO DAILY for Improve Appetite, ML 0 Refills 12/18/16 Dronabinol (Marinol) 5 Mg Cap, 5 MG PO BID, CAP 0 Refills 12/18/16 Lamivudine (Epivir) 300 Mg Tab, 300 MG PO DAILY for Mgmt Viral Infection, #30 TAB 0 Refills 12/18/16 Rilpivirine (Edurant) 25 Mg Tab, 25 MG PO DAILY for Mgmt Viral Infection, #30 TAB 0 Refills 12/18/16 Discontinued Reported Medications Ergocalciferol (Ergocalciferol) 50,000 Unit Cap, 71545 UNITS PO Q7D for Nutritional Supplement, #30 CAP 0 Refills 12/18/16 Coded Allergies: *MDRO Multi-Drug Resistant Organism (Verified Adverse Reaction, Unknown, Cleared 09/17/15, 01/01/17) 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 MRSA PCR Screens NEGATIVE - 09/12 & 09/17/2015 CLEARED BY INFECTION CONTROL Physical Exam Vitals/I&O Date Time Temp Pulse Resp B/P (MAP) Pulse Ox O2 Delivery O2 Flow Rate FiO2 01/05/17 09:12 98 21 01/05/17 09:08 99.1 68 18 138/83 (101) 99 01/05/17 05:00 98.0 69 18 130/67 (88) 100 01/05/17 00:30 98.0 67 17 129/85 (100) 99 01/04/17 20:15 97.7 70 18 136/85 (102) 100 01/04/17 16:00 97.6 68 18 136/68 (90) 97 01/04/17 12:00 98.4 62 18 132/71 (91) 98 01/05/17 01/05/17 01/05/17 07:00 15:00 23:00 Intake Total 1000 ml Balance 1000 ml Neuro: Alert in oriented X3 GCS15 Heart: +S1,S2 Lungs: CTA Vascular: Palpable R/L radial pulses UE warm with motor intact Equal blood bank supervisor strength (Ese Ellison) Last 48 hours Impressions Upper Extremity Ultrasound 01/04/17 0000 Signed Impressions: Service Date/Time: Wednesday, January 04, 2017 13:02 - CONCLUSION: 1. The deep venous system of the left upper extremity is patent without evidence of DVT. The jugular and subclavian veins are patent. Nathan Delong MD Upper Extremity Ultrasound 01/04/17 0000 Signed Impressions: Service Date/Time: Wednesday, January 04, 2017 13:14 - CONCLUSION: 1. Vein mapping of the left upper extremity size measurements are given above. 2. No DVT identified. Nathan Delong MD Catheter Placement X-Ray 01/03/17 1219 Signed Impressions: Service Date/Time: Tuesday, January 03, 2017 13:41 - CONCLUSION: Uncomplicated line placement as above. Dennys Lugo MD (Ese Ellison) Assessment and Plan Assessment: (1) HIV (human immunodeficiency virus infection) Status: Chronic (2) Hepatitis C Status: Chronic (3) Renal failure Status: Acute Plan Pt evaluated for an AVF access Pt started HD yesterday, tolerated well Pt w/o complaints Plan Discussed and educated pt on an AVF surgical Intervention for HD Questions were answered Pt scheduled for a LUE AVF access with Dr. Hodges on Thursday01/07/17 Ese HAGEN [facility]/[place] [phone] (Ese Ellison) Plan Agree with above; new HD dependence. Will plan for L UE AVF on Thursday. Discussed with patient who agrees to proceed. Richard Hodges MD FACS RPVI moisture tester [facility] - [facility] V[facility] Surgery at [facility] [phone] (Richard Hodges MD) Ese Ellison Jan 05, 2017 10:30 Richard Hodges MD Jan 05, 2017 16:51
--- NOTE | 2017-01-05 10:40 | HHI.NPPN ---
Subjective History of Present Illness 56-year-old male with past medical history of hypertension, HIV, gastric cancer, chronic kidney disease, history of chronic anemia who was admitted because he was sent to the hospital by his primary infectious disease doctor because of worsening renal function. I was called to see the patient because of elevated BUN and creatinine. The patient is known to me from his last admission when I saw him in July and, at that time, his creatinine was as high as a 8.1 on admission and gradually improved. When he was discharged on September 14, it was 4.24. Additional Remarks Patient is alert, no SOB, eating well, no complain. Review of Systems General Constitutional: Fatigue Cardiovascular Cardiac: Edema, HUGGINS Objective Data Data Vital Signs Date Time Temp Pulse Resp B/P (MAP) Pulse Ox O2 Delivery O2 Flow Rate FiO2 01/05/17 09:12 98 21 01/05/17 09:08 99.1 68 18 138/83 (101) 99 01/05/17 05:00 98.0 69 18 130/67 (88) 100 01/05/17 00:30 98.0 67 17 129/85 (100) 99 01/04/17 20:15 97.7 70 18 136/85 (102) 100 01/04/17 16:00 97.6 68 18 136/68 (90) 97 01/04/17 12:00 98.4 62 18 132/71 (91) 98 -: 01/02/17 0438 01/03/17 0555 Physical Exam General Appearance: No Acute Distress, Comfortable Eyes Eye Exam: Pupils Equal Throat Throat Exam: Oral Mucosa [place] & Moist Neck Neck Exam: Trachea Midline Pulmonary Resp Exam: Breath Sounds Equal, No Distress, Rhonchi, Decreased Bases Cardiology CV Exam: Regular, Normal Sinus Rhythm Gastrointestinal/Abdomen GI Exam: Soft, Non-Tender, Bowel Sounds Present Extremeties Extremities Exam: Trace Edema Neurologic Neuro Exam: Alert, Awake, Oriented Assessment/Plan Assessment Summary: Anemia of CKD, Hypertension, CKD Stage V Problem List: (1) Stage 5 chronic kidney disease ICD Codes: N18.5 - Chronic kidney disease, stage 5 (2) HIV disease ICD Codes: B20 - Human immunodeficiency virus [HIV] disease Status: Chronic (3) Anemia of chronic disease ICD Codes: D63.8 - Anemia in other chronic diseases classified elsewhere Status: Acute (4) Essential hypertension ICD Codes: I10 - Essential hypertension Status: Acute (5) Severe protein-calorie malnutrition ICD Codes: E43 - Unspecified severe protein-calorie malnutrition Status: Acute (6) Weakness ICD Codes: R53.1 - Weakness Status: Acute (7) History of partial gastrectomy ICD Codes: Z90.3 - Acquired absence of stomach [part of] Status: Acute Plan Patient has Renal U/S done and noted. Has atrophic kidneys. Most likely has advance renal disease due to Hypertensive , renovascular or HIV renal disease. Started on HD yesterday, tolerated well. 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 He want to go for HD. Need AVF and PermCath. HD today, arrange for out patient HD. On Pholso for high Po4. George Davis MD Jan 05, 2017 10:40
--- NOTE | 2017-01-05 12:51 | HHI.PR ---
Subjective Remarks Follow-up acute on chronic kidney disease/HIV 01/02/17-patient seen and examined, slight improvement of renal indices as creatinine decreasing. Denies any shortness of breath or chest pain. Currently afebrile. 01/03/17-patient seen and examined, plan for Vas-Cath placement today. Patient denies any chest pain or shortness of breath. Renal indices slightly improving however still elevated. 01/04/17-patient seen and examined, he had hemodialysis done yesterday and reports feeling better today. Denies any shortness of breath 01/05/17-patient seen and examined, and for hemodialysis today. Upper extremity Doppler negative for DVT. Seen by vascular surgery and plan for AV fistula graft placement 01/07/17 Objective Vitals Vital Signs Date Time Temp Pulse Resp B/P (MAP) Pulse Ox O2 Delivery O2 Flow Rate FiO2 01/05/17 12:35 98.9 65 18 136/81 (99) 100 01/05/17 09:12 98 21 01/05/17 09:08 99.1 68 18 138/83 (101) 99 01/05/17 05:00 98.0 69 18 130/67 (88) 100 01/05/17 00:30 98.0 67 17 129/85 (100) 99 01/04/17 20:15 97.7 70 18 136/85 (102) 100 01/04/17 16:00 97.6 68 18 136/68 (90) 97 I/O 01/04/17 01/04/17 01/04/17 01/05/17 01/05/17 01/05/17 07:00 15:00 23:00 07:00 15:00 23:00 Intake Total 625 ml 780 ml 1200 ml 1000 ml Output Total 200 ml 0 ml Balance 425 ml 780 ml 1200 ml 1000 ml Intake Oral 625 ml 780 ml 1200 ml 1000 ml Output Urine Total 200 ml 0 ml # Voids 1 # Bowel Movements 0 0 0 Result Diagram: 01/02/17 0438 01/03/17 0555 Imaging Last Impressions Upper Extremity Ultrasound 01/04/17 0000 Signed Impressions: Service Date/Time: Wednesday, January 04, 2017 13:02 - CONCLUSION: 1. The deep venous system of the left upper extremity is patent without evidence of DVT. The jugular and subclavian veins are patent. Nathan Delong MD Catheter Placement X-Ray 01/03/17 1219 Signed Impressions: Service Date/Time: Tuesday, January 03, 2017 13:41 - CONCLUSION: Uncomplicated line placement as above. Dennys Lugo MD Renal Ultrasound 01/02/17 0000 Signed Impressions: Service Date/Time: Monday, January 02, 2017 08:27 - CONCLUSION: Increased renal cortical echogenicity and mild cortical atrophy suggesting medical renal disease. Dennys Lugo MD Objective Remarks GENERAL: NAD SKIN: Warm and dry. HEAD: Normocephalic. EYES: No scleral icterus. No injection or drainage. NECK: Supple, trachea midline. No JVD or lymphadenopathy. Vas-Cath in place CARDIOVASCULAR: Regular rate and rhythm without murmurs, gallops, or rubs. RESPIRATORY: Breath sounds equal bilaterally. No accessory muscle use. GASTROINTESTINAL: Abdomen soft, non-tender, nondistended. MUSCULOSKELETAL: No cyanosis, or edema. BACK: Nontender without obvious deformity. No CVA tenderness. A/P Problem List: (1) Acute on chronic renal failure ICD Code: N17.9 - Acute kidney failure, unspecified; N18.9 - Chronic kidney disease, unspecified Status: Acute (2) Hypertensive urgency ICD Code: I16.0 - Hypertensive urgency Assessment and Plan 56 y/o with chronic renal failure sent by ID/primary doctor for evaluation of worsening kidney functions: Acute on chronic renal failure - Appreciate input from nephrology - Renal ultrasound noted - Patient was started on hemodialysis 01/03/17, plan for hemodialysis today 12/14 - Plan for AV fistula placement 01/07/17. Appreciate input from vascular surgery - Per nephrology, patient is not a candidate for peritoneal dialysis due to noncompliance - avoid nephrotoxins Hypertensive urgency-resolved Benign hypertension - Continue outpatient medications including Coreg 25 mg twice a day and hydralazine -Continue when necessary HIV -Continue antiretrovirals medications -Counseled on medication compliance DVT prophylaxis Hold Heparin 5000 units subq q8h Problem Qualifiers (1) Acute on chronic renal failure: Qualified Codes: N17.9 - Acute kidney failure, unspecified; N18.5 - Chronic kidney disease, stage 5 Oscar Rod MD Jan 05, 2017 12:51
[2017-01-05] MEDS: EPOETIN ALFA 10,000 UNITS/ML VIAL IV PUSH PRN (14:48)
[2017-01-05] MEDS: GENTAMICIN SULFATE (DIALYSIS USE ONLY) 20 MG/2 ML VIAL OTHER PRN (14:48)
[2017-01-05] MEDS: HEPARIN SODIUM - IV 10,000 UNITS/10 ML VIAL PRN (14:48)
[2017-01-05] MEDS: MIRTAZAPINE 15 MG TAB PO SCH (20:08)
[2017-01-06] VITALS (7 sets, daily range): BP systolic 105–140; BP diastolic 63–83; PULSE 63–80; RESP 16–20; TEMP 98.6–102.7; O2SAT 95–100
[2017-01-06] MEDS: SODIUM CHLORIDE 0.9% FLUSH 10 ML FLUSH IV FLUSH SCH ×2 (09:00→20:36)
[2017-01-06] MEDS: RILPIVIRINE 25 MG TAB PO SCH (09:17)
[2017-01-06] MEDS: CALCIUM ACETATE 667 MG CAP PO SCH ×3 (09:17→18:41)
[2017-01-06] MEDS: DOLUTEGRAVIR SODIUM 50 MG TAB PO SCH (09:17)
[2017-01-06] MEDS: NIFEdipine 60 MG SUSTAINED RELEASE TAB PO SCH ×2 (09:17→20:36)
[2017-01-06] MEDS: MEGESTROL ACETATE SUSP 400 MG/10 ML CUP PO SCH (09:17)
[2017-01-06] MEDS: VITAMIN B CMPLX/VITC/FOLIC AC CAP PO SCH (09:18)
[2017-01-06] MEDS: ASPIRIN EC 81 MG TABEC PO SCH (09:18)
[2017-01-06] MEDS: valACYclovir HCL 500 MG TAB PO SCH (09:18)
[2017-01-06] MEDS: CARVEDILOL 12.5 MG TAB PO SCH ×2 (09:18→20:36)
[2017-01-06 09:46] LABS: AUTOMATED NEUTROPHIL # 6.8 TH/MM3 (1.8-7.7); BASOPHIL % 0.2 % (0.0-2.0); EOSINOPHIL # 0.1 TH/MM3 (0-0.4); EOSINOPHIL % 1.7 % (0.0-4.0); HEMATOCRIT 32.7 % (39.0-51.0); HEMO FLAGS DIFF FINAL; LYMPH % 7.7 % (9.0-44.0); LYMPHOCYTE # 0.6 TH/MM3 (1.0-4.8); MEAN CORPUSCULAR HEMOGLOBIN 29.5 PG (27.0-34.0); MEAN CORPUSCULAR HGB CONC 33.1 % (32.0-36.0); MONO % 4.4 % (0.0-8.0); PLATELET COUNT 177 TH/MM3 (150-450); RED BLOOD COUNT 3.68 MIL/MM3 (4.50-5.90); RED CELL DISTRIBUTION WIDTH 16.8 % (11.6-17.2); WHITE BLOOD COUNT 7.9 TH/MM3 (4.0-11.0)
[2017-01-06 10:07] LABS: BICARBONATE 27.5 MEQ/L (21.0-32.0); POTASSIUM 4.1 MEQ/L (3.5-5.1)
--- NOTE | 2017-01-06 10:11 | PD.VS.PN ---
Subjective Subjective/Hospital Course Pt in bed reports feeling tired post HD treatment yesterday No other complaints reported Objective Vitals/I&O Date Time Temp Pulse Resp B/P (MAP) Pulse Ox O2 Delivery O2 Flow Rate FiO2 01/06/17 08:27 101.1 67 17 123/73 (90) 99 01/06/17 05:25 101.6 72 20 140/83 (102) 95 01/06/17 02:14 102.7 80 20 115/71 (86) 100 01/05/17 21:53 92 01/05/17 20:56 102.8 77 20 147/76 (99) 88 01/05/17 16:31 98.9 86 18 187/98 (127) 93 01/05/17 12:35 98.9 65 18 136/81 (99) 100 01/06/17 01/06/17 01/06/17 07:00 15:00 23:00 Intake Total 240 ml Balance 240 ml Physical Exam GENERAL: A&OX3, NAD, GCS15 SKIN: Warm and dry Palpable R/L radial pulse Equal a/c tech strength Laboratory Laboratory Tests Test 01/06/17 08:50 White Blood Count 7.9 Red Blood Count 3.68 Hemoglobin 10.8 Hematocrit 32.7 Mean Corpuscular Volume 89.0 Mean Corpuscular Hemoglobin 29.5 Mean Corpuscular Hemoglobin Concent 33.1 Red Cell Distribution Width 16.8 Platelet Count 177 Mean Platelet Volume 7.9 Neutrophils (%) (Auto) 86.0 Lymphocytes (%) (Auto) 7.7 Monocytes (%) (Auto) 4.4 Eosinophils (%) (Auto) 1.7 Basophils (%) (Auto) 0.2 Neutrophils # (Auto) 6.8 Lymphocytes # (Auto) 0.6 Monocytes # (Auto) 0.3 Eosinophils # (Auto) 0.1 Basophils # (Auto) 0.0 CBC Comment DIFF FINAL Differential Comment Assessment and Plan Assessment: (1) HIV (human immunodeficiency virus infection) Status: Chronic (2) Hepatitis C Status: Chronic (3) Renal failure Status: Acute Plan HD yesterday, pt feeling tired post treatment Plan Discussed and reviewed AVF surgical Intervention w/ pt Questions answered Pt agrees with plan Pt scheduled for L LE AVF tomorrow w/ Dr. Tracie HIDALGO after midnight LEFT upper extremity precautions- NO Blood Pressure readings /Lab draws Consent obtained and placed in the chart Ese HAGEN [facility] [phone] Ese Ellison Jan 06, 2017 10:11
--- NOTE | 2017-01-06 12:28 | HHI.PR ---
Subjective Remarks Follow-up acute on chronic kidney disease/HIV 01/02/17-patient seen and examined, slight improvement of renal indices as creatinine decreasing. Denies any shortness of breath or chest pain. Currently afebrile. 01/03/17-patient seen and examined, plan for Vas-Cath placement today. Patient denies any chest pain or shortness of breath. Renal indices slightly improving however still elevated. 01/04/17-patient seen and examined, he had hemodialysis done yesterday and reports feeling better today. Denies any shortness of breath 01/05/17-patient seen and examined, and for hemodialysis today. Upper extremity Doppler negative for DVT. Seen by vascular surgery and plan for AV fistula graft placement 01/07/17 01/06/17-patient seen and examined, states he is tired but denies any shortness of breath or chest pain. He had hemodialysis yesterday. Spiking fevers today Objective Vitals Vital Signs Date Time Temp Pulse Resp B/P (MAP) Pulse Ox O2 Delivery O2 Flow Rate FiO2 01/06/17 08:27 101.1 67 17 123/73 (90) 99 01/06/17 05:25 101.6 72 20 140/83 (102) 95 01/06/17 02:14 102.7 80 20 115/71 (86) 100 01/05/17 21:53 92 01/05/17 20:56 102.8 77 20 147/76 (99) 88 01/05/17 16:31 98.9 86 18 187/98 (127) 93 01/05/17 12:35 98.9 65 18 136/81 (99) 100 I/O 01/05/17 01/05/17 01/05/17 01/06/17 01/06/17 01/06/17 07:00 15:00 23:00 07:00 15:00 23:00 Intake Total 1000 ml 240 ml 240 ml Output Total 2000 ml Balance 1000 ml 240 ml -2000 ml 240 ml Intake Oral 1000 ml 240 ml 240 ml Hemodialysis 2000 ml # Voids 1 1 # Bowel Movements 0 Result Diagram: 01/06/17 0850 01/06/17 0850 Objective Remarks GENERAL: NAD SKIN: Warm and dry. HEAD: Normocephalic. EYES: No scleral icterus. No injection or drainage. NECK: Supple, trachea midline. No JVD or lymphadenopathy. Vas-Cath in place CARDIOVASCULAR: Regular rate and rhythm without murmurs, gallops, or rubs. RESPIRATORY: Breath sounds equal bilaterally. No accessory muscle use. GASTROINTESTINAL: Abdomen soft, non-tender, nondistended. MUSCULOSKELETAL: No cyanosis, or edema. BACK: Nontender without obvious deformity. No CVA tenderness. A/P Problem List: (1) Acute on chronic renal failure ICD Code: N17.9 - Acute kidney failure, unspecified; N18.9 - Chronic kidney disease, unspecified Status: Acute (2) Hypertensive urgency ICD Code: I16.0 - Hypertensive urgency Assessment and Plan 56 y/o with chronic renal failure sent by ID/primary doctor for evaluation of worsening kidney functions: Acute on chronic renal failure - Appreciate input from nephrology - Renal ultrasound noted - Patient was started on hemodialysis 01/03/17, and HD per nephrology - Plan for AV fistula placement tomorrow 01/07/17. Appreciate input from vascular surgery - Per nephrology, patient is not a candidate for peritoneal dialysis due to noncompliance - avoid nephrotoxins Hypertensive urgency-resolved Benign hypertension - Continue outpatient medications including Coreg 25 mg twice a day and hydralazine -Continue when necessary HIV -Continue antiretrovirals medications -Counseled on medication compliance Febrile episodes Check chest x-ray, panculture ID consult when necessary DVT prophylaxis Hold Heparin 5000 units subq q8h Problem Qualifiers (1) Acute on chronic renal failure: Qualified Codes: N17.9 - Acute kidney failure, unspecified; N18.5 - Chronic kidney disease, stage 5 Oscar Rod MD Jan 06, 2017 12:28
--- NOTE | 2017-01-06 14:23 | RADRPT ---
EXAM DATE/TIME: 01/06/2017 13:22 [place] COMPARISON: CHEST SINGLE AP, September 01, 2016, 8:08. INDICATIONS : Fever, short of breath MEDICAL HISTORY : Chronic renal failure. Hypertension Cardiovascular disease. HIV,fever SURGICAL HISTORY : dialysis catheter ENCOUNTER: Subsequent ACUITY: 2 weeks PAIN SCORE: 0/10 LOCATION: Bilateral chest FINDINGS: Right IJ dialysis catheter in place. No significant focal pleural-parenchymal opacities. Cardi centim eters are within normal limits. Remainder of exam is unchanged. CONCLUSION: 1. Right IJ catheter in place. 2. No acute cardiopulmonary disease. Sawyer Ritter MD on January 06, 2017 at 14:20 Board Certified Radiologist. This report was verified electronically.
--- NOTE | 2017-01-06 16:10 | HHI.NPPN ---
Subjective History of Present Illness 56-year-old male with past medical history of hypertension, HIV, gastric cancer, chronic kidney disease, history of chronic anemia who was admitted because he was sent to the hospital by his primary infectious disease doctor because of worsening renal function. I was called to see the patient because of elevated BUN and creatinine. The patient is known to me from his last admission when I saw him in July and, at that time, his creatinine was as high as a 8.1 on admission and gradually improved. When he was discharged on September 14, it was 4.24. Additional Remarks Patient is alert, no SOB, not eating well, now spiking fever. Review of Systems General Constitutional: Fatigue Cardiovascular Cardiac: Edema, HUGGINS Objective Data Data 01/06/17 01/07/17 19:00 07:00 Intake Total 480 ml Output Total 100 ml Balance 380 ml Intake Oral 480 ml Output Urine Total 100 ml Vital Signs Date Time Temp Pulse Resp B/P (MAP) Pulse Ox O2 Delivery O2 Flow Rate FiO2 01/06/17 13:25 99.4 63 16 107/66 (80) 99 01/06/17 08:27 101.1 67 17 123/73 (90) 99 01/06/17 05:25 101.6 72 20 140/83 (102) 95 01/06/17 02:14 102.7 80 20 115/71 (86) 100 01/05/17 21:53 92 01/05/17 20:56 102.8 77 20 147/76 (99) 88 01/05/17 16:31 98.9 86 18 187/98 (127) 93 -: 01/06/17 0850 01/06/17 0850 Microbiology 01/06/17 Aerobic Blood Culture, Received Pending 01/06/17 Anaerobic Blood Culture, Received Pending 01/06/17 Aerobic Blood Culture, Received Pending 01/06/17 Anaerobic Blood Culture, Received Pending Physical Exam General Appearance: No Acute Distress, Comfortable Eyes Eye Exam: Pupils Equal Throat Throat Exam: Oral Mucosa [place] & Moist Neck Neck Exam: Trachea Midline Pulmonary Resp Exam: Breath Sounds Equal, No Distress, Rhonchi, Decreased Bases Cardiology CV Exam: Regular, Normal Sinus Rhythm Gastrointestinal/Abdomen GI Exam: Soft, Non-Tender, Bowel Sounds Present Extremeties Extremities Exam: Trace Edema Neurologic Neuro Exam: Alert, Awake, Oriented Assessment/Plan Assessment Summary: Anemia of CKD, Hypertension, CKD Stage V Problem List: (1) Stage 5 chronic kidney disease ICD Codes: N18.5 - Chronic kidney disease, stage 5 (2) HIV disease ICD Codes: B20 - Human immunodeficiency virus [HIV] disease Status: Chronic (3) Anemia of chronic disease ICD Codes: D63.8 - Anemia in other chronic diseases classified elsewhere Status: Acute (4) Essential hypertension ICD Codes: I10 - Essential hypertension Status: Acute (5) Severe protein-calorie malnutrition ICD Codes: E43 - Unspecified severe protein-calorie malnutrition Status: Acute (6) Weakness ICD Codes: R53.1 - Weakness Status: Acute (7) History of partial gastrectomy ICD Codes: Z90.3 - Acquired absence of stomach [part of] Status: Acute Plan Patient has Renal U/S done and noted. Has atrophic kidneys. Most likely has advance renal disease due to Hypertensive , renovascular or HIV renal disease. Started on HD yesterday, tolerated well. I discuss with him about jail Dialysis, including PD and HD. He want to go for HD. Need AVF and PermCath. HD done yesterday. To arrange for out patient HD. On Pholso for high Po4. Spiking fever, on Valcyte. George Davis MD Jan 06, 2017 16:10
[2017-01-06] MEDS: MIRTAZAPINE 15 MG TAB PO SCH (20:36)
[2017-01-07 00:33] VITALS: BP 121/72; PULSE 66; RESP 20; TEMP 98.2; O2SAT 98
[2017-01-07 05:33] VITALS: BP 142/82; PULSE 62; RESP 18; TEMP 98.1; O2SAT 100
[2017-01-07 08:00] VITALS: BP 146/93; PULSE 61; RESP 20; TEMP 97.4; O2SAT 100
[2017-01-07] MEDS: MEGESTROL ACETATE SUSP 400 MG/10 ML CUP PO SCH (08:39)
[2017-01-07] MEDS: VITAMIN B CMPLX/VITC/FOLIC AC CAP PO SCH (08:40)
[2017-01-07] MEDS: CALCIUM ACETATE 667 MG CAP PO SCH ×3 (08:40→18:07)
[2017-01-07] MEDS: NIFEdipine 60 MG SUSTAINED RELEASE TAB PO SCH ×2 (08:40→21:59)
[2017-01-07] MEDS: ASPIRIN EC 81 MG TABEC PO SCH (08:40)
[2017-01-07] MEDS: CARVEDILOL 12.5 MG TAB PO SCH ×2 (08:40→21:59)
[2017-01-07] MEDS: SODIUM CHLORIDE 0.9% FLUSH 10 ML FLUSH IV FLUSH SCH ×2 (08:41→21:00)
[2017-01-07] MEDS: DOLUTEGRAVIR SODIUM 50 MG TAB PO SCH (08:53)
[2017-01-07] MEDS: RILPIVIRINE 25 MG TAB PO SCH (08:53)
[2017-01-07] MEDS: valACYclovir HCL 500 MG TAB PO SCH (08:53)
--- NOTE | 2017-01-07 10:51 | HHI.NPPN ---
Subjective History of Present Illness 56-year-old male with past medical history of hypertension, HIV, gastric cancer, chronic kidney disease, history of chronic anemia who was admitted because he was sent to the hospital by his primary infectious disease doctor because of worsening renal function. I was called to see the patient because of elevated BUN and creatinine. The patient is known to me from his last admission when I saw him in July and, at that time, his creatinine was as high as a 8.1 on admission and gradually improved. When he was discharged on September 14, it was 4.24. Additional Remarks Patient is alert, no SOB, now NPO for the surgery, remain afebrile since yesterday afternoon. Review of Systems General Constitutional: Fatigue Cardiovascular Cardiac: Edema, HUGGINS Objective Data Data Vital Signs Date Time Temp Pulse Resp B/P (MAP) Pulse Ox O2 Delivery O2 Flow Rate FiO2 01/07/17 08:00 97.4 61 20 146/93 (110) 100 01/07/17 05:33 98.1 62 18 142/82 (102) 100 01/07/17 00:33 98.2 66 20 121/72 (88) 98 01/06/17 22:31 95 01/06/17 21:28 99.2 72 20 114/69 (84) 98 01/06/17 16:24 98.6 69 16 105/63 (77) 97 01/06/17 13:25 99.4 63 16 107/66 (80) 99 -: 01/06/17 0850 01/06/17 0850 Microbiology 01/06/17 Aerobic Blood Culture, Received Pending 01/06/17 Anaerobic Blood Culture, Received Pending 01/06/17 Aerobic Blood Culture, Received Pending 01/06/17 Anaerobic Blood Culture, Received Pending Physical Exam General Appearance: No Acute Distress, Comfortable Eyes Eye Exam: Pupils Equal Throat Throat Exam: Oral Mucosa [place] & Moist Neck Neck Exam: Trachea Midline Pulmonary Resp Exam: Breath Sounds Equal, No Distress, Rhonchi, Decreased Bases Cardiology CV Exam: Regular, Normal Sinus Rhythm Gastrointestinal/Abdomen GI Exam: Soft, Non-Tender, Bowel Sounds Present Extremeties Extremities Exam: Trace Edema Neurologic Neuro Exam: Alert, Awake, Oriented Assessment/Plan Assessment Summary: Anemia of CKD, Hypertension, CKD Stage V Problem List: (1) Stage 5 chronic kidney disease ICD Codes: N18.5 - Chronic kidney disease, stage 5 (2) HIV disease ICD Codes: B20 - Human immunodeficiency virus [HIV] disease Status: Chronic (3) Anemia of chronic disease ICD Codes: D63.8 - Anemia in other chronic diseases classified elsewhere Status: Acute (4) Essential hypertension ICD Codes: I10 - Essential hypertension Status: Acute (5) Severe protein-calorie malnutrition ICD Codes: E43 - Unspecified severe protein-calorie malnutrition Status: Acute (6) Weakness ICD Codes: R53.1 - Weakness Status: Acute (7) History of partial gastrectomy ICD Codes: Z90.3 - Acquired absence of stomach [part of] Status: Acute Plan Patient has Renal U/S done and noted. Has atrophic kidneys. Most likely has advance renal disease due to Hypertensive , renovascular or HIV renal disease. Started on HD yesterday, tolerated well. I discuss with him about long winder tender Dialysis, including PD and HD. He want to go for HD. Need AVF and PermCath. To arrange for out patient HD. On Pholso for high Po4. HD today, and AVF after HD. Blood cultures, no growth so far and afebrile now. George Davis MD Jan 07, 2017 10:51
[2017-01-07] MEDS ORDERED: DEXMEDETOMIDINE HCL 200 MCG/2 ML VIAL ONE (11:13)
[2017-01-07] MEDS ORDERED: PROPOFOL 200 MG/20 ML AMP IV ONE (12:00)
[2017-01-07] MEDS ORDERED: ONDANSETRON HCL 4 MG/2 ML VIAL IV PUSH ONE (12:00)
[2017-01-07] MEDS ORDERED: PHENYLEPH/NS 1000 MCG/10 ML SYR IV ONE (12:00)
[2017-01-07] MEDS ORDERED: DEXAMETHASONE SOD PHOS 4 MG/ML VIAL IV ONE (12:00)
[2017-01-07] MEDS ORDERED: LIDOCAINE HCL 1% PF 5 ML AMPULE OTHER ONE (12:00)
--- NOTE | 2017-01-07 12:09 | HHI.PR ---
Subjective Remarks Follow-up acute on chronic kidney disease/HIV 01/02/17-patient seen and examined, slight improvement of renal indices as creatinine decreasing. Denies any shortness of breath or chest pain. Currently afebrile. 01/03/17-patient seen and examined, plan for Vas-Cath placement today. Patient denies any chest pain or shortness of breath. Renal indices slightly improving however still elevated. 01/04/17-patient seen and examined, he had hemodialysis done yesterday and reports feeling better today. Denies any shortness of breath 01/05/17-patient seen and examined, and for hemodialysis today. Upper extremity Doppler negative for DVT. Seen by vascular surgery and plan for AV fistula graft placement 01/07/17 01/06/17-patient seen and examined, states he is tired but denies any shortness of breath or chest pain. He had hemodialysis yesterday. Spiking fevers today 01/07/17-patient seen and examined, currently nothing by mouth pending upper extremity AVF placement. Plan for hemodialysis today. Also afebrile. Patient is not agreeable to go to a SNF Objective Vitals Vital Signs Date Time Temp Pulse Resp B/P (MAP) Pulse Ox O2 Delivery O2 Flow Rate FiO2 01/07/17 08:00 97.4 61 20 146/93 (110) 100 01/07/17 05:33 98.1 62 18 142/82 (102) 100 01/07/17 00:33 98.2 66 20 121/72 (88) 98 01/06/17 22:31 95 01/06/17 21:28 99.2 72 20 114/69 (84) 98 01/06/17 16:24 98.6 69 16 105/63 (77) 97 01/06/17 13:25 99.4 63 16 107/66 (80) 99 I/O 01/06/17 01/06/17 01/06/17 01/07/17 01/07/17 01/07/17 06:59 14:59 22:59 06:59 14:59 22:59 Intake Total 240 ml 480 ml Output Total 100 ml 300 ml Balance 240 ml 380 ml -300 ml Intake Oral 240 ml 480 ml Output Urine Total 100 ml 300 ml Result Diagram: 01/06/1750 01/06/1750 Imaging Last Impressions Chest X-Ray 01/06/17 0000 Signed Impressions: Service Date/Time: Friday, January 06, 2017 13:22 - CONCLUSION: 1. Right IJ catheter in place. 2. No acute cardiopulmonary disease. Sawyer Ritter MD Upper Extremity Ultrasound 01/04/17 0000 Signed Impressions: Service Date/Time: Wednesday, January 04, 2017 13:02 - CONCLUSION: 1. The deep venous system of the left upper extremity is patent without evidence of DVT. The jugular and subclavian veins are patent. Nathan Delong MD Catheter Placement X-Ray 01/03/17 1219 Signed Impressions: Service Date/Time: Tuesday, January 03, 2017 13:41 - CONCLUSION: Uncomplicated line placement as above. Dennys Lugo MD Renal Ultrasound 01/02/17 0000 Signed Impressions: Service Date/Time: Monday, January 02, 2017 08:27 - CONCLUSION: Increased renal cortical echogenicity and mild cortical atrophy suggesting medical renal disease. Dennys Lugo MD Objective Remarks GENERAL: NAD SKIN: Warm and dry. HEAD: Normocephalic. EYES: No scleral icterus. No injection or drainage. NECK: Supple, trachea midline. No JVD or lymphadenopathy. Vas-Cath in place CARDIOVASCULAR: Regular rate and rhythm without murmurs, gallops, or rubs. RESPIRATORY: Breath sounds equal bilaterally. No accessory muscle use. GASTROINTESTINAL: Abdomen soft, non-tender, nondistended. MUSCULOSKELETAL: No cyanosis, or edema. BACK: Nontender without obvious deformity. No CVA tenderness. A/P Problem List: (1) Acute on chronic renal failure ICD Code: N17.9 - Acute kidney failure, unspecified; N18.9 - Chronic kidney disease, unspecified Status: Acute (2) Hypertensive urgency ICD Code: I16.0 - Hypertensive urgency Assessment and Plan 56 y/o with chronic renal failure sent by ID/primary doctor for evaluation of worsening kidney functions: Acute on chronic renal failure - Appreciate input from nephrology - Renal ultrasound noted - Patient was started on hemodialysis 01/03/17, and HD per nephrology. Will need outpatient dialysis set up prior to discharge - Plan for AV fistula placement today 01/07/17. Appreciate input from vascular surgery - Per nephrology, patient is not a candidate for peritoneal dialysis due to noncompliance - avoid nephrotoxins - On Pholso for high Po4. Hypertensive urgency-resolved Benign hypertension - Continue outpatient medications including Coreg 25 mg twice a day and hydralazine -Continue when necessary HIV -Continue antiretrovirals medications -Counseled on medication compliance Febrile episodes-resolved UA negative, blood culture unremarkable Chest x-ray without any pulmonary infiltrates DVT prophylaxis Hold Heparin 5000 units subq q8h PT consult to treat and eval Problem Qualifiers (1) Acute on chronic renal failure: Qualified Codes: N17.9 - Acute kidney failure, unspecified; N18.5 - Chronic kidney disease, stage 5 Oscar Rod MD Jan 07, 2017 12:09
[2017-01-07] MEDS: HEPARIN SODIUM - IV 10,000 UNITS/10 ML VIAL PRN (13:21)
[2017-01-07] MEDS: GENTAMICIN SULFATE (DIALYSIS USE ONLY) 20 MG/2 ML VIAL OTHER PRN (13:21)
[2017-01-07] MEDS: EPOETIN ALFA 10,000 UNITS/ML VIAL IV PUSH PRN (13:22)
[2017-01-07] MEDS ORDERED: PROTAMINE SULFATE 50 MG/5 ML VIAL ONE (13:44)
[2017-01-07] MEDS ORDERED: HEPARIN-NS/PF INJ 500 ML ONE (13:44)
[2017-01-07] MEDS ORDERED: HEPARIN SODIUM - IV 10,000 UNITS/10 ML VIAL ONE (13:44)
[2017-01-07] MEDS ORDERED: BUPIVACAINE HCL PF 0.5% 30 ML VIAL ONE (13:44)
--- NOTE | 2017-01-07 14:17 | HHI.DS ---
Discharge Summary Admission Date Jan 01, 2017 at 22:49 Discharge Date: Jan 07, 2017 Admitting Diagnosis acute on chronic renal failure, hypertension (1) Acute on chronic renal failure ICD Code: N17.9 - Acute kidney failure, unspecified; N18.9 - Chronic kidney disease, unspecified Status: Acute (2) Hypertensive urgency ICD Code: I16.0 - Hypertensive urgency (3) HIV (human immunodeficiency virus infection) ICD Code: Z21 - Asymptomatic human immunodeficiency virus [HIV] infection status Status: Chronic (4) Stage 5 chronic kidney disease ICD Code: N18.5 - Chronic kidney disease, stage 5 Procedures L brachiobasilic AVF 01/07/17 Brief History - From Admission Written by Debi Enrique, acting as scribe for Dr. Foreman on 01/02/17 at 05:57. The patient states that his Doctor made him come to ED. Dr. Barcenas is his HIV doctor; he has been closely monitoring his kidney function over the last week. He has been getting IV fluids at Dr. Barcenas's office every day for a week. Denies nausea, vomiting, diarrhea, black or red stool. Denies chest pain, shortness of breath, dizziness, or syncope. The patient has a history of chronic kidney disease. Reports that he fatigues easily and other than fatigue, he states he's been feeling just fine. CBC/BMP: 01/06/17 0850 01/06/17 0850 Significant Findings Laboratory Tests Test 01/06/17 08:50 Red Blood Count 3.68 MIL/MM3 (4.50-5.90) Hemoglobin 10.8 GM/DL (13.0-17.0) Hematocrit 32.7 % (39.0-51.0) Neutrophils (%) (Auto) 86.0 % (16.0-70.0) Lymphocytes (%) (Auto) 7.7 % (9.0-44.0) Lymphocytes # (Auto) 0.6 TH/MM3 (1.0-4.8) Blood Urea Nitrogen 32 MG/DL (7-18) Creatinine 7.06 MG/DL (0.60-1.30) Sodium Level 133 MEQ/L (136-145) Estimat Glomerular Filtration Rate 10 ML/MIN (>89) Imaging Last Impressions Chest X-Ray 01/06/17 0000 Signed Impressions: Service Date/Time: Friday, January 06, 2017 13:22 - CONCLUSION: 1. Right IJ catheter in place. 2. No acute cardiopulmonary disease. Sawyer Ritter MD Upper Extremity Ultrasound 01/04/17 0000 Signed Impressions: Service Date/Time: Wednesday, January 04, 2017 13:02 - CONCLUSION: 1. The deep venous system of the left upper extremity is patent without evidence of DVT. The jugular and subclavian veins are patent. Nathan Delong MD Catheter Placement X-Ray 01/03/17 1219 Signed Impressions: Service Date/Time: Tuesday, January 03, 2017 13:41 - CONCLUSION: Uncomplicated line placement as above. Dennys Lugo MD Renal Ultrasound 01/02/17 0000 Signed Impressions: Service Date/Time: Monday, January 02, 2017 08:27 - CONCLUSION: Increased renal cortical echogenicity and mild cortical atrophy suggesting medical renal disease. Dennys Lugo MD PE at Discharge GENERAL: NAD SKIN: Warm and dry. HEAD: Normocephalic. EYES: No scleral icterus. No injection or drainage. NECK: Supple, trachea midline. No JVD or lymphadenopathy. Vas-Cath in place CARDIOVASCULAR: Regular rate and rhythm without murmurs, gallops, or rubs. RESPIRATORY: Breath sounds equal bilaterally. No accessory muscle use. GASTROINTESTINAL: Abdomen soft, non-tender, nondistended. MUSCULOSKELETAL: No cyanosis, or edema. BACK: Nontender without obvious deformity. No CVA tenderness. Hospital Course Patient admitted secondary to acute on chronic kidney disease for which nephrology was consulted and Vas-Cath was placed. Patient received hemodialysis during hospitalization. Vascular surgery was consulted and a left AVF was placed. He was continued on his treatment for HIV. Physical therapy was consulted. DVT and GI prophylaxis were provided. Prior to discharge, Vas- cath was removed and a Permcath was placed for HD. Vitals were monitored and patient remained stable. Pt Condition on Discharge: Stable Discharge Disposition: Discharge to SNF Discharge Time: > 30 minutes Discharge Instructions DIET: Follow Instructions for: Renal Failure Diet Activities you can perform: Regular-No Restrictions Follow up Referrals: Nephrology PCP Follow-up - 2-3 Days Vascular Surgery @ Vascular Surgery with Richard Hodges MD New Medications: Carvedilol (Coreg) 12.5 Mg Tab 25 MG PO BID for Blood Pressure Management, #60 TAB 11 Refills Continued Medications: Aspirin DR (Aspirin EC) 81 Mg Tabdr 81 MG PO DAILY for Old [place], #30 TAB 0 Refills Dolutegravir (Tivicay) 50 Mg Tab 50 MG PO DAILY for Mgmt Viral Infection, #30 TAB 0 Refills Dronabinol (Marinol) 5 Mg Cap 5 MG PO BID, CAP 0 Refills Iron Dextran Inj (Infed Inj) 100 Mg/2 Ml Inj 100 MG IM WEEKLY Lamivudine (Epivir) 300 Mg Tab 300 MG PO DAILY for Mgmt Viral Infection, #30 TAB 0 Refills Megestrol Liq (Megace Liq) 40 Mg/Ml Susp 400 MG PO DAILY for Improve Appetite, ML 0 Refills Mirtazapine (Remeron) 15 Mg Tab 15 MG PO HS for Depression Control, #30 TAB 0 Refills Nifedipine ER 24 HR (Nifedipine ER 24 HR) 30 Mg Tab 60 MG PO BID, #30 TAB 0 Refills Rilpivirine (Edurant) 25 Mg Tab 25 MG PO DAILY for Mgmt Viral Infection, #30 TAB 0 Refills Sodium Bicarbonate (Sodium Bicarbonate) 325 Mg Tab 10 GM PO TIDPC, #90 TAB 0 Refills Sodium Chloride (Sodium Chloride) 250 Ml Pggybk.prt 500 ML IV DAILY Valacyclovir (Valtrex) 1,000 Mg Tab 1000 MG PO DAILY for Mgmt Viral Infection, #30 TAB 0 Refills Discontinued Medications: Carvedilol (Coreg) 12.5 Mg Tab 50 MG PO BID for Old [place], #60 TAB Oscar Rod MD Jan 07, 2017 14:17
[2017-01-07] MEDS ORDERED: CARV12.5 PO (14:20)
--- NOTE | 2017-01-07 14:32 | EKG ---
Date Performed: 01/07/2017 Time Performed: 11:24:04 PTAGE: 56 years EKG: Sinus rhythm NORMAL ECG PREVIOUS TRACING : 02/14/2015 04.08 Compared to prior tracing no significant change DOCTOR: Ruiz Clark Interpretating Date/Time 01/07/2017 14:30:59
[2017-01-07] MEDS ORDERED: ACETAMINOPHEN 1000 MG/100 ML 100 ML IV ONE (14:47)
[2017-01-07] MEDS ORDERED: HYDROmorphone HCL PF 2 MG/ML VIAL ONE (14:47)
[2017-01-07] MEDS ORDERED: SODIUM CHLOR 0.9% 250 ML INJ 250 ML ONE (15:00)
[2017-01-07] MEDS ORDERED: VANCOMYCIN HCL 1000 MG VIAL ONE (15:00)
--- NOTE | 2017-01-07 16:03 | HHI.PR ---
Immediate Post Op Note Procedure Date: Jan 07, 2017 Pre Op Diagnosis: ESRD, need for HD access Post Op Diagnosis: ESRD, need for HD access Surgeon: Richard Hodges Pricing/Signage Team Member(s): Dennys Pollard Procedure: L brachiobasilic AVF (1st stage) Findings: decent vein and artery Additional Information: + thrill at AC and strong Doppler signals at wrist after AVF Complications: none Specimen(s) removed: none Estimated blood loss: 10mL Anesthesia: LMA Drains: None Fluids: 100mL IVF Urinary Output (mLs): 0 Patient to: PACU Patient Condition: Good Date/Time of Procedure: SEE SURGICAL CARE RECORD Richard Hodges MD Jan 07, 2017 16:03
[2017-01-07] MEDS ORDERED: DO NOT ADM ANY ANTICOAGULANT DRUGS PRN ×2 (16:14)
[2017-01-07] MEDS ORDERED: HYDROmorphone HCL 2 MG TAB PO PRN (16:15)
[2017-01-07 21:14] VITALS: BP 109/63; PULSE 67; RESP 18; TEMP 98.2; O2SAT 96
[2017-01-07] MEDS: MIRTAZAPINE 15 MG TAB PO SCH (21:59)
[2017-01-08] VITALS (7 sets, daily range): BP systolic 106–136; BP diastolic 63–78; PULSE 61–75; RESP 18; TEMP 97.9–99.3; O2SAT 97–99
--- NOTE | 2017-01-08 07:37 | MP ---
cc: GARY HODGES MD DATE OF SURGERY 01/07/2017 PREOPERATIVE DIAGNOSES End-stage renal disease. Need for dialysis access. POSTOPERATIVE DIAGNOSIS End-stage renal disease. Need for dialysis access. PROCEDURE Left brachiobasilic arteriovenous fistula (first stage). ATTENDING SURGEON Gary Hodges MD NET FRONT END DEVELOPER SURGEON Dennys Barnes MD ANESTHESIA General. INDICATIONS Mr. Matthews is a 56-year-old gentleman who has new onset hemodialysis dependence. He is right-handed and he has adequate left basilic vein according to preoperative angiogram and he is taken to the operating room for the first of a planned two-stage dialysis catheter placement. DESCRIPTION OF PROCEDURE Informed consent was obtained from the patient. He was taken to the operating room and placed supine on the operating room table. An appropriate time-out was taken to identify the patient, the operative site and planned procedure. The administration of 1 gram of vancomycin was initiated prior to the skin incision, will be discontinued after a single preoperative dose. Vancomycin was chosen because of the patient's end-stage renal disease. Everyone in the room agreed with the time-out and we proceeded. The left arm was prepped and draped and the incision made in the medial aspect of the upper arm, carried down through the subcutaneous tissue with electrocautery. The basilic vein was identified and dissected free; the side branches were ligated with 3-0 silk. The vein was marked for orientation and clamped distally, transected and the distal limb was oversewn with 3-0 silk. The brachial artery identified at the medial aspect of the incision. It was dissected free for several cm. 3000 units of intravenous heparin was administered. Proximal and distal control of the brachial artery was obtained with the profunda clamps and the and a longitudinal arteriotomy was made with an 11 blade, continued with Buchtel scissors. The vein graft was cut to appropriate length, spatulated and sewn end-to-side with running 6-0 Prolene sutures. At the completion, the wound was noted to be hemostatic. The clamps were released. There was a nice thrill in the vein and a Doppler signal in the wrist. The wound was made hemostatic. The heparin was reversed with protamine. The wound was infiltrated with Marcaine and closed with 2-0 Polysorb and 4-0 Monocryl. The sponge and needle counts were correct at the end of the case. I was present and scrubbed for the entire procedure. MD ANN MARIE Nolan/CAMI /10:42 PM /7:01 AM ALEXANDRA
[2017-01-08] MEDS: RILPIVIRINE 25 MG TAB PO SCH (08:52)
[2017-01-08] MEDS: MEGESTROL ACETATE SUSP 400 MG/10 ML CUP PO SCH (08:52)
[2017-01-08] MEDS: CALCIUM ACETATE 667 MG CAP PO SCH ×3 (08:52→18:52)
[2017-01-08] MEDS: NIFEdipine 60 MG SUSTAINED RELEASE TAB PO SCH ×2 (08:52→21:02)
[2017-01-08] MEDS: CARVEDILOL 12.5 MG TAB PO SCH ×2 (08:52→21:02)
[2017-01-08] MEDS: VITAMIN B CMPLX/VITC/FOLIC AC CAP PO SCH (08:53)
[2017-01-08] MEDS: SODIUM CHLORIDE 0.9% FLUSH 10 ML FLUSH IV FLUSH SCH ×2 (08:53→21:00)
[2017-01-08] MEDS: DOLUTEGRAVIR SODIUM 50 MG TAB PO SCH (08:53)
[2017-01-08] MEDS: ASPIRIN EC 81 MG TABEC PO SCH (08:53)
[2017-01-08] MEDS: valACYclovir HCL 500 MG TAB PO SCH (08:53)
--- NOTE | 2017-01-08 10:10 | PD.VS.PN ---
Subjective POD #: 1 Procedure(s): L brachiobasilic AVF (1st stage) Subjective/Hospital Course Afebrile 56/M in NAD, A&OX3 s/p L brachiobasilic AVF (1st stage) Pt c/o left thumb numbness Pt denies hand pain B UE warm w/o motor deficits Objective Vitals/I&O Date Time Temp Pulse Resp B/P (MAP) Pulse Ox O2 Delivery O2 Flow Rate FiO2 01/08/17 09:35 97 21 01/08/17 08:00 98.8 63 18 123/68 (86) 98 01/08/17 04:00 98.4 63 18 115/68 (84) 97 01/08/17 00:04 98.5 63 18 107/68 (81) 98 01/07/17 21:14 98.2 67 18 109/63 (78) 96 01/07/17 17:00 97.8 63 20 133/77 (95) 100 Nasal Cannula 2 01/07/17 16:45 62 20 140/81 (100) 100 Nasal Cannula 2 01/07/17 16:30 63 20 145/77 (99) 100 Nasal Cannula 2 01/07/17 16:10 97.8 60 20 139/79 (99) 100 Nasal Cannula 2 01/08/17 01/08/17 01/08/17 06:59 14:59 22:59 Intake Total 718 ml 250 ml Balance 718 ml 250 ml Exam: GENERAL: Afebrile 56/M A&OX3 NAD GCS15 SKIN: Warm and dry Incision to L UE intact with surgical glue w/o R/D/S Palpable R/L radial pulse B UE warm w/o motor deficits Pt Denies HAND pain Equal cage supervisor strength Laboratory Date/Time Source Procedure Growth Status 01/06/17 14:45 Blood Peripheral Aerobic Blood Culture - Preliminary NO GROWTH IN 1 DAY Resulted 01/06/17 14:45 Blood Peripheral Anaerobic Blood Culture - Preliminary NO GROWTH IN 1 DAY Resulted Assessment and Plan Assessment: (1) HIV (human immunodeficiency virus infection) Status: Chronic (2) Hepatitis C Status: Chronic (3) Renal failure Status: Acute Plan POD 1 s/p L brachiobasilic AVF (1st stage) Pt doing well w/o complications Pt w/o motor deficits and denies hand pain Plan Pt clear for d/c from a vascular standpoint Discussed and reviewed post operative care (AVF creation) Questions answered Arranged post op f/u in 2W Ese HAGEN [facility] [phone] Discharge Planning Clear for d/c from a vascular standpoint Arrange post op f/u Ese Ellison Jan 08, 2017 10:10
--- NOTE | 2017-01-08 12:10 | HHI.PR ---
Subjective Remarks Follow-up acute on chronic kidney disease/HIV 01/02/17-patient seen and examined, slight improvement of renal indices as creatinine decreasing. Denies any shortness of breath or chest pain. Currently afebrile. 01/03/17-patient seen and examined, plan for Vas-Cath placement today. Patient denies any chest pain or shortness of breath. Renal indices slightly improving however still elevated. 01/04/17-patient seen and examined, he had hemodialysis done yesterday and reports feeling better today. Denies any shortness of breath 01/05/17-patient seen and examined, and for hemodialysis today. Upper extremity Doppler negative for DVT. Seen by vascular surgery and plan for AV fistula graft placement 01/07/17 01/06/17-patient seen and examined, states he is tired but denies any shortness of breath or chest pain. He had hemodialysis yesterday. Spiking fevers today 01/07/17-patient seen and examined, currently nothing by mouth pending upper extremity AVF placement. Plan for hemodialysis today. Also afebrile. Patient is not agreeable to go to a SNF 01/08/17-patient seen and examined, status post aVF placement left upper extremity. Mild tenderness to decide otherwise currently afebrile and case discussed this shelter case manager regarding discharge disposition to rehabilitation facility however unable to get patient accepted to any facility in [facility]. Objective Vitals Vital Signs Date Time Temp Pulse Resp B/P (MAP) Pulse Ox O2 Delivery O2 Flow Rate FiO2 01/08/17 09:35 97 21 01/08/17 08:00 98.8 63 18 123/68 (86) 98 01/08/17 04:00 98.4 63 18 115/68 (84) 97 01/08/17 00:04 98.5 63 18 107/68 (81) 98 01/07/17 21:14 98.2 67 18 109/63 (78) 96 01/07/17 17:00 97.8 63 20 133/77 (95) 100 Nasal Cannula 2 01/07/17 16:45 62 20 140/81 (100) 100 Nasal Cannula 2 01/07/17 16:30 63 20 145/77 (99) 100 Nasal Cannula 2 01/07/17 16:10 97.8 60 20 139/79 (99) 100 Nasal Cannula 2 I/O 01/07/17 01/07/17 01/07/17 01/08/17 01/08/17 01/08/17 06:59 14:59 22:59 06:59 14:59 22:59 Intake Total 100 ml 718 ml 250 ml Output Total 300 ml 10 ml Balance -300 ml 90 ml 718 ml 250 ml Intake Oral 718 ml IV Total 250 ml Other 100 ml Output Urine Total 300 ml Estimated Blood Loss 10 ml Result Diagram: 01/06/17 0850 01/06/17 0850 Imaging Last Impressions Chest X-Ray 01/06/17 0000 Signed Impressions: Service Date/Time: Friday, January 06, 2017 13:22 - CONCLUSION: 1. Right IJ catheter in place. 2. No acute cardiopulmonary disease. Sawyer Ritter MD Upper Extremity Ultrasound 01/04/17 0000 Signed Impressions: Service Date/Time: Wednesday, January 04, 2017 13:02 - CONCLUSION: 1. The deep venous system of the left upper extremity is patent without evidence of DVT. The jugular and subclavian veins are patent. Nathan Delong MD Catheter Placement X-Ray 01/03/17 1219 Signed Impressions: Service Date/Time: Tuesday, January 03, 2017 13:41 - CONCLUSION: Uncomplicated line placement as above. Dennys Lugo MD Renal Ultrasound 01/02/17 0000 Signed Impressions: Service Date/Time: Monday, January 02, 2017 08:27 - CONCLUSION: Increased renal cortical echogenicity and mild cortical atrophy suggesting medical renal disease. Dennys Lugo MD Objective Remarks GENERAL: NAD SKIN: Warm and dry. HEAD: Normocephalic. EYES: No scleral icterus. No injection or drainage. NECK: Supple, trachea midline. No JVD or lymphadenopathy. Vas-Cath in place CARDIOVASCULAR: Regular rate and rhythm without murmurs, gallops, or rubs. RESPIRATORY: Breath sounds equal bilaterally. No accessory muscle use. GASTROINTESTINAL: Abdomen soft, non-tender, nondistended. MUSCULOSKELETAL: No cyanosis, or edema. BACK: Nontender without obvious deformity. No CVA tenderness. Procedures none A/P Problem List: (1) Acute on chronic renal failure ICD Code: N17.9 - Acute kidney failure, unspecified; N18.9 - Chronic kidney disease, unspecified Status: Acute (2) Hypertensive urgency ICD Code: I16.0 - Hypertensive urgency (3) HIV (human immunodeficiency virus infection) ICD Code: Z21 - Asymptomatic human immunodeficiency virus [HIV] infection status Status: Chronic (4) Stage 5 chronic kidney disease ICD Code: N18.5 - Chronic kidney disease, stage 5 Assessment and Plan 56 y/o with chronic renal failure sent by ID/primary doctor for evaluation of worsening kidney functions: Acute on chronic renal failure - Appreciate input from nephrology - Renal ultrasound noted - Patient was started on hemodialysis 01/03/17, and HD per nephrology. Will need outpatient dialysis set up prior to discharge - s/p AV fistula placement 01/07/17. Appreciate input from vascular surgery - Per nephrology, patient is not a candidate for peritoneal dialysis due to noncompliance - avoid nephrotoxins - On Pholso for high Po4. Hypertensive urgency-resolved Benign hypertension - Continue outpatient medications including Coreg 25 mg twice a day and hydralazine -Continue when necessary HIV -Continue antiretrovirals medications -Counseled on medication compliance Febrile episodes-resolved UA negative, blood culture unremarkable Chest x-ray without any pulmonary infiltrates DVT prophylaxis Hold Heparin 5000 units subq q8h PT consult to treat and eval Problem Qualifiers (1) Acute on chronic renal failure: Qualified Codes: N17.9 - Acute kidney failure, unspecified; N18.5 - Chronic kidney disease, stage 5 Oscar Rod MD Jan 08, 2017 12:10
--- NOTE | 2017-01-08 15:33 | HHI.NPPN ---
Subjective History of Present Illness 56-year-old male with past medical history of hypertension, HIV, gastric cancer, chronic kidney disease, history of chronic anemia who was admitted because he was sent to the hospital by his primary infectious disease doctor because of worsening renal function. I was called to see the patient because of elevated BUN and creatinine. The patient is known to me from his last admission when I saw him in July and, at that time, his creatinine was as high as a 8.1 on admission and gradually improved. When he was discharged on September 14, it was 4.24. Additional Remarks Patient is alert, no SOB, doing better after the surgery, no SOB. Review of Systems General Constitutional: Fatigue Cardiovascular Cardiac: Edema, HUGGINS Objective Data Data 01/08/17 01/09/17 18:59 06:59 Intake Total 250 ml Balance 250 ml IV Total 250 ml Vital Signs Date Time Temp Pulse Resp B/P (MAP) Pulse Ox O2 Delivery O2 Flow Rate FiO2 01/08/17 12:33 99.3 61 18 106/63 (77) 98 01/08/17 09:35 97 21 01/08/17 08:00 98.8 63 18 123/68 (86) 98 01/08/17 04:00 98.4 63 18 115/68 (84) 97 01/08/17 00:04 98.5 63 18 107/68 (81) 98 01/07/17 21:14 98.2 67 18 109/63 (78) 96 01/07/17 17:00 97.8 63 20 133/77 (95) 100 Nasal Cannula 2 01/07/17 16:45 62 20 140/81 (100) 100 Nasal Cannula 2 01/07/17 16:30 63 20 145/77 (99) 100 Nasal Cannula 2 01/07/17 16:10 97.8 60 20 139/79 (99) 100 Nasal Cannula 2 -: 01/06/17 0850 01/06/17 0850 Physical Exam General Appearance: No Acute Distress, Comfortable Eyes Eye Exam: Pupils Equal Throat Throat Exam: Oral Mucosa [place] & Moist Neck Neck Exam: Trachea Midline Pulmonary Resp Exam: Breath Sounds Equal, No Distress, Rhonchi, Decreased Bases Cardiology CV Exam: Regular, Normal Sinus Rhythm Gastrointestinal/Abdomen GI Exam: Soft, Non-Tender, Bowel Sounds Present Extremeties Extremities Exam: Trace Edema Neurologic Neuro Exam: Alert, Awake, Oriented Assessment/Plan Assessment Summary: Anemia of CKD, Hypertension, CKD Stage V Problem List: (1) Stage 5 chronic kidney disease ICD Codes: N18.5 - Chronic kidney disease, stage 5 (2) HIV disease ICD Codes: B20 - Human immunodeficiency virus [HIV] disease Status: Chronic (3) Anemia of chronic disease ICD Codes: D63.8 - Anemia in other chronic diseases classified elsewhere Status: Acute (4) Essential hypertension ICD Codes: I10 - Essential hypertension Status: Acute (5) Severe protein-calorie malnutrition ICD Codes: E43 - Unspecified severe protein-calorie malnutrition Status: Acute (6) Weakness ICD Codes: R53.1 - Weakness Status: Acute (7) History of partial gastrectomy ICD Codes: Z90.3 - Acquired absence of stomach [part of] Status: Acute Plan Patient has Renal U/S done and noted. Has atrophic kidneys. Most likely has advance renal disease due to Hypertensive , renovascular or HIV renal disease. Started on HD yesterday, tolerated well. I discuss with him about intermediate project manager Dialysis, including PD and HD. He want to go for HD. Need AVF and PermCath. To arrange for out patient HD. On Pholso for high Po4. HD done yesterday, and AVF done. Has good Bruit, now afebrile, need PermCath. for HD. George Davis MD Jan 08, 2017 15:33
[2017-01-08] MEDS ORDERED: LORazepam 2 MG/ML VIAL ONE (16:14)
[2017-01-08] MEDS ORDERED: VANCOMYCIN HCL 1000 MG VIAL ONE (16:58)
[2017-01-08] MEDS ORDERED: ceFAZolin 2 GM PREMIX 50 ML ONE (16:59)
[2017-01-08] MEDS ORDERED: VANCOMYCIN 1,000 MG/NS 250 ML IV ONE ×2 (17:00)
[2017-01-08] MEDS ORDERED: LORazepam 2 MG/ML VIAL IV ONE (17:00)
[2017-01-08] MEDS ORDERED: ceFAZolin 2 GM PREMIX 50 ML IV ONE (17:00)
[2017-01-08] MEDS ORDERED: HEPARIN SODIUM - IV 10,000 UNITS/10 ML VIAL OTHER ONE (17:16)
--- NOTE | 2017-01-08 17:27 | PD.RAD ---
Post Procedure Progress Note Pre Procedure Diagnosis: (1) CHF (congestive heart failure) Post Procedure Diagnosis: (1) CHF (congestive heart failure) Procedure Date: Jan 08, 2017 Supervising Radiologist: Weston King Proceduralist/Assist: RT Adilene(R), RT Elodia(R) Anesthesia: Local Plan of Activity Patient to Unit: Nursing Unit Patient Condition: Good See PACS Report for procedural detail/treatment Central Venous Access Device Procedure 1 Right Internal Jugular Hemodialysis Catheter Tunneled Placement dual lumen Weston King MD Jan 08, 2017 17:27
[2017-01-08] MEDS ORDERED: SODIUM CHLORIDE 0.9% FLUSH 10 ML FLUSH IV FLUSH PRN (17:30)
[2017-01-08] MEDS ORDERED: HEPARIN SODIUM - IV 2,000 UNITS/2 ML VIAL IV FLUSH PRN (17:30)
--- NOTE | 2017-01-08 17:39 | RADRPT ---
EXAM DATE/TIME: 01/08/2017 16:33 [facility] COMPARISON: No previous studies available for comparison. INDICATIONS : Patient with chronic renal failure in need of tunnelled dialysis catheter placement. MEDICAL HISTORY : HIV, HTN, Hepatitis C, Gastric cancer SURGICAL HISTORY : Dialysis catheter placement, Left arm AV fistula, Gastric cancer resection ENCOUNTER: Subsequent ACUITY: 1 week PAIN SCORE: 0/10 FLUORO TIME: 0.4 minutes IMAGE SERIES: 1 SEDATION TIME: 10 minutes SEDATION: 1.) 1 mg lorazepam (Ativan) IV 2.) 50 mcg fentanyl (Sublimaze) IV Prophylactic antibiotics were administered with appropriate pre-procedure timing. Vancomycin within 2 hours of procedure, Ancef (or alternative) within 1 hour of procedure. DEVICE: 1. 15 Danish dual lumen 23 cm Toscano II Plus catheter PROCEDURE : 1. Fluoroscopically-guided venipuncture. 2. PermaCath placement. 3. Conscious sedation with continuous EKG and oximetry monitoring. The risks, benefits and alternatives to the procedure were explained and verbal and written consent w as obtained. The site was prepped in sterile fashion. Full sterile technique was used, including ca p, mask, sterile gloves and gown and a large sterile sheet. Hand hygiene and 2% chlorhexidine Betadi ne was utilized per protocol for cutaneous antisepsis with appropriate dry time for site. The skin a nd subcutaneous tissues were infiltrated with local anesthetic solution. Utilizing fluoroscopic guidance a dermatotomy was created over the prescribed vein. A micropuncture set was used to access the targeted vein and serial dilatation was performed to accept the prescribed length Toscano catheter. A subcutaneous tunnel was created in a retrograde fashion the Toscano cathet er was pulled through the tunnel. The catheter was flushed and assembled and locked with heparin. T he catheter was sutured in place. Conscious sedation was performed with the prescribed dosages and duration as above in the presence of an independent trained radiology nurse to assist in the monitoring of the patient. EKG and oximetry remained stable throughout the procedure. The patient tolerated the procedure well and there were n o complications. The patient was sent to post anesthesia recovery in stable condition. CONCLUSION: Uncomplicated PermaCath placement as above. Weston King MD on January 08, 2017 at 17:38 Board Certified Radiologist. This report was verified electronically.
[2017-01-08] MEDS: MIRTAZAPINE 15 MG TAB PO SCH (21:02)
[2017-01-09 01:10] VITALS: BP 123/72; PULSE 61; RESP 16; TEMP 98.6; O2SAT 98
[2017-01-09 04:59] VITALS: BP 125/76; PULSE 61; RESP 16; TEMP 98.5; O2SAT 99
[2017-01-09 08:00] VITALS: BP 131/80; PULSE 62; RESP 18; TEMP 98.8; O2SAT 99
--- NOTE | 2017-01-09 10:26 | HHI.NPPN ---
Subjective History of Present Illness 56-year-old male with past medical history of hypertension, HIV, gastric cancer, chronic kidney disease, history of chronic anemia who was admitted because he was sent to the hospital by his primary infectious disease doctor because of worsening renal function. I was called to see the patient because of elevated BUN and creatinine. The patient is known to me from his last admission when I saw him in July and, at that time, his creatinine was as high as a 8.1 on admission and gradually improved. When he was discharged on September 14, it was 4.24. Additional Remarks Patient is alert, now on HD, alert, no SOB. Review of Systems General Constitutional: Fatigue Cardiovascular Cardiac: Edema, HUGGINS Objective Data Data Vital Signs Date Time Temp Pulse Resp B/P (MAP) Pulse Ox O2 Delivery O2 Flow Rate FiO2 01/09/17 08:00 98.8 62 18 131/80 (97) 99 01/09/17 04:59 98.5 61 16 125/76 (92) 99 01/09/17 01:10 98.6 61 16 123/72 (89) 98 01/08/17 22:00 70 01/08/17 20:44 97.9 75 18 136/78 (97) 99 01/08/17 12:33 99.3 61 18 106/63 (77) 98 -: 01/06/17 0850 01/06/17 0850 Physical Exam General Appearance: No Acute Distress, Comfortable Eyes Eye Exam: Pupils Equal Throat Throat Exam: Oral Mucosa [place] & Moist Neck Neck Exam: Trachea Midline Pulmonary Resp Exam: Breath Sounds Equal, No Distress, Rhonchi, Decreased Bases Cardiology CV Exam: Regular, Normal Sinus Rhythm Gastrointestinal/Abdomen GI Exam: Soft, Non-Tender, Bowel Sounds Present Extremeties Extremities Exam: Trace Edema Neurologic Neuro Exam: Alert, Awake, Oriented Assessment/Plan Assessment Summary: Anemia of CKD, Hypertension, CKD Stage V Problem List: (1) Stage 5 chronic kidney disease ICD Codes: N18.5 - Chronic kidney disease, stage 5 (2) HIV disease ICD Codes: B20 - Human immunodeficiency virus [HIV] disease Status: Chronic (3) Anemia of chronic disease ICD Codes: D63.8 - Anemia in other chronic diseases classified elsewhere Status: Acute (4) Essential hypertension ICD Codes: I10 - Essential hypertension Status: Acute (5) Severe protein-calorie malnutrition ICD Codes: E43 - Unspecified severe protein-calorie malnutrition Status: Acute (6) Weakness ICD Codes: R53.1 - Weakness Status: Acute (7) History of partial gastrectomy ICD Codes: Z90.3 - Acquired absence of stomach [part of] Status: Acute Plan Patient has Renal U/S done and noted. Has atrophic kidneys. Most likely has advance renal disease due to Hypertensive , renovascular or HIV renal disease. Started on HD yesterday, tolerated well. I discuss with him about long goods drier Dialysis, including PD and HD. He want to go for HD. Need AVF and PermCath. To arrange for out patient HD. On Pholso for high Po4. HD now, has PermCath done. For D/C after HD. To continue HD, MWF. George Davis MD Jan 09, 2017 10:26
[2017-01-09] MEDS: GENTAMICIN SULFATE (DIALYSIS USE ONLY) 20 MG/2 ML VIAL OTHER PRN (11:25)
[2017-01-09] MEDS: EPOETIN ALFA 10,000 UNITS/ML VIAL IV PUSH PRN (11:25)
[2017-01-09] MEDS: HEPARIN SODIUM - IV 10,000 UNITS/10 ML VIAL PRN (11:25)
--- NOTE | 2017-01-09 11:57 | HHI.PR ---
Subjective Remarks Follow-up acute on chronic kidney disease/HIV 01/02/17-patient seen and examined, slight improvement of renal indices as creatinine decreasing. Denies any shortness of breath or chest pain. Currently afebrile. 01/03/17-patient seen and examined, plan for Vas-Cath placement today. Patient denies any chest pain or shortness of breath. Renal indices slightly improving however still elevated. 01/04/17-patient seen and examined, he had hemodialysis done yesterday and reports feeling better today. Denies any shortness of breath 01/05/17-patient seen and examined, and for hemodialysis today. Upper extremity Doppler negative for DVT. Seen by vascular surgery and plan for AV fistula graft placement 01/07/17 01/06/17-patient seen and examined, states he is tired but denies any shortness of breath or chest pain. He had hemodialysis yesterday. Spiking fevers today 01/07/17-patient seen and examined, currently nothing by mouth pending upper extremity AVF placement. Plan for hemodialysis today. Also afebrile. Patient is not agreeable to go to a SNF 01/08/17-patient seen and examined, status post aVF placement left upper extremity. Mild tenderness to decide otherwise currently afebrile and case discussed this caseworker protective services regarding discharge disposition to rehabilitation facility however unable to get patient accepted to any facility [facility]. 01/09/17-patient seen and examined in dialysis center, permacath was placed yesterday. No acute event. Patient denies any chest pain or shortness of breath. Objective Vitals Vital Signs Date Time Temp Pulse Resp B/P (MAP) Pulse Ox O2 Delivery O2 Flow Rate FiO2 01/09/17 08:00 98.8 62 18 131/80 (97) 99 01/09/17 04:59 98.5 61 16 125/76 (92) 99 01/09/17 01:10 98.6 61 16 123/72 (89) 98 01/08/17 22:00 70 01/08/17 20:44 97.9 75 18 136/78 (97) 99 01/08/17 12:33 99.3 61 18 106/63 (77) 98 I/O 01/08/17 01/08/17 01/08/17 01/09/17 01/09/17 01/09/17 07:00 15:00 23:00 07:00 15:00 23:00 Intake Total 718 ml 250 ml Output Total 500 ml 2000 ml Balance 718 ml 250 ml -500 ml -2000 ml Intake Oral 718 ml IV Total 250 ml Output Urine Total 500 ml Hemodialysis 2000 ml # Bowel Movements 0 Result Diagram: 01/06/17 0850 01/06/17 0850 Objective Remarks GENERAL: NAD SKIN: Warm and dry. HEAD: Normocephalic. EYES: No scleral icterus. No injection or drainage. NECK: Supple, trachea midline. No JVD or lymphadenopathy. Permacath in place CARDIOVASCULAR: Regular rate and rhythm without murmurs, gallops, or rubs. RESPIRATORY: Breath sounds equal bilaterally. No accessory muscle use. GASTROINTESTINAL: Abdomen soft, non-tender, nondistended. MUSCULOSKELETAL: No cyanosis, or edema. BACK: Nontender without obvious deformity. No CVA tenderness. Procedures L brachiobasilic AVF 01/07/17 A/P Problem List: (1) Acute on chronic renal failure ICD Code: N17.9 - Acute kidney failure, unspecified; N18.9 - Chronic kidney disease, unspecified Status: Acute (2) Hypertensive urgency ICD Code: I16.0 - Hypertensive urgency (3) HIV (human immunodeficiency virus infection) ICD Code: Z21 - Asymptomatic human immunodeficiency virus [HIV] infection status Status: Chronic (4) Stage 5 chronic kidney disease ICD Code: N18.5 - Chronic kidney disease, stage 5 Assessment and Plan 56 y/o with chronic renal failure sent by ID/primary doctor for evaluation of worsening kidney functions: Acute on chronic renal failure - Appreciate input from nephrology - Renal ultrasound noted - Patient was started on hemodialysis 01/03/17, and HD per nephrology. Will need outpatient dialysis set up prior to discharge - s/p AV fistula placement 01/07/17. Appreciate input from vascular surgery -Permacath placed yesterday - Per nephrology, patient is not a candidate for peritoneal dialysis due to noncompliance - avoid nephrotoxins - On Pholso for high Po4. Hypertensive urgency-resolved Benign hypertension - Continue outpatient medications including Coreg 25 mg twice a day and hydralazine -Continue when necessary HIV -Continue antiretrovirals medications -Counseled on medication compliance Febrile episodes-resolved UA negative, blood culture unremarkable Chest x-ray without any pulmonary infiltrates DVT prophylaxis Hold Heparin 5000 units subq q8h PT to treat and eval Discharge Planning Discharge home today 01/09/17 Problem Qualifiers (1) Acute on chronic renal failure: Qualified Codes: N17.9 - Acute kidney failure, unspecified; N18.5 - Chronic kidney disease, stage 5 Oscar Rod MD Jan 09, 2017 11:57
[2017-01-09 12:42] VITALS: BP 184/99; PULSE 80; RESP 18; TEMP 98.4; O2SAT 98
[2017-01-09] MEDS: CALCIUM ACETATE 667 MG CAP PO SCH (13:02)
[2017-01-09] MEDS: valACYclovir HCL 500 MG TAB PO SCH (13:03)
[2017-01-09] MEDS: VITAMIN B CMPLX/VITC/FOLIC AC CAP PO SCH (13:03)
[2017-01-09] MEDS: NIFEdipine 60 MG SUSTAINED RELEASE TAB PO SCH (13:03)
[2017-01-09] MEDS: CARVEDILOL 12.5 MG TAB PO SCH (13:03)
[2017-01-09] MEDS: ASPIRIN EC 81 MG TABEC PO SCH (13:03)
[2017-01-09] MEDS: RILPIVIRINE 25 MG TAB PO SCH (13:04)
[2017-01-09] MEDS: DOLUTEGRAVIR SODIUM 50 MG TAB PO SCH (13:04)
[2017-01-09] MEDS: MEGESTROL ACETATE SUSP 400 MG/10 ML CUP PO SCH (13:05)
[2017-01-09 13:23] VITALS: O2SAT 100
== END 2017-01-09 16:35 | disposition home or self-care (01) | DRG 673 ==
LOC: NEPE 19:58 → NEDA 22:48 → OBSVTOIN 22:49 → HIMN 01-02 03:10 → N05A 01-02 16:33
PROVIDERS: ADMIT Hospitalist; ATTEND Hospitalist
PROC: 05HM33Z Insertion of Infusion Device into Right Internal Jugular Vein, Percutaneous Approach (ICD-10-PCS; 2017-01-03)
PROC: B543ZZA Ultrasonography of Right Jugular Veins, Guidance (ICD-10-PCS; 2017-01-03)
PROC: 5A1D70Z Performance of Urinary Filtration, Intermittent, Less than 6 Hours Per Day (ICD-10-PCS; 2017-01-03)
PROC: 03180ZD Bypass Left Brachial Artery to Upper Arm Vein, Open Approach (ICD-10-PCS; principal; 2017-01-07 14:50)
PROC: 05HM33Z Insertion of Infusion Device into Right Internal Jugular Vein, Percutaneous Approach (ICD-10-PCS; 2017-01-08)
PROC: B513ZZA Fluoroscopy of Right Jugular Veins, Guidance (ICD-10-PCS; 2017-01-08)
DX: N17.9 Acute kidney failure, unspecified (principal); E43 Unspecified severe protein-calorie malnutrition; I12.0 Hypertensive chronic kidney disease with stage 5 chronic kidney disease or end stage renal disease; Z68.1 Body mass index [BMI] 19.9 or less, adult; I16.0 Hypertensive urgency; N18.6 End stage renal disease; D63.1 Anemia in chronic kidney disease; Z99.2 Dependence on renal dialysis; Z21 Asymptomatic human immunodeficiency virus [HIV] infection status; F17.210 Nicotine dependence, cigarettes, uncomplicated; F12.90 Cannabis use, unspecified, uncomplicated; B19.20 Unspecified viral hepatitis C without hepatic coma; Z85.028 Personal history of other malignant neoplasm of stomach; Z91.19 Patient's noncompliance with other medical treatment and regimen; Z90.3 Acquired absence of stomach [part of]
CPT/HCPCS: 36556; 36558; 71010; 76775; 76937; 77001; 80048; 80053; 80074; 81001; 84100; 84155; 85025; 87040; 87641; 90935; 93005; 93971; 96361; 96374; 96375; C1750; C1752; C1769; J0131; J0360; J0690; J1100; J1170; J1580; J1644; J2060; J2370; J2405; J2720; J3010; J3370; J7030; J7050; Q4081

== ENCOUNTER 2017-06-15 09:23 | Observation (INO) | payer MEDICAID ==
[2017-06-15] VITALS (8 sets, daily range): BP systolic 119–150; BP diastolic 74–87; PULSE 70–78; RESP 16; TEMP 98; O2SAT 97–100
[~2017-06-15] VITALS: Ht 182.9 cm; Wt 62.5 kg
[~2017-06-15 09:23] MED LIST changes: -ASPI81TA11 PO; +ASPI81TA23 PO; -ERGO1CAP30 PO
--- NOTE | 2017-06-15 10:22 | RADRPT ---
EXAM DATE/TIME: 06/15/2017 09:50 [facility] COMPARISON: CHEST SINGLE AP, January 06, 2017, 13:22. INDICATIONS : Pre op. Evaluate for pneumothorax, pneumonia, or communicable diseases. MEDICAL HISTORY : Carcinoma, gastric. HIV. Hepatitis C. HTN SURGICAL HISTORY : Gastric resection ENCOUNTER: Initial ACUITY: 1 day PAIN SCORE: 0/10 LOCATION: Bilateral chest FINDINGS: Dialysis permacath is present in good position. Lungs are symmetrically aerated and grossly clear. Ca rdiac contours are satisfactory. CONCLUSION: No acute disease Dennys Lugo MD on June 15, 2017 at 10:19 Board Certified Radiologist. This report was verified electronically.
[2017-06-15 10:53] LABS: AUTOMATED NEUTROPHIL # 4.6 TH/MM3 (1.8-7.7); BASOPHIL # 0.1 TH/MM3 (0-0.2); BASOPHIL % 0.8 % (0.0-2.0); EOSINOPHIL # 0.3 TH/MM3 (0-0.4); EOSINOPHIL % 3.3 % (0.0-4.0); HEMATOCRIT 25.1 % (39.0-51.0); HEMOGLOBIN 8.7 GM/DL (13.0-17.0); LYMPH % 26.7 % (9.0-44.0); MEAN CELL VOLUME 113.1 FL (80.0-100.0); MEAN CORPUSCULAR HEMOGLOBIN 38.9 PG (27.0-34.0); MEAN CORPUSCULAR HGB CONC 34.4 % (32.0-36.0); MONO % 9.1 % (0.0-8.0); MONOCYTE # 0.7 TH/MM3 (0-0.9); NEUT % 60.1 % (16.0-70.0); PLATELET COUNT 288 TH/MM3 (150-450); RED BLOOD COUNT 2.22 MIL/MM3 (4.50-5.90); RED CELL DISTRIBUTION WIDTH 14.6 % (11.6-17.2); WHITE BLOOD COUNT 7.6 TH/MM3 (4.0-11.0)
[2017-06-15] MEDS ORDERED: SODIUM CHLORID 0.9% 500 ML IV PRN (11:00)
[2017-06-15] MEDS ORDERED: INSULIN HUMAN REGULAR 1,000 UNITS/10 ML VIAL SQ PRN (11:00)
[2017-06-15] MEDS ORDERED: METOPROLOL TARTRATE 25 MG TAB PO PRN (11:00)
[2017-06-15] MEDS ORDERED: POVIDONE IODINE 5% (ANTISEPSIS KIT) 4 APPLICATIONS EACH NARE PRN (11:00)
[2017-06-15] MEDS ORDERED: CHLORHEXIDINE GLUCONATE 2 % 1 PACK (2 CLOTHS) TOPICAL PRN (11:00)
[2017-06-15] MEDS ORDERED: LACTATED RINGER'S 1000 ML IV PRN (11:00)
[2017-06-15 11:10] LABS: BICARBONATE 24.9 MEQ/L (21.0-32.0); CREATININE 7.56 MG/DL (0.60-1.30)
[2017-06-15 11:20] LABS: INTERNATIONAL NORMALIZED RATIO 1.1 RATIO; PROTHROMBIN TIME - PATIENT 10.7 SEC (9.8-11.6)
--- NOTE | 2017-06-15 11:52 | HHI.HP ---
History of Present Illness Chief Complaint: ESRD, need for HD access History of Present Illness 56 yo male with ESRD getting HD via R chest catheter - last HD Sat. Presents for 2nd stage of BB AVF. First stage was 01/07/17. No troubles over the past few days that would preclude OR Past/Family/Social History Past Medical History ESRD HTN gastric CA Past Surgical History L BB AVF Gastric resection Social History + tob Family History NC Home Medications Active Scripts Carvedilol (Coreg) 12.5 Mg Tab, 25 MG PO BID for Blood Pressure Management, #60 TAB 11 Refills Prov:Oscar Rod MD 01/07/17 Aspirin (Aspirin EC) 81 Mg Tabdr, 81 MG PO DAILY for Old VA, #30 TAB 0 Refills Prov:Nathan Plasencia MD 09/14/16 Reported Medications Sodium Bicarbonate (Sodium Bicarbonate) 325 Mg Tab, 10 GM PO TIDPC, #90 TAB 0 Refills 12/18/16 Valacyclovir (Valtrex) 1,000 Mg Tab, 1000 MG PO DAILY for Mgmt Viral Infection, #30 TAB 0 Refills 12/18/16 Dolutegravir (Tivicay) 50 Mg Tab, 50 MG PO DAILY for Mgmt Viral Infection, #30 TAB 0 Refills 12/18/16 Nifedipine ER 24 HR (Nifedipine ER 24 HR) 30 Mg Tab, 60 MG PO BID, #30 TAB 0 Refills 12/18/16 Dronabinol (Marinol) 5 Mg Cap, 5 MG PO BID, CAP 0 Refills 12/18/16 Lamivudine (Epivir) 300 Mg Tab, 300 MG PO DAILY for Mgmt Viral Infection, #30 TAB 0 Refills 12/18/16 Rilpivirine (Edurant) 25 Mg Tab, 25 MG PO DAILY for Mgmt Viral Infection, #30 TAB 0 Refills 12/18/16 Discontinued Reported Medications Iron Dextran Inj (Infed Inj) 100 Mg/2 Ml Inj, 100 MG IM WEEKLY 01/01/17 Sodium Chloride (Sodium Chloride) 250 Ml Pggybk.prt, 500 ML IV DAILY 12/23/16 Mirtazapine (Remeron) 15 Mg Tab, 15 MG PO HS for Depression Control, #30 TAB 0 Refills 12/18/16 Megestrol Liq (Megace Liq) 40 Mg/Ml Susp, 400 MG PO DAILY for Improve Appetite, ML 0 Refills 12/18/16 Coded Allergies: *MDRO Multi-Drug Resistant Organism (Verified Adverse Reaction, Unknown, Cleared 09/17/15, 01/01/17) 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 MRSA PCR Screens NEGATIVE - 09/12 & 09/17/2015 CLEARED BY INFECTION CONTROL Review of Systems Constitutional: DENIES: Diaphoretic episodes, Fatigue, Fever, Weight gain, Weight loss, Chills, Dizziness, Change in appetite, Night Sweats Physical Exam Vitals/I&O Date Time Temp Pulse Resp B/P (MAP) Pulse Ox O2 Delivery O2 Flow Rate FiO2 06/15/17 11:02 97.6 69 20 127/75 (92) 100 Neuro: alert, oriented, no distress HEENT: NC/AT Neck: trachea midline Heart: reg rate, no M Lungs: clear B Vascular: L UE with + thrill hand ok Extremities: no C/C/E Laboratory Tests Test 06/15/17 10:30 06/15/17 10:46 White Blood Count 7.6 Red Blood Count 2.22 Hemoglobin 8.7 Hematocrit 25.1 Mean Corpuscular Volume 113.1 Mean Corpuscular Hemoglobin 38.9 Mean Corpuscular Hemoglobin Concent 34.4 Red Cell Distribution Width 14.6 Platelet Count 288 Mean Platelet Volume 7.0 Neutrophils (%) (Auto) 60.1 Lymphocytes (%) (Auto) 26.7 Monocytes (%) (Auto) 9.1 Eosinophils (%) (Auto) 3.3 Basophils (%) (Auto) 0.8 Neutrophils # (Auto) 4.6 Lymphocytes # (Auto) 2.0 Monocytes # (Auto) 0.7 Eosinophils # (Auto) 0.3 Basophils # (Auto) 0.1 CBC Comment DIFF FINAL Differential Comment Prothrombin Time 10.7 Prothromb Time International Ratio 1.1 Blood Urea Nitrogen 24 Creatinine 7.56 Random Glucose 80 Calcium Level 8.0 Sodium Level 136 Potassium Level 4.8 Chloride Level 102 Carbon Dioxide Level 24.9 Anion Gap 9 Estimat Glomerular Filtration Rate 9 Activated Partial Thromboplast Time 25.9 Last 48 hours Impressions Chest X-Ray 06/15/17 0000 Signed Impressions: Service Date/Time: Thursday, June 15, 2017 09:50 - CONCLUSION: No acute disease MD Edward Whitney VTE Risk Assessment Caprini VTE Risk Assessment: No/Low Risk (score <= 1) Caprini Risk Assessment Model Point Value = 1 Point Value = 2 Point Value = 3 Point Value = 5 Age 41-60 Minor surgery BMI > 25 kg/m2 Swollen legs Varicose veins or History of unexplained or recurrent spontaneous Oral contraceptives or hormone replacement Sepsis (< 1 month) Serious lung disease, including pneumonia (< 1 month) Abnormal pulmonary function Acute myocardial infarction Congestive heart failure (< 1 month) History of inflammatory bowel disease Medical patient at bed rest Age 61-74 Arthroscopic surgery Major open surgery (> 45 min) Laparoscopic surgery (> 45 min) Malignancy Confined to bed (> 72 hours) Immobilizing plaster cast Central venous access Age >= 75 History of VTE Family history of VTE Factor V Leiden Prothrombin [id number] Lupus anticoagulant Anticardiolipin antibodies Elevated serum homocysteine Heparin-induced thrombocytopenia Other congenital or acquired thrombophilia Stroke (< 1 month) Elective arthroplasty Hip, pelvis, or leg fracture Acute spinal cord injury (< 1 month) Prophylaxis Regimen Total Risk Factor Score Risk Level Prophylaxis Regimen 0-1 Low Early ambulation 2 Moderate Order ONE of the following: *Sequential Compression Device (SCD) *Heparin 5000 units SQ BID 3-4 Higher Order ONE of the following medications: *Heparin 5000 units SQ TID *Enoxaparin/Lovenox 40 mg SQ daily (WT < 150 kg, CrCl > 30 mL/min) *Enoxaparin/Lovenox 30 mg SQ daily (WT < 150 kg, CrCl > 10-29 mL/min) *Enoxaparin/Lovenox 30 mg SQ BID (WT < 150 kg, CrCl > 30 mL/min) AND/OR *Sequential Compression Device (SCD) 5 or more Highest Order ONE of the following medications: *Heparin 5000 units SQ TID (Preferred with Epidurals) *Enoxaparin/Lovenox 40 mg SQ daily (WT < 150 kg, CrCl > 30 mL/min) *Enoxaparin/Lovenox 30 mg SQ daily (WT < 150 kg, CrCl > 10-29 mL/min) *Enoxaparin/Lovenox 30 mg SQ BID (WT < 150 kg, CrCl > 30 mL/min) AND *Sequential Compression Device (SCD) Assessment and Plan Plan L UE AVF revision POA for HD tomorrow Discharge Planning POD#1 Richard Hodges MD Jun 15, 2017 11:52
[2017-06-15] MEDS ORDERED: PROPOFOL 200 MG/20 ML AMP IV ONE ×2 (12:00)
[2017-06-15] MEDS ORDERED: LIDOCAINE HCL 1% PF 5 ML SYRINGE OTHER ONE ×2 (12:00)
[2017-06-15] MEDS ORDERED: ePHEDrine/NS 25 MG/5 ML SYRINGE IV ONE (12:00)
[2017-06-15] MEDS ORDERED: ONDANSETRON HCL 4 MG/2 ML VIAL IV ONE ×2 (12:00)
[2017-06-15] MEDS ORDERED: SODIUM CHLORID 0.9% 500 ML INJ 500 ML IV ONE ×2 (12:00)
[2017-06-15] MEDS ORDERED: ePHEDrine/NS 25 MG/5 ML SYRINGE IM ONE (12:00)
[2017-06-15] MEDS ORDERED: HEPARIN-NS/PF INJ 500 ML ONE (12:16)
[2017-06-15] MEDS ORDERED: VANCOMYCIN HCL 1000 MG VIAL ONE (12:16)
[2017-06-15] MEDS ORDERED: PROTAMINE SULFATE 50 MG/5 ML VIAL ONE (12:16)
[2017-06-15] MEDS ORDERED: HEPARIN SODIUM - IV 10,000 UNITS/10 ML VIAL ONE (12:16)
[2017-06-15] MEDS ORDERED: BUPIVACAINE HCL PF 0.5% 10 ML VIAL ONE (12:17)
--- NOTE | 2017-06-15 13:14 | HHI.PR ---
cc: Richard Hodges MD Immediate Post Op Note Procedure Date: Jun 15, 2017 Pre Op Diagnosis: ESRD, need for HD access Post Op Diagnosis: ESRD, need for HD access Surgeon: Richard Hodges Purchasing Clerk(s): Richard Harley Procedure: L UE access revision (superficialization) Findings: 5-6mm basilic vein, good thrill Complications: none Specimen(s) removed: none Estimated blood loss: 50mL Anesthesia: General Drains: None Fluids: 550mL IVF Patient to: PACU Patient Condition: Good Date/Time of Procedure: SEE SURGICAL CARE RECORD Richard Hodges MD Jun 15, 2017 13:14
[2017-06-15] MEDS ORDERED: LACTULOSE SYRUP 20 GM/30 ML CUP PO PRN (13:15)
[2017-06-15] MEDS ORDERED: MORPHINE SULFATE 4 MG/ML INJ IV PUSH PRN (13:15)
[2017-06-15] MEDS ORDERED: BISACODYL 10 MG SUPP RECTAL PRN (13:15)
[2017-06-15] MEDS ORDERED: SENNOSIDES 8.6 MG TAB PO PRN (13:15)
[2017-06-15] MEDS ORDERED: HYDROmorphone HCL 2 MG TAB PO PRN (13:15)
[2017-06-15] MEDS ORDERED: SODIUM BICARBONATE 325 MG TAB PO SCH (13:30)
[2017-06-15] MEDS ORDERED: THROMBIN (TOPICAL) 20,000 UNIT SPRAY KIT ONE (13:32)
[2017-06-15] MEDS ORDERED: DO NOT ADM ANY ANTICOAGULANT DRUGS PRN (13:36)
[2017-06-15] MEDS ORDERED: *morphine SULFATE 8 MG/ML PERIprocedure ONLY ONE ×2 (13:50→14:13)
[2017-06-15] MEDS ORDERED: SODIUM CHLOR 0.9% 1000 ML INJ 1,000 ML OTHER PRN ×2 (15:46)
[2017-06-15] MEDS ORDERED: SODIUM CHLOR 0.9% 1000 ML INJ 1,000 ML IV PRN (15:46)
[2017-06-15] MEDS ORDERED: LABETALOL HCL 100 MG/20 ML VIAL ONE (15:54)
[2017-06-15] MEDS ORDERED: GELATIN 12 MM/7 MM FOAM TOP PRN (16:00)
[2017-06-15] MEDS ORDERED: MANNITOL 12.5 GM/50 ML VIAL IV PRN (16:00)
[2017-06-15] MEDS ORDERED: cloNIDine HCL 0.1 MG TAB PO PRN (16:00)
[2017-06-15] MEDS ORDERED: GENTAMICIN SULFATE 20 MG/2 ML VIAL OTHER PRN (16:00)
[2017-06-15] MEDS ORDERED: NITROGLYCERIN 0.4 MG SL 25 TABS/BTL SL PRN (16:00)
[2017-06-15] MEDS ORDERED: EPOETIN ALFA 10,000 UNITS/ML VIAL IV PUSH PRN (16:00)
[2017-06-15] MEDS ORDERED: HEPARIN SODIUM - IV 10,000 UNITS/10 ML VIAL IV FLUSH PRN (16:00)
[2017-06-15] MEDS ORDERED: ACETAMINOPHEN 325 MG TAB PO PRN (16:00)
[2017-06-15] MEDS ORDERED: HEPARIN SODIUM - IV 10,000 UNITS/10 ML VIAL PRN (16:00)
[2017-06-15] MEDS ORDERED: diphenhydrAMINE HCL 25 MG CAP PO PRN (16:00)
[2017-06-15] MEDS ORDERED: ALBUMIN 25% INJ 100 ML IV PRN (16:00)
[2017-06-15] MEDS ORDERED: ONDANSETRON HCL 4 MG/2 ML VIAL IV PUSH PRN (16:00)
[2017-06-15] MEDS ORDERED: SODIUM CHLORIDE 0.9% FLUSH 10 ML FLUSH IV FLUSH PRN (16:00)
--- NOTE | 2017-06-15 16:02 | PD.CONS ---
HPI Service Nephrology Consult Requested By Dr. Campbell Reason for Consult ESRD on HD Primary Care Physician Nathan Barcenas MD History of Present Illness Patient is a 56 yo male with ESRD getting HD via R chest catheter on , HIV, and HTN. Present to hospital for 2nd stage of BB AVF. First stage was 01/07/17. Nephrology is consulted for ESRD and HD. Patients feels like he needs to urinate but unable to. His bladder is also distended appearing. Bladder scan is ordered. Per nursing attempted to place indwelling ferriera catheter but unable. (Valeria Hester) Review of Systems Respiratory: DENIES: Cough, Sputum production, Shortness of breath Cardiovascular: DENIES: Chest pain, Palpitations, Lower Extremity Edema Gastrointestinal: DENIES: Diarrhea, Nausea, Vomiting Genitourinary: COMPLAINS OF: Urgency (Feels urgency but unable to void) Psychiatric: COMPLAINS OF: Anxiety (Valeria Hester) Past Family Social History Allergies: Coded Allergies: *MDRO Multi-Drug Resistant Organism (Verified Adverse Reaction, Unknown, Cleared 09/17/15, 01/01/17) 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 MRSA PCR Screens NEGATIVE - 09/12 & 09/17/2015 CLEARED BY INFECTION CONTROL Past Medical History HIV ESRD HTN gastric CA Past Surgical History L BB AVF Gastric resection Active Ordered Medications Current Medications Medications (Trade) Dose Ordered Sig/Tomi Route Start Time Stop Time Status Last Admin Lactated Ringer's 1,000 ml @ 30 mls/hr Q24H PRN IV 06/15/17 11:00 06/18/17 10:59 Sodium Chloride 500 ml @ 30 mls/hr [id number] PRN IV 06/15/17 11:00 06/18/17 10:59 (Lopressor) 25 mg [employer] PRN PO 06/15/17 11:00 06/18/17 10:59 (Betadine 5% Antisepsis Kit) 1 applic [employer] PRN EACH NARE 06/15/17 11:00 06/18/17 10:59 (Chlorhexidine 2% Cloth) 3 pack [employer] PRN TOPICAL 06/15/17 11:00 06/18/17 10:59 (NovoLIN R INJ) See Protocol Table ... [employer] PRN SQ 06/15/17 11:00 06/18/17 10:59 (Aspirin Chew) 81 mg DAILY PO 06/16/17 09:00 (Pepcid) 10 mg BID PO 06/15/17 21:00 (Lipitor) 40 mg HS PO 06/15/17 21:00 (Roxicodone) 5 mg Q4H PRN PO 06/15/17 13:15 (Dilaudid) 2 mg Q4H PRN PO 06/15/17 13:15 (Morphine Inj) 2 mg Q1H PRN IV PUSH 06/15/17 13:15 (Heparin Inj) 5,000 units Q8H SQ 06/16/17 13:00 (Danitza-Colace) 1 tab BID PO 06/15/17 21:00 (Senokot) 17.2 mg Q12H PRN PO 06/15/17 13:15 (Dulcolax Supp) 10 mg DAILY PRN RECTAL 06/15/17 13:15 (Lactulose Liq) 30 ml DAILY PRN PO 06/15/17 13:15 (Coreg) 25 mg BID PO 06/15/17 21:00 (Marinol) 5 mg BID PO 06/15/17 21:00 (Epivir) 300 mg DAILY PO 06/16/17 09:00 UNV (Procardia Xl) 60 mg BID PO 06/15/17 21:00 (Edurant) 25 mg DAILY PO 06/16/17 09:00 (Sodium Bicarbonate) 10,000 mg TIDPC PO 06/15/17 13:30 UNV (Valtrex) 1,000 mg DAILY PO 06/16/17 09:00 Miscellaneous Information ALL NURSING DEPARTME... UNSCH PRN .XX 06/15/17 13:36 06/16/17 13:35 Last Impressions Chest X-Ray 06/15/17 0000 Signed Impressions: Service Date/Time: Thursday, June 15, 2017 09:50 - CONCLUSION: No acute disease Dennys Lugo MD Family History No family history reported Social History Tobacco: smokes 3 - 4 per day Alcohol: drinks twice weekly 2 - 3 beers . (Valeria Hester) Physical Exam Vital Signs Vital Signs Date Time Temp Pulse Resp B/P (MAP) Pulse Ox O2 Delivery O2 Flow Rate FiO2 06/15/17 14:30 72 18 144/90 (108) 100 Room Air 06/15/17 14:15 71 18 157/90 (112) 100 Room Air 06/15/17 14:00 66 17 139/86 (103) 100 Room Air 06/15/17 13:45 67 17 128/82 (97) 100 Nasal Cannula 2 06/15/17 13:36 97.5 62 17 118/73 (88) 100 Nasal Cannula 2 06/15/17 11:02 97.6 69 20 127/75 (92) 100 Physical Exam GENERAL: alert and oriented SKIN: Warm and dry. Tunneled catheter right chest wall. AVF in left upper arm. HEAD: Normocephalic. EYES: No scleral icterus. No injection or drainage. NECK: Supple, trachea midline. No JVD or lymphadenopathy. CARDIOVASCULAR: Regular rate and rhythm without murmurs, gallops, or rubs. RESPIRATORY: Breath sounds equal bilaterally. No accessory muscle use. GASTROINTESTINAL: Abdomen soft, non-tender, nondistended. MUSCULOSKELETAL: No cyanosis, or edema. BACK: Nontender without obvious deformity. No CVA tenderness. Laboratory Laboratory Tests Test 06/15/17 10:30 06/15/17 10:46 White Blood Count 7.6 Red Blood Count 2.22 Hemoglobin 8.7 Hematocrit 25.1 Mean Corpuscular Volume 113.1 Mean Corpuscular Hemoglobin 38.9 Mean Corpuscular Hemoglobin Concent 34.4 Red Cell Distribution Width 14.6 Platelet Count 288 Mean Platelet Volume 7.0 Neutrophils (%) (Auto) 60.1 Lymphocytes (%) (Auto) 26.7 Monocytes (%) (Auto) 9.1 Eosinophils (%) (Auto) 3.3 Basophils (%) (Auto) 0.8 Neutrophils # (Auto) 4.6 Lymphocytes # (Auto) 2.0 Monocytes # (Auto) 0.7 Eosinophils # (Auto) 0.3 Basophils # (Auto) 0.1 CBC Comment DIFF FINAL Differential Comment Prothrombin Time 10.7 Prothromb Time International Ratio 1.1 Blood Urea Nitrogen 24 Creatinine 7.56 Random Glucose 80 Calcium Level 8.0 Sodium Level 136 Potassium Level 4.8 Chloride Level 102 Carbon Dioxide Level 24.9 Anion Gap 9 Estimat Glomerular Filtration Rate 9 Activated Partial Thromboplast Time 25.9 (Valeria Hester) Result Diagram: 06/15/17 1030 06/15/17 1030 Imaging Last Impressions Chest X-Ray 06/15/17 0000 Signed Impressions: Service Date/Time: Thursday, June 15, 2017 09:50 - CONCLUSION: No acute disease Dennys Lugo MD (Valeria Hester) Assessment and Plan Problem List: (1) ESRD (end stage renal disease) on dialysis ICD Codes: N18.6 - End stage renal disease; Z99.2 - Dependence on renal dialysis Plan: ESRD dialysis T/TH/SAT through right chest perma cath. Epogen with dialysis Complaining of Urinary retention. Bladder scan is ordered. Nursing was unable to place indwelling may need urology. Dialysis planned for tomorrow. (2) AVF (arteriovenous fistula) ICD Codes: I77.0 - Arteriovenous fistula, acquired Plan: S/P AVF second part. 06/15/17 (3) Anemia ICD Codes: D64.9 - Anemia Status: Acute Plan: Epogen with dialysis (4) Essential hypertension ICD Codes: I10 - Essential hypertension Status: Acute Plan: Well controlled continue home meds (5) HIV (human immunodeficiency virus infection) ICD Codes: Z21 - Asymptomatic human immunodeficiency virus [HIV] infection status Status: Chronic Plan: continue home medications (Valeria Hester) Problem List: (1) ESRD (end stage renal disease) on dialysis ICD Codes: N18.6 - End stage renal disease; Z99.2 - Dependence on renal dialysis Plan: ESRD dialysis T/TH/SAT through right chest perma cath. Epogen with dialysis Complaining of Urinary retention. Bladder scan is ordered. Nursing was unable to place indwelling may need urology. Dialysis planned for tomorrow. Patient seen and examined, agree with above. AVF superficialization, has good Bruit. Ferreira;s catheter after Bladder scan. (2) AVF (arteriovenous fistula) ICD Codes: I77.0 - Arteriovenous fistula, acquired Plan: S/P AVF second part. 06/15/17 (3) Anemia ICD Codes: D64.9 - Anemia Status: Acute Plan: Epogen with dialysis (4) Essential hypertension ICD Codes: I10 - Essential hypertension Status: Acute Plan: Well controlled continue home meds (5) HIV (human immunodeficiency virus infection) ICD Codes: Z21 - Asymptomatic human immunodeficiency virus [HIV] infection status Status: Chronic Plan: continue home medications (George Davis MD) Valeria Hester Jun 15, 2017 16:02 George Davis MD Jun 15, 2017 19:13
[2017-06-15] MEDS ORDERED: HYDROmorphone HCL PF 2 MG/ML VIAL ONE (16:35)
[2017-06-15] MEDS: CARVEDILOL 12.5 MG TAB PO SCH (17:00)
[2017-06-15] MEDS: NIFEdipine 60 MG SUSTAINED RELEASE TAB PO SCH (17:00)
[2017-06-15] MEDS ORDERED: ATORVASTATIN 40 MG TAB PO SCH (21:00)
[2017-06-15] MEDS: DOCUSATE SODIUM 50 MG/SENNA 8.6 MG TAB PO SCH (21:00)
[2017-06-15] MEDS: TAMSULOSIN HCL 0.4 MG CAP PO SCH (21:51)
[2017-06-15] MEDS: FAMOTIDINE 20 MG TAB PO SCH (21:51)
[2017-06-15] MEDS: DRONABINOL 5 MG CAP PO SCH (21:52)
[2017-06-15] MEDS: SODIUM BICARBONATE 325 MG TAB PO SCH (21:52)
[2017-06-15 22:03] LABS: AMORPHOUS SEDIMENT, URINE RARE; BACTERIA, URINE RARE /hpf; BILIRUBIN, URINE NEG (NEG); BLOOD, URINE SMALL (NEG); GLUCOSE,URINE TRACE mg/dL (NEG); KETONE, URINE NEG (NEG); NITRITE,URINE NEG (NEG); SQUAMOUS EPITHELIAL CELL URINE <1 /hpf (0-5); TRANSITIONAL EPI CELLS, URINE 1 /hpf; URINE COLOR LIGHT-YELLOW (YELLW/STRAW); URINE LEUKOCYTE ESTERASE LARGE (NEG)
[2017-06-16] VITALS (17 sets, daily range): BP systolic 120–135; BP diastolic 75–79; PULSE 72–79; RESP 16–20; TEMP 98.3–98.8; O2SAT 98–99
--- NOTE | 2017-06-16 03:57 | MP ---
cc: Richard Hodges MD DATE OF OPERATION: 06/15/2017 PREOPERATIVE DIAGNOSIS: Endstage renal disease, need for dialysis access. POSTOPERATIVE DIAGNOSIS: Endstage renal disease, need for dialysis access. PROCEDURE PERFORMED: Left upper extremity access revision (superficialization). ATTENDING SURGEON: Richard Hodges MD. PLASTICS PLATER SURGEON: Richard Harley MD. ANESTHESIA: General. INDICATIONS: Mr. Matthews is a gentleman who has endstage renal disease and is on dialysis through a chest catheter. He had a left brachiobasilic fistula placed a couple of months ago. This is mature ultrasonographically and by physical examination. He was taken to the operating room for the second stage. Intraoperatively, it was found that the fistula was widely patent and it was superficialized without any difficulty. DESCRIPTION OF PROCEDURE: Informed consent was obtained from the patient and he was taken to the operating room and placed supine on the operating table. An appropriate timeout was taken to ensure patient identity, operative site and planned procedure. The administration of a gram of vancomycin was initiated prior to skin incision and will be discontinued after a single preoperative dose. Everyone in the room agreed and we proceeded. The vancomycin was chosen because of patient's endstage renal disease. He was placed under general anesthesia. The left arm was prepped and draped and an incision made over the course of the fistula and carried down to subcutaneous tissue with electrocautery. The fistula was dissected free from the antecubitum up to the axilla. Side branches were ligated with 3-0 silk. The fistula was noted to be widely patent, had a nice thrill and a reasonable diameter throughout. The tissues underneath the fistula were made hemostatic and closed with 2-0 Polysorb superficial to the fistula. Polysorb 3-0 and 4-0 Monocryl were then used. The patient's fistula was widely patent and easily palpable right underneath the incision. The sponge and needle counts were correct at the end of the case. I was present and scrubbed for the entire procedure. Richard Hodges MD RJF/DW , 09:01 PM , 03:55 AM
[2017-06-16 04:35] LABS: CALCIUM 7.7 MG/DL (8.5-10.1); CREATININE 7.93 MG/DL (0.60-1.30)
--- NOTE | 2017-06-16 07:33 | PD.VS.PN ---
Subjective POD #: 1 Procedure(s): L UE Access revision Subjective/Hospital Course Urinary retention last night - José placed by urology and started on Flomax. Pt feels well today - no hand troubles pain controlled Objective Vitals/I&O Date Time Temp Pulse Resp B/P (MAP) Pulse Ox O2 Delivery O2 Flow Rate FiO2 06/16/17 06:00 79 06/16/17 05:00 75 06/16/17 04:00 77 06/16/17 03:30 98.3 74 16 120/75 (90) 99 06/16/17 03:00 72 06/16/17 02:00 72 06/16/17 01:00 74 06/16/17 00:00 74 06/15/17 23:30 98.0 75 16 119/74 (89) 100 06/15/17 23:00 75 06/15/17 22:00 72 06/15/17 21:00 74 06/15/17 20:00 76 06/15/17 20:00 98.0 77 16 150/87 (108) 97 06/15/17 19:00 70 06/15/17 18:12 76 06/15/17 17:40 78 06/15/17 17:00 98.0 74 19 142/88 (106) 98 Room Air 06/15/17 16:30 71 18 165/100 (121) 99 Room Air 06/15/17 16:00 76 18 173/107 (129) 100 Room Air 06/15/17 15:30 76 18 164/91 (115) 100 Room Air 06/15/17 15:00 72 18 160/92 (114) 100 Room Air 06/15/17 14:45 71 18 158/89 (112) 100 Room Air 06/15/17 14:30 72 18 144/90 (108) 100 Room Air 06/15/17 14:15 71 18 157/90 (112) 100 Room Air 06/15/17 14:00 66 17 139/86 (103) 100 Room Air 06/15/17 13:45 67 17 128/82 (97) 100 Nasal Cannula 2 06/15/17 13:36 97.5 62 17 118/73 (88) 100 Nasal Cannula 2 06/15/17 11:02 97.6 69 20 127/75 (92) 100 3/06/16/17 06/16/17 07:00 15:00 23:00 Intake Total 480 ml Output Total 1140 ml Balance -660 ml Exam: resting comfortably L UE incision ok + thrill hand ok Laboratory Laboratory Tests Test 06/15/17 10:30 06/15/17 10:46 06/15/17 20:25 06/16/17 03:35 White Blood Count 7.6 Red Blood Count 2.22 Hemoglobin 8.7 Hematocrit 25.1 Mean Corpuscular Volume 113.1 Mean Corpuscular Hemoglobin 38.9 Mean Corpuscular Hemoglobin Concent 34.4 Red Cell Distribution Width 14.6 Platelet Count 288 Mean Platelet Volume 7.0 Neutrophils (%) (Auto) 60.1 Lymphocytes (%) (Auto) 26.7 Monocytes (%) (Auto) 9.1 Eosinophils (%) (Auto) 3.3 Basophils (%) (Auto) 0.8 Neutrophils # (Auto) 4.6 Lymphocytes # (Auto) 2.0 Monocytes # (Auto) 0.7 Eosinophils # (Auto) 0.3 Basophils # (Auto) 0.1 CBC Comment DIFF FINAL Differential Comment Prothrombin Time 10.7 Prothromb Time International Ratio 1.1 Blood Urea Nitrogen 24 31 Creatinine 7.56 7.93 Random Glucose 80 78 Calcium Level 8.0 7.7 Sodium Level 136 136 Potassium Level 4.8 4.6 Chloride Level 102 102 Carbon Dioxide Level 24.9 22.0 Anion Gap 9 12 Estimat Glomerular Filtration Rate 9 9 Activated Partial Thromboplast Time 25.9 Urine Color LIGHT-YELLOW Urine Turbidity HAZY Urine pH 8.0 Urine Specific Byron 1.008 Urine Protein 100 Urine Glucose (UA) TRACE Urine Ketones NEG Urine Occult Blood SMALL Urine Nitrite NEG Urine Bilirubin NEG Urine Urobilinogen LESS THAN 2.0 Urine Leukocyte Esterase LARGE Urine RBC 29 Urine WBC 125 Urine Squamous Epithelial Cells <1 Urine Transitional Epithelial Cells 1 Urine Amorphous Sediment RARE Urine Bacteria RARE Microscopic Urinalysis Comment CATH-CULTURE IND Date/Time Source Procedure Growth Status 06/15/17 20:25 Urine Catheterized Urine Urine Culture Pending Received Assessment and Plan Plan POD#1 s/p L UE access revision 1. HD today 2. D/C from vascular surgery standpoint 3. Will f/u with urology today about either d/c José or outpt f/u with voiding trial Discharge Planning later today after HD pending urology input Richard Hodges MD Jun 16, 2017 07:33
[2017-06-16] MEDS ORDERED: ASPIRIN 81 MG CHEW TAB PO SCH (09:00)
[2017-06-16] MEDS ORDERED: RILPIVIRINE 25 MG TAB PO SCH (09:00)
[2017-06-16] MEDS ORDERED: lamiVUDine SOLN 150 MG/15 ML CUP PO SCH (09:00)
[2017-06-16] MEDS ORDERED: valACYclovir HCL 500 MG TAB PO SCH (09:00)
[2017-06-16] MEDS ORDERED: DOLUTEGRAVIR SODIUM 50 MG TAB PO SCH (09:00)
[2017-06-16] MEDS: SODIUM BICARBONATE 325 MG TAB PO SCH (10:00)
[2017-06-16] MEDS: DRONABINOL 5 MG CAP PO SCH (10:00)
[2017-06-16] MEDS: FAMOTIDINE 20 MG TAB PO SCH (10:00)
[2017-06-16] MEDS: NIFEdipine 60 MG SUSTAINED RELEASE TAB PO SCH (10:00)
[2017-06-16] MEDS: CARVEDILOL 12.5 MG TAB PO SCH (10:00)
[2017-06-16] MEDS: TAMSULOSIN HCL 0.4 MG CAP PO SCH (10:01)
--- NOTE | 2017-06-16 10:04 | MB ---
cc: Aditya Browning MD DATE OF CONSULT: 06/15/2017 REASON FOR CONSULTATION: Urinary retention, difficult placement of José catheter. HISTORY OF PRESENT ILLNESS: The patient is a 56-year-old male with end-stage renal disease, getting hemodialysis Thursday, , Thursday, who is also HIV positive and hypertension, who presented to the hospital earlier today for a second stage AVFs. Following this procedure, he was unable to urinate in PACU. A bladder scan was done, which showed greater than 400. The patient had severe lower abdominal pain and palpable bladder. Several attempts were made for placement of José catheter in PACU, but were unsuccessful. Urology was consulted for catheter placed. The patient states he urinates about 2-3 times a day. He has a strong urge to urinate, but is unable to start his stream. He denies any prior surgery on his prostate or urethra in the past. States he has a strong stream. Denies hematuria or previous urinary tract infections or kidney stones. His abdominal pain is 10/10 at its worst, but the IV pain medications have been helping. ALLERGIES: INCLUDE NO KNOWN DRUG ALLERGIES. PAST MEDICAL HISTORY: For HIV, ESRD, hypertension, gastric cancer. SOCIAL HISTORY: He has had a gastric recession and AVF. CURRENT MEDICATIONS: Include Lipitor, Pepcid, Dulcolax, Coreg, Valtrex. FAMILY HISTORY: Denies urolithiasis or genitourinary. SOCIAL HISTORY: He smokes 3-4 cigarettes a day, drinks twice weekly. Denies illicit drugs. REVIEW OF SYSTEMS: See HPI. All systems reviewed, otherwise were negative. PHYSICAL EXAMINATION: VITAL SIGNS: Temperature 97.5, pulse 72, respiration 18, blood pressure 144/90, saturating 100% on room air. GENERAL: He is alert and oriented x 3, in mild distress, very uncomfortable, pleasant, cooperative, appears stated age. SKIN: Warm and dry. HEAD: Normocephalic, atraumatic. EYES: No sclerae icterus. Extraocular muscles are intact. NECK: Supple. Trachea is midline. No JVD. CARDIOVASCULAR: Regular rate and rhythm, without murmurs, gallops or rubs. RESPIRATORY: Breath sounds equal bilaterally. No wheezes, rales or rhonchi. GASTROINTESTINAL: Abdomen is soft, nontender, his bladder is palpable with lower abdominal tenderness. GENITOURINARY: Penis circumcised. Testes were descended bilaterally. Normal in size, without mass. EXTREMITIES: No clubbing, cyanosis or edema. NEUROLOGIC: Cranial nerves 2-12 intact. Strength 5/5 all 4 extremities. LABORATORY DATA: White count 7.6, hemoglobin 8.7, hematocrit 25.1, platelets 288. Sodium 136, potassium 4.8, chloride 102, bicarbonate 24.9, chloride 24, creatinine 7.56. IMAGING: His chest x-ray was reviewed. There was no acute disease. ASSESSMENT: The patient is a 56-year-old male, who has end-stage renal disease, who was admitted following second stage arteriovenous fistula, who presents with acute postop urinary retention and unable to place a catheter. PLAN: A 12-[place] coude catheter was placed under sterile technique. Clear yellow urine returned, approximately 800 mL. The patient immediately felt better. Recommend continued José catheter for now. We will start the patient on Flomax. Recommend a void trial in 5-7 days. Thank you for this consult. MD JIMMY Fontana/NELLA , 06:54 PM , 10:28 PM
[2017-06-16] MEDS: DOCUSATE SODIUM 50 MG/SENNA 8.6 MG TAB PO SCH (10:06)
[2017-06-16] MEDS ORDERED: OXYC1CAP PO (11:10)
--- NOTE | 2017-06-16 11:26 | PD.VS.DC ---
Discharge Summary Admission Date: Jun 15, 2017 at 13:17 Discharge Date: Jun 16, 2017 Admission Diagnosis: (1) AVF (arteriovenous fistula) (2) ESRD (end stage renal disease) on dialysis Discharge Diagnosis: (1) AVF (arteriovenous fistula) ICD Codes: I77.0 - Arteriovenous fistula, acquired (2) ESRD (end stage renal disease) on dialysis ICD Codes: N18.6 - End stage renal disease; Z99.2 - Dependence on renal dialysis Brief History from admission 56 yo male with ESRD getting HD via R chest catheter - last HD Sat. Presents for 2nd stage of BB AVF. First stage was 01/07/17. No troubles over the past few days that would preclude OR Procedure(s): L UE Access revision Significant Findings Abdomen S/NT José intact UE warm w/ motor intact + R/L palpable Radial pulses + thrill palpated near L UE AVF Pt w/o hand pain Laboratory Tests Test 06/15/17 10:30 06/15/17 10:46 06/15/17 20:25 06/16/17 03:35 Red Blood Count 2.22 MIL/MM3 (4.50-5.90) Hemoglobin 8.7 GM/DL (13.0-17.0) Hematocrit 25.1 % (39.0-51.0) Mean Corpuscular Volume 113.1 FL (80.0-100.0) Mean Corpuscular Hemoglobin 38.9 PG (27.0-34.0) Monocytes (%) (Auto) 9.1 % (0.0-8.0) Blood Urea Nitrogen 24 MG/DL (7-18) 31 MG/DL (7-18) Creatinine 7.56 MG/DL (0.60-1.30) 7.93 MG/DL (0.60-1.30) Calcium Level 8.0 MG/DL (8.5-10.1) 7.7 MG/DL (8.5-10.1) Estimat Glomerular Filtration Rate 9 ML/MIN (>89) 9 ML/MIN (>89) Urine Turbidity HAZY (CLEAR) Urine Protein 100 mg/dL (NEG-TRACE) Urine Occult Blood SMALL (NEG) Urine Leukocyte Esterase LARGE (NEG) Urine RBC 29 /hpf (0-3) Urine WBC 125 /hpf (0-5) Urine Bacteria RARE /hpf (NONE) Hospital Course: 56 yo male with ESRD getting HD via R chest catheter - last HD Sat. Presents for 2nd stage of BB AVF. First stage was 01/07/17. No troubles over the past few days that would preclude OR Pt S/P L UE AVF revision POD 0 Pt presented w/ post op urinary retention José cath re inserted POD 0 per Urology D/C w/ [facility] ([facility]) Pt to f/u in 5-7- days ([facility]) for José cath removal/Continue Flomax POD 1 Pt feels well today - no hand troubles pain controlled + Thrill near L UE AVF Pt clear for D/C post HD Arranged out pt f/u Allergies Coded Allergies Type Severity Reaction Last Updated Verified *MDRO Multi-Drug Resistant Organism Adverse Reaction Unknown Cleared 09/17/15 01/01/17 Yes Recent Impressions Chest X-Ray 06/15/17 0000 Signed Impressions: Service Date/Time: Thursday, June 15, 2017 09:50 - CONCLUSION: No acute disease Dennys Lugo MD 06/14/17 06/14/17 06/15/17 06/15/17 06/16/17 06/16/17 06:00 18:00 06:00 18:00 06:00 18:00 Intake Total 550 ml 480 ml Output Total 50 ml 1140 ml Balance 500 ml -660 ml Intake Oral 480 ml Other 550 ml Output Urine Total 1140 ml Estimated Blood Loss 50 ml # Bowel Movements 0 0 Laboratory Tests Test 06/15/17 10:30 06/15/17 10:46 06/15/17 20:25 06/16/17 03:35 White Blood Count 7.6 TH/MM3 Red Blood Count 2.22 MIL/MM3 Hemoglobin 8.7 GM/DL Hematocrit 25.1 % Mean Corpuscular Volume 113.1 FL Mean Corpuscular Hemoglobin 38.9 PG Mean Corpuscular Hemoglobin Concent 34.4 % Red Cell Distribution Width 14.6 % Platelet Count 288 TH/MM3 Mean Platelet Volume 7.0 FL Neutrophils (%) (Auto) 60.1 % Lymphocytes (%) (Auto) 26.7 % Monocytes (%) (Auto) 9.1 % Eosinophils (%) (Auto) 3.3 % Basophils (%) (Auto) 0.8 % Neutrophils # (Auto) 4.6 TH/MM3 Lymphocytes # (Auto) 2.0 TH/MM3 Monocytes # (Auto) 0.7 TH/MM3 Eosinophils # (Auto) 0.3 TH/MM3 Basophils # (Auto) 0.1 TH/MM3 CBC Comment DIFF FINAL Differential Comment Prothrombin Time 10.7 SEC Prothromb Time International Ratio 1.1 RATIO Blood Urea Nitrogen 24 MG/DL 31 MG/DL Creatinine 7.56 MG/DL 7.93 MG/DL Random Glucose 80 MG/DL 78 MG/DL Calcium Level 8.0 MG/DL 7.7 MG/DL Sodium Level 136 MEQ/L 136 MEQ/L Potassium Level 4.8 MEQ/L 4.6 MEQ/L Chloride Level 102 MEQ/L 102 MEQ/L Carbon Dioxide Level 24.9 MEQ/L 22.0 MEQ/L Anion Gap 9 MEQ/L 12 MEQ/L Estimat Glomerular Filtration Rate 9 ML/MIN 9 ML/MIN Activated Partial Thromboplast Time 25.9 SEC Urine Color LIGHT-YELLOW Urine Turbidity HAZY Urine pH 8.0 Urine Specific Kamrar 1.008 Urine Protein 100 mg/dL Urine Glucose (UA) TRACE mg/dL Urine Ketones NEG mg/dL Urine Occult Blood SMALL Urine Nitrite NEG Urine Bilirubin NEG Urine Urobilinogen LESS THAN 2.0 MG/DL Urine Leukocyte Esterase LARGE Urine RBC 29 /hpf Urine WBC 125 /hpf Urine Squamous Epithelial Cells <1 /hpf Urine Transitional Epithelial Cells 1 /hpf Urine Amorphous Sediment RARE Urine Bacteria RARE /hpf Microscopic Urinalysis Comment CATH-CULTURE IND Orders Procedure Category Date Status Time Chest, Single Ap RADDIAG 06/15/17 Resulted Basic Metabolic Panel LAB 06/15/17 Complete (Bmp) 09:40 Complete Blood Count LAB 06/15/17 Complete With Diff 09:40 Prothrombin Time / LAB 06/15/17 Complete Inr (Pt) 09:40 Act Partial Throm LAB 06/15/17 Complete Time (Ptt) 09:40 Type And Screen BBK 06/15/17 Complete 09:40 Lactated Ringer's MED 06/15/17 In Process 1000 Ml Inj (Lr 1000 M 11:00 Sodium Chlorid 0.9% MED 06/15/17 In Process 500 Ml Inj (Ns 500 M 11:00 Metoprolol Tartrate MED 06/15/17 In Process (Lopressor) 11:00 Povidone Iod 5% MED 06/15/17 In Process Antisepsis Kit 11:00 Chlorhexidine 2% MED 06/15/17 In Process Cloth (Chlorhexidine 11:00 Insulin Human Regular MED 06/15/17 In Process Inj (Novolin R Inj 11:00 Protamine Sulfate Inj MED 06/15/17 Complete (Protamine Sulfate 12:16 Heparin Inj (Heparin MED 06/15/17 Complete Inj) 12:16 Vancomycin Inj MED 06/15/17 Complete (Vancomycin Inj) 12:16 Heparin-Ns/Pf Inj MED 06/15/17 Complete (Heparin-Ns/Pf Inj) 12:16 Bupivacaine Pf 0.5% MED 06/15/17 Complete Inj (Marcaine Pf 0.5 12:17 Fentanyl Inj MED 06/15/17 Complete (Fentanyl Inj) 12:38 Code Status CODE 06/15/17 Transmitted 13:14 Vital Signs (Adult) ANTON 06/15/17 Complete 13:14 Pigment Processor / ANTON 06/15/17 In Process Telemetry 13:14 Activity Oob Ad Kaley ANTON 06/15/17 In Process 13:14 Notify Parameters ANTON 06/15/17 In Process 13:14 Precautions ANTON 06/15/17 In Process 13:14 Diet Heart Healthy DIET 06/15/17 Transmitted Lunch Basic Metabolic Panel LAB 06/16/17 Complete (Bmp) 06:00 Consult Nephrology CONS 06/15/17 Transmitted Aspirin Chew (Aspirin MED 06/16/17 In Process Chew) 09:00 Famotidine (Pepcid) MED 06/15/17 In Process 21:00 Atorvastatin (Lipitor) MED 06/15/17 In Process 21:00 Oxycodone (Roxicodone) MED 06/15/17 In Process 13:15 Hydromorphone MED 06/15/17 In Process (Dilaudid) 13:15 Morphine Inj MED 06/15/17 In Process (Morphine Inj) 13:15 Scd Bilateral/Knee ANTON 06/15/17 In Process High 13:14 Docusate Sodium-Senna MED 06/15/17 In Process (Danitza-Colace) 21:00 Sennosides (Senokot) MED 06/15/17 In Process 13:15 Bisacodyl Supp MED 06/15/17 In Process (Dulcolax Supp) 13:15 Lactulose Liq MED 06/15/17 In Process (Lactulose Liq) 13:15 Carvedilol (Coreg) MED 06/15/17 In Process 21:00 Dolutegravir (Tivicay) MED 06/16/17 In Process 09:00 Dronabinol (Marinol) MED 06/15/17 In Process 21:00 Rilpivirine (Edurant) MED 06/16/17 In Process 09:00 Valacyclovir (Valtrex) MED 06/16/17 In Process 09:00 Thrombin Top Conyers MED 06/15/17 Complete (Thrombin Top [place]yers) 13:32 Sds Pre Op Care SDSC 06/15/17 Complete *Morphine Inj MED 06/15/17 Complete (*Morphine Inj 13:50 Heparin Inj (Heparin MED 06/16/17 In Process Inj) 13:00 Place In Observation ADMITTING 06/15/17 Transmitted Nifedipine Sr MED 06/15/17 In Process (Procardia Xl) 21:00 *Morphine Inj MED 06/15/17 Complete (*Morphine Inj 14:13 (Hub Use Only)Inp Phy CONS 06/15/17 Transmitted Cons/Ref Misc Nursing MED 06/15/17 In Process Information 13:36 Blood Flow Rate ANTON 06/15/17 In Process 15:46 Dialysate Flow Rate ANTON 06/15/17 In Process 15:46 Dialyzer ANTON 06/15/17 In Process 15:46 Concentrate ANTON 06/15/17 In Process 15:46 Acid Concentrate ANTON 06/15/17 In Process 15:46 Length Of Dialysis ANTON 06/15/17 In Process 15:46 Frequency Of Dialysis ANTON 06/15/17 In Process 15:46 Dialysis Obtain ANTON 06/15/17 In Process 15:46 Needle Size ANTON 06/15/17 In Process 15:46 Dialysis Schedule ANTON 06/15/17 In Process 15:46 Resp Oxygen Benton C RSP 06/15/17 Logged Titrat 1-4 L Dialysis Weight ANTON 06/15/17 In Process 15:46 ^ Obtain As Needed ANTON 06/15/17 In Process 15:46 Sodium Chlor 0.9% MED 06/15/17 In Process 1000 Ml Inj (Ns 1000 M 15:46 Heparin Inj (Heparin MED 06/15/17 In Process Inj) 16:00 Sodium Chlor 0.9% MED 18 In Process 1000 Ml Inj (Ns 1000 M 15:46 Sodium Chlor 0.9% MED 18 In Process 1000 Ml Inj (Ns 1000 M 15:46 Mannitol Inj MED 18 In Process (Mannitol Inj) 16:00 Albumin 25% Inj MED 06/15/17 In Process (Albumin 25% Inj) 16:00 Sodium Chloride 0.9% MED 06/15/17 In Process Flush (Ns Flush) 16:00 Heparin Inj (Heparin MED 06/15/17 In Process Inj) 16:00 Gentamicin Inj MED 06/15/17 In Process (Gentamicin Inj) 16:00 Ondansetron Inj MED 06/15/17 Logged (Zofran Inj) 16:00 Acetaminophen MED 06/15/17 In Process (Tylenol) 16:00 Diphenhydramine MED 06/15/17 In Process (Benadryl) 16:00 Nitroglycerin Sl MED 06/15/17 In Process (Nitrostat Sl) 16:00 Clonidine (Catapres) MED 06/15/17 In Process 16:00 Epoetin Syed Inj MED 06/15/17 In Process (Epogen Inj) 16:00 Gelatin 12 Mm/7 Mm MED 06/15/17 In Process Top (Gelfoam 12 Mm/7 16:00 Labetalol Inj MED 06/15/17 Complete (Trandate Inj) 15:54 Consult Urology CONS 06/15/17 Transmitted (Hub Use Only)Inp Phy CONS 06/15/17 Transmitted Cons/Ref Hydromorphone Pf Inj MED 06/15/17 Complete (Dilaudid Pf Inj) 16:35 Sodium Bicarbonate MED 06/15/17 In Process (Sodium Bicarbonate) 21:00 Lamivudine Liq MED 06/16/17 In Process (Epivir Liq) 09:00 Continue Urinary ANTON 06/15/17 In Process Catheter 18:54 Tamsulosin (Flomax) MED 06/15/17 In Process 19:30 Urinalysis - C+S If LAB 06/15/17 Complete Indicated 18:54 Specimen To Be ANTON 06/15/17 In Process Collected 18:54 Class Iv Pacu Ea 30 [facility] 06/15/17 Complete MIN General/Pacu [facility] 06/15/17 Complete Post Anesthesia Oxygen [facility] 06/15/17 Complete Urine Culture AMI 06/15/17 In Process 20:25 Sodium Chlorid 0.9% MED 06/15/17 Complete 500 Ml Inj (Ns 500 M 12:00 Lidocaine Pf 1% Inj MED 06/15/17 Complete (Xylocaine-Mpf 1% In 12:00 Ephedrine/Ns 25 Mg/5 MED 06/15/17 Complete Ml Syr (Ephedrine/N 12:00 Ondansetron Inj MED 06/15/17 Complete (Zofran Inj) 12:00 Propofol 200 Mg/20 Ml MED 06/15/17 Complete Inj (Diprivan 200 12:00 Attending Discharge DISCHARGE 06/16/17 Transmitted Order Vital Signs Date Time Temp Pulse Resp B/P (MAP) Pulse Ox O2 Delivery O2 Flow Rate FiO2 06/16/17 10:00 72 06/16/17 09:00 72 06/16/17 08:13 99 21 06/16/17 08:00 72 06/16/17 07:15 76 06/16/17 07:15 98.8 78 20 125/77 (93) 98 06/16/17 06:00 79 06/16/17 05:00 75 06/16/17 04:00 77 06/16/17 03:30 98.3 74 16 120/75 (90) 99 06/16/17 03:00 72 06/16/17 02:00 72 06/16/17 01:00 74 06/16/17 00:00 74 06/15/17 23:30 98.0 75 16 119/74 (89) 100 06/15/17 23:00 75 06/15/17 22:00 72 06/15/17 21:00 74 06/15/17 20:00 76 06/15/17 20:00 98.0 77 16 150/87 (108) 97 06/15/17 19:00 70 06/15/17 18:12 76 06/15/17 17:40 78 06/15/17 17:00 98.0 74 19 142/88 (106) 98 Room Air 06/15/17 16:30 71 18 165/100 (121) 99 Room Air 06/15/17 16:00 76 18 173/107 (129) 100 Room Air 06/15/17 15:30 76 18 164/91 (115) 100 Room Air 06/15/17 15:00 72 18 160/92 (114) 100 Room Air 06/15/17 14:45 71 18 158/89 (112) 100 Room Air 06/15/17 14:30 72 18 144/90 (108) 100 Room Air 06/15/17 14:15 71 18 157/90 (112) 100 Room Air 06/15/17 14:00 66 17 139/86 (103) 100 Room Air 06/15/17 13:45 67 17 128/82 (97) 100 Nasal Cannula 2 06/15/17 13:36 97.5 62 17 118/73 (88) 100 Nasal Cannula 2 06/15/17 11:02 97.6 69 20 127/75 (92) 100 Discharge Condition: Good Discharge Disposition: Discharge Home Discharge Instructions: DIET May resume a Dialysis diet ACTIVITY No heavy lifting over a gallon of milk for 10 days- LEFT upper extremity NO B/P readings/Lab draws - LEFT upper extremity May shower NO tub baths until your incision is fully healed INCISION CARE Leave your incision open to air Do not apply any creams or ointments as it may loosen the surgical glue Call the office to report any new onset swelling, redness or drainage MEDICATIONS You may resume your home medications You were prescribed a narcotic pain medications that may cause constipation- take with an over the counter stool softener You were prescribed a narcotic pain medications that may cause drowsiness- No driving while taking your prescribed pain medication F/U with [facility] in 5-7 days for catheter removal Continue Flomax for urinary retention Any questions or concerns: Call [facility] [phone] Ese Ellison Jun 16, 2017 11:26
[2017-06-16] MEDS ORDERED: TAMS5CAP PO (11:29)
[2017-06-16] MEDS ORDERED: HEPARIN SODIUM - SQ 10,000 UNITS/ML VIAL SQ SCH (13:00)
== END 2017-06-16 18:15 | disposition home or self-care (01) ==
LOC: HCVO 09:23 → INTOOBSV 13:17 → HSDI 13:17 → HCPC 17:44
PROVIDERS: ADMIT Surgery; ATTEND Surgery
DX: I12.0 Hypertensive chronic kidney disease with stage 5 chronic kidney disease or end stage renal disease (principal); N18.6 End stage renal disease; I77.0 Arteriovenous fistula, acquired; R10.30 Lower abdominal pain, unspecified; R33.9 Retention of urine, unspecified; D63.1 Anemia in chronic kidney disease; B20 Human immunodeficiency virus [HIV] disease; F17.210 Nicotine dependence, cigarettes, uncomplicated; Z99.2 Dependence on renal dialysis; Z85.028 Personal history of other malignant neoplasm of stomach
CPT/HCPCS: 01844; 36832; 71045; 80048; 81001; 85025; 85610; 85730; 86850; 86900; 86901; 87086; 90935; 96374; 96375; G0378; J1170; J1580; J1644; J2270; J2405; J3010; J3370; J7040; Q4081; J2720